=== PATIENT | female | born 2000 | race Caucasian/White ===

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

== ENCOUNTER 2019-04-22 17:00 | Emergency (ER) | payer BC ==
[2019-04-22] MEDS ORDERED: TORAdol 30 mg Injection IM ONE (17:51)
[2019-04-22] MEDS ORDERED: Norflex 60 MG/2 ML IM ONE (17:51)
[2019-04-22] MEDS ORDERED: Norflex 60 MG/2 ML ONE (17:56)
[2019-04-22] MEDS ORDERED: TORAdol 30 mg Injection ONE (17:56)
--- NOTE | 2019-04-22 18:07 | ERPHSYRPT ---
- History of Present Illness Time Seen by Provider: 04/22/19 17:40 Source: patient Exam Limitations: no limitations Patient Subjective Stated Complaint: patient stating she has had pain in her coccyx area for one year. states was vomiting and felt something in her tailbone pop at that time. has seen her family doctor but isn't sure what's causing it. had a ct scan in february and it shows possible kidney stone on the right. patient denies any urinary difficulty at this time. Triage Nursing Assessment: to room per w/c from [facility] office. patient very tearful and very guarded when transferring from w/c to the bed. skin w/d, color normal. tender in coccyx area. denies any urinary difficulty. states she had obtained urine specimen at [facility] just prior to coming to er. urine is clear, yellow. Physician History: Pt has been c/o low back pain for about one year, she states, she was vomiting once and "pop'-ed her coccyx about one year ago. She has been taking Flexeril recently and it has not been able to control her pain, she denies recent injury , no abdominal pain, vomiting, fever, chills, chest pain, other complaints, except nausea from the pain. She was seen at the [facility] today and sent here for further evaluation. Timing/Duration: other (over one year) Method of Injury: other ("popped") Quality: sharp Back Pain Location: coccyx Back Pain Radiation: buttocks, upper legs Severity of Pain-Max: severe Severity of Pain-Current: severe Modifying Factors: Improves With: nothing Associated Symptoms: nausea Previous symptoms: same symptoms as today Allergies/Adverse Reactions: hydromorphone HCl [From Dilaudid] Allergy (Severe, Verified 04/22/19 17:14) Hives Severe itching with hives penicillin G Allergy (Mild, Verified 04/22/19 17:14) Swelling diphenhydramine HCl [From Benadryl] Adverse Reaction (Mild, Verified 04/22/19 17 :14) "crazy behavior" pertussis vaccine,adsorbed [Pertussis Vaccine,Adsorbed] Adverse Reaction ( Verified 04/22/19 17:14) Swelling Home Medications: Levothyroxine Sodium 25 Mcg [Synthroid 25 Mcg] 75 mcg PO DAILY 05/05/14 [ History] Hx Tetanus, Diphtheria Vaccination/Date Given: Yes Hx Influenza Vaccination/Date Given: No Hx Pneumococcal Vaccination/Date Given: No - Review of Systems Constitutional: No Symptoms Ears, Nose, & Throat: No Symptoms Respiratory: No Symptoms Cardiac: No Symptoms Abdominal/Gastrointestinal: Nausea Genitourinary Symptoms: No Symptoms Musculoskeletal: Back Pain Skin: No Symptoms Neurological: No Symptoms Psychological: Anxiety, No Suicidal Ideations All Other Systems: Reviewed and Negative - Past Medical History Pertinent Past Medical History: Yes Neurological History: Epilepsy ENT History: No Pertinent History Cardiac History: Other Respiratory History: No Pertinent History Endocrine Medical History: Hypothyroidism Musculoskeletal History: No Pertinent History GI Medical History: Irritable Bowel History: No Pertinent History Psycho-Social History: Anxiety, Depression Female Reproductive Disorders: Menstrual Problems Other Medical History: dairy sensitivty. autism - Past Surgical History Past Surgical History: Yes Neuro Surgical History: No Pertinent History Cardiac: No Pertinent History Respiratory: No Pertinent History Gastrointestinal: No Pertinent History Genitourinary: No Pertinent History Musculoskeletal: No Pertinent History Female Surgical History: No Pertinent History Other Surgical History: egd, colonoscopy - Social History Smoking Status: Never smoker Exposure to second hand smoke: No Drug Use: none Patient Lives Alone: No - Female History Hx Last Menstrual Period: two weeks ago Hx Now: No - Nursing Vital Signs Nursing Vital Signs: Initial Vital Signs Temperature 99.5 F 04/22/19 17:04 Pulse Rate 86 04/22/19 17:04 Respiratory Rate 16 04/22/19 17:04 Blood Pressure 125/92 04/22/19 17:04 O2 Sat by Pulse Oximetry 97 04/22/19 17:04 Pain Scale Pain Intensity [Sacrum] 9 Pain Intensity 4 - Physical Exam General Appearance: no apparent distress Ears, Nose, Throat Exam: normal ENT inspection Neck Exam: normal inspection, non-tender, supple Respiratory Exam: normal breath sounds, lungs clear, airway intact, No chest tenderness Cardiovascular Exam: regular rate/rhythm, normal heart sounds, normal peripheral pulses, capillary refill <2 sec, No murmur Gastrointestinal Exam: soft, normal bowel sounds, No tenderness, No distention, No mass, No guarding, No ecchymosis, No pulsatile mass, No rebound, No organomegaly Back Exam: normal inspection, other (diffuse, bilateral sacroiliac tenderness), No CVA tenderness, No vertebral tenderness, No rash Extremity Exam: normal inspection, No calf tenderness, No alphonse's sign, No pedal edema Peripheral Pulses: dorsalis-pedis (R): 3+, dorsalis-pedis (L): 3+ Neurologic Exam: alert, oriented x 3, cooperative, normal mood/affect, other ( normal, equal lower extremity reflexes, straight leg raising normal both sides.) , No motor weakness Skin Exam: normal color, warm, dry, No rash, No petechiae, No cyanosis, No diaphoresis Lymphatic Exam: No adenopathy SpO2 Interpretation: normal SpO2: 97 O2 Delivery: Room Air - Course Nursing assessment & vital signs reviewed: Yes - Radiology Exams L-Spine X-ray Interpretation: Interpreted by me, Negative Other X-ray Interpretation: Interpreted by me, Negative (sacrococcyx) Ordered Tests: Active Orders 24 hr Category Date Time Status LUMBAR LIMITED (2 OR 3 VIEWS) Stat Exams 04/22/19 18:43 Taken SACRUM AND COCCYX Stat Exams 04/22/19 18:44 Taken CULTURE,URINE Stat Lab 04/22/19 18:12 Received HCG,QUALITATIVE URINE Stat Lab 04/22/19 18:12 Completed UA W/RFX UR CULTURE Stat Lab 04/22/19 18:12 Completed Urine Triage Profile Stat Lab 04/22/19 18:12 Completed Medication Summary Discontinued Medications Generic Name Dose Route Start Last Admin Trade Name Annabel PRN Reason Stop Dose Admin Fentanyl Citrate 50 mcg 04/22/19 19:05 04/22/19 19:25 Sublimaze 100 Mcg/2 Ml IM 04/22/19 19:06 50 mcg STAT ONE Administration Fentanyl Citrate Confirm 04/22/19 19:18 Sublimaze 100 Mcg/2 Ml Administered 04/22/19 19:19 Dose 100 mcg .ROUTE .STK-MED ONE Ketorolac Tromethamine 30 mg 04/22/19 17:51 04/22/19 17:58 Toradol 30 Mg Injection IM 04/22/19 17:52 30 mg STAT ONE Administration Ketorolac Tromethamine Confirm 04/22/19 17:56 Toradol 30 Mg Injection Administered 04/22/19 17:57 Dose 30 mg .ROUTE .STK-MED ONE Ondansetron HCl 4 mg 04/22/19 19:05 08/20/19 19:26 Zofran Odt 4 Mg PO 04/22/19 19:06 4 mg STAT ONE Administration Ondansetron HCl Confirm 04/22/19 19:18 Zofran Odt 4 Mg Administered 04/22/19 19:19 Dose 4 mg .ROUTE .STK-MED ONE Orphenadrine Citrate 60 mg 04/22/19 17:51 04/22/19 17:58 Norflex 60 Mg/2 Ml IM 04/22/19 17:52 60 mg STAT ONE Administration Orphenadrine Citrate Confirm 04/22/19 17:56 Norflex 60 Mg/2 Ml Administered 04/22/19 17:57 Dose 60 mg .ROUTE .STK-MED ONE Lab/Rad Data: Laboratory Results 04/22/19 04/22/19 04/22/19 Range/Units 18:12 18:12 18:12 Urine Color YELLOW (YELLOW) Urine Appearance CLEAR (CLEAR) Urine pH 5.0 (5-6) Ur Specific [place] 1.012 (1.005-1.025) Urine Protein NEGATIVE (Negative) Urine Ketones NEGATIVE (NEGATIVE) Urine Blood SMALL (0-5) Mateo/ul Urine Nitrite NEGATIVE (NEGATIVE) Urine Bilirubin NEGATIVE (NEGATIVE) Urine Urobilinogen NEGATIVE (0-1) mg/dL Ur Leukocyte Esterase SMALL (NEGATIVE) Urine WBC (Auto) 3-5 (0-5) /HPF Urine RBC (Auto) 3-5 (0-2) /HPF U Epithel Cells (Auto) RARE (FEW) /HPF Urine Bacteria (Auto) NONE (NEGATIVE) /HPF Urine Mucus (Auto) SLIGHT (NEGATIVE) /HPF Urine Culture Reflexed YES (NO) Urine Glucose NEGATIVE (NEGATIVE) mg/dL Urine HCG, Qual NEGATIVE (Negative) Urine Opiates Level NEGATIVE (NEGATIVE) Ur Methadone NEGATIVE (NEGATIVE) Urine Barbiturates NEGATIVE (NEGATIVE) Ur Phencyclidine (PCP) NEGATIVE (NEGATIVE) Urine Amphetamine NEGATIVE (NEGATIVE) U Benzodiazepine Level NEGATIVE (NEGATIVE) Urine Cocaine NEGATIVE (NEGATIVE) Urine Marijuana (THC) NEGATIVE (NEGATIVE) - Progress Progress: improved Progress Note: 04/22/19 19:42 Pt states, slightly improved after Toradol, and Fentanyl IM, abdomen is soft, nontender, no flank tenderness, reviewed her X rays, and labs, discussed with her and her mother, suggested to rest x 2-3 days alternate ice and hot on the painful spots, and follow up with her physician in 2-3 days. Counseled pt/family regarding: lab results, diagnosis, need for follow-up, rad results - Departure Departure Disposition: Home Clinical Impression: Back pain Qualifiers: Back pain location: low back pain Chronicity: chronic Back pain laterality: unspecified Sciatica presence: without sciatica Qualified Code(s): M54.5 - Low back pain; G89.29 - Other chronic pain Condition: Stable Critical Care Time: No Referrals: JAMEE CONNER MD [Primary Care Provider] - Instructions: Low Back Pain (DC) Additional Instructions: Rest x 2-3 days, alternate ice and warm, follow up with her physician in 2-3 days, return if severe pain, sudden leg weakness, numbness, or loss of bladder, bowel control! Prescriptions: Diclofenac Sodium 50 mg [Voltaren 50 mg] 50 mg PO TID #30 tablet.ec
[2019-04-22 18:14] LABS: Appearance CLEAR (CLEAR); Bilirubin NEGATIVE (NEGATIVE); Blood SMALL Ery/ul (0-5); Epithelial Cells RARE /HPF (FEW); Glucose NEGATIVE (NEGATIVE); Ketones NEGATIVE (NEGATIVE); Leukocyte Esterase SMALL (NEGATIVE); Mucus SLIGHT /HPF (NEGATIVE); Nitrite NEGATIVE (NEGATIVE); Protein,Urine Dip NEGATIVE (Negative); Specific Gravity 1.012 (1.005-1.025); Urobilinogen NEGATIVE mg/dL (0-1)
[2019-04-22 18:27] LABS: Amphetamine,Urine NEGATIVE (NEGATIVE); Barbiturate,Urine NEGATIVE (NEGATIVE); Benzodiazepine,Urine NEGATIVE (NEGATIVE); Cocaine,Urine NEGATIVE (NEGATIVE); Methadone,Urine NEGATIVE (NEGATIVE); Opiate,Urine NEGATIVE (NEGATIVE); PCP,Urine NEGATIVE (NEGATIVE); THC,Urine NEGATIVE (NEGATIVE)
[2019-04-22] MEDS ORDERED: ZOFRAN ODT 4 MG PO ONE (19:05)
[2019-04-22] MEDS ORDERED: SUBLIMAZE 100 MCG/2 ML IM ONE (19:05)
[2019-04-22] MEDS ORDERED: ZOFRAN ODT 4 MG ONE (19:18)
[2019-04-22] MEDS ORDERED: SUBLIMAZE 100 MCG/2 ML ONE (19:18)
[2019-04-22 20:01] VITALS: BP 125/88; PULSE 85; O2SAT 98
--- NOTE | 2019-04-23 08:36 | XRAY ---
Indication: Low back pain. Comparison: None 3 views of the sacrum/coccyx demonstrates lower lumbar degenerative changes reported separately. No other bony, articular, or soft tissue abnormalities.
--- NOTE | 2019-04-23 08:36 | XRAY ---
Indication: Low back pain. Comparison: None 3 views of the lumbar spine demonstrates 5 lumbar vertebral segments in normal alignment with vertebral body heights/disc spaces maintained and mild bilateral L5-S1 degenerative facet hypertrophy. No other bony, articular, or soft tissue abnormalities.
== END 2019-04-22 19:59 | disposition home or self-care (01) ==
LOC: ED 17:00
DX: M54.5 Low back pain (principal); G89.29 Other chronic pain
CPT/HCPCS: 72100; 72220; 80307; 81001; 84703; 87086; 96372; 99284; J1885; J2360; J3010; Q0162

== ENCOUNTER 2019-04-28 07:21 | Emergency (ER) | payer BC | END 2019-04-28 09:52 | disposition home or self-care (01) | LOC: ED 07:21 ==

== ENCOUNTER 2019-05-01 16:09 | Observation (INO) | payer BC ==
[2019-05-01] MEDS ORDERED: Zofran 4 MG/2 ML VIAL IV PRN (16:33)
[2019-05-01] MEDS ORDERED: MORPHINE SULFATE 10 MG/ML IV PRN (16:33)
[2019-05-01] MEDS ORDERED: Sodium Chloride 0.9% 1000 ML 1,000 ML IV STA (16:33)
[2019-05-01] MEDS: Lactated Ringers 1,000 ML IV SCH (17:03)
[2019-05-01] MEDS ORDERED: MEDICATION INTERVENTION MC SCH (17:30)
[2019-05-01] MEDS ORDERED: solu-MEDROL 40 MG IV ONE (17:36)
[2019-05-01] MEDS ORDERED: Pepcid 20 MG VIAL IV PRN (19:55)
[2019-05-01] MEDS: TORAdol 30 mg Injection IV PRN (20:16)
[2019-05-02] MEDS ORDERED: solu-MEDROL 125 MG IV PRN
[2019-05-02] MEDS ORDERED: solu-MEDROL 125 MG ONE ×2 (01:09→06:59)
[2019-05-02] MEDS: TORAdol 30 mg Injection IV PRN ×3 (02:18→20:21)
[2019-05-02] MEDS: Lactated Ringers 1,000 ML IV SCH ×2 (02:24→16:11)
[2019-05-02 06:09] LABS: Amphetamine,Urine NEGATIVE (NEGATIVE); Barbiturate,Urine NEGATIVE (NEGATIVE); Benzodiazepine,Urine NEGATIVE (NEGATIVE); Cocaine,Urine NEGATIVE (NEGATIVE); Methadone,Urine NEGATIVE (NEGATIVE); Opiate,Urine POSITIVE (NEGATIVE); PCP,Urine NEGATIVE (NEGATIVE); THC,Urine NEGATIVE (NEGATIVE)
[2019-05-02] MEDS ORDERED: SUBLIMAZE 100 MCG/2 ML IV ONE (06:30)
[2019-05-02] MEDS ORDERED: solu-MEDROL 125 MG IV ONE (06:58)
[2019-05-02] MEDS ORDERED: Ativan 2 MG/1 ML VIAL IV ONE (08:34)
--- NOTE | 2019-05-02 08:40 | PCM.HP.ADD ---
Addendum to History & Physical - History & Physical Addendum Addendum to History & Physical: This certifies that the History & Physical in the electronic chart reflects the current health status of the patient. If there are changes in the H&P these changes/exceptions are listed as follows.
--- NOTE | 2019-05-02 08:46 | PCM.NOTE ---
Date and Time: 05/02/19839 Subjective Assessment: Pt was admitted from office yesterday with intractable back pain, N/V/ dehydration. She was given IV fluids overnight. Continues to have 10/10 pain; currently pain is mid and paraspinal from mid thoracic area to lower back. No pain radiating down the legs currently. Her CT abd/pelvis was neg for renal stone. She was given morphine initially, but had itching. Pt also allergic to benadryl. She was given IV solumedrol. Then was given IV toradol, nurse thought with some relief, pt says without relief but said it caused itching ( toradol didn't) so she may be confused on which med did that. 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 - Review of Systems Constitutional: No Fever Respiratory: No Cough Objective Exam General Appearance: moderate distress, alert Neurologic Exam: oriented x 3, cooperative Skin Exam: normal color, warm, dry, No rash Respiratory Exam: normal breath sounds, lungs clear, No crackles/rales, No rhonchi, No wheezing Cardiovascular Exam: regular rate/rhythm, normal heart sounds, No murmur Gastrointestinal/Abdomen Exam: soft, normal bowel sounds, No tenderness, No distention, No mass, No guarding, No rebound Extremity Exam: normal inspection, No pedal edema, No swelling OBJECTIVE DATA Vital Signs: Vital Signs - 24 hr Temp Pulse Resp BP Pulse Ox 05/02/19 08:00 98.8 F 75 20 114/74 97 05/02/19 04:00 97.8 F 59 L 18 122/79 97 05/01/19 23:44 97.7 F 58 L 19 114/68 96 05/01/19 20:00 98.0 F 59 L 19 113/66 97 05/01/19 16:32 98.4 F 81 16 138/90 98 05/01/19 16:14 98.4 F 81 16 131/90 98 Pain Assessment - Last Documented Pain Intensity 10 Pain Scale Used 0-10 Pain Scale Intake and Output: Intake & Output 04/29/19 04/30/19 05/01/19 05/02/19 11:59 11:59 11:59 11:59 Intake Total 1884 Output Total 400 Balance 1484 Weight 61.5 kg Lab Results: Lab Results-Last 24 Hours 05/01/19 05/02/19 Range/Units Unknown 05:15 Serum , Qual NEGATIVE (Negative) Urine Opiates Level POSITIVE (NEGATIVE) Ur Methadone NEGATIVE (NEGATIVE) Urine Barbiturates NEGATIVE (NEGATIVE) Ur Phencyclidine (PCP) NEGATIVE (NEGATIVE) Urine Amphetamine NEGATIVE (NEGATIVE) U Benzodiazepine Level NEGATIVE (NEGATIVE) Urine Cocaine NEGATIVE (NEGATIVE) Urine Marijuana (THC) NEGATIVE (NEGATIVE) Radiology Exams: Radiology Procedures Category Date Time Status ABDOMEN AND PELVIS W/0 CONTRAS [CT] Stat Exams 05/01/19 16:35 Taken MRI L-SPINE WITHOUT CONTRAST [MRI] Routine Exams 05/02/19 16:35 Ordered Assessment/Plan (1) Intractable back pain Current Visit: No Status: Acute Assessment & Plan: Unsure the etiology. Not renal stone. UA was ordered in office, but she didn't have any urine until she got here and UA was not ordered inpatient - so will order it now. MRI spine is pending - will keep her NPO (on IV fluids) until after that. Ativan IV to help her lie still on MRI table. If unable, will do CT. After results are in, can decide if pt needs neurosurgery, neurology, etc. There is positive opiates on her UDS but she had already received IV morphine when the sample was obtained. Code(s): M54.9 - DORSALGIA, UNSPECIFIED (2) Dehydration Current Visit: No Status: Resolved Code(s): E86.0 - DEHYDRATION (3) Asperger syndrome Current Visit: Yes Status: Acute Assessment & Plan: per chart Code(s): F84.5 - ASPERGER'S SYNDROME (4) Depressive disorder Current Visit: No Status: Chronic Assessment & Plan: per chart; I see she has hx of suicidal ideation. Currently pt is in so much pain we have not discussed depression. Code(s): F32.9 - MAJOR DEPRESSIVE DISORDER, SINGLE EPISODE, UNSPECIFIED
--- NOTE | 2019-05-02 08:46 | XRAY ---
Indication: Intractable back pain. Multiple contiguous axial images obtained through the abdomen and pelvis without contrast as ordered. Comparison: October 14, 2015. Lung bases again demonstrates right lower lobe calcified granuloma. No infiltrate or effusion. Heart is not enlarged. Noncontrasted stomach and bowel loops appear nonobstructed. Normal appendix. No free fluid/air. New tampon in situ. Stable tiny hepatic/splenic calcified granulomas. Remaining liver, gallbladder, pancreas, spleen, adrenal glands, kidneys, ureters, bladder, uterus, and aorta appear unremarkable for noncontrast exam. Osseous structures intact. Impression: Again evidence for old granulomatous disease. Remaining CT abdomen/pelvis without contrast exam is negative. CT DI 13.00
[2019-05-02] MEDS ORDERED: SYNTHROID 25 MCG PO SCH (10:00)
--- NOTE | 2019-05-02 10:24 | XRAY ---
Indication: Chronic low back pain radiating both legs, left greater than right. No known injury. Sagittal and axial MRI lumbar spine performed without contrast using T1 and T2 weighted sequences. Comparison: None Lumbar radiograph dated April 22, 2019 documents 5 lumbar segments. Sagittal MRI images demonstrates normal lumbar alignment. Discs are normal in MRI signal and morphology. No acute fracture, subluxation, or abnormal bone marrow signal. Conus medullaris terminates at the inferior L1 level. Sagittal images through the T12-L3 levels are unremarkable. Axial images at the L3-L4-L5 levels are negative for disc herniation, spinal canal, or foraminal stenosis. Facets are symmetric with minimal L4-L5 degenerative facet arthropathy. At the L5-S1 level, there is tiny central annular tear without disc herniation or canal stenosis. Foramina bilaterally patent. Mild bilateral degenerative facet arthropathy. Impression: Tiny L5-S1 annular tear and L4-S1 degenerative facet arthropathy. Remaining MRI lumbar spine is negative.
[2019-05-02] MEDS: SYNTHROID 75 MCG PO SCH (10:26)
[2019-05-02] MEDS: Cyclobenzaprine 10 MG PO SCH ×3 (12:19→22:52)
[2019-05-02] MEDS ORDERED: [UNRECOGNIZED DRUG - OTHER] PO SCH (17:00)
[2019-05-02 23:16] LABS: Appearance SLIGHTLY CLOUDY (CLEAR); Bilirubin NEGATIVE (NEGATIVE); Blood NEGATIVE Ery/ul (0-5); Epithelial Cells RARE /HPF (FEW); Glucose NEGATIVE (NEGATIVE); Ketones MODERATE (NEGATIVE); Leukocyte Esterase NEGATIVE (NEGATIVE); Mucus SLIGHT /HPF (NEGATIVE); Nitrite NEGATIVE (NEGATIVE); Protein,Urine Dip NEGATIVE (Negative); Specific Gravity 1.032 (1.005-1.025); Urobilinogen 2 mg/dL (0-1); WBC 0-2 /HPF (0-5)
[2019-05-03] MEDS: Lactated Ringers 1,000 ML IV SCH ×2 (02:06→12:07)
[2019-05-03] MEDS: TORAdol 30 mg Injection IV PRN ×2 (05:29→11:33)
[2019-05-03] MEDS ORDERED: TYLENOL 325 MG PO PRN (10:10)
[2019-05-03] MEDS ORDERED: Cyclobenzaprine 10 MG PO PRN (10:10)
[2019-05-03] MEDS: SYNTHROID 75 MCG PO SCH (11:22)
[2019-05-03 11:38] LABS: BASOPHIL % 0.1 % (0.0-0.4); Basophil (Absolute #) 0.01 (0-0.4); Eosinophil % 0.8 % (0.00-5.0); Eosinophil (Absolute #) 0.08 (0-0.5); Granulocyte Absolute (ANC) 4.66 (1.4-6.9); Granulocytes % 46.1 % (36.0-66.0); Hematocrit 37.8 % (35-47); Hemoglobin 12.5 gm/dl (12.0-16.0); Lymphocyte (Absolute #) 4.33 (1.0-4.6); Lymphocytes % 42.8 % (24.0-44.0); Mean Cell Volume 93.1 fl (78-100); Mean Corpuscular Hgb Concent. 33.1 g/dl (32-36); Mean Platelet Volume 9.3 fl (6-9.5); Monocyte (Absolute #) 1.03 (0.0-1.3); Monocytes % 10.2 % (0.0-12.0); Platelet Count 236 K/mm3 (150-450); Red Blood Count 4.06 M/mm3 (4.1-5.4); Red Cell Distribution Width 12.1 % (11.5-14.0); White Blood Count 10.1 K/mm3 (4.0-10.5)
[2019-05-03 11:55] LABS: Mean Corpuscular Hemoglobin 30.7 pg (26-32)
--- NOTE | 2019-05-03 11:56 | PCM.NOTE ---
Date and Time: 05/03/19 1151 Subjective Assessment: Patient reports continued back pain. PT notes she is able to stand and neg straight leg raises bilat. Patient had lumbar MRI yesterday. She states pain is all the way up and down her back and started one year ago she heard a pop. She reports worse x 1-[address] Barr is now her pcp. She was not seeing a doctor before this as she states she didn't like her previous pcp. She denies any falls. She reports that she is safe at home. 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 She declines any further medication to help manage her pain. Discussed scheduled tylenol, NSAID, even cymbalta but states she wants to try with PT. PT has recommended outpatient therapy. She denies being sexually active or any vaginal discharge. - Review of Systems Constitutional: No Fever Eyes: No Symptoms Ears, Nose, & Throat: No Symptoms Respiratory: No Symptoms Cardiac: No Symptoms Abdominal/Gastrointestinal: No Symptoms Genitourinary Symptoms: No Symptoms Musculoskeletal: Back Pain Objective Exam General Appearance: no apparent distress, alert, other (lying in bed on right side with ice over lower back/upper buttocks) Skin Exam: normal color, warm, dry, No rash Respiratory Exam: normal breath sounds, lungs clear, No crackles/rales, No rhonchi, No wheezing Cardiovascular Exam: regular rate/rhythm, normal heart sounds, No murmur, No friction rub, No gallop Gastrointestinal/Abdomen Exam: soft, normal bowel sounds, No tenderness, No distention, No mass Extremity Exam: normal inspection, other (no c/c/e) Back Exam: other (mild tenderness over SI joints bilat, no point paraspinal muscle tenderness) OBJECTIVE DATA Vital Signs: Vital Signs - 24 hr Temp Pulse Resp BP Pulse Ox 05/03/19 07:15 98.3 F 59 L 18 122/77 99 05/03/19 04:00 98.0 F 54 L 16 112/70 98 05/03/19 00:00 98.1 F 51 L 18 101/60 99 05/02/19 20:00 98.0 F 54 L 16 112/72 94 L 05/02/19 16:00 98.1 F 44 L 18 105/66 96 05/02/19 11:59 98.3 F 50 L 18 110/66 99 Pain Assessment - Last Documented Pain Intensity 9 Pain Scale Used 0-10 Pain Scale Intake and Output: Intake & Output 05/01/19 05/02/19 05/03/19 05/04/19 06:59 06:59 06:59 06:59 Intake Total 1884 980 120 Output Total 400 1110 600 Balance 1484 -130 -480 Weight 61.5 kg Lab Results: Lab Results-Last 24 Hours 05/02/19 Range/Units 23:11 Urine Color YELLOW (YELLOW) Urine Appearance SLIGHTLY CLOUDY (CLEAR) Urine pH 6.0 (5-6) Ur Specific [place] 1.032 (1.005-1.025) Urine Protein NEGATIVE (Negative) Urine Ketones MODERATE (NEGATIVE) Urine Blood NEGATIVE (0-5) Mateo/ul Urine Nitrite NEGATIVE (NEGATIVE) Urine Bilirubin NEGATIVE (NEGATIVE) Urine Urobilinogen 2 (0-1) mg/dL Ur Leukocyte Esterase NEGATIVE (NEGATIVE) Urine WBC (Auto) 0-2 (0-5) /HPF Urine RBC (Auto) NONE (0-2) /HPF U Epithel Cells (Auto) RARE (FEW) /HPF Urine Bacteria (Auto) NONE (NEGATIVE) /HPF Urine Mucus (Auto) SLIGHT (NEGATIVE) /HPF Urine Culture Reflexed NO (NO) Urine Glucose NEGATIVE (NEGATIVE) mg/dL Radiology Exams: Radiology Procedures Category Date Time Status ABDOMEN AND PELVIS W/0 CONTRAS [CT] Stat Exams 05/01/19 16:35 Completed MRI L-SPINE WITHOUT CONTRAST [MRI] Routine Exams 05/02/19 16:35 Completed Multi-Disciplinary Progress Notes: Multi-Disciplinary Progress Notes 05/02/19 16:41 Physical Therapy Note by Qamar Brown PT attempted eval 2x this afternoon. Pt was very drowsy and unable to communicate effectively. Pt was unable to stay alert enough to answer questions for eval or educate on low back pain. Initialized on 05/02/19 16:41 - END OF NOTE Assessment/Plan (1) Chronic back pain Current Visit: Yes Status: Acute Qualifiers: Back pain location: low back pain Back pain laterality: bilateral Assessment & Plan: Continue cyclobenzaprine but change to prn. Offered NSAID, tylenol, and cymbalta but patient declines. She states she doesn't like to put chemicals in her body. Will recheck CBC, BMP, ESR and if these look good, may consider discharge today to follow with PT as outpatient and PCP, Dr. Barr. Discussed outpatient pain management might be an option for possible injections. May also be an element of inflammation of SI joint also which is hard to treat but could be injected with steroid by pain management. Code(s): M54.9 - DORSALGIA, UNSPECIFIED; G89.29 - OTHER CHRONIC PAIN (2) Autism spectrum disorder Current Visit: No Status: Chronic Code(s): F84.0 - AUTISTIC DISORDER
[2019-05-03 11:58] LABS: ANION GAP 7.9 MEQ/L (5-15); BLOOD UREA NITROGEN 24 mg/dL (7-17); CHLORIDE 107 mmol/L (98-107); Carbon Dioxide 27 mmol/L (22-30); Creatinine 1 0.61 mg/dL (0.52-1.04); Glucose 76 mg/dL (74-106); Potassium 3.8 mmol/L (3.5-5.1); SODIUM 138 mmol/L (137-145)
[2019-05-03 12:08] LABS: Calcium 8.6 mg/dL (8.4-10.2)
--- NOTE | 2019-05-03 15:41 | PCM.DCORD ---
- Discharge Discharge Date: 05/03/19 Disposition: Home, Self-Care Condition: Fair Prescriptions: New Cyclobenzaprine HCl 10 mg [Cyclobenzaprine 10 MG] 10 mg PO TID PRN PRN #20 tablet PRN Reason: Muscle Spasms Acetaminophen 325 mg [Tylenol 325 mg] 650 mg PO Q4H PRN PRN tablet PRN Reason: Pain Continue Levothyroxine Sodium 25 Mcg [Synthroid 25 Mcg] 75 mcg PO DAILY Non-Formulary Drug [Non-Formulary Item] 1 tab PO 1700 Outpatient Orders: Physical Therapy Eval & Treat Location: PHYSICAL THERAPY Follow up with: HALLIE KIDD [Primary Care Provider] - 1 Week
[2019-05-03 16:26] VITALS: BP 116/66; PULSE 68; O2SAT 98
--- NOTE | 2019-05-06 15:07 | DS ---
DISCHARGE DIAGNOSES: 1) CHRONIC BACK PAIN. 2) AUTISM SPECTRUM DISORDER. DISCHARGE PHYSICAL EXAMINATION: VITALS: Temperature current 98.3F, temperature max 98.3F, heart rate 59, respiratory rate 18, blood pressure 122/77, weight 61.5 kg. Oxygen saturation 99% on room air. GENERAL: The patient was lying in bed in no acute distress. She was alert and talkative. She was lying on her right side with a bag of ice over her lower back/upper buttock. SKIN: Warm, dry and intact. CVS: Her heart had a regular rate and rhythm. No murmurs, gallops or rubs. CHEST: Clear to auscultation bilaterally. No crackles or wheezes are appreciated. ABDOMEN: Soft, nontender, nondistended with normal bowel sounds. EXTREMITIES: No clubbing, cyanosis or edema. She had some tenderness over her sacroiliac joints bilaterally. No point tenderness over paraspinal muscles appreciated. HOSPITAL COURSE: 1) CHRONIC BACK PAIN: The patient had reported to me that she had pain that would go all the way up and down her back. It started one year ago after she heard a pop and had been worse for the past one to two months. She is now seeing Dr. Barr as a primary care provider and had a lumbar MRI that did not show any disc herniation. Please see the radiologist report for the full dictation. She was seen by PT and I reviewed their report. They felt like she should do outpatient PT. I talked with the patient about medication management and she did not want to have scheduled Tylenol, NSAID or try Cymbalta as she wanted to see PT and so we decided to discharge her to home to follow with outpatient physical therapy. Her discharge orders included Flexeril which she had been given here in the hospital but changed to as needed and then she can take Tylenol 650 mg every four hours as needed for pain. I also discussed with her the possibility of going to Pain Management for possible injections. If her sacroiliac joint is found to be the problems she may benefit from injection in this. 2) AUTISM SPECTRUM DISORDER: This was stable during her hospitalization. I saw her on the day of discharge. Please see the discharge order for discharge medications. She is discharged to home in stable condition to follow up with Dr. Barr as an outpatient as well as PT.
== END 2019-05-03 17:15 | disposition home or self-care (01) ==
LOC: MED SURG 16:09
PROVIDERS: ADMIT Family Medicine; ATTEND Family Medicine
DX: M54.9 Dorsalgia, unspecified (principal); G89.29 Other chronic pain; R11.2 Nausea with vomiting, unspecified; E86.0 Dehydration; F84.0 Autistic disorder; F32.9 Major depressive disorder, single episode, unspecified
CPT/HCPCS: 36415; 72148; 74176; 80048; 80053; 80307; 81001; 81025; 83970; 85025; 85652; 97110; 97161; G0378; J1885; J2060; J2270; J2920; J2930; J3010; A9270-GY

== ENCOUNTER 2019-06-05 21:05 | Emergency (ER) | payer BC ==
[2019-06-05 21:35] VITALS: O2SAT 100
--- NOTE | 2019-06-05 21:42 | ERPHSYRPT ---
- History of Present Illness Time Seen by Provider: 06/05/19 21:41 Source: patient Exam Limitations: no limitations Patient Subjective Stated Complaint: Pt states she passed out at home once today but has history of passing out. Also has pain all over. States the pain has been off and on for a 1 year but constant for the past month. Saw pain management once for consultation for injection in spine. Has done PT a couple of times. Triage Nursing Assessment: Pt wheeled to room 2. Alert & oriented. Changed into gown and transferred into bed per self. Respirations easy and non-labored. Skin pink warm and dry. 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 pt denies head injury. pt denies cp, soa, abd pain. she denies n/v/d. Witnessed: unwitnessed Prior Episodes: single episode today Timing/Duration: improved Precipitating Factors: unknown Loss of Consciousness: no loss of consciousness Charcter of event(s): almost passed out Allergies/Adverse Reactions: hydromorphone HCl [From Dilaudid] Allergy (Severe, Verified 04/22/19 17:14) Hives Severe itching with hives penicillin G Allergy (Mild, Verified 04/22/19 17:14) Swelling diphenhydramine HCl [From Benadryl] Adverse Reaction (Mild, Verified 04/22/19 17 :14) "crazy behavior" pertussis vaccine,adsorbed [Pertussis Vaccine,Adsorbed] Adverse Reaction ( Verified 04/22/19 17:14) Swelling Home Medications: Non-Formulary Drug [Non-Formulary Item] 1 tab PO 1700 05/01/19 [History] Baclofen 10 mg [Lioresal 10 mg] 10 mg PO TID 06/05/19 [History] Hydroxyzine HCl 25 mg [Atarax 25 mg] 25 mg PO TID 06/05/19 [History] Levothyroxine Sodium 75 Mcg [Synthroid 75 Mcg] 75 mcg PO DAILY 06/05/19 [ History] Hx Tetanus, Diphtheria Vaccination/Date Given: Yes (unsure of date, few yrs ago) Hx Influenza Vaccination/Date Given: No Hx Pneumococcal Vaccination/Date Given: No - Past Medical History Pertinent Past Medical History: Yes Neurological History: Epilepsy, Seizures ENT History: No Pertinent History Cardiac History: Other Respiratory History: Bronchitis, Pneumonia Endocrine Medical History: Hypothyroidism Musculoskeletal History: Other GI Medical History: Irritable Bowel History: No Pertinent History Psycho-Social History: Anxiety, Depression Female Reproductive Disorders: Endometriosis, Menstrual Problems Other Medical History: HX OF "SLIGHT" HEART MURMUR - NOT SEEN BY FINISHING [employer]. lactose intolerant - Past Surgical History Past Surgical History: Yes Neuro Surgical History: No Pertinent History Cardiac: No Pertinent History Respiratory: No Pertinent History Gastrointestinal: No Pertinent History Genitourinary: No Pertinent History Musculoskeletal: No Pertinent History Female Surgical History: No Pertinent History Other Surgical History: egd, colonoscopy. wisdom teeth - Social History Smoking Status: Never smoker Exposure to second hand smoke: No Drug Use: none Patient Lives Alone: No - Female History Hx Last Menstrual Period: last week Hx Now: No - Review of Systems Constitutional: No Symptoms Eyes: No Symptoms Ears, Nose, & Throat: No Symptoms Respiratory: No Symptoms Cardiac: No Symptoms Abdominal/Gastrointestinal: No Symptoms Genitourinary Symptoms: No Symptoms Musculoskeletal: No Symptoms Skin: No Symptoms Neurological: Dizziness Psychological: No Symptoms Endocrine: No Symptoms Hematologic/Lymphatic: No Symptoms Immunological/Allergic: No Symptoms All Other Systems: Reviewed and Negative Physical Exam - Nursing Vital Signs Nursing Vital Signs: Initial Vital Signs Temperature 99.1 F 06/05/19 21:23 Pulse Rate 94 H 06/05/19 21:23 Respiratory Rate 20 06/05/19 21:23 Blood Pressure 131/107 06/05/19 21:23 O2 Sat by Pulse Oximetry 100 06/05/19 21:23 Pain Scale Pain Intensity 9 - Da Coma Scale Best Eye Response ([place]): (4) open spontaneously Best Verbal Response ([place]): (5) oriented Best Motor Response (Da): (6) obeys commands [place] Total: 15 - Physical Exam General Appearance: no apparent distress, alert, anxiety Eye Exam: bilateral eye: normal inspection, PERRL, EOMI Ears, Nose, Throat Exam: normal ENT inspection, TMs normal, moist mucous membranes Neck Exam: normal inspection, non-tender, supple, full range of motion Respiratory: normal breath sounds, lungs clear, airway intact, No chest tenderness, No respiratory distress Cardiovascular: regular rate/rhythm, normal heart sounds, normal peripheral pulses Gastrointestinal: soft, normal bowel sounds, No tenderness Pelvic Exam: not done Rectal Exam: not done Back Exam: normal inspection, normal range of motion, No CVA tenderness, No vertebral tenderness Extremity Exam: normal inspection, normal range of motion, pelvis stable Mental Status: alert, oriented x 3, cooperative, 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 Exam: normal hearing, normal speech, PERRL, tongue midline Motor/Sensory: no motor deficit, no sensory deficit Skin Exam: normal color, warm, dry SpO2 Interpretation: normal SpO2: 100 O2 Delivery: Room Air - Course Nursing assessment & vital signs reviewed: Yes EKG Interpreted by Me: RATE (84), Sinus Rhythm, NORMAL AXIS, NORMAL INTERVALS, NORMAL QRS, Other (only new finding compared to ekg dated 09/05/18 is right ventricular hypertrophy) Ordered Tests: Active Orders 24 hr Category Date Time Status Clean Catch Urine Specimen STAT Care 06/05/19 22:23 Active EKG-ER Only STAT Care 06/05/19 22:23 Active IV Insertion STAT Care 06/05/19 22:23 Active CBC W DIFF Stat Lab 06/05/19 22:45 Completed CMP Stat Lab 06/05/19 22:45 Completed CULTURE,URINE Stat Lab 06/05/19 23:00 Received UA W/RFX UR CULTURE Stat Lab 06/05/19 23:00 Completed Urine Triage Profile Stat Lab 06/05/19 23:00 Completed Medication Summary Discontinued Medications Generic Name Dose Route Start Last Admin Trade Name Freq PRN Reason Stop Dose Admin Sodium Chloride 1,000 mls @ 999 mls/hr 06/05/19 22:23 06/05/19 23:01 Sodium Chloride 0.9% 1000 Ml IV 06/05/19 23:23 999 mls/hr .Q1H1M STA Administration Sodium Chloride Confirm 06/05/19 23:01 Sodium Chloride 0.9% 1000 Ml Administered 06/05/19 23:02 Dose 1,000 mls @ ud .ROUTE .STK-MED ONE Ceftriaxone Sodium/Dextrose 1 g in 50 mls @ 100 mls/hr 06/05/19 23:31 23:47 Rocephin 1 Gm-D5w 50 Ml Bag IV 06/06/19 00:00 100 ml/hr STAT STA 100 mls/hr Administration Ceftriaxone Sodium/Dextrose Confirm 06/05/19 23:46 Rocephin 1 Gm-D5w 50 Ml Bag Administered 06/05/19 23:47 Dose 1 g in 50 mls @ ud IV .STK-MED ONE Lab/Rad Data: Laboratory Result Diagrams 06/05/19 22:45 06/05/19 22:45 Laboratory Results 06/05/19 06/05/19 06/05/19 Range/Units 23:00 23:00 22:45 WBC (4.0-10.5) K/mm3 RBC (4.1-5.4) M/mm3 Hgb (12.0-16.0) gm/dl Hct (35-47) % MCV (78-100) fl MCH (26-32) pg MCHC (32-36) g/dl RDW (11.5-14.0) % Plt Count (150-450) K/mm3 MPV (6-9.5) fl Gran % (36.0-66.0) % Eos # (Auto) (0-0.5) Absolute Lymphs (auto) (1.0-4.6) Absolute Monos (auto) (0.0-1.3) Lymphocytes % (24.0-44.0) % Monocytes % (0.0-12.0) % Eosinophils % (0.00-5.0) % Basophils % (0.0-0.4) % Absolute Granulocytes (1.4-6.9) Basophils # (0-0.4) Sodium 142 (137-145) mmol/L Potassium 4.6 (3.5-5.1) mmol/L Chloride 105 (98-107) mmol/L Carbon Dioxide 26 (22-30) mmol/L Anion Gap 15.4 H (5-15) MEQ/L BUN 8 (7-17) mg/dL Creatinine 0.66 (0.52-1.04) mg/dL Estimated GFR > 60.0 ML/MIN Glucose 86 (74-106) mg/dL Calcium 10.3 H (8.4-10.2) mg/dL Total Bilirubin 0.60 (0.2-1.3) mg/dL AST 20 (14-36) U/L ALT 16 (0-35) U/L Alkaline Phosphatase 81 (38-126) U/L Serum Total Protein 7.6 (6.3-8.2) g/dL Albumin 4.5 (3.5-5.0) g/dL Urine Color YELLOW (YELLOW) Urine Appearance CLOUDY (CLEAR) Urine pH 5.0 (5-6) Ur Specific [place] 1.019 (1.005-1.025) Urine Protein NEGATIVE (Negative) Urine Ketones NEGATIVE (NEGATIVE) Urine Blood SMALL (0-5) Mateo/ul Urine Nitrite NEGATIVE (NEGATIVE) Urine Bilirubin NEGATIVE (NEGATIVE) Urine Urobilinogen NEGATIVE (0-1) mg/dL Ur Leukocyte Esterase LARGE (NEGATIVE) Urine WBC (Auto) 11-15 (0-5) /HPF Urine RBC (Auto) 6-10 (0-2) /HPF U Epithel Cells (Auto) MODERATE (FEW) /HPF Urine Bacteria (Auto) MODERATE (NEGATIVE) /HPF Urine Mucus (Auto) MANY (NEGATIVE) /HPF Urine Culture Reflexed YES (NO) Urine Glucose NEGATIVE (NEGATIVE) mg/dL Urine Opiates Level NEGATIVE (NEGATIVE) Ur Methadone NEGATIVE (NEGATIVE) Urine Barbiturates NEGATIVE (NEGATIVE) Ur Phencyclidine (PCP) NEGATIVE (NEGATIVE) Urine Amphetamine NEGATIVE (NEGATIVE) U Benzodiazepine Level NEGATIVE (NEGATIVE) Urine Cocaine NEGATIVE (NEGATIVE) Urine Marijuana (THC) NEGATIVE (NEGATIVE) 06/05/19 Range/Units 22:45 WBC 9.7 (4.0-10.5) K/mm3 RBC 4.89 (4.1-5.4) M/mm3 Hgb 15.2 (12.0-16.0) gm/dl Hct 44.5 (35-47) % MCV 91.0 (78-100) fl MCH 31.1 (26-32) pg MCHC 34.2 (32-36) g/dl RDW 12.6 (11.5-14.0) % Plt Count 281 (150-450) K/mm3 MPV 9.3 (6-9.5) fl Gran % 69.7 H (36.0-66.0) % Eos # (Auto) 0.08 (0-0.5) Absolute Lymphs (auto) 2.13 (1.0-4.6) Absolute Monos (auto) 0.73 (0.0-1.3) Lymphocytes % 21.9 L (24.0-44.0) % Monocytes % 7.5 (0.0-12.0) % Eosinophils % 0.8 (0.00-5.0) % Basophils % 0.1 (0.0-0.4) % Absolute Granulocytes 6.76 (1.4-6.9) Basophils # 0.01 (0-0.4) Sodium (137-145) mmol/L Potassium (3.5-5.1) mmol/L Chloride (98-107) mmol/L Carbon Dioxide (22-30) mmol/L Anion Gap (5-15) MEQ/L BUN (7-17) mg/dL Creatinine (0.52-1.04) mg/dL Estimated GFR ML/MIN Glucose (74-106) mg/dL Calcium (8.4-10.2) mg/dL Total Bilirubin (0.2-1.3) mg/dL AST (14-36) U/L ALT (0-35) U/L Alkaline Phosphatase (38-126) U/L Serum Total Protein (6.3-8.2) g/dL Albumin (3.5-5.0) g/dL Urine Color (YELLOW) Urine Appearance (CLEAR) Urine pH (5-6) Ur Specific [place] (1.005-1.025) Urine Protein (Negative) Urine Ketones (NEGATIVE) Urine Blood (0-5) Mateo/ul Urine Nitrite (NEGATIVE) Urine Bilirubin (NEGATIVE) Urine Urobilinogen (0-1) mg/dL Ur Leukocyte Esterase (NEGATIVE) Urine WBC (Auto) (0-5) /HPF Urine RBC (Auto) (0-2) /HPF U Epithel Cells (Auto) (FEW) /HPF Urine Bacteria (Auto) (NEGATIVE) /HPF Urine Mucus (Auto) (NEGATIVE) /HPF Urine Culture Reflexed (NO) Urine Glucose (NEGATIVE) mg/dL Urine Opiates Level (NEGATIVE) Ur Methadone (NEGATIVE) Urine Barbiturates (NEGATIVE) Ur Phencyclidine (PCP) (NEGATIVE) Urine Amphetamine (NEGATIVE) U Benzodiazepine Level (NEGATIVE) Urine Cocaine (NEGATIVE) Urine Marijuana (THC) (NEGATIVE) - Progress Progress: improved, re-examined Counseled pt/family regarding: lab results, diagnosis, need for follow-up - Departure Departure Disposition: Home Clinical Impression: UTI (urinary tract infection), Dizziness Condition: Stable Critical Care Time: No Referrals: HALLIE KIDD [Primary Care Provider] - Additional Instructions: drink plenty of fluids. follow up with primary doctor for further management Prescriptions: Smz/Tmp Ds Tablet [Bactrim Ds Tablet] 1 udtab PO BID #14 tablet
[2019-06-05] MEDS ORDERED: Sodium Chloride 0.9% 1000 ML 1,000 ML IV STA (22:23)
[2019-06-05 22:51] LABS: Absolute Neutrophil Ct (ANC) 6.76 (1.4-6.9); BASOPHIL % 0.1 % (0.0-0.4); Basophil (Absolute #) 0.01 (0-0.4); Eosinophil % 0.8 % (0.00-5.0); Eosinophil (Absolute #) 0.08 (0-0.5); Hematocrit 44.5 % (35-47); Hemoglobin 15.2 gm/dl (12.0-16.0); Lymphocyte (Absolute #) 2.13 (1.0-4.6); Lymphocytes % 21.9 % (24.0-44.0); Mean Corpuscular Hemoglobin 31.1 pg (26-32); Mean Corpuscular Hgb Concent. 34.2 g/dl (32-36); Mean Platelet Volume 9.3 fl (6-9.5); Monocyte (Absolute #) 0.73 (0.0-1.3); Monocytes % 7.5 % (0.0-12.0); Neutrophil % 69.7 % (36.0-66.0); Platelet Count 281 K/mm3 (150-450); Red Blood Count 4.89 M/mm3 (4.1-5.4); Red Cell Distribution Width 12.6 % (11.5-14.0); White Blood Count 9.7 K/mm3 (4.0-10.5)
[2019-06-05] MEDS ORDERED: Sodium Chloride 0.9% 1000 ML 1,000 ML ONE (23:01)
[2019-06-05 23:03] LABS: ALBUMIN 4.5 g/dL (3.5-5.0); ALKALINE PHOSPHATASE 81 U/L (38-126); ANION GAP 15.4 MEQ/L (5-15); BLOOD UREA NITROGEN 8 mg/dL (7-17); CHLORIDE 105 mmol/L (98-107); Calcium 10.3 mg/dL (8.4-10.2); Carbon Dioxide 26 mmol/L (22-30); Creatinine 1 0.66 mg/dL (0.52-1.04); Glucose 86 mg/dL (74-106); Potassium 4.6 mmol/L (3.5-5.1); SGOT/AST 20 U/L (14-36); SGPT/ALT 16 U/L (0-35); SODIUM 142 mmol/L (137-145); Total Protein 7.6 g/dL (6.3-8.2)
[2019-06-05 23:20] LABS: Appearance CLOUDY (CLEAR); Bacteria MODERATE /HPF (NEGATIVE); Bilirubin NEGATIVE (NEGATIVE); Blood SMALL Ery/ul (0-5); Epithelial Cells MODERATE /HPF (FEW); Glucose NEGATIVE (NEGATIVE); Ketones NEGATIVE (NEGATIVE); Leukocyte Esterase LARGE (NEGATIVE); Mucus MANY /HPF (NEGATIVE); Nitrite NEGATIVE (NEGATIVE); Protein,Urine Dip NEGATIVE (Negative); Specific Gravity 1.019 (1.005-1.025); Urobilinogen NEGATIVE mg/dL (0-1)
[2019-06-05 23:30] LABS: Amphetamine,Urine NEGATIVE (NEGATIVE); Barbiturate,Urine NEGATIVE (NEGATIVE); Benzodiazepine,Urine NEGATIVE (NEGATIVE); Cocaine,Urine NEGATIVE (NEGATIVE); Methadone,Urine NEGATIVE (NEGATIVE); Opiate,Urine NEGATIVE (NEGATIVE); PCP,Urine NEGATIVE (NEGATIVE); THC,Urine NEGATIVE (NEGATIVE)
[2019-06-05] MEDS ORDERED: ROCEPHIN 1 Gm-D5w 50 ml Bag** 1 G/50 ML IVPB IV STA (23:31)
[2019-06-05] MEDS ORDERED: ROCEPHIN 1 Gm-D5w 50 ml Bag** 1 G/50 ML IVPB IV ONE (23:46)
[2019-06-06 00:17] VITALS: BP 126/80; PULSE 69
== END 2019-06-06 00:24 | disposition home or self-care (01) ==
LOC: ED 21:05
DX: N39.0 Urinary tract infection, site not specified (principal); R42 Dizziness and giddiness
CPT/HCPCS: 36000; 36415; 80053; 80307; 81001; 85025; 87086; 93005; 96360; 96365; 99284; J0696

== ENCOUNTER 2019-06-06 13:13 | Emergency (ER) | payer BC ==
--- NOTE | 2019-06-06 15:27 | ERPHSYRPT ---
<HINDSHENRI SaldivarVentura - Last Filed: 06/06/19 19:15> - History of Present Illness Time Seen by Provider: 06/06/19 15:26 Historian: patient Patient Subjective Stated Complaint: CHEST PAIN STARTED TODAY AT LUNCH TIME. ALSO HAVING SOME SHORTNESS OF BREATH. Triage Nursing Assessment: TO ROOM PER W/C. SKIN W/D, COLOR NORMAL, RESP EASY. PATIENT HAVING TREMORS OF EXTREMITIES, HYPERVENTILATING. HOLDING CHEST. IS KEEPING EYES CLOSED. Allergies/Adverse Reactions: hydromorphone HCl [From Dilaudid] Allergy (Severe, Verified 04/22/19 17:14) Hives Severe itching with hives penicillin G Allergy (Mild, Verified 04/22/19 17:14) Swelling diphenhydramine HCl [From Benadryl] Adverse Reaction (Mild, Verified 04/22/19 17 :14) "crazy behavior" pertussis vaccine,adsorbed [Pertussis Vaccine,Adsorbed] Adverse Reaction ( Verified 04/22/19 17:14) Swelling Home Medications: Non-Formulary Drug [Non-Formulary Item] 1 tab PO 1700 05/01/19 [History] Baclofen 10 mg [Lioresal 10 mg] 10 mg PO TID 06/05/19 [History] Hydroxyzine HCl 25 mg [Atarax 25 mg] 25 mg PO TID 06/05/19 [History] Levothyroxine Sodium 75 Mcg [Synthroid 75 Mcg] 75 mcg PO DAILY 06/05/19 [ History] Hx Tetanus, Diphtheria Vaccination/Date Given: Yes (unsure of date, few yrs ago) Hx Influenza Vaccination/Date Given: No Hx Pneumococcal Vaccination/Date Given: No - Past Medical History Pertinent Past Medical History: Yes Neurological History: Epilepsy, Seizures ENT History: No Pertinent History Cardiac History: Other Respiratory History: Bronchitis, Pneumonia Endocrine Medical History: Hypothyroidism Musculoskeletal History: Other GI Medical History: Irritable Bowel History: No Pertinent History Psycho-Social History: Anxiety, Depression Female Reproductive Disorders: Endometriosis, Menstrual Problems Other Medical History: HX OF "SLIGHT" HEART MURMUR - 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 lactose intolerant - Past Surgical History Past Surgical History: Yes Neuro Surgical History: No Pertinent History Cardiac: No Pertinent History Respiratory: No Pertinent History Gastrointestinal: No Pertinent History Genitourinary: No Pertinent History Musculoskeletal: No Pertinent History Female Surgical History: No Pertinent History Other Surgical History: egd, colonoscopy. wisdom teeth - Social History Smoking Status: Never smoker Exposure to second hand smoke: No Drug Use: none Patient Lives Alone: No - Female History Hx Last Menstrual Period: TWO DAYS AGO Hx Now: No - Nursing Vital Signs Nursing Vital Signs: Initial Vital Signs Temperature 98.3 F 06/06/19 13:13 Pulse Rate 107 H 06/06/19 13:13 Respiratory Rate 24 06/06/19 13:13 Blood Pressure 130/71 06/06/19 13:13 O2 Sat by Pulse Oximetry 100 06/06/19 13:13 Pain Scale Pain Intensity 8 - Physical Exam SpO2: 98 Ordered Tests: Active Orders 24 hr Category Date Time Status CHEST 1 VIEW (PORTABLE) Stat Exams 06/06/19 15:36 Taken CBC W DIFF Stat Lab 06/06/19 15:00 Completed CK-Creatinine Phosphokinase Stat Lab 06/06/19 15:00 Completed CMP Stat Lab 06/06/19 15:00 Completed CULTURE,URINE Stat Lab 06/06/19 15:00 Received D-DIMER QUANTITATION Stat Lab 06/06/19 15:00 Completed LIPASE Stat Lab 06/06/19 15:00 Completed MAGNESIUM Stat Lab 06/06/19 15:00 Completed NT PRO BNP Stat Lab 06/06/19 15:00 Completed UA W/RFX UR CULTURE Stat Lab 06/06/19 15:00 Completed Medication Summary Generic Name Dose Route Start Last Admin Trade Name Freq PRN Reason Stop Dose Admin Trimethoprim/Sulfamethoxazole 1 tab 06/06/19 19:40 Bactrim Ds Tablet PO 06/06/19 19:41 STAT STA Discontinued Medications Generic Name Dose Route Start Last Admin Trade Name Freq PRN Reason Stop Dose Admin Sodium Chloride 1,000 mls @ 999 mls/hr 06/06/19 15:34 06/06/19 16:39 Sodium Chloride 0.9% 1000 Ml IV 06/06/19 16:34 Infused .Q1H1M STA Infusion Sodium Chloride Confirm 06/06/19 15:42 Sodium Chloride 0.9% 1000 Ml Administered 06/06/19 15:43 Dose 1,000 mls @ ud .ROUTE .STK-MED ONE Lab/Rad Data: Laboratory Result Diagrams 06/06/19 15:00 06/06/19 15:00 Laboratory Results 06/06/19 06/06/19 06/06/19 Range/Units 15:00 15:00 15:00 WBC (4.0-10.5) K/mm3 RBC (4.1-5.4) M/mm3 Hgb (12.0-16.0) gm/dl Hct (35-47) % MCV (78-100) fl MCH (26-32) pg MCHC (32-36) g/dl RDW (11.5-14.0) % Plt Count (150-450) K/mm3 MPV (6-9.5) fl Gran % (36.0-66.0) % Eos # (Auto) (0-0.5) Absolute Lymphs (auto) (1.0-4.6) Absolute Monos (auto) (0.0-1.3) Lymphocytes % (24.0-44.0) % Monocytes % (0.0-12.0) % Eosinophils % (0.00-5.0) % Basophils % (0.0-0.4) % Absolute Granulocytes (1.4-6.9) Basophils # (0-0.4) D-Dimer < 215 L (215-500) ng/mL Sodium 143 (137-145) mmol/L Potassium 3.6 D (3.5-5.1) mmol/L Chloride 109 H (98-107) mmol/L Carbon Dioxide 19 L (22-30) mmol/L Anion Gap 18.4 H (5-15) MEQ/L BUN 5 L (7-17) mg/dL Creatinine 0.54 (0.52-1.04) mg/dL Estimated GFR > 60.0 ML/MIN Glucose 116 H (74-106) mg/dL Calcium 9.9 (8.4-10.2) mg/dL Magnesium 1.8 (1.6-2.3) mg/dL Total Bilirubin 0.60 (0.2-1.3) mg/dL AST 26 (14-36) U/L ALT 18 (0-35) U/L Alkaline Phosphatase 62 (38-126) U/L Creatine Kinase 36 (30-135) U/L NT-Pro-B Natriuret Pep 68.2 (0-450) pg/mL Serum Total Protein 7.4 (6.3-8.2) g/dL Albumin 4.3 (3.5-5.0) g/dL Lipase 67 (23-300) U/L Urine Color YELLOW (YELLOW) Urine Appearance CLOUDY (CLEAR) Urine pH 5.0 (5-6) Ur Specific [place] 1.012 (1.005-1.025) Urine Protein NEGATIVE (Negative) Urine Ketones NEGATIVE (NEGATIVE) Urine Blood SMALL (0-5) Mateo/ul Urine Nitrite NEGATIVE (NEGATIVE) Urine Bilirubin NEGATIVE (NEGATIVE) Urine Urobilinogen NEGATIVE (0-1) mg/dL Ur Leukocyte Esterase LARGE (NEGATIVE) Urine WBC (Auto) 6-10 (0-5) /HPF Urine RBC (Auto) 6-10 (0-2) /HPF U Epithel Cells (Auto) RARE (FEW) /HPF Urine Bacteria (Auto) PACKED (NEGATIVE) /HPF Urine Mucus (Auto) SLIGHT (NEGATIVE) /HPF Urine Yeast (Budding) Occasional (NEGATIVE) /HPF Urine Culture Reflexed YES (NO) Urine Glucose NEGATIVE (NEGATIVE) mg/dL 06/06/19 Range/Units 15:00 WBC 10.5 (4.0-10.5) K/mm3 RBC 4.44 (4.1-5.4) M/mm3 Hgb 13.9 (12.0-16.0) gm/dl Hct 40.6 (35-47) % MCV 91.4 (78-100) fl MCH 31.3 (26-32) pg MCHC 34.2 (32-36) g/dl RDW 12.7 (11.5-14.0) % Plt Count 290 (150-450) K/mm3 MPV 10.2 H (6-9.5) fl Gran % 58.1 (36.0-66.0) % Eos # (Auto) 0.09 (0-0.5) Absolute Lymphs (auto) 3.58 (1.0-4.6) Absolute Monos (auto) 0.71 (0.0-1.3) Lymphocytes % 34.0 (24.0-44.0) % Monocytes % 6.7 (0.0-12.0) % Eosinophils % 0.9 (0.00-5.0) % Basophils % 0.3 (0.0-0.4) % Absolute Granulocytes 6.11 (1.4-6.9) Basophils # 0.03 (0-0.4) D-Dimer (215-500) ng/mL Sodium (137-145) mmol/L Potassium (3.5-5.1) mmol/L Chloride (98-107) mmol/L Carbon Dioxide (22-30) mmol/L Anion Gap (5-15) MEQ/L BUN (7-17) mg/dL Creatinine (0.52-1.04) mg/dL Estimated GFR ML/MIN Glucose (74-106) mg/dL Calcium (8.4-10.2) mg/dL Magnesium (1.6-2.3) mg/dL Total Bilirubin (0.2-1.3) mg/dL AST (14-36) U/L ALT (0-35) U/L Alkaline Phosphatase (38-126) U/L Creatine Kinase (30-135) U/L NT-Pro-B Natriuret Pep (0-450) pg/mL Serum Total Protein (6.3-8.2) g/dL Albumin (3.5-5.0) g/dL Lipase (23-300) U/L Urine Color (YELLOW) Urine Appearance (CLEAR) Urine pH (5-6) Ur Specific [place] (1.005-1.025) Urine Protein (Negative) Urine Ketones (NEGATIVE) Urine Blood (0-5) Mateo/ul Urine Nitrite (NEGATIVE) Urine Bilirubin (NEGATIVE) Urine Urobilinogen (0-1) mg/dL Ur Leukocyte Esterase (NEGATIVE) Urine WBC (Auto) (0-5) /HPF Urine RBC (Auto) (0-2) /HPF U Epithel Cells (Auto) (FEW) /HPF Urine Bacteria (Auto) (NEGATIVE) /HPF Urine Mucus (Auto) (NEGATIVE) /HPF Urine Yeast (Budding) (NEGATIVE) /HPF Urine Culture Reflexed (NO) Urine Glucose (NEGATIVE) mg/dL - Departure Clinical Impression: Neurocardiogenic pre-syncope UTI (urinary tract infection) Qualifiers: Urinary tract infection type: site unspecified Hematuria presence: without hematuria Qualified Code(s): N39.0 - Urinary tract infection, site not specified Condition: Stable Referrals: HALLIE KIDD [Primary Care Provider] - Instructions: Urinary Tract Infection, Adult (DC), Syncope (Fainting) (DC) Additional Instructions: Continue on antibiotic which was prescribed yesterday in the emergency room. You can started that dose tomorrow morning as we have already given you 1 dose in the emergency room tonight. Try to drink lots of fluid. Follow-up with your primary care physician on Sunday. Discharge/Care Plan ARTURO PRECIADO was seen on 06/06/19 in the Emergency Room. The patient was counseled regarding Diagnosis,Lab results, Imaging studies, need for follow up and when to return to the Emergency Room. Prescriptions given: Discharge Note I have spoken with the patient and/or caregivers. I have explained the patient' s condition, diagnosis and treatment plan based on the information available to me at this time. I have answered the patient's and/or caregiver's questions and addressed any concerns. The patient and/or caregivers have as good understanding of the patient's diagnosis, condition and treatment plan as can be expected at this point. The vital signs have been stable. The patient's condition is stable and appropriate for discharge from the emergency department. The patient will pursue further outpatient evaluation with the primary care physician or other designated or consulting physician as outlined in the discharge instructions. The patient and/or caregivers are agreeable to this plan of care and follow-up instructions have been explained in detail. The patient and/or caregivers have received these instruction. The patient/and or caregivers are aware that any significant change in condition or worsening of symptoms should prompt an immediate return to this or the closest emergency department or call 911. ARTURO PRECIADO was seen on 06/06/19 n the Emergency Room. At that time you were treated for an emergent condition, during your visit Laboratory, Radiology and/or other procedures may have been ordered. It is very important that you follow-up with your Primary Care Physician HALLIE KIDD within the next 24-48 hours to review your Emergency Room visit and the final results of testing that was ordered. Some test results such as Urine Cultures, Blood Cultures, and other cultures if ordered will not be finalized for 24-48 hours. If you do not have a Primary Care Provider please call the medical records department at [phone] to obtain a copy of your results or you may sign into our patient portal to obtain these results by visiting us @ [email or web address] and completing the following steps: 1. Click on the Patient Portal link 2. Click the Patient Self Enrollment Link to complete the enrollment form and entering your 3. Once the enrollment form is completed you will receive an email with a temporary ID and password at the email address you provided. 4. Next choose a user name and password. Your user name must be at least 4 characters long and your password must be at least 4 characters long. 5. Choose a security question from the list and provide your answer to the question. If you already have signed into the Health Portal you may access your Health Care Information 26/03 by the following steps: 1. Login to our website @ [email or web address] 2. Enter your original user name and password. FAQS The [facility] Health Portal is an online tool that contains your Lab Results, Radiology Reports, Visit History, Discharge Instructions and Health Summary Lab and Radiology Results will not be available for 72 hours on the portal. The Portal is a secure site, passwords are encryted and URLs are re-written so they cannot be copied and pasted. You and authorized family members are the only ones who can access your Portal. Also there is a timeout feature that protects your information if you leave the Portal page open. If you have technical difficulty please use the Contact Us link on the page this will allow you to submit any questions you have regarding the Portal or you may contact the Medical Record Department at [phone] ext [phone]. <VAL PATIÑO - Last Filed: 06/06/19 19:46> - History of Present Illness Physician History: 18-year-old female came to the emergency room with epigastric pain, chest pain, which was radiating to the left arm. Patient was seen in emergency room yesterday and was started on Bactrim after diagnosed with urinary tract infection. Patient did not do any antibiotic, but went to see her primary care physician in the morning and afterwards when she went for lunch, she immediately had left-sided chest pain with numbness on the left arm as well as she almost felt. that She is going to pass out. She is complaining of weakness , but denies any fever, chills, nausea or vomiting. Timing/Duration: today Activities at Onset: none Associated Symptoms: shortness of breath, weakness, syncope, dizziness, No nausea, No vomiting, No palpitations, No heartburn, No chills, No fever Prior Chest Pain/Cardiac Workup: no prior chest pain Aspirin Treatment Today: no aspirin today - Review of Systems Constitutional: Weakness, No Fever, No Chills Eyes: No Symptoms Ears, Nose, & Throat: No Symptoms Respiratory: No Cough, No Dyspnea Cardiac: Chest Pain, No Edema, No Syncope Abdominal/Gastrointestinal: No Abdominal Pain, No Nausea, No Vomiting, No Diarrhea Genitourinary Symptoms: No Dysuria Musculoskeletal: No Back Pain, No Neck Pain Skin: No Rash Neurological: Dizziness, No Focal Weakness, No Sensory Changes Psychological: No Symptoms Endocrine: No Symptoms All Other Systems: Reviewed and Negative - Physical Exam General Appearance: no apparent distress, alert Eye Exam: PERRL/EOMI, eyes nml inspection Ears, Nose, Throat Exam: normal ENT inspection, moist mucous membranes Neck Exam: normal inspection, non-tender, supple, full range of motion Respiratory Exam: normal breath sounds, lungs clear, No respiratory distress Cardiovascular Exam: regular rate/rhythm, normal heart sounds Gastrointestinal/Abdomen Exam: soft, No tenderness, No mass Back Exam: normal inspection, No CVA tenderness, No vertebral tenderness Extremity Exam: normal inspection, normal range of motion Neurologic Exam: alert, oriented x 3, cooperative, normal mood/affect, sensation nml, No motor deficits Skin Exam: normal color, warm, dry - Course Nursing assessment & vital signs reviewed: Yes - Progress Progress: improved Air Movement: good Counseled pt/family regarding: lab results, diagnosis, need for follow-up - Departure Departure Disposition: Home Critical Care Time: No
[2019-06-06] MEDS ORDERED: Sodium Chloride 0.9% 1000 ML 1,000 ML IV STA (15:34)
[2019-06-06] MEDS ORDERED: Sodium Chloride 0.9% 1000 ML 1,000 ML ONE (15:42)
[2019-06-06 15:59] LABS: Appearance CLOUDY (CLEAR); Bacteria PACKED /HPF (NEGATIVE); Bilirubin NEGATIVE (NEGATIVE); Blood SMALL Ery/ul (0-5); Epithelial Cells RARE /HPF (FEW); Glucose NEGATIVE (NEGATIVE); Ketones NEGATIVE (NEGATIVE); Leukocyte Esterase LARGE (NEGATIVE); Mucus SLIGHT /HPF (NEGATIVE); Nitrite NEGATIVE (NEGATIVE); Protein,Urine Dip NEGATIVE (Negative); Specific Gravity 1.012 (1.005-1.025); Urobilinogen NEGATIVE mg/dL (0-1)
[2019-06-06 16:00] LABS: Absolute Neutrophil Ct (ANC) 6.11 (1.4-6.9); BASOPHIL % 0.3 % (0.0-0.4); Basophil (Absolute #) 0.03 (0-0.4); Eosinophil % 0.9 % (0.00-5.0); Eosinophil (Absolute #) 0.09 (0-0.5); Hematocrit 40.6 % (35-47); Hemoglobin 13.9 gm/dl (12.0-16.0); Lymphocyte (Absolute #) 3.58 (1.0-4.6); Mean Cell Volume 91.4 fl (78-100); Mean Corpuscular Hemoglobin 31.3 pg (26-32); Mean Corpuscular Hgb Concent. 34.2 g/dl (32-36); Mean Platelet Volume 10.2 fl (6-9.5); Monocyte (Absolute #) 0.71 (0.0-1.3); Monocytes % 6.7 % (0.0-12.0); Neutrophil % 58.1 % (36.0-66.0); Platelet Count 290 K/mm3 (150-450); Red Blood Count 4.44 M/mm3 (4.1-5.4); Red Cell Distribution Width 12.7 % (11.5-14.0); White Blood Count 10.5 K/mm3 (4.0-10.5)
[2019-06-06 16:01] LABS: ALBUMIN 4.3 g/dL (3.5-5.0); ALKALINE PHOSPHATASE 62 U/L (38-126); ANION GAP 18.4 MEQ/L (5-15); BLOOD UREA NITROGEN 5 mg/dL (7-17); Budding Yeast Occasional /HPF (NEGATIVE); CHLORIDE 109 mmol/L (98-107); CK-Creatinine Phosphokinase 36 U/L (30-135); Calcium 9.9 mg/dL (8.4-10.2); Carbon Dioxide 19 mmol/L (22-30); Creatinine 1 0.54 mg/dL (0.52-1.04); Glucose 116 mg/dL (74-106); LIPASE 67 U/L (23-300); MAGNESIUM 1.8 mg/dL (1.6-2.3); NT PRO BNP 68.2 pg/mL (0-450); Potassium 3.6 mmol/L (3.5-5.1); SGOT/AST 26 U/L (14-36); SGPT/ALT 18 U/L (0-35); SODIUM 143 mmol/L (137-145); Total Protein 7.4 g/dL (6.3-8.2)
[2019-06-06] MEDS ORDERED: BACTRIM DS TABLET PO STA (19:40)
[2019-06-06] MEDS ORDERED: BACTRIM DS TABLET PO ONE (19:47)
[2019-06-06 20:18] VITALS: BP 126/100; PULSE 72
--- NOTE | 2019-06-06 22:40 | XRAY ---
Indication: Dizziness, left arm numbness, and chest pain. Syncopal episode. Comparison: April 03, 2018. Portable chest again demonstrates normal heart, lungs, and bony thorax.
[2019-06-07 19:26] VITALS: O2SAT 98
== END 2019-06-06 20:20 | disposition home or self-care (01) ==
LOC: ED 13:13
DX: N39.0 Urinary tract infection, site not specified (principal); R55 Syncope and collapse; R07.9 Chest pain, unspecified; R06.02 Shortness of breath; Z79.899 Other long term (current) drug therapy; E03.9 Hypothyroidism, unspecified
CPT/HCPCS: 36000; 36415; 71045; 80053; 81001; 82550; 83690; 83735; 83880; 85025; 85379; 87086; 96360; 99284; A9270-GY

== ENCOUNTER 2019-06-18 12:44 | Day surgery (SDC) | payer BC ==
[2012-08-07 13:51] VITALS: BP 109/56
[2019-06-18] MEDS ORDERED: Depo-Medrol 40 MG/ML IM ONE (12:45)
[2019-06-18] MEDS ORDERED: Sodium Chloride 0.9(Preservative Free) 10 ML IJ ONE (12:45)
[2019-06-18] MEDS ORDERED: Ketamine HCl 50 MG/ML ONE (14:57)
[2019-06-18] MEDS ORDERED: DIPRIVAN 200 MG/20 ML IV ONE (15:07)
[2019-06-18] MEDS ORDERED: Lactated Ringers 1,000 ML IV ONE (15:27)
--- NOTE | 2019-06-18 16:41 | XRAY ---
Indication: Left L4-S1 KHAI. Intraoperative fluoroscopy was provided for 30 seconds. 4 digital spot images submitted for interpretation demonstrates posterior needle tips projecting over the expected course of the left L4 and L5 nerve roots. Small amount of contrast injected for needle tip placement. Correlate with intraoperative findings/report.
--- NOTE | 2019-06-18 16:54 | XRAY ---
30 seconds fluoroscopy time in surgery for left L4-S1 KHAI.
== END 2019-06-18 15:55 | disposition home or self-care (01) ==
LOC: SDC-PAIN 12:44
PROVIDERS: ATTEND Psychiatry & Neurology Pain Medicine
DX: M54.16 Radiculopathy, lumbar region (principal); E03.9 Hypothyroidism, unspecified; F41.8 Other specified anxiety disorders; R56.9 Unspecified convulsions; Z79.899 Other long term (current) drug therapy
CPT/HCPCS: 64483; 64484; 72100; 77003; 84703; J1030; J2704; Q9966

== ENCOUNTER 2019-08-18 19:12 | Emergency (ER) | payer BC ==
--- NOTE | 2019-08-18 19:36 | ERPHSYRPT ---
- History of Present Illness Time Seen by Provider: 08/18/19 19:35 Source: patient Exam Limitations: no limitations Patient Subjective Stated Complaint: pt c/o headache x1 week and has had 2-3 nosebleeds this week as well. Triage Nursing Assessment: pt c/o headache to entire head, states, "its a pressure kind of pain". Pt states, "I've had this headache x1 week, I've taken Tylenol off and on but no relief". Pt states, "I've had 2-3 nosebleeds this week as well, having one right before arrival to ER". Physician History: 18 y/o white female presents with 1 week of constant headache. no injury. pt additionally, has had intermittent left nostril nosebleeds since age 13y/o. one episode today. no nasal trauma. no bleeding disorder. Timing/Duration: week(s) (1) Quality: aching, throbbing Head Pain Location: global Severity of Pain-Max: mild Severity of Pain-Current: mild Recent Head Trauma: no recent headache/trauma Previous symptoms: same symptoms as today Allergies/Adverse Reactions: hydromorphone HCl [From Dilaudid] Allergy (Severe, Verified 04/22/19 17:14) Hives Severe itching with hives penicillin G Allergy (Mild, Verified 04/22/19 17:14) Swelling diphenhydramine HCl [From Benadryl] Adverse Reaction (Mild, Verified 04/22/19 17 :14) "crazy behavior" pertussis vaccine,adsorbed [Pertussis Vaccine,Adsorbed] Adverse Reaction ( Verified 04/22/19 17:14) Swelling Home Medications: Non-Formulary Drug [Non-Formulary Item] 1 tab PO 1700 05/01/19 [History] Hydroxyzine HCl 25 mg [Atarax 25 mg] 25 mg PO QID 06/05/19 [History] Levothyroxine Sodium 75 Mcg [Synthroid 75 Mcg] 75 mcg PO DAILY 06/05/19 [ History] Hx Tetanus, Diphtheria Vaccination/Date Given: Yes Hx Influenza Vaccination/Date Given: No Hx Pneumococcal Vaccination/Date Given: No Immunizations Up to Date: Yes - Review of Systems Constitutional: No Symptoms Eyes: No Symptoms Ears, Nose, & Throat: Epistaxis Respiratory: No Symptoms Cardiac: No Symptoms Abdominal/Gastrointestinal: No Symptoms Genitourinary Symptoms: No Symptoms Musculoskeletal: No Symptoms Skin: No Symptoms Neurological: No Symptoms, Headache Psychological: No Symptoms Endocrine: No Symptoms Hematologic/Lymphatic: No Symptoms Immunological/Allergic: No Symptoms All Other Systems: Reviewed and Negative - Past Medical History Pertinent Past Medical History: Yes Neurological History: Epilepsy, Seizures ENT History: No Pertinent History Cardiac History: Other Respiratory History: Bronchitis, Pneumonia Endocrine Medical History: Hypothyroidism Musculoskeletal History: Other GI Medical History: No Pertinent History, Irritable Bowel History: No Pertinent History Psycho-Social History: Anxiety, Depression Female Reproductive Disorders: Endometriosis, Menstrual Problems Other Medical History: HX OF "SLIGHT" HEART MURMUR - 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 lactose intolerant. headaches - Past Surgical History Past Surgical History: Yes Neuro Surgical History: No Pertinent History Cardiac: No Pertinent History Respiratory: No Pertinent History Gastrointestinal: No Pertinent History Genitourinary: No Pertinent History Musculoskeletal: No Pertinent History Female Surgical History: No Pertinent History Other Surgical History: egd, colonoscopy. wisdom teeth. endoscopy - Social History Smoking Status: Never smoker Exposure to second hand smoke: Yes Drug Use: none Patient Lives Alone: No - Female History Hx Last Menstrual Period: 2 weeks ago Hx Now: No - Nursing Vital Signs Nursing Vital Signs: Initial Vital Signs Temperature 98.2 F 08/18/19 19:20 Pulse Rate 92 H 08/18/19 19:20 Respiratory Rate 16 08/18/19 19:20 Blood Pressure 133/95 08/18/19 19:20 O2 Sat by Pulse Oximetry 97 08/18/19 19:20 Pain Scale Pain Intensity 8 - Physical Exam General Appearance: no apparent distress, alert, anxiety Eye Exam: PERRL/EOMI, eyes nml inspection Ears, Nose, Throat Exam: normal ENT inspection, moist mucous membranes, other ( no active bleeding) Neck Exam: normal inspection, non-tender, supple, full range of motion Respiratory Exam: normal breath sounds, lungs clear, respiratory distress, No chest tenderness Cardiovascular Exam: regular rate/rhythm, normal heart sounds, normal peripheral pulses Gastrointestinal/Abdominal Exam: No tenderness Back Exam: normal inspection, normal range of motion, No CVA tenderness, No vertebral tenderness Extremity Exam: normal inspection, normal range of motion, pelvis stable Mental Status Exam: alert, oriented x 3, 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 Exam: normal hearing, normal speech, PERRL Coordination/Gait Exam: normal finger to nose, normal gait, normal cerebellar function Motor/Sensory Exam: no motor deficit, no sensory deficit, no pronator drift Skin Exam: normal color, warm, dry Lymphatic Exam: No adenopathy SpO2 Interpretation: normal SpO2: 97 O2 Delivery: Room Air - Course Nursing assessment & vital signs reviewed: Yes Ordered Tests: Active Orders 24 hr Category Date Time Status HEAD WITHOUT CONTRAST [CT] Stat Exams 08/18/19 20:17 Taken - Progress Progress: improved, re-examined Air Movement: good Progress Note: 08/18/19 21:25 ct head-no acute process Blood Culture(s) Obtained: No Antibiotics given: No Counseled pt/family regarding: diagnosis, need for follow-up, rad results - Departure Departure Disposition: Home Clinical Impression: Migraine Condition: Stable Critical Care Time: No Referrals: HALLIE KIDD [Primary Care Provider] - Additional Instructions: follow up with your primary doctor, a neurologist and ENT specialist for further management
[2019-08-18] MEDS ORDERED: NORCO 5/325 MG PO ONE (21:27)
[2019-08-18 21:33] VITALS: BP 120/65; PULSE 77; O2SAT 98
[2019-08-18] MEDS ORDERED: NORCO 5/325 MG ONE (21:35)
--- NOTE | 2019-08-19 08:47 | XRAY ---
Indication: Headache and nosebleed. Multiple contiguous axial images obtained through the head without contrast. Comparison: November 17, 2014. Again normal appearing brain parenchyma, ventricles, and bony calvarium. Visualized paranasal sinuses and mastoid air cells are clear. Impression: Normal CT head without contrast exam. Comment: Preliminary interpretation was made by [facility]. No discrepancy. CTDI 56.74
== END 2019-08-18 21:40 | disposition home or self-care (01) ==
LOC: ED 19:12
DX: G43.909 Migraine, unspecified, not intractable, without status migrainosus (principal); Z79.899 Other long term (current) drug therapy; E03.9 Hypothyroidism, unspecified; G40.909 Epilepsy, unspecified, not intractable, without status epilepticus
CPT/HCPCS: 70450; 99283; A9270-GY

== ENCOUNTER 2020-02-09 17:20 | Emergency (ER) | payer BC, OTHER ==
[2020-02-09 18:28] LABS: Absolute Neutrophil Ct (ANC) 6.28 (1.4-6.9); BASOPHIL % 0.2 % (0.0-0.4); Basophil (Absolute #) 0.02 (0-0.4); Eosinophil % 0.9 % (0.00-5.0); Hematocrit 40.1 % (35-47); Hemoglobin 13.8 gm/dl (12.0-16.0); Lymphocyte (Absolute #) 3.27 (1.0-4.6); Mean Cell Volume 84.6 fl (78-100); Mean Corpuscular Hemoglobin 29.1 pg (26-32); Mean Corpuscular Hgb Concent. 34.4 g/dl (32-36); Monocyte (Absolute #) 0.89 (0.0-1.3); Monocytes % 8.4 % (0.0-12.0); Neutrophil % 59.5 % (36.0-66.0); Platelet Count 381 K/mm3 (150-450); Red Blood Count 4.74 M/mm3 (4.1-5.4); Red Cell Distribution Width 13.7 % (11.5-14.0); White Blood Count 10.6 K/mm3 (4.0-10.5)
[2020-02-09 18:31] LABS: ALBUMIN 4.3 g/dL (3.5-5.0); ALKALINE PHOSPHATASE 86 U/L (38-126); ANION GAP 16.7 MEQ/L (5-15); BLOOD UREA NITROGEN 6 mg/dL (7-17); CHLORIDE 105 mmol/L (98-107); Calcium 9.8 mg/dL (8.4-10.2); Carbon Dioxide 20 mmol/L (22-30); Creatinine 1 0.69 mg/dL (0.52-1.04); Glucose 79 mg/dL (74-106); Potassium 3.3 mmol/L (3.5-5.1); SGOT/AST 24 U/L (14-36); SGPT/ALT 23 U/L (0-35); SODIUM 139 mmol/L (137-145); Total Protein 7.6 g/dL (6.3-8.2)
[2020-02-09 18:47] VITALS: O2SAT 99
--- NOTE | 2020-02-09 18:54 | ERPHSYRPT ---
- History of Present Illness Source: patient Exam Limitations: other (Poor historian) Patient Subjective Stated Complaint: Pt states that she has been around covid + patients and was tested today [facility] due to symptoms for 2 weeks of fever, cough diarrhea SOB and chest pain Triage Nursing Assessment: pt is aox3, pupils perrl, afebrile, resps easy non labored, pt lung sounds are clear throughout all osborn, no cough noted upon exam, pt appears in no distress, pt radial pulses strong and equal, cap refill < 3 seconds, pt cheeks are flushed, skin warm dry. Physician History: 19 yo wf w dyspnea x6hr/cough/fever/N/V/D/chest pain/abdominal pain. Pt is hyperventilating at time of exam. Timing/Duration: today Activities at Onset: rest Severity of Dyspnea-Max: mild Severity of Dyspnea-Current: mild Possible Cause: no prior episodes Modifying Factors: Improves With: exertion Associated Symptoms: anxiety, fever, weakness, lightheadedness, muscle spasms hands, tingling hands, No edema, No loss of appetite, No lightheadedness, No wheezing, No ankle swelling, No chills, No hemoptysis, No calf pain, No dizziness, No heaviness Allergies/Adverse Reactions: hydromorphone HCl [From Dilaudid] Allergy (Severe, Verified 04/22/19 17:14) Hives Severe itching with hives penicillin G Allergy (Mild, Verified 04/22/19 17:14) Swelling diphenhydramine HCl [From Benadryl] Adverse Reaction (Mild, Verified 04/22/19 17 :14) "crazy behavior" pertussis vaccine,adsorbed [Pertussis Vaccine,Adsorbed] Adverse Reaction ( Verified 04/22/19 17:14) Swelling Home Medications: Non-Formulary Drug [Non-Formulary Item] 1 tab PO 1700 05/01/19 [History] Hydroxyzine HCl 25 mg [Atarax 25 mg] 25 mg PO QID 06/05/19 [History] Levothyroxine Sodium 75 Mcg [Synthroid 75 Mcg] 75 mcg PO DAILY 06/05/19 [ History] Bupropion HCl [Bupropion Xl] 150 mg PO DAILY 02/09/20 [History] Hx Tetanus, Diphtheria Vaccination/Date Given: Yes Hx Influenza Vaccination/Date Given: No Hx Pneumococcal Vaccination/Date Given: No Travel Risk - International Travel Have you traveled outside of the country in past 3 weeks: No - Coronavirus Screening Are you exhibiting any of the following symptoms?: No Close contact with a COVID-19 positive Pt in past 14-21 Days: No - Review of Systems Constitutional: Fever, Chills, Fatigue, Lethargy, Malaise Eyes: No Symptoms Ears, Nose, & Throat: No Symptoms Respiratory: Cough, Dyspnea, Dyspnea on Exertion (HARO) Cardiac: Chest Pain Abdominal/Gastrointestinal: Abdominal Pain, Nausea, Vomiting, Diarrhea Genitourinary Symptoms: No Symptoms Musculoskeletal: No Symptoms Skin: No Symptoms Neurological: No Symptoms Psychological: No Symptoms Endocrine: No Symptoms Hematologic/Lymphatic: No Symptoms Immunological/Allergic: No Symptoms - Past Medical History Pertinent Past Medical History: Yes Neurological History: Epilepsy, Seizures ENT History: No Pertinent History Cardiac History: Other Respiratory History: Bronchitis, Pneumonia Endocrine Medical History: Hypothyroidism Musculoskeletal History: Other GI Medical History: No Pertinent History, Irritable Bowel History: No Pertinent History Psycho-Social History: Anxiety, Depression Female Reproductive Disorders: Endometriosis, Menstrual Problems Other Medical History: HX OF "SLIGHT" HEART MURMUR - NOT SEEN BY [facility]. lactose intolerant. headaches - Past Surgical History Past Surgical History: Yes Neuro Surgical History: No Pertinent History Cardiac: No Pertinent History Respiratory: No Pertinent History Gastrointestinal: No Pertinent History Genitourinary: No Pertinent History Musculoskeletal: No Pertinent History Female Surgical History: No Pertinent History Other Surgical History: egd, colonoscopy. wisdom teeth. endoscopy - Social History Smoking Status: Never smoker Exposure to second hand smoke: Yes Drug Use: none Patient Lives Alone: No - Female History Hx Now: No - Nursing Vital Signs Nursing Vital Signs: Initial Vital Signs Temperature 99.8 F 02/09/20 17:30 Pulse Rate 110 H 02/09/20 17:30 Respiratory Rate 20 02/09/20 17:30 Blood Pressure 132/93 02/09/20 17:30 O2 Sat by Pulse Oximetry 98 02/09/20 17:30 Pain Scale Pain Intensity 8 - Physical Exam General Appearance: no apparent distress, anxiety Eye Exam: PERRL/EOMI, eyes nml inspection Ears, Nose, Throat Exam: hearing grossly normal, normal ENT inspection, normal pharynx Neck Exam: normal inspection, non-tender, full range of motion, No Brudzinski, No Kernig's Respiratory Exam: normal breath sounds, lungs clear, airway intact, No respiratory distress Cardiovascular/Chest Exam: normal heart sounds, regular rate/rhythm, No murmur Abdominal/Gastrointestinal Exam: soft, normal bowel sounds, tenderness (Mild diffuse) Rectal Exam: deferred Extremity Exam: non-tender, normal range of motion, normal inspection Peripheral Pulses Exam: carotid (R): 2+, carotid (L): 2+ Neurologic Exam: alert, oriented x 3, cooperative, 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 nml as tested Skin Exam: normal color, warm, dry Lymphatic Exam: No adenopathy SpO2 Interpretation: normal SpO2: 99 O2 Delivery: Room Air - Course EKG Interpreted by Me: RATE (Sinus tach/RBBB/Prolonged QTc) - Radiology Exams Chest X-ray Interpretation: Interpreted by me (NAD) Ordered Tests: Active Orders 24 hr Category Date Time Status EKG-ER Only STAT Care 02/09/20 18:19 Active CHEST 1 VIEW (PORTABLE) Stat Exams 02/09/20 18:40 Taken CBC W DIFF Stat Lab 02/09/20 18:19 Completed CMP Stat Lab 02/09/20 17:35 Completed CULTURE,URINE Stat Lab 02/09/20 18:45 Received TROPONIN Q3H Lab 02/09/20 17:35 Completed TROPONIN Q3H Lab 02/09/20 21:30 Ordered TROPONIN Q3H Lab 02/10/20 00:30 Ordered TROPONIN Q3H Lab 02/10/20 03:30 Ordered TROPONIN Q3H Lab 02/10/20 06:30 Ordered UA W/RFX UR CULTURE Stat Lab 02/09/20 18:45 Completed Urine Triage Profile Stat Lab 02/09/20 18:45 Received Lab/Rad Data: Laboratory Result Diagrams 02/09/20 18:19 02/09/20 17:35 Laboratory Results 02/09/20 02/09/20 02/09/20 Range/Units 18:45 18:19 17:35 WBC 10.6 H (4.0-10.5) K/mm3 RBC 4.74 (4.1-5.4) M/mm3 Hgb 13.8 (12.0-16.0) gm/dl Hct 40.1 (35-47) % MCV 84.6 (78-100) fl MCH 29.1 (26-32) pg MCHC 34.4 (32-36) g/dl RDW 13.7 (11.5-14.0) % Plt Count 381 (150-450) K/mm3 MPV 9.0 (7.5-11.0) fl Gran % 59.5 (36.0-66.0) % Eos # (Auto) 0.10 (0-0.5) Absolute Lymphs (auto) 3.27 (1.0-4.6) Absolute Monos (auto) 0.89 (0.0-1.3) Lymphocytes % 31.0 (24.0-44.0) % Monocytes % 8.4 (0.0-12.0) % Eosinophils % 0.9 (0.00-5.0) % Basophils % 0.2 (0.0-0.4) % Absolute Granulocytes 6.28 (1.4-6.9) Basophils # 0.02 (0-0.4) Sodium (137-145) mmol/L Potassium (3.5-5.1) mmol/L Chloride (98-107) mmol/L Carbon Dioxide (22-30) mmol/L Anion Gap (5-15) MEQ/L BUN (7-17) mg/dL Creatinine (0.52-1.04) mg/dL Estimated GFR ML/MIN Glucose (74-106) mg/dL Calcium (8.4-10.2) mg/dL Total Bilirubin (0.2-1.3) mg/dL AST (14-36) U/L ALT (0-35) U/L Alkaline Phosphatase (38-126) U/L Troponin I < 0.012 (0.000-0.034) ng/mL Serum Total Protein (6.3-8.2) g/dL Albumin (3.5-5.0) g/dL Urine Color BASIL (YELLOW) Urine Appearance SLIGHTLY CLOUDY (CLEAR) Urine pH 6.0 (5-6) Ur Specific [place] 1.029 (1.005-1.025) Urine Protein 30 (Negative) Urine Ketones SMALL (NEGATIVE) Urine Blood NEGATIVE (0-5) Mateo/ul Urine Nitrite NEGATIVE (NEGATIVE) Urine Bilirubin NEGATIVE (NEGATIVE) Urine Urobilinogen 2 (0-1) mg/dL Ur Leukocyte Esterase NEGATIVE (NEGATIVE) Urine WBC (Auto) 3-5 (0-5) /HPF Urine RBC (Auto) 0-2 (0-2) /HPF U Epithel Cells (Auto) NONE (FEW) /HPF Urine Bacteria (Auto) RARE (NEGATIVE) /HPF Urine Mucus (Auto) MANY (NEGATIVE) /HPF Urine Culture Reflexed ORDERED SEPARATELY (NO) Urine Glucose NEGATIVE (NEGATIVE) mg/dL 02/09/20 Range/Units 17:35 WBC (4.0-10.5) K/mm3 RBC (4.1-5.4) M/mm3 Hgb (12.0-16.0) gm/dl Hct (35-47) % MCV (78-100) fl MCH (26-32) pg MCHC (32-36) g/dl RDW (11.5-14.0) % Plt Count (150-450) K/mm3 MPV (7.5-11.0) fl Gran % (36.0-66.0) % Eos # (Auto) (0-0.5) Absolute Lymphs (auto) (1.0-4.6) Absolute Monos (auto) (0.0-1.3) Lymphocytes % (24.0-44.0) % Monocytes % (0.0-12.0) % Eosinophils % (0.00-5.0) % Basophils % (0.0-0.4) % Absolute Granulocytes (1.4-6.9) Basophils # (0-0.4) Sodium 139 (137-145) mmol/L Potassium 3.3 L (3.5-5.1) mmol/L Chloride 105 (98-107) mmol/L Carbon Dioxide 20 L (22-30) mmol/L Anion Gap 16.7 H (5-15) MEQ/L BUN 6 L (7-17) mg/dL Creatinine 0.69 (0.52-1.04) mg/dL Estimated GFR > 60.0 ML/MIN Glucose 79 (74-106) mg/dL Calcium 9.8 (8.4-10.2) mg/dL Total Bilirubin 0.60 (0.2-1.3) mg/dL AST 24 (14-36) U/L ALT 23 (0-35) U/L Alkaline Phosphatase 86 (38-126) U/L Troponin I (0.000-0.034) ng/mL Serum Total Protein 7.6 (6.3-8.2) g/dL Albumin 4.3 (3.5-5.0) g/dL Urine Color (YELLOW) Urine Appearance (CLEAR) Urine pH (5-6) Ur Specific [place] (1.005-1.025) Urine Protein (Negative) Urine Ketones (NEGATIVE) Urine Blood (0-5) Mateo/ul Urine Nitrite (NEGATIVE) Urine Bilirubin (NEGATIVE) Urine Urobilinogen (0-1) mg/dL Ur Leukocyte Esterase (NEGATIVE) Urine WBC (Auto) (0-5) /HPF Urine RBC (Auto) (0-2) /HPF U Epithel Cells (Auto) (FEW) /HPF Urine Bacteria (Auto) (NEGATIVE) /HPF Urine Mucus (Auto) (NEGATIVE) /HPF Urine Culture Reflexed (NO) Urine Glucose (NEGATIVE) mg/dL - Progress Progress: unchanged Progress Note: 02/09/20 19:10 Pt wo evidence of [place]/pneumonia. Most likely anxiety. Counseled pt/family regarding: lab results, diagnosis, need for follow-up, rad results - Departure Departure Disposition: Home Clinical Impression: Dyspnea Condition: Stable Critical Care Time: No Referrals: HALLIE KIDD [Primary Care Provider] - Instructions: Shortness of Breath (Dyspnea) (DC) Additional Instructions: Follow up with your family MD in 1-2 days. Return to the ER for increasing shortness of breath/worsening cough/temperature greater than 100.5
[2020-02-09 18:56] LABS: Appearance SLIGHTLY CLOUDY (CLEAR); Bacteria RARE /HPF (NEGATIVE); Bilirubin NEGATIVE (NEGATIVE); Blood NEGATIVE Ery/ul (0-5); Glucose NEGATIVE (NEGATIVE); Ketones SMALL (NEGATIVE); Leukocyte Esterase NEGATIVE (NEGATIVE); Mucus MANY /HPF (NEGATIVE); Nitrite NEGATIVE (NEGATIVE); Protein,Urine Dip 30 (Negative); RBC 0-2 /HPF (0-2); Specific Gravity 1.029 (1.005-1.025); Urobilinogen 2 mg/dL (0-1)
[2020-02-09 19:10] LABS: Amphetamine,Urine NEGATIVE (NEGATIVE); Barbiturate,Urine NEGATIVE (NEGATIVE); Benzodiazepine,Urine NEGATIVE (NEGATIVE); Cocaine,Urine NEGATIVE (NEGATIVE); Methadone,Urine NEGATIVE (NEGATIVE); Opiate,Urine NEGATIVE (NEGATIVE); PCP,Urine NEGATIVE (NEGATIVE); THC,Urine POSITIVE (NEGATIVE)
[2020-02-09 19:29] VITALS: BP 126/77; PULSE 84
--- NOTE | 2020-02-10 08:36 | XRAY ---
Indication: Chest pain and short of breath. Suspect Covid 19. Comparison: June 06, 2019. Portable chest again demonstrates normal heart, lungs, and bony thorax with incidental medial right base calcified granuloma.
== END 2020-02-09 19:31 | disposition home or self-care (01) ==
LOC: ED 17:20
DX: R50.9 Fever, unspecified (principal); R05 Cough; R19.7 Diarrhea, unspecified; R06.02 Shortness of breath; R07.9 Chest pain, unspecified; Z79.899 Other long term (current) drug therapy
CPT/HCPCS: 36000; 36415; 71045; 80053; 80307; 81001; 84484; 85025; 87086; 93005; 99284

== ENCOUNTER 2020-12-24 07:45 | Emergency (ER) | payer OTHER ==
[2020-12-24] MEDS ORDERED: Zofran 4 MG/2 ML VIAL IV ONE (08:12)
[2020-12-24] MEDS ORDERED: Sodium Chloride 0.9% 1000 ML 1,000 ML IV STA ×3 (08:12→13:01)
[2020-12-24] MEDS ORDERED: MORPHINE SULFATE 4 MG INJ IV ONE (08:12)
[2020-12-24] MEDS ORDERED: TYLENOL 325 MG PO ONE (08:12)
[2020-12-24] MEDS ORDERED: Sodium Chloride 0.9% 1000 ML 1,000 ML ONE ×2 (08:12→09:02)
[2020-12-24] MEDS ORDERED: DUONEB 0.5-3 MG/3 ml Neb IH ONE ×3 (08:15→12:25)
[2020-12-24 08:23] LABS: Hematocrit 38.5 % (35-47); Hemoglobin 12.9 gm/dl (12.0-16.0); Mean Cell Volume 82.8 fl (78-100); Mean Corpuscular Hemoglobin 27.7 pg (26-32); Mean Corpuscular Hgb Concent. 33.5 g/dl (32-36); Platelet Count 487 K/mm3 (150-450); Red Blood Count 4.65 M/mm3 (4.1-5.4); Red Cell Distribution Width 14.7 % (11.5-14.0); White Blood Count 24.1 K/mm3 (4.0-10.5)
[2020-12-24] MEDS ORDERED: MORPHINE SULFATE 4 MG INJ ONE (08:24)
[2020-12-24] MEDS ORDERED: Zofran 4 MG/2 ML VIAL ONE (08:24)
[2020-12-24] MEDS ORDERED: TYLENOL 325 MG ONE (08:25)
[2020-12-24 08:34] LABS: ALBUMIN 4.4 g/dL (3.5-5.0); ALKALINE PHOSPHATASE 134 U/L (38-126); AMYLASE 46 U/L (30-110); ANION GAP 20.2 MEQ/L (5-15); BLOOD UREA NITROGEN 9 mg/dL (7-17); CHLORIDE 98 mmol/L (98-107); Calcium 9.7 mg/dL (8.4-10.2); Carbon Dioxide 23 mmol/L (22-30); EST GLOMERULAR FILTRATION RATE > 60.0 ML/MIN; Glucose 119 mg/dL (74-106); LIPASE 57 U/L (23-300); SGOT/AST 30 U/L (14-36); SGPT/ALT 14 U/L (0-35); SODIUM 139 mmol/L (137-145); Total Protein 8.5 g/dL (6.3-8.2)
[2020-12-24] MEDS ORDERED: LEVOFLOXACIN 750MG/150ML D5W 750 MG/150 ML BAG IV STA (08:41)
[2020-12-24] MEDS ORDERED: FLAGYL 500 MG IVPB 500 MG/100 ML BAG IV STA (08:41)
[2020-12-24 08:43] LABS: BAND 17 % (0.0-2.0); Lymphocytes 2 % (24-44); Monocyte 1 % (0.0-12.0); Neutrophils 80 % (36.0-66.0); Total Cells Counted 100
[2020-12-24 08:44] LABS: Absolute Neutrophil Ct (ANC) 23.33 (1.4-6.9); Platelet Estimate INCREASED (NORMAL)
[2020-12-24] MEDS ORDERED: Azactam 1 GM/100 ML D5W 1 GM/100 ML IVPB IV SCH (08:45)
[2020-12-24] MEDS ORDERED: HYDROCODONE-ACETAMIN 2.5-108/5 ML SOLUTION PO STA (08:54)
--- NOTE | 2020-12-24 09:00 | XRAY ---
Indication: Cough. Suspect Covid 19. Comparison: November 03, 2020 Portable chest demonstrates new diffuse bilateral hazy groundglass airspace disease without consolidation/large effusion. Again incidental right base calcified granuloma. Remaining heart and bony thorax normal.
[2020-12-24] MEDS ORDERED: HYDROCODONE-ACETAMIN 2.5-108/5 ML SOLUTION ONE (09:02)
[2020-12-24] MEDS ORDERED: FLAGYL 500 MG IVPB 500 MG/100 ML BAG IV ONE (09:02)
[2020-12-24] MEDS ORDERED: LEVOFLOXACIN 750MG/150ML D5W 750 MG/150 ML BAG IV ONE (09:02)
[2020-12-24 09:11] LABS: Appearance CLOUDY (CLEAR); Bacteria MODERATE /HPF (NEGATIVE); Bilirubin SMALL (NEGATIVE); Blood NEGATIVE Ery/ul (0-5); Epithelial Cells RARE /HPF (FEW); Glucose 50 mg/dL (NEGATIVE); Ketones MODERATE (NEGATIVE); Leukocyte Esterase NEGATIVE (NEGATIVE); Mucus MODERATE /HPF (NEGATIVE); Nitrite NEGATIVE (NEGATIVE); Protein,Urine Dip >=500 (Negative); Specific Gravity 1.035 (1.005-1.025); Urobilinogen NEGATIVE mg/dL (0-1)
[2020-12-24 09:13] LABS: A-aADO2 94; ABG POTASSIUM 2.7 (3.5-5.1); ARTERIAL BLD GAS O2 SATURATION 95.9 % (95-100); ARTERIAL BLOOD GAS BASE EXCESS -0.8 (-2.0-2.0); ARTERIAL BLOOD GAS PCO2 29 mmHg (35-45); ARTERIAL BLOOD GAS PO2 69 mmHg (75-100); ARTERIAL BLOOD GAS pH 7.48 (7.35-7.45); CARBOXYHEMOGLOBIN 1.5 % THgb (0.0-6.9); HCO3- 21.6 (22-28); HGB O2 SAT 93.4 g/dF (94-100)
[2020-12-24 09:14] LABS: ABG SITE LEFT RADIAL; ALLEN TEST OK? yes
[2020-12-24 09:20] LABS: ARTERIAL BLOOD GAS FIO2 40 %
[2020-12-24] MEDS ORDERED: VENTOLIN COMMON CANISTER IH PRN (09:24)
[2020-12-24] MEDS ORDERED: AZACTAM IV ONE (09:30)
[2020-12-24] MEDS ORDERED: D5W MINI IV ONE (09:30)
--- NOTE | 2020-12-24 09:45 | ERPHSYRPT ---
- History of Present Illness Time Seen by Provider: 12/24/20 08:04 Source: patient Exam Limitations: no limitations Patient Subjective Stated Complaint: pt here for v/v/d/ for one week now, headache for a week now Triage Nursing Assessment: pt alert but anxious, resp labored at rest. o2 applied for low o2 sat, skin w/d/p. has dry cough Physician History: 20 years old female with a history of hypothyroidism presented in the ER with chief complaint of cough with shortness of breath and gastroenteritis symptoms for 1 week with progressive worsening. Patient report initially started as a nausea vomiting and diarrhea with generalized abdominal pain and later on started to have shortness of breath the next couple of days. She is having cough productive of clear to yellow sputum mild in amount since with increasing shortness of breath initially with activity and now even resting. It hurts to take a deep breath and her chest is sore all over because of worsening cough. Patient also report experiencing fever with a T-max of 103 2 days ago and currently broke. Reports having multiple episodes of nonprojectile, nonbilious vomiting with no hematemesis and also multiple episodes of loose watery stool with no hematochezia. Abdominal pain is generalized without any significant aggravating or relieving factors. Denies any sick contact. Is feeling weak fatigued and tired with no energy. Patient is tachypneic and tachycardic on presentation with oxygen saturation dropping to 84% on room air. She is placed on 2 L and currently 91%. Timing/Duration: week(s) (1), gradual onset, worse Activities at Onset: rest Severity of Dyspnea-Max: moderate Severity of Dyspnea-Current: moderate Possible Cause: no prior episodes Modifying Factors: Worsens With: activity, coughing, deep breath, exertion Associated Symptoms: constant, cough, chest pain/discomfort, fever, loss of appetite, lightheadedness, wheezing, weakness, chills, lightheadedness, painful breathing, productive cough, sweating Allergies/Adverse Reactions: hydromorphone HCl [From Dilaudid] Allergy (Severe, Verified 04/22/19 17:14) Hives Severe itching with hives penicillin G Allergy (Mild, Verified 04/22/19 17:14) Swelling diphenhydramine HCl [From Benadryl] Adverse Reaction (Mild, Verified 04/22/19 17:14) "crazy behavior" pertussis vaccine,adsorbed [Pertussis Vaccine,Adsorbed] Adverse Reaction (Verified 04/22/19 17:14) Swelling Home Medications: Non-Formulary Drug [Non-Formulary Item] 1 tab PO 1700 05/01/19 [History] Hydroxyzine HCl 25 mg [Atarax 25 mg] 25 mg PO QID 06/05/19 [History] Levothyroxine Sodium 75 Mcg [Synthroid 75 Mcg] 75 mcg PO DAILY 06/05/19 [History] buPROPion HCL [Bupropion Xl] 150 mg PO DAILY 02/09/20 [History] Atorvastatin Calcium 1 ea DAILY 12/24/20 [History] Ergocalciferol (Vitamin D2) [Vitamin D2] 1 ea DAILY 12/24/20 [History] Levothyroxine Sodium [Euthyrox] 100 mcg DAILY 12/24/20 [History] desogestreL-ethinyl estradioL [Enskyce 28 Tablet] 1 each PO DAILY 12/24/20 [History] Hx Tetanus, Diphtheria Vaccination/Date Given: Yes Hx Influenza Vaccination/Date Given: No Hx Pneumococcal Vaccination/Date Given: No Immunizations Up to Date: Yes Travel Risk - International Travel Have you traveled outside of the country in past 3 weeks: No - Coronavirus Screening Are you exhibiting any of the following symptoms?: Yes Symptoms: Cough: New Onset, Shortness of Breath, Vomiting/Diarrhea, Headaches/Body Aches/Fatigue Close contact with a COVID-19 positive Pt in past 14-21 Days: No - Vaccine Status Have you recieved a Covid-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: No - Review of Systems Constitutional: Fever, Chills, Fatigue, Night Sweats, Weakness Eyes: No Symptoms Ears, Nose, & Throat: Throat Pain Respiratory: Cough, Dyspnea, Dyspnea on Exertion (HARO), Wheezing Cardiac: Chest Pain, Palpitations Abdominal/Gastrointestinal: Abdominal Pain, Nausea, Vomiting, Diarrhea Genitourinary Symptoms: No Symptoms Musculoskeletal: Myalgias Neurological: Headache Psychological: No Symptoms Endocrine: No Symptoms Hematologic/Lymphatic: No Symptoms Immunological/Allergic: No Symptoms - Past Medical History Pertinent Past Medical History: Yes Neurological History: Epilepsy, Seizures ENT History: No Pertinent History Cardiac History: Other Respiratory History: Bronchitis, Pneumonia Endocrine Medical History: Hypothyroidism Musculoskeletal History: Other GI Medical History: No Pertinent History, Irritable Bowel History: No Pertinent History Psycho-Social History: Anxiety, Depression Female Reproductive Disorders: Endometriosis, Menstrual Problems Other Medical History: HX OF "SLIGHT" HEART MURMUR - NOT SEEN BY [employer]. lactose intolerant. headaches - Past Surgical History Past Surgical History: Yes Neuro Surgical History: No Pertinent History Cardiac: No Pertinent History Respiratory: No Pertinent History Gastrointestinal: No Pertinent History Genitourinary: No Pertinent History Musculoskeletal: No Pertinent History Female Surgical History: No Pertinent History Other Surgical History: egd, colonoscopy. wisdom teeth. endoscopy - Social History Smoking Status: Never smoker Exposure to second hand smoke: Yes Drug Use: none Patient Lives Alone: Yes - Female History Hx Last Menstrual Period: november Hx Now: (unkn) - Nursing Vital Signs Nursing Vital Signs: Initial Vital Signs Temperature 99.5 F 12/24/20 07:52 Pulse Rate 156 H 12/24/20 07:52 Respiratory Rate 24 12/24/20 07:52 Blood Pressure 133/94 12/24/20 07:52 O2 Sat by Pulse Oximetry 84 L 12/24/20 07:52 Pain Scale Pain Intensity 3 - Physical Exam General Appearance: moderate distress, alert Eye Exam: PERRL/EOMI, eyes nml inspection Ears, Nose, Throat Exam: hearing grossly normal, pharyngeal erythema Neck Exam: normal inspection, non-tender, supple, full range of motion Respiratory Exam: respiratory distress, diminished breath sounds, crackles/rales, rhonchi, wheezing Cardiovascular/Chest Exam: normal heart sounds, tachycardia Abdominal/Gastrointestinal Exam: soft, tenderness (Generalized), No normal bowel sounds (Creased), No guarding, No rebound Extremity Exam: non-tender, normal range of motion, normal inspection, normal capillary refill Neurologic Exam: alert, oriented x 3, cooperative, sole cementer II-XII nml as tested Skin Exam: normal color SpO2 Interpretation: hypoxic, O2 applied SpO2: 94 O2 Delivery: Nasal Cannula - Course EKG Interpreted by Me: RATE ([id number]), Sinus Tach, Right Tyler Deviation, NORMAL INTE RVALS, Non-specific ST Changes Ordered Tests: Active Orders 24 hr Category Date Time Status EKG-ER Only STAT Care 12/24/20 08:12 Active IV Insertion STAT Care 12/24/20 08:12 Active NPO (ED) STAT Care 12/24/20 08:12 Active ABDOMEN AND PELVIS W CONTRAST [CT] Stat Exams 12/24/20 08:13 Completed CHEST 1 VIEW (PORTABLE) Stat Exams 12/24/20 08:13 Completed CHEST WITH CONTRAST [CT] Stat Exams 12/24/20 08:44 Completed ABG [ARTERIAL BLOOD GASES] Stat Lab 12/24/20 08:15 Completed AMYLASE Stat Lab 12/24/20 08:21 Completed ARTERIAL BLOOD GASES Routine Lab 12/24/20 11:49 Completed BLOOD CULTURE Stat Lab 12/24/20 08:35 Received BNP [NT PRO BNP] Stat Lab 12/24/20 11:04 Completed CBC W DIFF Stat Lab 12/24/20 08:21 Completed CMP Stat Lab 12/24/20 08:21 Completed CULTURE,URINE Stat Lab 12/24/20 08:21 Received HCG QUALITATIVE,SERUM Stat Lab 12/24/20 08:21 Completed LIPASE Stat Lab 12/24/20 08:21 Completed Lactic Acid Stat Lab 12/24/20 08:12 Completed Manual Differential NC Stat Lab 12/24/20 08:21 Completed TROPONIN Q3H Lab 12/24/20 09:30 Completed TROPONIN Q3H Lab 12/24/20 13:15 Ordered TROPONIN Q3H Lab 12/24/20 16:15 Ordered TROPONIN Q3H Lab 12/24/20 19:15 Ordered TROPONIN Q3H Lab 12/24/20 22:15 Ordered UA W/RFX UR CULTURE Stat Lab 12/24/20 08:21 Completed BiPap/CPAP STAT RT 12/24/20 11:04 Active Oxygen High Flow per RT 30% RT 12/24/20 12:26 Active Respiratory Therapy Assessment DAILY RT 12/24/20 09:26 Active Transfer Order Routine Transfer 12/24/20 Ordered Medication Summary Generic Name Dose Route Start Last Admin Trade Name Freq PRN Reason Stop Dose Admin Albuterol Sulfate 4 puff 12/24/20 09:24 12/24/20 09:00 Ventolin Common Canister IH 01/23/21 09:23 4 puff Q4H PRN PRN Administration SHORTNESS OF BREATH/WHEEZING Enoxaparin Sodium 86 mg 12/24/20 11:00 12/24/20 11:44 Enoxaparin Sodium SQ 01/23/21 10:59 86 mg Q12H JOMAR Administration Potassium Chloride 20 meq in 100 mls @ 50 mls/hr 12/24/20 09:30 12/24/20 10:48 Potassium Chloride 20 Meq In Water 100ml IV 12/24/20 13:29 50 mls/hr Q2H JOMAR Administration Discontinued Medications Generic Name Dose Route Start Last Admin Trade Name Annabel PRN Reason Stop Dose Admin Acetaminophen 650 mg 12/24/20 08:12 12/24/20 08:27 Tylenol 325 Mg PO 12/24/20 08:13 650 mg STAT ONE Administration Acetaminophen Confirm 12/24/20 08:25 Tylenol 325 Mg Administered 12/24/20 08:26 Dose 650 mg .ROUTE .STK-MED ONE Hydrocodone Bitart/Acetaminophen 10 ml 12/24/20 08:54 12/24/20 09:08 Hydrocodone-Acetamin 2.5-108/5 Ml Solution PO 12/24/20 08:55 10 ml STAT STA Administration Hydrocodone Bitart/Acetaminophen Confirm 12/24/20 09:02 Hydrocodone-Acetamin 2.5-108/5 Ml Solution Administered 12/24/20 09:03 Dose 10 ml .ROUTE .STK-MED ONE Albuterol/Ipratropium 3 ml 12/24/20 08:15 12/24/20 09:46 Duoneb 0.5-3 Mg/3 Ml Neb IH 12/24/20 08:16 Not Given STAT ONE Albuterol/Ipratropium Confirm 12/24/20 12:00 Duoneb 0.5-3 Mg/3 Ml Neb Administered 12/24/20 12:01 Dose 3 ml IH .STK-MED ONE Albuterol/Ipratropium 3 ml 12/24/20 12:25 12/24/20 12:05 Duoneb 0.5-3 Mg/3 Ml Neb IH 12/24/20 12:26 3 ml STAT ONE Administration Dexamethasone Sodium Phosphate Confirm 12/24/20 10:18 Decadron 10mg Inj. Administered 12/24/20 10:19 Dose 10 mg .ROUTE .STK-MED ONE Dexamethasone Sodium Phosphate 10 mg 12/24/20 11:32 12/24/20 11:33 Decadron 10mg Inj. IV 12/24/20 11:33 10 mg STAT ONE Administration Famotidine Confirm 12/24/20 10:06 Pepcid 20 Mg Vial Administered 12/24/20 10:07 Dose 20 mg IV .STK-MED ONE Famotidine 20 mg 12/24/20 10:07 12/24/20 10:08 Pepcid 20 Mg Vial IV 12/24/20 10:08 20 mg STAT ONE Administration Sodium Chloride Confirm 12/24/20 08:12 Sodium Chloride 0.9% 1000 Ml Administered 12/24/20 08:13 Dose 1,000 mls @ ud .ROUTE .STK-MED ONE Sodium Chloride 1,000 mls @ 999 mls/hr 12/24/20 08:12 12/24/20 08:27 Sodium Chloride 0.9% 1000 Ml IV 12/24/20 09:12 999 mls/hr .Q1H1M STA Administration Levofloxacin/Dextrose 750 mg in 150 mls @ 100 mls/hr 12/24/20 08:41 12/24/20 09:07 Levofloxacin 750mg/150ml D5w IV 12/24/20 10:10 100 ml/hr STAT STA 100 mls/hr Administration Metronidazole 500 mg in 100 mls @ 200 mls/hr 12/24/20 08:41 12/24/20 09:06 Flagyl 500 Mg Ivpb IV 12/24/20 09:10 200 ml/hr STAT STA 200 mls/hr Administration Sodium Chloride 1,000 mls @ 999 mls/hr 12/24/20 08:55 12/24/20 09:27 Sodium Chloride 0.9% 1000 Ml IV 12/24/20 09:55 999 mls/hr .Q1H1M STA Administration Aztreonam 2 gm/ Dextrose 100 mls @ 200 mls/hr 12/24/20 09:30 12/24/20 09:26 IV 12/24/20 09:59 200 mls/hr STAT ONE Administration Sodium Chloride Confirm 12/24/20 09:02 Sodium Chloride 0.9% 1000 Ml Administered 12/24/20 09:03 Dose 1,000 mls @ ud .ROUTE .STK-MED ONE Metronidazole Confirm 12/24/20 09:02 Flagyl 500 Mg Ivpb Administered 12/24/20 09:03 Dose 500 mg in 100 mls @ ud IV .STK-MED ONE Levofloxacin/Dextrose Confirm 12/24/20 09:02 Levofloxacin 750mg/150ml D5w Administered 12/24/20 09:03 Dose 750 mg in 150 mls @ ud IV .STK-MED ONE Lorazepam Confirm 12/24/20 10:06 Ativan 1 Mg Administered 12/24/20 10:07 Dose 1 mg .ROUTE .STK-MED ONE Lorazepam 1 mg 12/24/20 10:07 12/24/20 10:08 Ativan 1 Mg PO 12/24/20 10:08 1 mg STAT ONE Administration Morphine Sulfate 4 mg 12/24/20 08:12 12/24/20 08:27 Morphine Sulfate 4 Mg Inj IV 12/24/20 08:13 4 mg STAT ONE Administration Morphine Sulfate Confirm 12/24/20 08:24 Morphine Sulfate 4 Mg Inj Administered 12/24/20 08:25 Dose 4 mg .ROUTE .STK-MED ONE Ondansetron HCl 4 mg 12/24/20 08:12 12/24/20 08:27 Zofran 4 Mg/2 Ml Vial IV 12/24/20 08:13 4 mg STAT ONE Administration Ondansetron HCl Confirm 12/24/20 08:24 Zofran 4 Mg/2 Ml Vial Administered 12/24/20 08:25 Dose 4 mg .ROUTE .STK-MED ONE Lab/Rad Data: Laboratory Result Diagrams 12/24/20 08:21 12/24/20 08:21 Laboratory Results 12/24/20 12/24/20 12/24/20 Range/Units 11:49 11:04 10:48 WBC (4.0-10.5) K/mm3 RBC (4.1-5.4) M/mm3 Hgb (12.0-16.0) gm/dl Hct (35-47) % MCV (78-100) fl MCH (26-32) pg MCHC (32-36) g/dl RDW (11.5-14.0) % Plt Count (150-450) K/mm3 MPV (7.5-11.0) fl Absolute Granulocytes (1.4-6.9) Segmented Neutrophils (36.0-66.0) % Band Neutrophils (0.0-2.0) % Lymphocytes (Manual) (24-44) % Monocytes (Manual) (0.0-12.0) % Platelet Estimate (NORMAL) RBC Morphology Puncture Site RIGHT RADIAL pCO2 25 L (35-45) mmHg pO2 370 H* (75-100) mmHg Base Excess 0.3 (-2.0-2.0) O2 Saturation 98.3 (94-100) g/dF ABG pH 7.54 H (7.35-7.45) ABG HCO3 21.4 L (22-28) ABG O2 Sat (Measured) 99.9 (95-100) % Jose E Test YES A-a Gradient 312 a/A Ratio 0.54 Hemoglobin 11.1 Carboxyhemoglobin 0.8 (0.0-6.9) % THgb Methemoglobin 0.9 L (1.4-1.5) % Potassium 2.8 L* (3.5-5.1) Temperature 37.0 C POC O2 Flow Rate 100 % Inspiratory BiPAP 14 Expiratory BiPAP 6 Sodium (137-145) mmol/L Chloride (98-107) mmol/L Carbon Dioxide (22-30) mmol/L Anion Gap (5-15) MEQ/L BUN (7-17) mg/dL Creatinine (0.52-1.04) mg/dL Estimated GFR ML/MIN Glucose (74-106) mg/dL Lactic Acid (0.4-2.0) Calcium (8.4-10.2) mg/dL Total Bilirubin (0.2-1.3) mg/dL AST (14-36) U/L ALT (0-35) U/L Alkaline Phosphatase (38-126) U/L Troponin I (0.000-0.034) ng/mL NT-Pro-B Natriuret Pep 94.5 (0-450) pg/mL Serum Total Protein (6.3-8.2) g/dL Albumin (3.5-5.0) g/dL Amylase (30-110) U/L Lipase (23-300) U/L Serum , Qual (Negative) Urine Color (YELLOW) Urine Appearance (CLEAR) Urine pH (5-6) Ur Specific [place] (1.005-1.025) Urine Protein (Negative) Urine Ketones (NEGATIVE) Urine Blood (0-5) Mateo/ul Urine Nitrite (NEGATIVE) Urine Bilirubin (NEGATIVE) Urine Urobilinogen (0-1) mg/dL Ur Leukocyte Esterase (NEGATIVE) Urine WBC (Auto) (0-5) /HPF Urine RBC (Auto) (0-2) /HPF U Hyaline Cast (Auto) (0-2) /LPF U Epithel Cells (Auto) (FEW) /HPF Urine Bacteria (Auto) (NEGATIVE) /HPF Granular Casts (Auto) (NEGATIVE) /LPF Urine Mucus (Auto) (NEGATIVE) /HPF Urine Culture Reflexed (NO) Urine Glucose (NEGATIVE) mg/dL Influenza Type A Ag NEGATIVE (NEGATIVE) Influenza Type B Ag NEGATIVE (NEGATIVE) RSV (PCR) NEGATIVE (Negative) SARS-CoV-2 (PCR) NEGATIVE (NEGATIVE) 12/24/20 12/24/20 12/24/20 Range/Units 09:30 08:21 08:21 WBC (4.0-10.5) K/mm3 RBC (4.1-5.4) M/mm3 Hgb (12.0-16.0) gm/dl Hct (35-47) % MCV (78-100) fl MCH (26-32) pg MCHC (32-36) g/dl RDW (11.5-14.0) % Plt Count (150-450) K/mm3 MPV (7.5-11.0) fl Absolute Granulocytes (1.4-6.9) Segmented Neutrophils (36.0-66.0) % Band Neutrophils (0.0-2.0) % Lymphocytes (Manual) (24-44) % Monocytes (Manual) (0.0-12.0) % Platelet Estimate (NORMAL) RBC Morphology Puncture Site pCO2 (35-45) mmHg pO2 (75-100) mmHg Base Excess (-2.0-2.0) O2 Saturation (94-100) g/dF ABG pH (7.35-7.45) ABG HCO3 (22-28) ABG O2 Sat (Measured) (95-100) % Jose E Test A-a Gradient a/A Ratio Hemoglobin Carboxyhemoglobin (0.0-6.9) % THgb Methemoglobin (1.4-1.5) % Potassium 3.0 L* (3.5-5.1) Temperature C POC O2 Flow Rate % Inspiratory BiPAP Expiratory BiPAP Sodium 139 (137-145) mmol/L Chloride 98 (98-107) mmol/L Carbon Dioxide 23 (22-30) mmol/L Anion Gap 20.2 H (5-15) MEQ/L BUN 9 (7-17) mg/dL Creatinine 0.80 (0.52-1.04) mg/dL Estimated GFR > 60.0 ML/MIN Glucose 119 H (74-106) mg/dL Lactic Acid (0.4-2.0) Calcium 9.7 (8.4-10.2) mg/dL Total Bilirubin 0.70 (0.2-1.3) mg/dL AST 30 (14-36) U/L ALT 14 (0-35) U/L Alkaline Phosphatase 134 H (38-126) U/L Troponin I < 0.012 (0.000-0.034) ng/mL NT-Pro-B Natriuret Pep (0-450) pg/mL Serum Total Protein 8.5 H (6.3-8.2) g/dL Albumin 4.4 (3.5-5.0) g/dL Amylase 46 (30-110) U/L Lipase 57 (23-300) U/L Serum , Qual NEGATIVE (Negative) Urine Color (YELLOW) Urine Appearance (CLEAR) Urine pH (5-6) Ur Specific [place] (1.005-1.025) Urine Protein (Negative) Urine Ketones (NEGATIVE) Urine Blood (0-5) Mateo/ul Urine Nitrite (NEGATIVE) Urine Bilirubin (NEGATIVE) Urine Urobilinogen (0-1) mg/dL Ur Leukocyte Esterase (NEGATIVE) Urine WBC (Auto) (0-5) /HPF Urine RBC (Auto) (0-2) /HPF U Hyaline Cast (Auto) (0-2) /LPF U Epithel Cells (Auto) (FEW) /HPF Urine Bacteria (Auto) (NEGATIVE) /HPF Granular Casts (Auto) (NEGATIVE) /LPF Urine Mucus (Auto) (NEGATIVE) /HPF Urine Culture Reflexed (NO) Urine Glucose (NEGATIVE) mg/dL Influenza Type A Ag (NEGATIVE) Influenza Type B Ag (NEGATIVE) RSV (PCR) (Negative) SARS-CoV-2 (PCR) (NEGATIVE) 12/24/20 12/24/20 12/24/20 Range/Units 08:21 08:21 08:15 WBC 24.1 H (4.0-10.5) K/mm3 RBC 4.65 (4.1-5.4) M/mm3 Hgb 12.9 (12.0-16.0) gm/dl Hct 38.5 (35-47) % MCV 82.8 (78-100) fl MCH 27.7 (26-32) pg MCHC 33.5 (32-36) g/dl RDW 14.7 H (11.5-14.0) % Plt Count 487 H (150-450) K/mm3 MPV 9.0 (7.5-11.0) fl Absolute Granulocytes 23.33 H (1.4-6.9) Segmented Neutrophils 80 H (36.0-66.0) % Band Neutrophils 17 H (0.0-2.0) % Lymphocytes (Manual) 2 L (24-44) % Monocytes (Manual) 1 (0.0-12.0) % Platelet Estimate INCREASED (NORMAL) RBC Morphology NORMAL Puncture Site LEFT RADIAL pCO2 29 L (35-45) mmHg pO2 69 L (75-100) mmHg Base Excess -0.8 (-2.0-2.0) O2 Saturation 93.4 L (94-100) g/dF ABG pH 7.48 H (7.35-7.45) ABG HCO3 21.6 L (22-28) ABG O2 Sat (Measured) 95.9 (95-100) % Jose E Test yes A-a Gradient 94 a/A Ratio 0.42 Hemoglobin 12.0 Carboxyhemoglobin 1.5 (0.0-6.9) % THgb Methemoglobin 1.0 L (1.4-1.5) % Potassium 2.7 L* (3.5-5.1) Temperature 37.0 C POC O2 Flow Rate 40 % Inspiratory BiPAP Expiratory BiPAP Sodium (137-145) mmol/L Chloride (98-107) mmol/L Carbon Dioxide (22-30) mmol/L Anion Gap (5-15) MEQ/L BUN (7-17) mg/dL Creatinine (0.52-1.04) mg/dL Estimated GFR ML/MIN Glucose (74-106) mg/dL Lactic Acid (0.4-2.0) Calcium (8.4-10.2) mg/dL Total Bilirubin (0.2-1.3) mg/dL AST (14-36) U/L ALT (0-35) U/L Alkaline Phosphatase (38-126) U/L Troponin I (0.000-0.034) ng/mL NT-Pro-B Natriuret Pep (0-450) pg/mL Serum Total Protein (6.3-8.2) g/dL Albumin (3.5-5.0) g/dL Amylase (30-110) U/L Lipase (23-300) U/L Serum , Qual (Negative) Urine Color BASIL (YELLOW) Urine Appearance CLOUDY (CLEAR) Urine pH 6.0 (5-6) Ur Specific [place] 1.035 (1.005-1.025) Urine Protein >=500 (Negative) Urine Ketones MODERATE (NEGATIVE) Urine Blood NEGATIVE (0-5) Mateo/ul Urine Nitrite NEGATIVE (NEGATIVE) Urine Bilirubin SMALL (NEGATIVE) Urine Urobilinogen NEGATIVE (0-1) mg/dL Ur Leukocyte Esterase NEGATIVE (NEGATIVE) Urine WBC (Auto) 16-25 (0-5) /HPF Urine RBC (Auto) 3-5 (0-2) /HPF U Hyaline Cast (Auto) 11-25 (0-2) /LPF U Epithel Cells (Auto) RARE (FEW) /HPF Urine Bacteria (Auto) MODERATE (NEGATIVE) /HPF Granular Casts (Auto) 10-25 (NEGATIVE) /LPF Urine Mucus (Auto) MODERATE (NEGATIVE) /HPF Urine Culture Reflexed YES (NO) Urine Glucose 50 (NEGATIVE) mg/dL Influenza Type A Ag (NEGATIVE) Influenza Type B Ag (NEGATIVE) RSV (PCR) (Negative) SARS-CoV-2 (PCR) (NEGATIVE) 12/24/20 Range/Units 08:12 WBC (4.0-10.5) K/mm3 RBC (4.1-5.4) M/mm3 Hgb (12.0-16.0) gm/dl Hct (35-47) % MCV (78-100) fl MCH (26-32) pg MCHC (32-36) g/dl RDW (11.5-14.0) % Plt Count (150-450) K/mm3 MPV (7.5-11.0) fl Absolute Granulocytes (1.4-6.9) Segmented Neutrophils (36.0-66.0) % Band Neutrophils (0.0-2.0) % Lymphocytes (Manual) (24-44) % Monocytes (Manual) (0.0-12.0) % Platelet Estimate (NORMAL) RBC Morphology Puncture Site pCO2 (35-45) mmHg pO2 (75-100) mmHg Base Excess (-2.0-2.0) O2 Saturation (94-100) g/dF ABG pH (7.35-7.45) ABG HCO3 (22-28) ABG O2 Sat (Measured) (95-100) % Jose E Test A-a Gradient a/A Ratio Hemoglobin Carboxyhemoglobin (0.0-6.9) % THgb Methemoglobin (1.4-1.5) % Potassium (3.5-5.1) Temperature C POC O2 Flow Rate % Inspiratory BiPAP Expiratory BiPAP Sodium (137-145) mmol/L Chloride (98-107) mmol/L Carbon Dioxide (22-30) mmol/L Anion Gap (5-15) MEQ/L BUN (7-17) mg/dL Creatinine (0.52-1.04) mg/dL Estimated GFR ML/MIN Glucose (74-106) mg/dL Lactic Acid 1.5 (0.4-2.0) Calcium (8.4-10.2) mg/dL Total Bilirubin (0.2-1.3) mg/dL AST (14-36) U/L ALT (0-35) U/L Alkaline Phosphatase (38-126) U/L Troponin I (0.000-0.034) ng/mL NT-Pro-B Natriuret Pep (0-450) pg/mL Serum Total Protein (6.3-8.2) g/dL Albumin (3.5-5.0) g/dL Amylase (30-110) U/L Lipase (23-300) U/L Serum , Qual (Negative) Urine Color (YELLOW) Urine Appearance (CLEAR) Urine pH (5-6) Ur Specific [place] (1.005-1.025) Urine Protein (Negative) Urine Ketones (NEGATIVE) Urine Blood (0-5) Mateo/ul Urine Nitrite (NEGATIVE) Urine Bilirubin (NEGATIVE) Urine Urobilinogen (0-1) mg/dL Ur Leukocyte Esterase (NEGATIVE) Urine WBC (Auto) (0-5) /HPF Urine RBC (Auto) (0-2) /HPF U Hyaline Cast (Auto) (0-2) /LPF U Epithel Cells (Auto) (FEW) /HPF Urine Bacteria (Auto) (NEGATIVE) /HPF Granular Casts (Auto) (NEGATIVE) /LPF Urine Mucus (Auto) (NEGATIVE) /HPF Urine Culture Reflexed (NO) Urine Glucose (NEGATIVE) mg/dL Influenza Type A Ag (NEGATIVE) Influenza Type B Ag (NEGATIVE) RSV (PCR) (Negative) SARS-CoV-2 (PCR) (NEGATIVE) - Progress Progress: improved, re-examined Air Movement: fair Progress Note: 12/24/20 09:55 20 years old is evaluated for flulike symptoms with respiratory failure and gastroenteritis. Patient was tachypneic and tachycardic on presentation with hypoxemia. Placed on oxygen. Given fluid boluses and her heart rate is improving and her cough/pain is better with symptomatic treatment. Work-up showed white count of 24 with chemistries showing hypokalemia with normal renal functions. Chest x-ray showed bilateral airspace disease. Patient is started on broad-spectrum antibiotics. Discussed with Dr. Lizama about patient presentation, work-up and current management, agreed with admission here at [facility]. Will obtain COVID-19 testing and if negative patient would be admitted to regular unit. 12/24/20 11:11 Oxygen saturation is dropping despite being on 6 L to 84%. She is placed on BiPAP and currently tolerating well with sats around 99% with improvement in work of breathing. CTA Chest noted bilateral nonoccluding pulmonary emboli in the peripheral parts of the lobe especially lower lobes. Started on Lovenox. Discussed with Dr. Lizama again about new CTA results and patient being on BiPAP and she is okay with keeping patient in here. She would consult Dr. Townsend. 12/24/20 11:14 12/24/20 12:54 patient's clinical picture seems consistent with COVID-19 related although patient has negative rapid test. This could be false negative. So infectious control wants patient to be in the Covid unit/isolation. I have discussed with Dr. Smith who is taking care of that unit patient, reviewed work-up and presentation and current management, recommended transfer to facility with higher level of services especially pulmonology. Discussed with Dr. Smith at [facility], reviewed work-up and current care, recommended giving additional liter of normal saline as patient is still tachycardic and it could be sepsis related itself. Patient is accepted for transfer. Blood Culture(s) Obtained: Yes Antibiotics given: Yes Discussed with Dr.: Marilyn, Other Will see patient in: ED Counseled pt/family regarding: lab results, diagnosis, rad results - Departure Departure Disposition: Transfer Clinical Impression: Gastroenteritis, Bilateral pulmonary embolism Respiratory failure Qualifiers: Chronicity: acute Respiratory failure complication: hypoxia Qualified Code(s): J96.01 - Acute respiratory failure with hypoxia Bilateral pneumonia Qualifiers: Pneumonia type: due to unspecified organism Lung location: lower lobe of lung Qualified Code(s): J18.9 - Pneumonia, unspecified organism Condition: Fair Critical Care Time: Yes Critical Care Time(excluding separately billable procedures): Critical 75-104 mins Referrals: HALLIE LEIGH [Primary Care Provider] -
[2020-12-24] MEDS ORDERED: POTASSIUM CHLORIDE 20 mEq IN WATER 100ML 200 ML IV ONE (09:47)
[2020-12-24] MEDS ORDERED: Pepcid 20 MG VIAL IV ONE ×2 (10:06→10:07)
[2020-12-24] MEDS ORDERED: Ativan 1 MG ONE (10:06)
[2020-12-24] MEDS ORDERED: Ativan 1 MG PO ONE (10:07)
[2020-12-24] MEDS ORDERED: DECADRON 10MG INJ. ONE (10:18)
--- NOTE | 2020-12-24 10:28 | XRAY ---
Indication: Cough, nausea, and vomiting. Suspect Covid 19. Multiple contiguous axial images obtained through the abdomen and pelvis using 90 cc Isovue 370 contrast. Comparison: May 01, 2019. CT chest reported separately. Entire study is markedly degraded by respiration artifact. Noncontrasted stomach and bowel loops appear grossly nonobstructed. No obvious large free fluid/air. Remaining liver, gallbladder, pancreas, spleen, adrenal glands, kidneys, ureters, bladder, uterus, and aorta appear grossly unremarkable. Osseous structures grossly intact. Impression: Markedly limited exam due to diffuse respiration artifact. No obvious new or acute intra-abdominal/pelvic abnormalities on this contrasted exam.
--- NOTE | 2020-12-24 10:31 | XRAY ---
Indication: Cough, nausea, and vomiting. Suspect Covid 19. Multiple contiguous axial images obtained through the chest using 90 cc Isovue 370 contrast and PE protocol. Comparison: None There is adequate opacification of the pulmonary arteries. However significant respiration artifact limits evaluation for pulmonary embolus. Suspect nonoccluding pulmonary emboli in the right middle and both lower lobes. Heart is not enlarged. Aorta is normal in course and caliber. Small subcarinal calcified nodes. No pathologic mediastinal/hilar lymphadenopathy. Lungs demonstrate diffuse bilateral patchy groundglass airspace disease without consolidation/effusion. Small medial right lower lobe calcified granuloma. Bony thorax intact. CT abdomen/pelvis reported separately. Impression: 1. Pulmonary embolus evaluation markedly limited due to respiration artifact. Suspect nonoccluding pulmonary emboli in the right middle and both lower lobes. 2. Diffuse bilateral groundglass airspace disease. Imaging features can be seen with Covid 19 pneumonia, though are nonspecific and can occur with a variety of infectious and noninfectious processes. 3. Incidental old granulomatous disease.
[2020-12-24] MEDS: POTASSIUM CHLORIDE 20 mEq IN WATER 100ML 20 MEQ/100 ML BAG IV SCH ×2 (10:48→13:59)
[2020-12-24] MEDS ORDERED: ENOXAPARIN SODIUM SQ SCH (11:00)
[2020-12-24] MEDS ORDERED: DECADRON 10MG INJ. IV ONE (11:32)
[2020-12-24 11:51] LABS: INFLUENZA A NEGATIVE (NEGATIVE); INFLUENZA B NEGATIVE (NEGATIVE); RESPIRATORY SYNCTIAL VIRUS NEGATIVE (Negative)
[2020-12-24 12:00] LABS: A-aADO2 312; ABG HEMOGLOBIN 11.1; ARTERIAL BLD GAS O2 SATURATION 99.9 % (95-100); ARTERIAL BLOOD GAS BASE EXCESS 0.3 (-2.0-2.0); ARTERIAL BLOOD GAS FIO2 100 %; ARTERIAL BLOOD GAS PCO2 25 mmHg (35-45); ARTERIAL BLOOD GAS PO2 370 mmHg (75-100); ARTERIAL BLOOD GAS pH 7.54 (7.35-7.45); CARBOXYHEMOGLOBIN 0.8 % THgb (0.0-6.9); HCO3- 21.4 (22-28); HGB O2 SAT 98.3 g/dF (94-100); Methhemoglobin 0.9 % (1.4-1.5)
[2020-12-24 12:01] LABS: ABG POTASSIUM 2.8 (3.5-5.1)
[2020-12-24 12:02] LABS: ABG SITE RIGHT RADIAL; ALLEN TEST OK? YES
[2020-12-24 14:02] VITALS: BP 111/74; PULSE 133; O2SAT 90
== END 2020-12-24 14:02 | disposition short-term general hospital (02) ==
LOC: ED 07:45
DX: K52.9 Noninfective gastroenteritis and colitis, unspecified (principal); I26.99 Other pulmonary embolism without acute cor pulmonale; J96.01 Acute respiratory failure with hypoxia; J18.9 Pneumonia, unspecified organism
CPT/HCPCS: 0241U; 36000; 36415; 36600; 71045; 71260; 74177; 80053; 81001; 81025; 82150; 82375; 82803; 83605; 83690; 83880; 84484; 85025; 87040; 87086; 93005; 94002; 94640; 96360; 96361; 96365; 96367; 96368; 96372; 96374; 96375; 99285; 99291; 99292; J1100; J1650; J1956; J2270; J2405; J3480; A9270-GY

== ENCOUNTER 2021-01-05 08:44 | Emergency (ER) | payer OTHER ==
--- NOTE | 2021-01-05 08:56 | ERPHSYRPT ---
- History of Present Illness Time Seen by Provider: 01/05/21 09:00 Source: patient Exam Limitations: no limitations Physician History: Patient is a 20-year-old female presents to our emergency department with complaints of shortness of breath. Per patient she has a history of vaping related lung injury. Patient was recently extubated. Patient here today complaining of shortness of breath dry cough. No chest pain. No nausea vomiting or diaphoresis. Symptoms are mild to moderate in intensity. No specific worsening improving factors. Patient voices no other complaints or concerns at this time. Timing/Duration: today Severity of Dyspnea-Max: moderate Severity of Dyspnea-Current: mild Possible Cause: unknown cause (Vape related lung injury) Modifying Factors: Improves With: activity Associated Symptoms: No fever, No ankle swelling, No lightheadedness Allergies/Adverse Reactions: hydromorphone HCl [From Dilaudid] Allergy (Severe, Verified 01/05/21 08:45) Hives Severe itching with hives penicillin G Allergy (Mild, Verified 01/05/21 08:45) Swelling diphenhydramine HCl [From Benadryl] Adverse Reaction (Mild, Verified 01/05/21 08:45) "crazy behavior" pertussis vaccine,adsorbed [Pertussis Vaccine,Adsorbed] Adverse Reaction (Verified 01/05/21 08:45) Swelling Home Medications: Non-Formulary Drug [Non-Formulary Item] 1 tab PO 1700 05/01/19 [History] Hydroxyzine HCl 25 mg [Atarax 25 mg] 25 mg PO QID 06/05/19 [History] Levothyroxine Sodium 75 Mcg [Synthroid 75 Mcg] 75 mcg PO DAILY 06/05/19 [History] buPROPion HCL [Bupropion Xl] 150 mg PO DAILY 02/09/20 [History] Atorvastatin Calcium 1 ea DAILY 12/24/20 [History] Ergocalciferol (Vitamin D2) [Vitamin D2] 1 ea DAILY 12/24/20 [History] Levothyroxine Sodium [Euthyrox] 100 mcg DAILY 12/24/20 [History] desogestreL-ethinyl estradioL [Enskyce 28 Tablet] 1 each PO DAILY 12/24/20 [Hi story] Doxycycline Hyclate 100 mg [Vibramycin 100 MG] 1 ea DAILY 01/05/21 [History] Famotidine 1 ea DAILY 01/05/21 [History] Prednisone 10 mg [Deltasone 10 mg] 1 ea DAILY 01/05/21 [History] Hx Tetanus, Diphtheria Vaccination/Date Given: Yes Hx Influenza Vaccination/Date Given: No Hx Pneumococcal Vaccination/Date Given: No Travel Risk - Vaccine Status Have you recieved a Covid-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: No - Review of Systems Constitutional: No Symptoms, No Fever, No Chills Eyes: No Symptoms Ears, Nose, & Throat: No Symptoms Respiratory: No Symptoms, No Cough, No Dyspnea Cardiac: No Symptoms, No Chest Pain, No Edema, No Syncope Abdominal/Gastrointestinal: No Symptoms, No Abdominal Pain, No Nausea, No Vomiting, No Diarrhea Genitourinary Symptoms: No Symptoms, No Dysuria Musculoskeletal: No Symptoms, No Back Pain, No Neck Pain Skin: No Symptoms, No Rash Neurological: No Symptoms, No Dizziness, No Focal Weakness, No Sensory Changes Psychological: No Symptoms Endocrine: No Symptoms Hematologic/Lymphatic: No Symptoms Immunological/Allergic: No Symptoms All Other Systems: Reviewed and Negative - Past Medical History Pertinent Past Medical History: Yes Neurological History: Epilepsy, Seizures ENT History: No Pertinent History Cardiac History: Other Respiratory History: Bronchitis, Pneumonia Endocrine Medical History: Hypothyroidism Musculoskeletal History: Other GI Medical History: No Pertinent History, Irritable Bowel History: No Pertinent History Psycho-Social History: Anxiety, Depression Female Reproductive Disorders: Endometriosis, Menstrual Problems Other Medical History: HX OF "SLIGHT" HEART MURMUR - 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 lactose intolerant. headaches - Past Surgical History Past Surgical History: Yes Neuro Surgical History: No Pertinent History Cardiac: No Pertinent History Respiratory: No Pertinent History Gastrointestinal: No Pertinent History Genitourinary: No Pertinent History Musculoskeletal: No Pertinent History Female Surgical History: No Pertinent History Other Surgical History: egd, colonoscopy. wisdom teeth. endoscopy - Social History Smoking Status: Never smoker Exposure to second hand smoke: Yes Drug Use: none Patient Lives Alone: Yes - Nursing Vital Signs Nursing Vital Signs: Initial Vital Signs Temperature 98.1 F 01/05/21 08:54 Pulse Rate 104 H 01/05/21 08:54 Respiratory Rate 36 H 01/05/21 08:54 Blood Pressure 139/94 01/05/21 08:54 O2 Sat by Pulse Oximetry 98 01/05/21 08:54 Pain Scale Pain Intensity 8 - Physical Exam General Appearance: mild distress Eye Exam: PERRL/EOMI, eyes nml inspection, scleral icterus Ears, Nose, Throat Exam: hearing grossly normal, normal ENT inspection, normal pharynx Neck Exam: normal inspection, non-tender, supple, full range of motion Respiratory Exam: normal breath sounds, respiratory distress, accessory muscle use, rhonchi, other (Coarse breath sounds bilaterally, diminished breath sounds dry cough), No stridor Cardiovascular/Chest Exam: normal heart sounds, regular rate/rhythm, No murmur Abdominal/Gastrointestinal Exam: soft, normal bowel sounds, No tenderness, No d istention Extremity Exam: non-tender, normal range of motion, normal inspection, normal capillary refill Neurologic Exam: alert, oriented x 3, cooperative Skin Exam: normal color, warm, dry Lymphatic Exam: adenopathy SpO2 Interpretation: normal SpO2: 98 O2 Delivery: Nasal Cannula - Course Nursing assessment & vital signs reviewed: Yes EKG Interpreted by Me: RATE ([id number]), Sinus Rhythm, NORMAL AXIS, NORMAL INTERVALS - Radiology Exams Chest X-ray Interpretation: Teleradiologist Report (Mild clearing of previous bilateral hazy groundglass opacities with mild residual. Remaining heart and bony thorax normal with incidental right base calcified granuloma.) Ordered Tests: Active Orders 24 hr Category Date Time Status Counter Former STAT Care 01/05/21 08:59 Active EKG-ER Only STAT Care 01/05/21 08:57 Active IV Insertion STAT Care 01/05/21 08:57 Active Pulse Oximetry (ED) STAT Care 01/05/21 08:57 Active CHEST 1 VIEW (PORTABLE) Stat Exams 01/05/21 09:24 Completed ABG [ARTERIAL BLOOD GASES] Stat Lab 01/05/21 09:20 Completed ACETAMINOPHEN Stat Lab 01/05/21 09:00 Completed CBC W DIFF Stat Lab 01/05/21 09:00 Completed CMP Stat Lab 01/05/21 09:00 Completed D-DIMER QUANTITATIVE Stat Lab 01/05/21 09:00 Completed ETHYL ALCOHOL Stat Lab 01/05/21 09:00 Completed MAGNESIUM Stat Lab 01/05/21 09:00 Completed Manual Differential NC Stat Lab 01/05/21 09:00 Completed SALICYLATE Stat Lab 01/05/21 09:00 Completed TROPONIN Q3H Lab 01/05/21 09:00 Completed TROPONIN Q3H Lab 01/05/21 12:00 Ordered TROPONIN Q3H Lab 01/05/21 15:00 Ordered TROPONIN Q3H Lab 01/05/21 18:00 Ordered TROPONIN Q3H Lab 01/05/21 21:00 Ordered UA W/RFX UR CULTURE Stat Lab 01/05/21 09:00 Received Urine Triage Profile Stat Lab 01/05/21 09:59 Ordered Medication Summary Discontinued Medications Generic Name Dose Route Start Last Admin Trade Name Annabel PRN Reason Stop Dose Admin Methylprednisolone Sodium Succinate 125 mg 01/05/21 09:26 01/05/21 09:35 Solu-Medrol 125 Mg IV 01/05/21 09:27 125 mg STAT ONE Administration Methylprednisolone Sodium Succinate Confirm 01/05/21 09:33 Solu-Medrol 125 Mg Administered 01/05/21 09:34 Dose 125 mg .ROUTE .STK-MED ONE Potassium Chloride 40 meq 01/05/21 10:16 01/05/21 10:22 Klor Con 10 Meq PO 01/05/21 10:17 40 meq STAT ONE Administration Potassium Chloride Confirm 01/05/21 10:21 Klor Con 10 Meq Administered 01/05/21 10:22 Dose 40 meq PO .STK-MED ONE Lab/Rad Data: Laboratory Result Diagrams 01/05/21 09:00 01/05/21 09:00 Laboratory Results 01/05/21 01/05/21 01/05/21 Range/Units 09:20 09:00 09:00 WBC (4.0-10.5) K/mm3 RBC (4.1-5.4) M/mm3 Hgb (12.0-16.0) gm/dl Hct (35-47) % MCV (78-100) fl MCH (26-32) pg MCHC (32-36) g/dl RDW (11.5-14.0) % Plt Count (150-450) K/mm3 MPV (7.5-11.0) fl Segmented Neutrophils (36.0-66.0) % Band Neutrophils (0.0-2.0) % Lymphocytes (Manual) (24-44) % Monocytes (Manual) (0.0-12.0) % Eosinophils (Manual) (0.00-3.0) % Toxic Granulation Platelet Estimate (NORMAL) RBC Morphology Anisocytosis D-Dimer (215-500) ng/mL Puncture Site RIGHT RADIAL pCO2 17 L* (35-45) mmHg pO2 75 (75-100) mmHg Base Excess 0.6 (-2.0-2.0) O2 Saturation 95.6 (94-100) g/dF ABG pH 7.65 H* (7.35-7.45) ABG HCO3 18.7 L (22-28) ABG O2 Sat (Measured) 98.1 (95-100) % Jose E Test YES A-a Gradient 103 a/A Ratio 0.42 Hemoglobin 13.8 Carboxyhemoglobin 1.3 (0.0-6.9) % THgb Methemoglobin 1.1 L (1.4-1.5) % Temperature 37.0 C POC O2 Flow Rate 28 % Sodium (137-145) mmol/L Potassium 3.3 L (3.5-5.1) mmol/L Chloride (98-107) mmol/L Carbon Dioxide (22-30) mmol/L Anion Gap (5-15) MEQ/L BUN (7-17) mg/dL Creatinine (0.52-1.04) mg/dL Estimated GFR ML/MIN Glucose (74-106) mg/dL Calcium (8.4-10.2) mg/dL Magnesium (1.6-2.3) mg/dL Total Bilirubin (0.2-1.3) mg/dL AST (14-36) U/L ALT (0-35) U/L Alkaline Phosphatase (38-126) U/L Troponin I < 0.012 (0.000-0.034) ng/mL Serum Total Protein (6.3-8.2) g/dL Albumin (3.5-5.0) g/dL Salicylates < 1.0 L (2-20) mg/dL Acetaminophen < 10 L (10-30) ug/ml Ethyl Alcohol < 10 (0-10) mg/dL 01/05/21 01/05/21 01/05/21 Range/Units 09:00 09:00 09:00 WBC 13.4 H (4.0-10.5) K/mm3 RBC 4.92 (4.1-5.4) M/mm3 Hgb 13.7 (12.0-16.0) gm/dl Hct 42.8 (35-47) % MCV 87.0 (78-100) fl MCH 27.8 (26-32) pg MCHC 32.0 (32-36) g/dl RDW 16.2 H (11.5-14.0) % Plt Count 546 H (150-450) K/mm3 MPV 9.6 (7.5-11.0) fl Segmented Neutrophils 59 (36.0-66.0) % Band Neutrophils 1 (0.0-2.0) % Lymphocytes (Manual) 31 (24-44) % Monocytes (Manual) 7 (0.0-12.0) % Eosinophils (Manual) 2 (0.00-3.0) % Toxic Granulation 2+ Platelet Estimate INCREASED (NORMAL) RBC Morphology ABNORMAL Anisocytosis 1+ D-Dimer 443 (215-500) ng/mL Puncture Site pCO2 (35-45) mmHg pO2 (75-100) mmHg Base Excess (-2.0-2.0) O2 Saturation (94-100) g/dF ABG pH (7.35-7.45) ABG HCO3 (22-28) ABG O2 Sat (Measured) (95-100) % Jose E Test A-a Gradient a/A Ratio Hemoglobin Carboxyhemoglobin (0.0-6.9) % THgb Methemoglobin (1.4-1.5) % Temperature C POC O2 Flow Rate % Sodium 140 (137-145) mmol/L Potassium 3.2 L (3.5-5.1) mmol/L Chloride 105 (98-107) mmol/L Carbon Dioxide 21 L (22-30) mmol/L Anion Gap 17.4 H (5-15) MEQ/L BUN 8 (7-17) mg/dL Creatinine 0.61 (0.52-1.04) mg/dL Estimated GFR > 60.0 ML/MIN Glucose 87 (74-106) mg/dL Calcium 10.3 H (8.4-10.2) mg/dL Magnesium 1.8 (1.6-2.3) mg/dL Total Bilirubin 1.00 (0.2-1.3) mg/dL AST 30 (14-36) U/L ALT 56 H (0-35) U/L Alkaline Phosphatase 105 (38-126) U/L Troponin I (0.000-0.034) ng/mL Serum Total Protein 7.4 (6.3-8.2) g/dL Albumin 4.5 (3.5-5.0) g/dL Salicylates (2-20) mg/dL Acetaminophen (10-30) ug/ml Ethyl Alcohol (0-10) mg/dL - Progress Progress: improved Air Movement: good Progress Note: 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 Case discussed with Dr. Garcia covering Dr. Gandara who also feels that transfer to [facility] would be appropriate. Plan of care discussed with patient. She agrees to transfer to [facility] for further evaluation and treatment. Patient reassessed. Tachypnea significantly improved. Patient resting comfortably after application of 2 L oxygen via nasal cannula. 01/05/21 11:03 Blood Culture(s) Obtained: No Antibiotics given: No Counseled pt/family regarding: lab results, diagnosis, rad results - Departure Departure Disposition: Transfer Clinical Impression: Lung granuloma, Leukocytosis, Hypokalemia, Thrombocytosis Condition: Stable Critical Care Time: No Referrals: HALLIE GANDARA [Primary Care Provider] -
[2021-01-05 09:13] LABS: Hematocrit 42.8 % (35-47); Hemoglobin 13.7 gm/dl (12.0-16.0); Mean Corpuscular Hemoglobin 27.8 pg (26-32); Mean Platelet Volume 9.6 fl (7.5-11.0); Platelet Count 546 K/mm3 (150-450); Red Blood Count 4.92 M/mm3 (4.1-5.4); Red Cell Distribution Width 16.2 % (11.5-14.0); White Blood Count 13.4 K/mm3 (4.0-10.5)
[2021-01-05 09:21] LABS: A-aADO2 103; ABG HEMOGLOBIN 13.8; ABG POTASSIUM 3.3 (3.5-5.1); ARTERIAL BLD GAS O2 SATURATION 98.1 % (95-100); ARTERIAL BLOOD GAS BASE EXCESS 0.6 (-2.0-2.0); ARTERIAL BLOOD GAS FIO2 28 %; ARTERIAL BLOOD GAS PO2 75 mmHg (75-100); CARBOXYHEMOGLOBIN 1.3 % THgb (0.0-6.9); HCO3- 18.7 (22-28); HGB O2 SAT 95.6 g/dF (94-100); Methhemoglobin 1.1 % (1.4-1.5)
[2021-01-05 09:22] LABS: ARTERIAL BLOOD GAS PCO2 17 mmHg (35-45); ARTERIAL BLOOD GAS pH 7.65 (7.35-7.45)
[2021-01-05 09:23] LABS: ABG SITE RIGHT RADIAL; ALLEN TEST OK? YES
[2021-01-05 09:23] LABS: ALBUMIN 4.5 g/dL (3.5-5.0); ALKALINE PHOSPHATASE 105 U/L (38-126); ANION GAP 17.4 MEQ/L (5-15); BLOOD UREA NITROGEN 8 mg/dL (7-17); CHLORIDE 105 mmol/L (98-107); Calcium 10.3 mg/dL (8.4-10.2); Carbon Dioxide 21 mmol/L (22-30); Creatinine 1 0.61 mg/dL (0.52-1.04); EST GLOMERULAR FILTRATION RATE > 60.0 ML/MIN; Glucose 87 mg/dL (74-106); MAGNESIUM 1.8 mg/dL (1.6-2.3); Potassium 3.2 mmol/L (3.5-5.1); SGOT/AST 30 U/L (14-36); SGPT/ALT 56 U/L (0-35); SODIUM 140 mmol/L (137-145); Total Protein 7.4 g/dL (6.3-8.2)
[2021-01-05] MEDS ORDERED: solu-MEDROL 125 MG IV ONE (09:26)
[2021-01-05] MEDS ORDERED: solu-MEDROL 125 MG ONE (09:33)
[2021-01-05 09:52] LABS: ACETAMINOPHEN < 10 ug/ml (10-30); ETHYL ALCOHOL < 10 mg/dL (0-10); SALICYLATE < 1.0 mg/dL (2-20)
--- NOTE | 2021-01-05 10:04 | XRAY ---
Indication: Chest pain and short of breath. Comparison: December 24, 2020. Portable chest demonstrates mild clearing of previous bilateral hazy groundglass opacities with mild residual. Remaining heart and bony thorax normal again with incidental right base calcified granuloma.
[2021-01-05] MEDS ORDERED: Klor Con 10 MEQ PO ONE ×2 (10:16→10:21)
[2021-01-05 10:45] LABS: ANISOCYTOSIS 1+; BAND 1 % (0.0-2.0); Eosinophil 2 % (0.00-3.0); Lymphocytes 31 % (24-44); Monocyte 7 % (0.0-12.0); Neutrophils 59 % (36.0-66.0); Platelet Estimate INCREASED (NORMAL); Total Cells Counted 100; Toxic Granulation 2+
[2021-01-05 12:03] VITALS: BP 139/93; PULSE 97; O2SAT 97
== END 2021-01-05 12:04 | disposition short-term general hospital (02) ==
LOC: ED 08:44
DX: J84.10 Pulmonary fibrosis, unspecified (principal); D72.829 Elevated white blood cell count, unspecified; E87.6 Hypokalemia; D47.3 Essential (hemorrhagic) thrombocythemia
CPT/HCPCS: 36000; 36415; 36600; 71045; 80053; 80307; 82375; 82803; 83735; 84484; 85025; 85379; 93005; 93041; 94760; 96374; 99285; G0480; J2930; A9270-GY

== ENCOUNTER 2021-01-17 22:51 | Emergency (ER) | payer OTHER ==
[2021-01-18] MEDS ORDERED: Klor Con 10 MEQ PO ONE ×2 (00:05→00:09)
--- NOTE | 2021-01-18 00:20 | ERPHSYRPT ---
- History of Present Illness Source: patient, family Exam Limitations: no limitations Patient Subjective Stated Complaint: Patient states " the police came to house and told patient that hospital was trying to reach her because of abnormal labs. Patient states she then came to hospital." Triage Nursing Assessment: Patient arrived to ED in W/C with 1 assist noted to room and 1 assist needed for transfer. Patient A/O times 4. Patient able to make needs and wants known. Lungs clear bilateral A/P throughout. Patient denies any chest pain. Patient denies any SOB. Physician History: 20 yo wf w K 2.5 per labs ordered by PCP today. Our laboratory called pt to come into the hospital. Pt denies CP/dyspnea/lethargy/fever. She was recently admitted and intubated due to Popcorn lung due to vaping. Timing/Duration: today Severity: mild Modifying Factors: Improves With: other Associated Symptoms: denies symptoms Allergies/Adverse Reactions: hydromorphone HCl [From Dilaudid] Allergy (Severe, Verified 01/17/21 22:58) Hives Severe itching with hives penicillin G Allergy (Mild, Verified 01/17/21 22:58) Swelling diphenhydramine HCl [From Benadryl] Adverse Reaction (Mild, Verified 01/17/21 22:58) "crazy behavior" pertussis vaccine,adsorbed [Pertussis Vaccine,Adsorbed] Adverse Reaction (Verified 01/17/21 22:58) Swelling Home Medications: Hydroxyzine HCl 25 mg [Atarax 25 mg] 25 mg PO QID 06/05/19 [History] buPROPion HCL [Bupropion Xl] 150 mg PO DAILY 02/09/20 [History] Atorvastatin Calcium 1 ea DAILY 12/24/20 [History] Ergocalciferol (Vitamin D2) [Vitamin D2] 1 ea DAILY 12/24/20 [History] Levothyroxine Sodium [Euthyrox] 100 mcg DAILY 12/24/20 [History] Famotidine 1 ea DAILY 01/05/21 [History] Hx Tetanus, Diphtheria Vaccination/Date Given: Yes Hx Influenza Vaccination/Date Given: No Hx Pneumococcal Vaccination/Date Given: No Immunizations Up to Date: Yes Travel Risk - International Travel Have you traveled outside of the country in past 3 weeks: No - Coronavirus Screening Are you exhibiting any of the following symptoms?: No Close contact with a COVID-19 positive Pt in past 14-21 Days: No - Vaccine Status Have you recieved a Covid-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: No - Review of Systems Constitutional: No Symptoms Eyes: No Symptoms Ears, Nose, & Throat: No Symptoms Respiratory: No Symptoms Cardiac: No Symptoms Abdominal/Gastrointestinal: No Symptoms Genitourinary Symptoms: No Symptoms Musculoskeletal: No Symptoms Skin: No Symptoms Neurological: No Symptoms Psychological: No Symptoms, Hallucinations Hematologic/Lymphatic: No Symptoms Immunological/Allergic: No Symptoms - Past Medical History Pertinent Past Medical History: Yes Neurological History: Epilepsy, Seizures ENT History: No Pertinent History Cardiac History: Other Respiratory History: Bronchitis, Pneumonia Endocrine Medical History: Hypothyroidism Musculoskeletal History: Other GI Medical History: No Pertinent History, Irritable Bowel History: No Pertinent History Psycho-Social History: Anxiety, Depression Female Reproductive Disorders: Endometriosis, Menstrual Problems Other Medical History: HX OF "SLIGHT" HEART MURMUR - NOT SEEN BY POISER. Lactose Intolerant. HX Headaches - Past Surgical History Past Surgical History: Yes Neuro Surgical History: No Pertinent History Cardiac: No Pertinent History Respiratory: No Pertinent History Gastrointestinal: No Pertinent History Genitourinary: No Pertinent History Musculoskeletal: No Pertinent History Female Surgical History: No Pertinent History Other Surgical History: EGD, Colonoscopy. HX Himrod Teeth Removed. Endoscopy - Social History Smoking Status: Never smoker Exposure to second hand smoke: No Drug Use: marijuana Patient Lives Alone: No Significant Family History: no pertinent family hx - Female History Hx Last Menstrual Period: 01/12/21 Hx Now: No - Nursing Vital Signs Nursing Vital Signs: Initial Vital Signs Temperature 98.7 F 01/17/21 23:04 Pulse Rate 105 H 01/17/21 23:04 Respiratory Rate 18 01/17/21 23:04 Blood Pressure 116/84 01/17/21 23:04 O2 Sat by Pulse Oximetry 96 01/17/21 23:04 Pain Scale Pain Intensity 0 - Physical Exam General Appearance: no apparent distress Eye Exam: PERRL/EOMI, eyes nml inspection Ears, Nose, Throat Exam: normal ENT inspection, TMs normal, pharynx normal, moist mucous membranes Neck Exam: normal inspection, non-tender, supple, full range of motion, No meningismus, No mass, No Brudzinski, No Kernig's Respiratory Exam: normal breath sounds, lungs clear, No respiratory distress, No airway intact Cardiovascular Exam: tachycardia (Mildly tachy) Gastrointestinal/Abdomen Exam: soft, normal bowel sounds, No tenderness Extremity Exam: normal inspection, normal range of motion Neurologic Exam: alert, oriented x 3, cooperative, senior partner II-XII nml as tested, normal mood/affect, sensation nml, No motor deficits, No sensory deficit Skin Exam: normal color, warm, No dry Lymphatic Exam: No adenopathy SpO2 Interpretation: normal SpO2: 96 O2 Delivery: Room Air - Course EKG Interpreted by Me: RATE (NSR/R92/RBBB/Normal QT-QTc/Inverted T waves V2-V3/) Ordered Tests: Active Orders 24 hr Category Date Time Status EKG-ER Only STAT Care 01/18/21 00:05 Completed Medication Summary Discontinued Medications Generic Name Dose Route Start Last Admin Trade Name Freq PRN Reason Stop Dose Admin Potassium Chloride 40 meq 01/18/21 00:05 01/18/21 00:10 Klor Con 10 Meq PO 01/18/21 00:06 40 meq STAT ONE Administration Potassium Chloride Confirm 01/18/21 00:09 Klor Con 10 Meq Administered 01/18/21 00:10 Dose 40 meq PO .STK-MED ONE - Progress Progress Note: 01/18/21 00:21 40meq po KCl Counseled pt/family regarding: lab results, need for follow-up - Departure Departure Disposition: Home Clinical Impression: Hypokalemia Condition: Stable Critical Care Time: No Referrals: HALLIE LEIGH [Primary Care Provider] - Instructions: Hypokalemia (DC) Additional Instructions: Potassium twice a day for 5 days Follow up with family MD in 1-2 days Return to ER as needed Prescriptions: Potassium Chloride 40 meq PO BID #10 tablet.er
[2021-01-18 00:39] VITALS: BP 118/81; PULSE 100
[2021-01-18 01:07] VITALS: O2SAT 96
== END 2021-01-18 00:40 | disposition home or self-care (01) ==
LOC: ED 22:51
DX: E87.6 Hypokalemia (principal); Z79.899 Other long term (current) drug therapy
CPT/HCPCS: 93005; 99283; A9270-GY

== ENCOUNTER 2021-04-06 15:23 | Day surgery (SDC) | payer OTHER ==
[2012-08-07 13:51] VITALS: BP 109/56
[2021-04-06] MEDS ORDERED: Depo-Medrol 40 MG/ML IM ONE (15:24)
[2021-04-06] MEDS ORDERED: BUPIVACAINE 0.5% VIAL IJ ONE (15:24)
[2021-04-06] MEDS ORDERED: Lactated Ringers 1,000 ML IV ONE (16:00)
[2021-04-06] MEDS ORDERED: VERSED 5 MG/5 ML ONE (16:33)
[2021-04-06] MEDS ORDERED: DIPRIVAN 200 MG/20 ML IV ONE (16:48)
[2021-04-06] MEDS ORDERED: SUBLIMAZE 100 MCG/2 ML ONE (16:51)
[2021-04-06] MEDS ORDERED: Zofran 4 MG/2 ML VIAL ONE (16:59)
[2021-04-06] MEDS ORDERED: TORAdol 30 mg Injection ONE (16:59)
--- NOTE | 2021-04-07 11:54 | XRAY ---
20 seconds fluoroscopy time in surgery for intra-articular injection of the right knee.
--- NOTE | 2021-04-10 00:56 | XRAY ---
Indication: Intra-articular right knee injection. Intraoperative fluoroscopy was provided for 20 seconds. 2 digital spot images submitted for interpretation demonstrate a needle tip projected over the right femur intercondylar notch. A small amount of contrast has been injected for needle tip placement. Correlate with intraoperative findings/report.
== END 2021-04-06 17:16 | disposition home or self-care (01) ==
LOC: SDC-PAIN 15:23
PROVIDERS: ATTEND Psychiatry & Neurology Pain Medicine
DX: M17.11 Unilateral primary osteoarthritis, right knee (principal); Z79.899 Other long term (current) drug therapy
CPT/HCPCS: 20610; 73560; 77002; 84703; J1030; J1885; J2250; J2405; J2704; J3010; Q9966

== ENCOUNTER 2021-04-13 13:54 | Day surgery (SDC) | payer OTHER ==
[2012-08-07 13:51] VITALS: BP 109/56
[2021-04-13] MEDS ORDERED: Depo-Medrol 40 MG/ML IM ONE (13:55)
[2021-04-13] MEDS ORDERED: LIDOCAINE HCL 2% 100 MG/5 ML IJ ONE (13:55)
[2021-04-13] MEDS ORDERED: Versed 2 MG/2 ML Injection ONE (14:43)
[2021-04-13] MEDS ORDERED: DIPRIVAN 200 MG/20 ML IV ONE (15:25)
--- NOTE | 2021-04-13 16:36 | XRAY ---
Indication: Bilateral L4-S1 MBB. Intraoperative fluoroscopy provided for 23 seconds. Single digital spot image submitted for interpretation demonstrates posterior needle tips projecting over the expected left and right L4-S1 nerve roots. Correlate with intraoperative findings/report.
[2021-04-13] MEDS ORDERED: Lactated Ringers 1,000 ML IV ONE (16:37)
--- NOTE | 2021-04-13 17:01 | XRAY ---
23 seconds fluoroscopy time in surgery for bilateral L4-S1 MBB.
== END 2021-04-13 15:57 | disposition home or self-care (01) ==
LOC: SDC-PAIN 13:54
PROVIDERS: ATTEND Psychiatry & Neurology Pain Medicine
DX: M47.816 Spondylosis without myelopathy or radiculopathy, lumbar region (principal); Z79.899 Other long term (current) drug therapy
CPT/HCPCS: 64493; 64494; 72020; 77002; 84703; J1030; J2250; J2704

== ENCOUNTER 2021-04-14 10:40 | Emergency (ER) | payer OTHER ==
--- NOTE | 2021-04-14 10:43 | ERPHSYRPT ---
- History of Present Illness Time Seen by Provider: 04/14/21 10:43 Source: patient, family Exam Limitations: no limitations Physician History: This is a 20-year-old white female who has chronic back problems and presents with an 8 out of 10 back pain that is causing her nausea. She was seen by her pain management doctor yesterday and given a spinal injection of steroids. She states that she is not on any narcotic pain medicine. She states that she has taken morphine in the past without any issues. Patient did not suffer any fall or acute trauma. Patient has not had any loss of bowel or bladder control. She does not have loss of sensation in her feet. Timing/Duration: today Method of Injury: other (No fall or trauma) Quality: aching Back Pain Location: lumbar spine, paraspinous muscles Severity of Pain-Max: moderate Severity of Pain-Current: moderate Modifying Factors: Improves With: movement Associated Symptoms: lower back pain, No urinary incontinence, No loss of bowel control, No numbness in legs/feet, No sensory/motor loss, No tingling in legs/fe et Allergies/Adverse Reactions: hydromorphone HCl [From Dilaudid] Allergy (Severe, Verified 04/14/21 11:09) Hives Severe itching with hives penicillin G Allergy (Mild, Verified 04/14/21 11:09) Swelling diphenhydramine HCl [From Benadryl] Adverse Reaction (Mild, Verified 04/14/21 11:09) "crazy behavior" pertussis vaccine,adsorbed [Pertussis Vaccine,Adsorbed] Adverse Reaction (Verified 04/14/21 11:09) Swelling Home Medications: Hydroxyzine HCl 25 mg [Atarax 25 mg] 25 mg PO QID 06/05/19 [History] buPROPion HCL [Bupropion Xl] 150 mg PO DAILY 02/09/20 [History] Atorvastatin Calcium 1 ea DAILY 12/24/20 [History] Ergocalciferol (Vitamin D2) [Vitamin D2] 1 ea DAILY 12/24/20 [History] Levothyroxine Sodium [Euthyrox] 100 mcg DAILY 12/24/20 [History] Famotidine 1 ea DAILY 01/05/21 [History] Hx Tetanus, Diphtheria Vaccination/Date Given: Yes Hx Influenza Vaccination/Date Given: No Hx Pneumococcal Vaccination/Date Given: No Travel Risk - International Travel Have you traveled outside of the country in past 3 weeks: No - Coronavirus Screening Are you exhibiting any of the following symptoms?: No Close contact with a COVID-19 positive Pt in past 14-21 Days: No - Vaccine Status Have you recieved a Covid-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: No - Review of Systems Constitutional: No Symptoms Eyes: No Symptoms Ears, Nose, & Throat: No Symptoms Respiratory: No Symptoms Cardiac: No Symptoms Abdominal/Gastrointestinal: No Symptoms Genitourinary Symptoms: No Symptoms Musculoskeletal: Back Pain Skin: No Symptoms Neurological: No Symptoms Psychological: No Symptoms Endocrine: No Symptoms Hematologic/Lymphatic: No Symptoms Immunological/Allergic: No Symptoms All Other Systems: Reviewed and Negative - Past Medical History Pertinent Past Medical History: Yes Neurological History: Epilepsy, Seizures ENT History: No Pertinent History Cardiac History: Other Respiratory History: Bronchitis, Pneumonia Endocrine Medical History: Hypothyroidism Musculoskeletal History: Other GI Medical History: No Pertinent History, Irritable Bowel History: No Pertinent History Psycho-Social History: Anxiety, Depression Female Reproductive Disorders: Endometriosis, Menstrual Problems Other Medical History: HX OF "SLIGHT" HEART MURMUR - 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 Lactose Intolerant. HX Headaches - Past Surgical History Past Surgical History: Yes Neuro Surgical History: No Pertinent History Cardiac: No Pertinent History Respiratory: No Pertinent History Gastrointestinal: No Pertinent History Genitourinary: No Pertinent History Musculoskeletal: No Pertinent History Female Surgical History: No Pertinent History Other Surgical History: EGD, Colonoscopy. HX [place] Teeth Removed. Endoscopy - Social History Smoking Status: Never smoker Exposure to second hand smoke: No Drug Use: marijuana Patient Lives Alone: No Significant Family History: no pertinent family hx - Nursing Vital Signs Nursing Vital Signs: Initial Vital Signs Temperature 97 F 04/14/21 10:47 Pulse Rate 90 04/14/21 10:47 Respiratory Rate 20 04/14/21 10:47 Blood Pressure 134/105 04/14/21 10:47 O2 Sat by Pulse Oximetry 98 04/14/21 10:47 Pain Scale Pain Intensity 9 - Physical Exam General Appearance: mild distress, alert, anxiety Eye Exam: PERRL/EOMI, eyes nml inspection Ears, Nose, Throat Exam: normal ENT inspection, moist mucous membranes Neck Exam: normal inspection, non-tender, supple, full range of motion Respiratory Exam: airway intact, No chest tenderness, No respiratory distress Gastrointestinal Exam: No tenderness Pelvic Exam: not done Rectal Exam: not done Back Exam: normal inspection, decreased range of motion, muscle spasm Extremity Exam: normal inspection, normal range of motion, pelvis stable Neurologic Exam: alert, oriented x 3, cooperative, 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, sensation nml, other (Patient walked in with a walking cane) Skin Exam: normal color, warm, dry Lymphatic Exam: No adenopathy SpO2 Interpretation: normal O2 Delivery: Room Air - Course Nursing assessment & vital signs reviewed: Yes - Progress Progress: improved, pain not gone completely Counseled pt/family regarding: diagnosis, need for follow-up - Departure Departure Disposition: Home Clinical Impression: Acute exacerbation of chronic low back pain Condition: Stable Critical Care Time: No Referrals: HALLIE LEIGH [Primary Care Provider] - Additional Instructions: Call your pain specialist today to make arrangements for follow-up and further management
[2021-04-14] MEDS ORDERED: MORPHINE SULFATE 10 MG/ML IM ONE (11:37)
[2021-04-14] MEDS ORDERED: Ativan 2 MG/1 ML VIAL IM ONE (11:38)
[2021-04-14] MEDS ORDERED: Ativan 2 MG/1 ML VIAL ONE (11:45)
[2021-04-14] MEDS ORDERED: MORPHINE SULFATE 10 MG/ML ONE (11:45)
[2021-04-14 12:16] VITALS: BP 138/84; PULSE 75; O2SAT 97
== END 2021-04-14 12:16 | disposition home or self-care (01) ==
LOC: ED 10:40
DX: Z79.899 Other long term (current) drug therapy (principal); G40.909 Epilepsy, unspecified, not intractable, without status epilepticus; E03.9 Hypothyroidism, unspecified; K58.9 Irritable bowel syndrome, unspecified; N80.9 Endometriosis, unspecified
CPT/HCPCS: 96372; 99283; U0003; J2060; J2270

== ENCOUNTER 2021-04-15 17:56 | Emergency (ER) | payer OTHER ==
--- NOTE | 2021-04-15 18:39 | ERPHSYRPT ---
- History of Present Illness Time Seen by Provider: 04/15/21 18:38 Source: patient, family Patient Subjective Stated Complaint: back pain Triage Nursing Assessment: pt to ED c/o back pain r/t procedure she had done on 04/13/21. reports being in ED yesterday for same pains and is not yet feeling better. rates 10/10 pain. to ED in WC and ambulates with cane. pts mother states the pt did not remember to ask for medication for home for pain when she was seen at pain management. Physician History: Patient is a 20-year-old female who presents with a complaint of back pain. She had a procedure on Sunday which involved some injections in the lower back area she did not ask her pain doctor for pain medicine she is now here claiming pain 10 of 10. I asked her why she had not asking for pain medicine she was not sure. I told her I was extremely uncomfortable giving her a prescription for the entire weekend that I would give her an injection at this point to try to get her some relief for tonight. Timing/Duration: day(s) (3) Quality: sharp, throbbing Back Pain Location: lumbar spine, coccyx Back Pain Radiation: buttocks Severity of Pain-Max: severe Severity of Pain-Current: severe Modifying Factors: Improves With: movement Associated Symptoms: denies symptoms Previous symptoms: same symptoms as today Allergies/Adverse Reactions: hydromorphone HCl [From Dilaudid] Allergy (Severe, Verified 04/15/21 18:32) Hives Severe itching with hives penicillin G Allergy (Mild, Verified 04/15/21 18:32) Swelling diphenhydramine HCl [From Benadryl] Adverse Reaction (Mild, Verified 04/15/21 18:32) "crazy behavior" pertussis vaccine,adsorbed [Pertussis Vaccine,Adsorbed] Adverse Reaction (Verified 04/15/21 18:32) Swelling Home Medications: Hydroxyzine HCl 25 mg [Atarax 25 mg] 25 mg PO QID 06/05/19 [History] buPROPion HCL [Bupropion Xl] 150 mg PO DAILY 02/09/20 [History] Atorvastatin Calcium 1 ea DAILY 12/24/20 [History] Ergocalciferol (Vitamin D2) [Vitamin D2] 1 ea DAILY 12/24/20 [History] Levothyroxine Sodium [Euthyrox] 100 mcg DAILY 12/24/20 [History] Famotidine 1 ea DAILY 01/05/21 [History] Hx Tetanus, Diphtheria Vaccination/Date Given: Yes Hx Influenza Vaccination/Date Given: No Hx Pneumococcal Vaccination/Date Given: No Immunizations Up to Date: No Travel Risk - International Travel Have you traveled outside of the country in past 3 weeks: No - Coronavirus Screening Are you exhibiting any of the following symptoms?: No Close contact with a COVID-19 positive Pt in past 14-21 Days: Yes - Vaccine Status Have you recieved a Covid-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: No Franchise 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: Moderna - Vaccination Dates Date of 2cond Vaccination (if applicable): 04/01/21 - Review of Systems Constitutional: No Fever, No Chills Eyes: No Symptoms Ears, Nose, & Throat: No Symptoms Respiratory: No Cough, No Dyspnea Cardiac: No Chest Pain, No Edema, No Syncope Abdominal/Gastrointestinal: No Abdominal Pain, No Nausea, No Vomiting, No Diarrhea Genitourinary Symptoms: No Dysuria Musculoskeletal: Back Pain, No Neck Pain Skin: No Rash Neurological: No Dizziness, No Focal Weakness, No Sensory Changes Psychological: No Symptoms Endocrine: No Symptoms All Other Systems: Reviewed and Negative - Past Medical History Pertinent Past Medical History: Yes Neurological History: Epilepsy, Seizures ENT History: No Pertinent History Cardiac History: Other Respiratory History: Bronchitis, Pneumonia Endocrine Medical History: Hypothyroidism Musculoskeletal History: Other GI Medical History: No Pertinent History, Irritable Bowel History: No Pertinent History Psycho-Social History: Anxiety, Depression Female Reproductive Disorders: Endometriosis, Menstrual Problems Other Medical History: HX OF "SLIGHT" HEART MURMUR - 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 Lactose Intolerant. HX Headaches - Past Surgical History Past Surgical History: Yes Neuro Surgical History: No Pertinent History Cardiac: No Pertinent History Respiratory: No Pertinent History Gastrointestinal: No Pertinent History Genitourinary: No Pertinent History Musculoskeletal: No Pertinent History Female Surgical History: No Pertinent History Other Surgical History: EGD, Colonoscopy. HX [place] Teeth Removed. Endoscopy - Social History Smoking Status: Never smoker Exposure to second hand smoke: No Drug Use: none Patient Lives Alone: No Significant Family History: no pertinent family hx - Female History Hx Now: No - Nursing Vital Signs Nursing Vital Signs: Initial Vital Signs Temperature 98.0 F 04/15/21 18:23 Pulse Rate 98 H 04/15/21 18:23 Respiratory Rate 20 04/15/21 18:23 Blood Pressure 136/92 04/15/21 18:23 O2 Sat by Pulse Oximetry 98 04/15/21 18:23 Pain Scale Pain Intensity 10 - Physical Exam General Appearance: moderate distress, alert Eye Exam: PERRL/EOMI, eyes nml inspection Neck Exam: normal inspection, non-tender, supple, full range of motion, No meningismus, No midline tenderness Respiratory Exam: normal breath sounds, lungs clear, No respiratory distress Cardiovascular Exam: regular rate/rhythm, normal heart sounds Gastrointestinal Exam: soft, No tenderness, No mass Back Exam: other (Tender in the lumbar area and sacral area. There are some obvious injection sites visualized) Extremity Exam: normal inspection, normal range of motion, No calf tenderness, No pedal edema Peripheral Pulses: carotid (R): 2+, carotid (L): 2+ Neurologic Exam: alert, oriented x 3, cooperative, stenocaptioner II-XII nml as tested, normal mood/affect, sensation nml, No nml station & gait (Ataxic gait), No motor deficits Skin Exam: normal color, warm, dry, No rash SpO2: 98 - Course Nursing assessment & vital signs reviewed: Yes - Progress Progress: unchanged - Departure Departure Disposition: Home Clinical Impression: Chronic low back pain Condition: Stable Critical Care Time: No Referrals: HALLIE LEIGH [Primary Care Provider] - Instructions: Low Back Pain (DC)
[2021-04-15] MEDS ORDERED: Norflex 60 MG/2 ML IM ONE (18:44)
[2021-04-15] MEDS ORDERED: SUBLIMAZE 100 MCG/2 ML IM ONE (18:44)
[2021-04-15] MEDS ORDERED: SUBLIMAZE 100 MCG/2 ML ONE (19:01)
[2021-04-15] MEDS ORDERED: Norflex 60 MG/2 ML ONE (19:01)
[2021-04-15 19:12] VITALS: BP 114/82; PULSE 75; O2SAT 96
== END 2021-04-15 19:53 | disposition home or self-care (01) ==
LOC: ED 17:56
DX: M54.5 Low back pain (principal); Z98.890 Other specified postprocedural states
CPT/HCPCS: 96372; 99283; J2360; J3010

== ENCOUNTER 2021-04-21 12:19 | Emergency (ER) | payer OTHER ==
--- NOTE | 2021-04-21 12:55 | ERPHSYRPT ---
- History of Present Illness Time Seen by Provider: 04/21/21 12:55 Historian: patient Exam Limitations: no limitations Patient Subjective Stated Complaint: Pt states "I have had abdominal pain for two weeks and I had bright red blood in my stool this morning." Triage Nursing Assessment: Pt presnted alert and oriented X 3, skin pwd Pt ambulates with a cane. Pt ambulates hunched over with a slow gait. pt able to speak in clear full sentences. Timing/Duration: today Activities at Onset: none Quality: cramping Abdominal Pain Onset Location: generalized abdomen Severity of Pain-Max: mild Severity of Pain-Current: none Modifying Factors: Improves With: nothing Associated Symptoms: denies symptoms Previous symptoms: no prior history Allergies/Adverse Reactions: hydromorphone HCl [From Dilaudid] Allergy (Severe, Verified 04/15/21 18:32) Hives Severe itching with hives penicillin G Allergy (Mild, Verified 04/15/21 18:32) Swelling diphenhydramine HCl [From Benadryl] Adverse Reaction (Mild, Verified 04/15/21 18:32) "crazy behavior" pertussis vaccine,adsorbed [Pertussis Vaccine,Adsorbed] Adverse Reaction (Verified 04/15/21 18:32) Swelling Home Medications: Hydroxyzine HCl 25 mg [Atarax 25 mg] 25 mg PO QID 06/05/19 [History] Atorvastatin Calcium 1 ea DAILY 12/24/20 [History] Ergocalciferol (Vitamin D2) [Vitamin D2] 1 ea DAILY 12/24/20 [History] Levothyroxine Sodium [Euthyrox] 100 mcg DAILY 12/24/20 [History] Norethindrone 0.35 mg PO DAILY 04/21/21 [History] lisinopriL [Lisinopril] 10 mg PO DAILY 04/21/21 [History] Hx Tetanus, Diphtheria Vaccination/Date Given: Yes Hx Influenza Vaccination/Date Given: No Hx Pneumococcal Vaccination/Date Given: No Immunizations Up to Date: Yes Travel Risk - International Travel Have you traveled outside of the country in past 3 weeks: No - Coronavirus Screening Are you exhibiting any of the following symptoms?: No Close contact with a COVID-19 positive Pt in past 14-21 Days: No - Vaccine Status Have you recieved a Covid-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: Yes 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: Moderna - Vaccination Dates Date of 2cond Vaccination (if applicable): 04/01/2021 - Review of Systems Constitutional: No Symptoms Eyes: No Symptoms Ears, Nose, & Throat: No Symptoms Respiratory: No Symptoms Cardiac: No Symptoms, Orthopnea Abdominal/Gastrointestinal: Melena (small) Genitourinary Symptoms: No Symptoms Musculoskeletal: No Symptoms Skin: No Symptoms Neurological: No Symptoms Psychological: No Symptoms Endocrine: No Symptoms Hematologic/Lymphatic: No Symptoms Immunological/Allergic: No Symptoms All Other Systems: Reviewed and Negative - Past Medical History Pertinent Past Medical History: Yes Neurological History: Epilepsy, Seizures ENT History: No Pertinent History Cardiac History: Other Respiratory History: Bronchitis, Pneumonia Endocrine Medical History: Hypothyroidism Musculoskeletal History: Other GI Medical History: No Pertinent History, Irritable Bowel History: No Pertinent History Psycho-Social History: Anxiety, Depression Female Reproductive Disorders: Endometriosis, Menstrual Problems Other Medical History: HX OF "SLIGHT" HEART MURMUR - 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 Lactose Intolerant. HX Headaches - Past Surgical History Past Surgical History: Yes Neuro Surgical History: No Pertinent History Cardiac: No Pertinent History Respiratory: No Pertinent History Gastrointestinal: No Pertinent History Genitourinary: No Pertinent History Musculoskeletal: No Pertinent History Female Surgical History: No Pertinent History Other Surgical History: EGD, Colonoscopy. HX [place] Teeth Removed. Endoscopy - Social History Smoking Status: Never smoker Exposure to second hand smoke: No Drug Use: marijuana Patient Lives Alone: No Significant Family History: no pertinent family hx - Female History Hx Last Menstrual Period: 04/21/2021 Hx Now: No - Nursing Vital Signs Nursing Vital Signs: Initial Vital Signs Temperature 99.1 F 04/21/21 12:35 Pulse Rate 104 H 04/21/21 12:35 Respiratory Rate 20 04/21/21 12:35 Blood Pressure 164/98 04/21/21 12:35 O2 Sat by Pulse Oximetry 97 04/21/21 12:35 Pain Scale Pain Intensity 8 - Physical Exam General Appearance: no apparent distress Eye Exam: PERRL/EOMI Ears, Nose, Throat Exam: normal ENT inspection Neck Exam: normal inspection Respiratory Exam: normal breath sounds Cardiovascular Exam: regular rate/rhythm Gastrointestinal/Abdomen Exam: soft, normal bowel sounds Pelvic Exam: not done, other (declined) Back Exam: normal inspection Extremity Exam: normal inspection Neurologic Exam: alert, oriented x 3, cooperative Skin Exam: normal color SpO2 Interpretation: normal SpO2: 97 O2 Delivery: Room Air - CT Exams Abdomen/Pelvis CT Interpretation: Discussed w/radiologist, Other (see) Ordered Tests: Medication Summary Discontinued Medications Generic Name Dose Route Start Last Admin Trade Name Annabel PRN Reason Stop Dose Admin Magnesium Hydroxide 30 ml 04/21/21 16:49 04/21/21 16:55 Milk Of Magnesia 30 Ml PO 04/21/21 16:50 30 ml STAT ONE Administration Magnesium Hydroxide Confirm 04/21/21 16:54 Milk Of Magnesia 30 Ml Administered 04/21/21 16:55 Dose 30 ml .ROUTE .[employer] ONE Lab/Rad Data: Laboratory Result Diagrams 04/21/21 13:26 04/21/21 13:26 Laboratory Results 04/21/21 04/21/21 04/21/21 Range/Units 13:26 13:26 13:12 WBC 16.2 H (4.0-10.5) K/mm3 RBC 5.40 (4.1-5.4) M/mm3 Hgb 14.9 (12.0-16.0) gm/dl Hct 45.6 (35-47) % MCV 84.4 (78-100) fl MCH 27.6 (26-32) pg MCHC 32.7 (32-36) g/dl RDW 13.9 (11.5-14.0) % Plt Count 329 (150-450) K/mm3 MPV 9.3 (7.5-11.0) fl Sodium 139 (137-145) mmol/L Potassium 3.7 (3.5-5.1) mmol/L Chloride 100 (98-107) mmol/L Carbon Dioxide 24 (22-30) mmol/L Anion Gap 19.0 H (5-15) MEQ/L BUN 11 (7-17) mg/dL Creatinine 0.75 (0.52-1.04) mg/dL Estimated GFR > 60.0 ML/MIN Glucose 86 (74-106) mg/dL Calcium 9.7 (8.4-10.2) mg/dL Total Bilirubin 1.00 (0.2-1.3) mg/dL AST 25 (14-36) U/L ALT 29 (0-35) U/L Alkaline Phosphatase 123 (38-126) U/L Serum Total Protein 7.8 (6.3-8.2) g/dL Albumin 4.8 (3.5-5.0) g/dL Beta HCG, Quant < 2.39 mIU/ml Urine Color YELLOW (YELLOW) Urine Appearance CLEAR (CLEAR) Urine pH 5.0 (5-6) Ur Specific [place] 1.017 (1.005-1.025) Urine Protein NEGATIVE (Negative) Urine Ketones NEGATIVE (NEGATIVE) Urine Blood NEGATIVE (0-5) Mateo/ul Urine Nitrite NEGATIVE (NEGATIVE) Urine Bilirubin NEGATIVE (NEGATIVE) Urine Urobilinogen NEGATIVE (0-1) mg/dL Ur Leukocyte Esterase NEGATIVE (NEGATIVE) Urine WBC (Auto) 0-2 (0-5) /HPF Urine RBC (Auto) 0-2 (0-2) /HPF U Hyaline Cast (Auto) 3-5 (0-2) /LPF U Epithel Cells (Auto) RARE (FEW) /HPF Urine Bacteria (Auto) NONE (NEGATIVE) /HPF Urine Mucus (Auto) SLIGHT (NEGATIVE) /HPF Urine Culture Reflexed NO (NO) Urine Glucose NEGATIVE (NEGATIVE) mg/dL - Progress Progress: unchanged Counseled pt/family regarding: lab results, diagnosis, need for follow-up, rad results - Departure Departure Disposition: Home Clinical Impression: Rectal bleeding, Insomnia Constipation Qualifiers: Constipation type: unspecified constipation type Qualified Code(s): K59.00 - Constipation, unspecified Condition: Stable Critical Care Time: No Referrals: HALLIE LEIGH [Primary Care Provider] - Instructions: Constipation, Adult (DC), Acute Abdomen (Belly Pain), Adult (DC), Bloody Stools, Adult (DC) Additional Instructions: You need to take laxatives like miralax daily to relieve the constipation. Important to see your PCP soon for a recheck. Stop the hydroxyzine until you see your PCP for a recheck. Prescriptions: Ciprofloxacin HCl [Cipro] 500 mg PO BID 7 Days #14 tablet Metronidazole 500 mg [Flagyl 500 MG] 500 mg PO BID #14 tablet Temazepam 15 mg [Restoril 15 MG] 15 mg PO HS PRN PRN 5 Days #5 PRN Reason: Insomnia
[2021-04-21 13:41] LABS: Hematocrit 45.6 % (35-47); Hemoglobin 14.9 gm/dl (12.0-16.0); Mean Cell Volume 84.4 fl (78-100); Mean Corpuscular Hemoglobin 27.6 pg (26-32); Mean Corpuscular Hgb Concent. 32.7 g/dl (32-36); Mean Platelet Volume 9.3 fl (7.5-11.0); Platelet Count 329 K/mm3 (150-450); Red Cell Distribution Width 13.9 % (11.5-14.0); White Blood Count 16.2 K/mm3 (4.0-10.5)
[2021-04-21 14:04] LABS: ALBUMIN 4.8 g/dL (3.5-5.0); ALKALINE PHOSPHATASE 123 U/L (38-126); BLOOD UREA NITROGEN 11 mg/dL (7-17); CHLORIDE 100 mmol/L (98-107); Calcium 9.7 mg/dL (8.4-10.2); Carbon Dioxide 24 mmol/L (22-30); Creatinine 1 0.75 mg/dL (0.52-1.04); EST GLOMERULAR FILTRATION RATE > 60.0 ML/MIN; Glucose 86 mg/dL (74-106); HCG, Quantitative (Inhouse) < 2.39 mIU/ml; Potassium 3.7 mmol/L (3.5-5.1); SGOT/AST 25 U/L (14-36); SGPT/ALT 29 U/L (0-35); SODIUM 139 mmol/L (137-145); Total Protein 7.8 g/dL (6.3-8.2)
[2021-04-21 14:04] LABS: Appearance CLEAR (CLEAR); Bilirubin NEGATIVE (NEGATIVE); Blood NEGATIVE Ery/ul (0-5); Epithelial Cells RARE /HPF (FEW); Glucose NEGATIVE (NEGATIVE); Ketones NEGATIVE (NEGATIVE); Leukocyte Esterase NEGATIVE (NEGATIVE); Mucus SLIGHT /HPF (NEGATIVE); Nitrite NEGATIVE (NEGATIVE); Protein,Urine Dip NEGATIVE (Negative); RBC 0-2 /HPF (0-2); Specific Gravity 1.017 (1.005-1.025); Urobilinogen NEGATIVE mg/dL (0-1); WBC 0-2 /HPF (0-5)
--- NOTE | 2021-04-21 15:10 | XRAY ---
Indication: Abdomen pain, nausea, vomiting, and bloating. Multiple contiguous axial images obtained through the abdomen and pelvis without contrast. Comparison: December 24, 2020. Lung bases are now clear with again incidental small right lower lobe calcified granuloma. Heart is not enlarged. Noncontrasted stomach and bowel loops are nonobstructed. Appendix not seen. There is now mild diffuse scattered colonic fecal debris throughout. New tampon in situ. No free fluid/air. Incidental tiny splenic calcified granulomas. Remaining liver, gallbladder, pancreas, spleen, adrenal glands, kidneys, ureters, bladder, uterus, and aorta are unremarkable for noncontrast exam. Osseous structures intact. Impression: 1. New diffuse fecal stasis throughout and tampon in situ. 2. Again incidental old granulomatous disease. 3. Remaining CT abdomen/pelvis without contrast exam is negative.
[2021-04-21] MEDS ORDERED: MILK OF MAGNESIA 30 ML PO ONE (16:49)
[2021-04-21] MEDS ORDERED: MILK OF MAGNESIA 30 ML ONE (16:54)
[2021-04-21 16:56] VITALS: BP 143/84; PULSE 88
[2021-04-27 16:35] VITALS: O2SAT 97
== END 2021-04-21 17:07 | disposition home or self-care (01) ==
LOC: ED 12:19
DX: K62.5 Hemorrhage of anus and rectum (principal); G47.00 Insomnia, unspecified; R10.9 Unspecified abdominal pain; K59.00 Constipation, unspecified; Z79.899 Other long term (current) drug therapy
CPT/HCPCS: 36415; 74176; 80053; 81001; 84702; 85027; 99284; A9270-GY

== ENCOUNTER 2021-05-30 16:31 | Emergency (ER) | payer OTHER ==
[2021-05-30] MEDS ORDERED: BABY ASPIRIN 81 MG CHEW PO ONE (16:54)
[2021-05-30] MEDS ORDERED: BABY ASPIRIN 81 MG CHEW ONE (17:02)
[2021-05-30] MEDS ORDERED: MORPHINE SULFATE 4 MG INJ IV ONE (17:05)
[2021-05-30] MEDS ORDERED: Ativan 2 MG/1 ML VIAL IV ONE (17:05)
[2021-05-30] MEDS ORDERED: Sodium Chloride 0.9% 1000 ML 1,000 ML IV STA (17:05)
[2021-05-30] MEDS ORDERED: Zofran 4 MG/2 ML VIAL IV ONE (17:05)
--- NOTE | 2021-05-30 17:10 | ERPHSYRPT ---
<MELINA BUSTOS - Last Filed: 05/30/21 19:05> - History of Present Illness Time Seen by Provider: 05/30/21 16:51 Historian: patient Exam Limitations: no limitations Patient Subjective Stated Complaint: Pt states "I am having chest pain. I feel like my heart is going to beat out of my chest and I feel like I am going to pass out." Triage Nursing Assessment: PT presented alert and oriented X 3, skin pwd Pt ambulates with a cane, able to speak in clear full sentences pt in no apparent respiratory distress. Pt moaning and grunting. Physician History: 20 years old female with multiple medical problems including hypertension, mitral valve prolapse, anxiety, PTSD, depression presented in the ER with 1 week history of off-and-on chest pain with shortness of breath with progressive worsening. Reports dull aching to sharp chest pain with radiation to left arm with palpitations and shortness of breath. Patient reports feeling tingling numbness in the hands and some dizziness along with shortness of breath as well. Denies any recent fever chills and have occasional cough. Denies any sick contact. Vaccinated against COVID-19. Timing/Duration: week(s) (1), intermittent, gradual onset, worse Activities at Onset: rest Quality: sharpness Location: substernal Chest Pain Radiation: arm Severity of Pain-Max: moderate Severity of Pain-Current: moderate Modifying Factors: Improves With: nothing Associated Symptoms: palpitations, shortness of breath, weakness, dizziness Prior Chest Pain/Cardiac Workup: no prior chest pain Nitro Today/Relief: no nitro taken today Aspirin Treatment Today: unknown Allergies/Adverse Reactions: hydromorphone HCl [From Dilaudid] Allergy (Severe, Verified 04/15/21 18:32) Hives Severe itching with hives penicillin G Allergy (Mild, Verified 04/15/21 18:32) Swelling diphenhydramine HCl [From Benadryl] Adverse Reaction (Mild, Verified 04/15/21 18:32) "crazy behavior" pertussis vaccine,adsorbed [Pertussis Vaccine,Adsorbed] Adverse Reaction (Verified 04/15/21 18:32) Swelling Home Medications: Hydroxyzine HCl 25 mg [Atarax 25 mg] 25 mg PO QID 06/05/19 [History] Atorvastatin Calcium 1 ea DAILY 12/24/20 [History] Ergocalciferol (Vitamin D2) [Vitamin D2] 1 ea DAILY 12/24/20 [History] Levothyroxine Sodium [Euthyrox] 100 mcg DAILY 12/24/20 [History] Norethindrone 0.35 mg PO DAILY 04/21/21 [History] lisinopriL [Lisinopril] 10 mg PO DAILY 04/21/21 [History] Duloxetine HCl 30 mg [Cymbalta 30 MG Capsule] 30 mg PO DAILY 05/30/21 [History] Hx Tetanus, Diphtheria Vaccination/Date Given: Yes Hx Influenza Vaccination/Date Given: No Hx Pneumococcal Vaccination/Date Given: No Immunizations Up to Date: Yes Travel Risk - International Travel Have you traveled outside of the country in past 3 weeks: No - Coronavirus Screening Are you exhibiting any of the following symptoms?: No Close contact with a COVID-19 positive Pt in past 14-21 Days: No - Vaccine Status Have you recieved a Covid-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: Yes 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[employer] - Vaccination Dates Date of 2cond Vaccination (if applicable): 04/01/2021 - Review of Systems Constitutional: Fatigue, Weakness Eyes: No Symptoms Ears, Nose, & Throat: No Symptoms Respiratory: Cough, Dyspnea Cardiac: Chest Pain, Palpitations Abdominal/Gastrointestinal: No Symptoms Genitourinary Symptoms: No Symptoms Musculoskeletal: Back Pain, Myalgias Skin: No Symptoms Neurological: Dizziness Psychological: Anxiety, Depression Endocrine: No Symptoms Hematologic/Lymphatic: No Symptoms Immunological/Allergic: No Symptoms - Past Medical History Pertinent Past Medical History: Yes Neurological History: Epilepsy, Seizures ENT History: No Pertinent History Cardiac History: Other Respiratory History: Bronchitis, Pneumonia Endocrine Medical History: Hypothyroidism Musculoskeletal History: Other GI Medical History: No Pertinent History, Irritable Bowel History: No Pertinent History Psycho-Social History: Anxiety, Depression Female Reproductive Disorders: Endometriosis, Menstrual Problems Other Medical History: HX OF "SLIGHT" HEART MURMUR - NOT SEEN BY STUDY DIRECTOR. Lactose Intolerant. HX Headaches - Past Surgical History Past Surgical History: Yes Neuro Surgical History: No Pertinent History Cardiac: No Pertinent History Respiratory: No Pertinent History Gastrointestinal: No Pertinent History Genitourinary: No Pertinent History Musculoskeletal: No Pertinent History Female Surgical History: No Pertinent History Other Surgical History: EGD, Colonoscopy. HX [place] Teeth Removed. Endoscopy - Social History Smoking Status: Never smoker Exposure to second hand smoke: No Drug Use: marijuana Patient Lives Alone: No Significant Family History: no pertinent family hx - Female History Hx Last Menstrual Period: 05/27/2021 Hx Now: (UNKN) - Physical Exam General Appearance: no apparent distress, alert, anxiety Eye Exam: PERRL/EOMI, eyes nml inspection Ears, Nose, Throat Exam: normal ENT inspection, TMs normal, pharynx normal Neck Exam: normal inspection, non-tender, supple, full range of motion Respiratory Exam: normal breath sounds, lungs clear Cardiovascular Exam: normal heart sounds, tachycardia Gastrointestinal/Abdomen Exam: soft, normal bowel sounds, No tenderness Back Exam: normal inspection Extremity Exam: normal inspection, normal range of motion Neurologic Exam: alert, oriented x 3, cooperative, No normal mood/affect (Anxious) Skin Exam: normal color SpO2 Interpretation: normal SpO2: 97 O2 Delivery: Room Air - Course EKG Interpreted by Me: RATE (118), Sinus Tach, Right [place] Deviation, NORMAL INTERVALS, Non-specific ST Changes - Departure Clinical Impression: Pneumonia Condition: Stable Referrals: HALLIE GRACE [Primary Care Provider] - Instructions: Pneumonia, Adult (DC) Additional Instructions: Discharge/Care Plan ARTURO PRECIADO was seen on 05/30/21 in the Emergency Room. The patient was counseled regarding Diagnosis,Lab results, Imaging studies, need for follow up and when to return to the Emergency Room. Prescriptions given: Discharge Note I have spoken with the patient and/or caregivers. I have explained the patient's condition, diagnosis and treatment plan based on the information available to me at this time. I have answered the patient's and/or caregiver's questions and addressed any concerns. The patient and/or caregivers have as good understanding of the patient's diagnosis, condition and treatment plan as can be expected at this point. The vital signs have been stable. The patient's condition is stable and appropriate for discharge from the emergency department. The patient will pursue further outpatient evaluation with the primary care physician or other designated or consulting physician as outlined in the discharge instructions. The patient and/or caregivers are agreeable to this plan of care and follow-up instructions have been explained in detail. The patient and/or caregivers have received these instruction. The patient/and or caregivers are aware that any significant change in condition or worsening of symptoms should prompt an immediate return to this or the closest emergency department or call 911. Prescriptions: Doxycycline Hyclate 100 mg [Vibramycin 100 MG] 100 mg PO BID 7 Days #14 tab <LEANDRO BLAKE - Last Filed: 05/30/21 19:22> - Nursing Vital Signs Nursing Vital Signs: Initial Vital Signs Temperature 98.3 F 05/30/21 16:32 Pulse Rate 118 H 05/30/21 16:32 Respiratory Rate 22 05/30/21 16:32 Blood Pressure 140/98 05/30/21 16:32 O2 Sat by Pulse Oximetry 97 05/30/21 16:32 Pain Scale Pain Intensity 0 - Radiology Exams Chest X-ray Interpretation: Interpreted by me (Subtle left lower lobe infiltrate. Otherwise negative chest x-ray.) Ordered Tests: Active Orders 24 hr Category Date Time Status Wire Bound Box Machine Helper STAT Care 05/30/21 16:53 Completed EKG-ER Only STAT Care 05/30/21 16:53 Completed IV Insertion STAT Care 05/30/21 16:53 Completed CHEST 1 VIEW (PORTABLE) Stat Exams 05/30/21 16:53 Taken CBC W DIFF Stat Lab 05/30/21 16:45 Completed CMP Stat Lab 05/30/21 16:45 Completed D-DIMER QUANTITATIVE Stat Lab 05/30/21 16:45 Completed TROPONIN Q3H Lab 05/30/21 16:45 Completed Medication Summary Discontinued Medications Generic Name Dose Route Start Last Admin Trade Name Freq PRN Reason Stop Dose Admin Aspirin 324 mg 05/30/21 16:54 05/30/21 17:05 Baby Aspirin 81 Mg Chew PO 05/30/21 16:55 324 mg STAT ONE Administration Aspirin Confirm 05/30/21 17:02 Baby Aspirin 81 Mg Chew Administered 05/30/21 17:03 Dose 324 mg .ROUTE .STK-MED ONE Doxycycline Hyclate 100 mg 05/30/21 19:12 05/30/21 19:16 Vibramycin 100 Mg PO 05/30/21 19:13 100 mg ONCE STA Administration Doxycycline Hyclate Confirm 05/30/21 19:15 Vibramycin 100 Mg Administered 05/30/21 19:16 Dose 100 mg .ROUTE .STK-MED ONE Sodium Chloride 1,000 mls @ 999 mls/hr 05/30/21 17:05 05/30/21 17:26 Sodium Chloride 0.9% 1000 Ml IV 05/30/21 18:05 999 mls/hr .Q1H1M STA Administration Sodium Chloride Confirm 05/30/21 17:23 Sodium Chloride 0.9% 1000 Ml Administered 05/30/21 17:24 Dose 1,000 mls @ ud .ROUTE .STK-MED ONE Lorazepam 1 mg 05/30/21 17:05 05/30/21 17:32 Ativan 2 Mg/1 Ml Vial IV 05/30/21 17:06 1 mg STAT ONE Administration Lorazepam Confirm 05/30/21 17:22 Ativan 2 Mg/1 Ml Vial Administered 05/30/21 17:23 Dose 2 mg .ROUTE .STK-MED ONE Morphine Sulfate 4 mg 05/30/21 17:05 05/30/21 17:33 Morphine Sulfate 4 Mg Inj IV 05/30/21 17:06 4 mg STAT ONE Administration Morphine Sulfate Confirm 05/30/21 17:23 Morphine Sulfate 4 Mg Inj Administered 05/30/21 17:24 Dose 4 mg .ROUTE .STK-MED ONE Ondansetron HCl 4 mg 05/30/21 17:05 05/30/21 17:30 Zofran 4 Mg/2 Ml Vial IV 05/30/21 17:06 4 mg STAT ONE Administration Ondansetron HCl Confirm 05/30/21 17:22 Zofran 4 Mg/2 Ml Vial Administered 05/30/21 17:23 Dose 4 mg .ROUTE .STK-MED ONE Lab/Rad Data: Laboratory Result Diagrams 05/30/21 16:45 05/30/21 16:45 Laboratory Results 05/30/21 05/30/21 05/30/21 Range/Units 16:45 16:45 16:45 WBC (4.0-10.5) K/mm3 RBC (4.1-5.4) M/mm3 Hgb (12.0-16.0) gm/dl Hct (35-47) % MCV (78-100) fl MCH (26-32) pg MCHC (32-36) g/dl RDW (11.5-14.0) % Plt Count (150-450) K/mm3 MPV (7.5-11.0) fl Gran % (36.0-66.0) % Eos # (Auto) (0-0.5) Absolute Lymphs (auto) (1.0-4.6) Absolute Monos (auto) (0.0-1.3) Lymphocytes % (24.0-44.0) % Monocytes % (0.0-12.0) % Eosinophils % (0.00-5.0) % Basophils % (0.0-0.4) % Absolute Granulocytes (1.4-6.9) Basophils # (0-0.4) D-Dimer < 215 L (215-500) ng/mL Sodium 141 (137-145) mmol/L Potassium 4.0 (3.5-5.1) mmol/L Chloride 103 (98-107) mmol/L Carbon Dioxide 24 (22-30) mmol/L Anion Gap 17.5 H (5-15) MEQ/L BUN 7 (7-17) mg/dL Creatinine 0.67 (0.52-1.04) mg/dL Estimated GFR > 60.0 ML/MIN Glucose 101 (74-106) mg/dL Calcium 9.7 (8.4-10.2) mg/dL Total Bilirubin 0.80 (0.2-1.3) mg/dL AST 25 (14-36) U/L ALT 28 (0-35) U/L Alkaline Phosphatase 105 (38-126) U/L Troponin I < 0.012 (0.000-0.034) ng/mL Serum Total Protein 7.0 (6.3-8.2) g/dL Albumin 4.4 (3.5-5.0) g/dL 05/30/21 Range/Units 16:45 WBC 8.3 (4.0-10.5) K/mm3 RBC 4.94 (4.1-5.4) M/mm3 Hgb 14.2 (12.0-16.0) gm/dl Hct 42.0 (35-47) % MCV 85.0 (78-100) fl MCH 28.7 (26-32) pg MCHC 33.8 (32-36) g/dl RDW 14.7 H (11.5-14.0) % Plt Count 356 (150-450) K/mm3 MPV 9.2 (7.5-11.0) fl Gran % 61.2 (36.0-66.0) % Eos # (Auto) 0.16 (0-0.5) Absolute Lymphs (auto) 2.48 (1.0-4.6) Absolute Monos (auto) 0.56 (0.0-1.3) Lymphocytes % 29.8 (24.0-44.0) % Monocytes % 6.7 (0.0-12.0) % Eosinophils % 1.9 (0.00-5.0) % Basophils % 0.4 (0.0-0.4) % Absolute Granulocytes 5.09 (1.4-6.9) Basophils # 0.03 (0-0.4) D-Dimer (215-500) ng/mL Sodium (137-145) mmol/L Potassium (3.5-5.1) mmol/L Chloride (98-107) mmol/L Carbon Dioxide (22-30) mmol/L Anion Gap (5-15) MEQ/L BUN (7-17) mg/dL Creatinine (0.52-1.04) mg/dL Estimated GFR ML/MIN Glucose (74-106) mg/dL Calcium (8.4-10.2) mg/dL Total Bilirubin (0.2-1.3) mg/dL AST (14-36) U/L ALT (0-35) U/L Alkaline Phosphatase (38-126) U/L Troponin I (0.000-0.034) ng/mL Serum Total Protein (6.3-8.2) g/dL Albumin (3.5-5.0) g/dL - Progress Progress: improved Air Movement: good Progress Note: Patient reassessed. She feels much better. Patient requesting discharge. Chest x-ray reveals a slight left lower lobe infiltrate. Patient received a dose of doxycycline in our ED. A prescription for the same was forwarded to patient's pharmacy. EKG performed upon arrival shows a sinus tachycardia. D- dimer negative. Initial troponin negative. Remaining labs essentially nonremarkable. 05/30/21 19:17 Of note patient was endorsed to Dr. Blake at approximately [address] Blake advised to follow-up on pending chest x-ray at the discharge patient. Patient states she quit smoking and also quit vaping. We will discharge patient home. Patient agrees to follow-up with primary care doctor within 48 hours for reevaluation. Portions of this note were created with voice recognition technology. There may be grammatical, spelling, punctuation or sound alike errors Blood Culture(s) Obtained: No Antibiotics given: Yes Counseled pt/family regarding: diagnosis, need for follow-up, rad results - Departure Departure Disposition: Home Critical Care Time: No
[2021-05-30] MEDS ORDERED: Zofran 4 MG/2 ML VIAL ONE (17:22)
[2021-05-30] MEDS ORDERED: Ativan 2 MG/1 ML VIAL ONE (17:22)
[2021-05-30] MEDS ORDERED: MORPHINE SULFATE 4 MG INJ ONE (17:23)
[2021-05-30] MEDS ORDERED: Sodium Chloride 0.9% 1000 ML 1,000 ML ONE (17:23)
[2021-05-30 17:26] LABS: Absolute Neutrophil Ct (ANC) 5.09 (1.4-6.9); BASOPHIL % 0.4 % (0.0-0.4); Basophil (Absolute #) 0.03 (0-0.4); Eosinophil % 1.9 % (0.00-5.0); Eosinophil (Absolute #) 0.16 (0-0.5); Hemoglobin 14.2 gm/dl (12.0-16.0); Lymphocyte (Absolute #) 2.48 (1.0-4.6); Lymphocytes % 29.8 % (24.0-44.0); Mean Corpuscular Hemoglobin 28.7 pg (26-32); Mean Corpuscular Hgb Concent. 33.8 g/dl (32-36); Mean Platelet Volume 9.2 fl (7.5-11.0); Monocyte (Absolute #) 0.56 (0.0-1.3); Monocytes % 6.7 % (0.0-12.0); Neutrophil % 61.2 % (36.0-66.0); Platelet Count 356 K/mm3 (150-450); Red Blood Count 4.94 M/mm3 (4.1-5.4); Red Cell Distribution Width 14.7 % (11.5-14.0); White Blood Count 8.3 K/mm3 (4.0-10.5)
[2021-05-30 18:06] LABS: ALBUMIN 4.4 g/dL (3.5-5.0); ALKALINE PHOSPHATASE 105 U/L (38-126); ANION GAP 17.5 MEQ/L (5-15); BLOOD UREA NITROGEN 7 mg/dL (7-17); CHLORIDE 103 mmol/L (98-107); Calcium 9.7 mg/dL (8.4-10.2); Carbon Dioxide 24 mmol/L (22-30); Creatinine 1 0.67 mg/dL (0.52-1.04); EST GLOMERULAR FILTRATION RATE > 60.0 ML/MIN; Glucose 101 mg/dL (74-106); SGOT/AST 25 U/L (14-36); SGPT/ALT 28 U/L (0-35); SODIUM 141 mmol/L (137-145)
[2021-05-30 19:11] VITALS: BP 125/90; PULSE 112; O2SAT 98
[2021-05-30] MEDS ORDERED: Vibramycin 100 MG PO STA (19:12)
[2021-05-30] MEDS ORDERED: Vibramycin 100 MG ONE (19:15)
--- NOTE | 2021-05-31 08:41 | XRAY ---
Indication: Chest pain and short of breath. Comparison: January 05, 2021. Portable chest demonstrates normal heart, lungs, and bony thorax.
== END 2021-05-30 19:18 | disposition home or self-care (01) ==
LOC: ED 16:31
DX: J18.9 Pneumonia, unspecified organism (principal); I10 Essential (primary) hypertension
CPT/HCPCS: 36000; 36415; 71045; 80053; 84484; 85025; 85379; 93005; 93041; 96360; 96374; 96375; 99285; J2060; J2270; J2405; A9270-GY

== ENCOUNTER 2021-06-01 19:02 | Emergency (ER) | payer OTHER ==
[2021-06-01] MEDS ORDERED: TORAdol 30 mg Injection IV ONE (19:40)
--- NOTE | 2021-06-01 19:46 | ERPHSYRPT ---
- History of Present Illness Historian: patient Exam Limitations: no limitations Patient Subjective Stated Complaint: CP, dizziness, lightheadedness Triage Nursing Assessment: pt to ED c/o CP, dizziness, lightheadedness chronically but has been worse for 1 week recently. in ED 2 days ago and saw PCP yesterday. appt scheduled with business analytics specialist for next month. rates 8/10 sharp CP with pressure that does not radiate out of chest. heart sounds clear. lungs clear and equal bialterally. Physician History: 20 yo wf w chest pain encompassing entire chest x 1 yr. Pain is sharp,8/10, and nothing makes better or worse. She has chronic nausea/vomiting and has been dyspnic wo diaphoresis. Pt has had multiple ER workups for chest pain and has a cardiology appointment in the near future. She states that Morphine makes the pain better. HTN/Hyperlipidemia/DM are denied. She smoked <1ppd until recently. Timing/Duration: other (1 yr) Activities at Onset: rest Quality: sharpness, stabbing Location: substernal Chest Pain Radiation: no radiation Severity of Pain-Max: severe Severity of Pain-Current: severe Modifying Factors: Improves With: other (Morphine) Associated Symptoms: nausea, vomiting, shortness of breath, No palpitations, No heartburn, No abdominal pain, No cough, No hurts to breathe, No diaphoresis, No chills, No fever, No fatigue, No weakness, No swelling/lump in chest, No syncope, No rash, No headache, No dizziness, No edema, No back pain Prior Chest Pain/Cardiac Workup: non-cardiac Nitro Today/Relief: no nitro taken today Aspirin Treatment Today: no aspirin today Allergies/Adverse Reactions: hydromorphone HCl [From Dilaudid] Allergy (Severe, Verified 06/01/21 19:13) Hives Severe itching with hives penicillin G Allergy (Mild, Verified 06/01/21 19:13) Swelling diphenhydramine HCl [From Benadryl] Adverse Reaction (Mild, Verified 06/01/21 19:13) "crazy behavior" pertussis vaccine,adsorbed [Pertussis Vaccine,Adsorbed] Adverse Reaction (Verified 06/01/21 19:13) Swelling Home Medications: Hydroxyzine HCl 25 mg [Atarax 25 mg] 25 mg PO QID 06/05/19 [History] Atorvastatin Calcium 1 ea DAILY 12/24/20 [History] Ergocalciferol (Vitamin D2) [Vitamin D2] 1 ea DAILY 12/24/20 [History] Levothyroxine Sodium [Euthyrox] 100 mcg DAILY 12/24/20 [History] Norethindrone 0.35 mg PO DAILY 04/21/21 [History] lisinopriL [Lisinopril] 10 mg PO DAILY 04/21/21 [History] Duloxetine HCl 30 mg [Cymbalta 30 MG Capsule] 30 mg PO DAILY 05/30/21 [History] Hx Tetanus, Diphtheria Vaccination/Date Given: Yes Hx Influenza Vaccination/Date Given: No Hx Pneumococcal Vaccination/Date Given: No Immunizations Up to Date: No Travel Risk - International Travel Have you traveled outside of the country in past 3 weeks: No - Coronavirus Screening Are you exhibiting any of the following symptoms?: No Close contact with a COVID-19 positive Pt in past 14-21 Days: No - Vaccine Status Have you recieved a Covid-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: 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[employer] - Vaccination Dates Date of 2cond Vaccination (if applicable): 04/01/2021 - Review of Systems Constitutional: No Symptoms Eyes: No Symptoms Ears, Nose, & Throat: No Symptoms Respiratory: No Symptoms, Dyspnea Cardiac: No Symptoms, Chest Pain Abdominal/Gastrointestinal: No Symptoms, Nausea, Vomiting Genitourinary Symptoms: No Symptoms Musculoskeletal: No Symptoms Skin: No Symptoms Neurological: No Symptoms Psychological: No Symptoms Endocrine: No Symptoms Hematologic/Lymphatic: No Symptoms Immunological/Allergic: No Symptoms - Past Medical History Pertinent Past Medical History: Yes Neurological History: Epilepsy, Seizures ENT History: No Pertinent History Cardiac History: Other Respiratory History: Bronchitis, Pneumonia Endocrine Medical History: Hypothyroidism Musculoskeletal History: Other GI Medical History: No Pertinent History, Irritable Bowel History: No Pertinent History Psycho-Social History: Anxiety, Depression Female Reproductive Disorders: Endometriosis, Menstrual Problems Other Medical History: HX OF "SLIGHT" HEART MURMUR - NOT SEEN BY BOBBIN HANDLER. Lactose Intolerant. HX Headaches - Past Surgical History Past Surgical History: Yes Neuro Surgical History: No Pertinent History Cardiac: No Pertinent History Respiratory: No Pertinent History Gastrointestinal: No Pertinent History Genitourinary: No Pertinent History Musculoskeletal: No Pertinent History Female Surgical History: No Pertinent History Other Surgical History: EGD, Colonoscopy. HX [place] Teeth Removed. Endoscopy - Social History Smoking Status: Never smoker Exposure to second hand smoke: No Drug Use: none Patient Lives Alone: No Significant Family History: no pertinent family hx - Female History Hx Last Menstrual Period: currently Hx Now: No - Nursing Vital Signs Nursing Vital Signs: Initial Vital Signs Pulse Rate 100 H 06/01/21 19:04 Respiratory Rate 18 06/01/21 19:04 O2 Sat by Pulse Oximetry 96 06/01/21 19:04 Pain Scale Pain Intensity 3 Tachy - Physical Exam General Appearance: no apparent distress, anxiety Eye Exam: PERRL/EOMI, eyes nml inspection Ears, Nose, Throat Exam: normal ENT inspection, TMs normal, pharynx normal, moist mucous membranes Neck Exam: normal inspection, non-tender, supple, full range of motion, No meningismus, No mass, No Brudzinski, No Kernig's, No carotid bruit Respiratory Exam: normal breath sounds, lungs clear, airway intact, No respiratory distress Cardiovascular Exam: regular rate/rhythm, normal heart sounds, normal peripheral pulses, No murmur Gastrointestinal/Abdomen Exam: soft, normal bowel sounds, No tenderness Back Exam: normal inspection, normal range of motion Extremity Exam: normal inspection, normal range of motion Neurologic Exam: alert, oriented x 3, cooperative, pricing strategist II-XII nml as tested, normal mood/affect, nml cerebellar function, nml station & gait, sensation nml, No motor deficits, No sensory deficit Skin Exam: normal color, warm, dry Lymphatic Exam: No adenopathy SpO2 Interpretation: normal SpO2: 96 O2 Delivery: Room Air - Course EKG Interpreted by Me: RATE (NSR/R70/Normal QT-QTc/No acute ST changes) - Radiology Exams Chest X-ray Interpretation: Interpreted by me (CXR NAD per ER read) Ordered Tests: Active Orders 24 hr Category Date Time Status EKG-ER Only STAT Care 06/01/21 19:39 Completed CHEST 1 VIEW (PORTABLE) Stat Exams 06/01/21 20:28 Taken CBC W DIFF Stat Lab 06/01/21 19:50 Completed CMP Stat Lab 06/01/21 19:50 Completed D-DIMER QUANTITATIVE Stat Lab 06/01/21 20:00 Completed TROPONIN Q3H Lab 06/01/21 19:50 Completed Medication Summary Discontinued Medications Generic Name Dose Route Start Last Admin Trade Name Annabel PRN Reason Stop Dose Admin Hydroxyzine HCl 50 mg 06/01/21 21:36 Vistaril 50 Mg/Ml IM 06/01/21 21:37 STAT ONE Hydroxyzine HCl 50 mg 06/01/21 21:38 06/01/21 21:44 Vistaril 50 Mg/Ml IM 06/01/21 21:39 50 mg STAT ONE Administration Hydroxyzine HCl Confirm 06/01/21 21:39 Vistaril 100mg/2ml Administered 06/01/21 21:40 Dose 100 mg IM .STK-MED ONE Hydroxyzine HCl Confirm 06/01/21 21:47 Vistaril 100mg/2ml Administered 06/01/21 21:48 Dose 100 mg IM .STK-MED ONE Ketorolac Tromethamine 30 mg 06/01/21 19:40 06/01/21 20:16 Toradol 30 Mg Injection IV 06/01/21 19:41 30 mg STAT ONE Administration Ketorolac Tromethamine Confirm 06/01/21 20:12 Toradol 30 Mg Injection Administered 06/01/21 20:13 Dose 30 mg .ROUTE .STK-MED ONE Lab/Rad Data: Laboratory Result Diagrams 06/01/21 19:50 06/01/21 19:50 Laboratory Results 06/01/21 06/01/21 06/01/21 Range/Units 20:00 19:50 19:50 WBC (4.0-10.5) K/mm3 RBC (4.1-5.4) M/mm3 Hgb (12.0-16.0) gm/dl Hct (35-47) % MCV (78-100) fl MCH (26-32) pg MCHC (32-36) g/dl RDW (11.5-14.0) % Plt Count (150-450) K/mm3 MPV (7.5-11.0) fl Gran % (36.0-66.0) % Eos # (Auto) (0-0.5) Absolute Lymphs (auto) (1.0-4.6) Absolute Monos (auto) (0.0-1.3) Lymphocytes % (24.0-44.0) % Monocytes % (0.0-12.0) % Eosinophils % (0.00-5.0) % Basophils % (0.0-0.4) % Absolute Granulocytes (1.4-6.9) Basophils # (0-0.4) D-Dimer < 215 L (215-500) ng/mL Sodium 143 (137-145) mmol/L Potassium 4.4 (3.5-5.1) mmol/L Chloride 111 H (98-107) mmol/L Carbon Dioxide 19 L (22-30) mmol/L Anion Gap 18.1 H (5-15) MEQ/L BUN 8 (7-17) mg/dL Creatinine 0.66 (0.52-1.04) mg/dL Estimated GFR > 60.0 ML/MIN Glucose 97 (74-106) mg/dL Calcium 9.8 (8.4-10.2) mg/dL Total Bilirubin 0.80 (0.2-1.3) mg/dL AST 29 (14-36) U/L ALT 28 (0-35) U/L Alkaline Phosphatase 115 (38-126) U/L Troponin I < 0.012 (0.000-0.034) ng/mL Serum Total Protein 7.6 (6.3-8.2) g/dL Albumin 4.7 (3.5-5.0) g/dL 06/01/21 Range/Units 19:50 WBC 10.6 H (4.0-10.5) K/mm3 RBC 5.03 (4.1-5.4) M/mm3 Hgb 14.2 (12.0-16.0) gm/dl Hct 42.6 (35-47) % MCV 84.7 (78-100) fl MCH 28.2 (26-32) pg MCHC 33.3 (32-36) g/dl RDW 14.9 H (11.5-14.0) % Plt Count 339 (150-450) K/mm3 MPV 9.5 (7.5-11.0) fl Gran % 66.8 H (36.0-66.0) % Eos # (Auto) 0.15 (0-0.5) Absolute Lymphs (auto) 2.70 (1.0-4.6) Absolute Monos (auto) 0.63 (0.0-1.3) Lymphocytes % 25.6 (24.0-44.0) % Monocytes % 6.0 (0.0-12.0) % Eosinophils % 1.4 (0.00-5.0) % Basophils % 0.2 (0.0-0.4) % Absolute Granulocytes 7.06 H (1.4-6.9) Basophils # 0.02 (0-0.4) D-Dimer (215-500) ng/mL Sodium (137-145) mmol/L Potassium (3.5-5.1) mmol/L Chloride (98-107) mmol/L Carbon Dioxide (22-30) mmol/L Anion Gap (5-15) MEQ/L BUN (7-17) mg/dL Creatinine (0.52-1.04) mg/dL Estimated GFR ML/MIN Glucose (74-106) mg/dL Calcium (8.4-10.2) mg/dL Total Bilirubin (0.2-1.3) mg/dL AST (14-36) U/L ALT (0-35) U/L Alkaline Phosphatase (38-126) U/L Troponin I (0.000-0.034) ng/mL Serum Total Protein (6.3-8.2) g/dL Albumin (3.5-5.0) g/dL - Progress Progress Note: 06/01/21 21:36 30mg IV Toradol. Pt states that Toradol does not help her and requests Morphine which helps her chest pain 50mg IM Vistaril Counseled pt/family regarding: lab results, diagnosis, need for follow-up, rad results - Departure Departure Disposition: Home Clinical Impression: Chest pain, Anxiety Condition: Stable Critical Care Time: No Referrals: HALLIE GRACE [Primary Care Provider] - Instructions: Anxiety, Adult (DC), Chest Pain (DC) Additional Instructions: Follow up with your family MD Return to ER for increasing pain or shortness of breath
[2021-06-01 19:59] LABS: Absolute Neutrophil Ct (ANC) 7.06 (1.4-6.9); BASOPHIL % 0.2 % (0.0-0.4); Basophil (Absolute #) 0.02 (0-0.4); Eosinophil % 1.4 % (0.00-5.0); Eosinophil (Absolute #) 0.15 (0-0.5); Hematocrit 42.6 % (35-47); Hemoglobin 14.2 gm/dl (12.0-16.0); Lymphocytes % 25.6 % (24.0-44.0); Mean Cell Volume 84.7 fl (78-100); Mean Corpuscular Hemoglobin 28.2 pg (26-32); Mean Corpuscular Hgb Concent. 33.3 g/dl (32-36); Mean Platelet Volume 9.5 fl (7.5-11.0); Monocyte (Absolute #) 0.63 (0.0-1.3); Neutrophil % 66.8 % (36.0-66.0); Platelet Count 339 K/mm3 (150-450); Red Blood Count 5.03 M/mm3 (4.1-5.4); Red Cell Distribution Width 14.9 % (11.5-14.0); White Blood Count 10.6 K/mm3 (4.0-10.5)
[2021-06-01 20:10] LABS: ALBUMIN 4.7 g/dL (3.5-5.0); ALKALINE PHOSPHATASE 115 U/L (38-126); ANION GAP 18.1 MEQ/L (5-15); BLOOD UREA NITROGEN 8 mg/dL (7-17); CHLORIDE 111 mmol/L (98-107); Calcium 9.8 mg/dL (8.4-10.2); Carbon Dioxide 19 mmol/L (22-30); Creatinine 1 0.66 mg/dL (0.52-1.04); EST GLOMERULAR FILTRATION RATE > 60.0 ML/MIN; Glucose 97 mg/dL (74-106); Potassium 4.4 mmol/L (3.5-5.1); SGOT/AST 29 U/L (14-36); SGPT/ALT 28 U/L (0-35); SODIUM 143 mmol/L (137-145); Total Protein 7.6 g/dL (6.3-8.2)
[2021-06-01] MEDS ORDERED: TORAdol 30 mg Injection ONE (20:12)
[2021-06-01] MEDS ORDERED: Vistaril 50 MG/ML IM ONE ×2 (21:36→21:38)
[2021-06-01] MEDS ORDERED: VISTARIL 100MG/2ML IM ONE ×2 (21:39→21:47)
[2021-06-01 22:22] VITALS: BP 128/73; PULSE 102
[2021-06-01 22:52] VITALS: O2SAT 96
--- NOTE | 2021-06-02 09:05 | XRAY ---
Indication: Chest pain. Comparison: May 30, 2021. Portable chest continues to demonstrate normal heart, lungs, and bony thorax with incidental medial right base calcified granuloma.
== END 2021-06-01 22:22 | disposition home or self-care (01) ==
LOC: ED 19:02
DX: R07.89 Other chest pain (principal); R42 Dizziness and giddiness; R11.2 Nausea with vomiting, unspecified; I10 Essential (primary) hypertension; E78.5 Hyperlipidemia, unspecified; E11.9 Type 2 diabetes mellitus without complications; Z79.899 Other long term (current) drug therapy; E03.9 Hypothyroidism, unspecified
CPT/HCPCS: 36415; 71045; 80053; 84484; 85025; 85379; 93005; 96372; 96374; 99284; J1885; J3410

== ENCOUNTER 2021-09-12 22:28 | Emergency (ER) | payer MEDICAID, OTHER ==
[2021-09-12 23:14] LABS: Appearance SLIGHTLY CLOUDY (CLEAR); Bacteria RARE /HPF (NEGATIVE); Bilirubin NEGATIVE (NEGATIVE); Blood NEGATIVE Ery/ul (0-5); Epithelial Cells RARE /HPF (FEW); Glucose NEGATIVE (NEGATIVE); Ketones TRACE (NEGATIVE); Leukocyte Esterase MODERATE (NEGATIVE); Mucus SLIGHT /HPF (NEGATIVE); Nitrite NEGATIVE (NEGATIVE); Protein,Urine Dip NEGATIVE (Negative); Specific Gravity 1.011 (1.005-1.025); Urobilinogen NEGATIVE mg/dL (0-1)
--- NOTE | 2021-09-12 23:45 | ERPHSYRPT ---
- History of Present Illness Time Seen by Provider: 09/12/21 22:50 Source: patient Exam Limitations: no limitations Patient Subjective Stated Complaint: pt states "I smoked pot 2 weeks ago and haven't felt good since." Triage Nursing Assessment: pt ambulated into the er with cane; pt is axo x4; c/o not felling well; pt states marijuana use 2 weeks prior; clear lung sounds in all lobes; clear heart tone; active bowel sounds in all quads; strong joel radial pulses; strong joel pedal pulses; pupils 3 mm and PERRL; hypertensive Physician History: Patient is a 20-year-old female presents to our ED with complaints of a cough. Patient states she feels unwell. Possible Covid exposure. No fever. Patient states she smoked some marijuana approximately 2 weeks ago and since then has not been feeling well. Patient symptoms have been ongoing for 2 weeks. She has not been in contact with her primary care physician. Patient denies pain. No chest pain or shortness of breath. No nausea vomiting or diaphoresis no abdominal pain. No diarrhea. No rash. Intermittent dry cough. Patient is not tachypneic or hypoxic. No shortness of breath. Symptoms are mild to moderate in intensity. No specific worsening improving factors. Patient voices no other complaints or concerns at this time. Timing/Duration: week(s) (2 weeks) Severity: moderate Modifying Factors: Improves With: nothing Associated Symptoms: denies symptoms Allergies/Adverse Reactions: hydromorphone HCl [From Dilaudid] Allergy (Severe, Verified 09/12/21 22:37) Hives Severe itching with hives penicillin G Allergy (Mild, Verified 09/12/21 22:37) Swelling diphenhydramine HCl [From Benadryl] Adverse Reaction (Mild, Verified 09/12/21 2 2:37) "crazy behavior" pertussis vaccine,adsorbed [Pertussis Vaccine,Adsorbed] Adverse Reaction (Verified 09/12/21 22:37) Swelling Home Medications: Hydroxyzine HCl 25 mg [Atarax 25 mg] 25 mg PO QID 06/05/19 [History] Atorvastatin Calcium 1 ea DAILY 12/24/20 [History] Ergocalciferol (Vitamin D2) [Vitamin D2] 1 ea DAILY 12/24/20 [History] Levothyroxine Sodium [Euthyrox] 100 mcg DAILY 12/24/20 [History] Norethindrone 0.35 mg PO DAILY 04/21/21 [History] lisinopriL [Lisinopril] 10 mg PO DAILY 04/21/21 [History] Duloxetine HCl 30 mg [Cymbalta 30 MG Capsule] 30 mg PO DAILY 05/30/21 [History] Hx Tetanus, Diphtheria Vaccination/Date Given: Yes Hx Influenza Vaccination/Date Given: No Hx Pneumococcal Vaccination/Date Given: No Travel Risk - International Travel Have you traveled outside of the country in past 3 weeks: No - Coronavirus Screening Are you exhibiting any of the following symptoms?: Yes Symptoms: Cough: New Onset, Shortness of Breath Close contact with a COVID-19 positive Pt in past 14-21 Days: No - Vaccine Status Have you recieved a Covid-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: Yes Commercial Credit Analyst: Moderna - Vaccination Dates Date of 2cond Vaccination (if applicable): 04/01/2021 - Review of Systems Constitutional: No Symptoms, No Fever, No Chills Eyes: No Symptoms Ears, Nose, & Throat: No Symptoms Respiratory: No Symptoms, No Cough, No Dyspnea Cardiac: No Symptoms, No Chest Pain, No Edema, No Syncope Abdominal/Gastrointestinal: No Symptoms, No Abdominal Pain, No Nausea, No Vomiting, No Diarrhea Genitourinary Symptoms: No Symptoms, No Dysuria Musculoskeletal: No Symptoms, No Back Pain, No Neck Pain Skin: No Symptoms, No Rash Neurological: No Symptoms, No Dizziness, No Focal Weakness, No Sensory Changes Psychological: No Symptoms Endocrine: No Symptoms Hematologic/Lymphatic: No Symptoms Immunological/Allergic: No Symptoms All Other Systems: Reviewed and Negative - Past Medical History Pertinent Past Medical History: Yes Neurological History: Epilepsy, Seizures ENT History: No Pertinent History Cardiac History: Other Respiratory History: Bronchitis, Pneumonia Endocrine Medical History: Hypothyroidism Musculoskeletal History: Other GI Medical History: No Pertinent History, Irritable Bowel History: No Pertinent History Psycho-Social History: Anxiety, Depression Female Reproductive Disorders: Endometriosis, Menstrual Problems Other Medical History: HX OF "SLIGHT" HEART MURMUR - NOT SEEN BY DIRECTOR EMERGENCY DEPARTMENT. Lactose Intolerant. HX Headaches - Past Surgical History Past Surgical History: Yes Neuro Surgical History: No Pertinent History Cardiac: No Pertinent History Respiratory: No Pertinent History Gastrointestinal: No Pertinent History Genitourinary: No Pertinent History Musculoskeletal: No Pertinent History Female Surgical History: No Pertinent History Other Surgical History: EGD, Colonoscopy. HX Van Teeth Removed. Endoscopy - Social History Smoking Status: Never smoker Exposure to second hand smoke: No Drug Use: marijuana Patient Lives Alone: No Significant Family History: no pertinent family hx - Female History Hx Now: No - Nursing Vital Signs Nursing Vital Signs: Initial Vital Signs Temperature 98.5 F 09/12/21 22:41 Pulse Rate 101 H 09/12/21 22:41 Respiratory Rate 18 09/12/21 22:41 Blood Pressure 145/83 09/12/21 22:41 O2 Sat by Pulse Oximetry 97 09/12/21 22:41 Pain Scale Pain Intensity 0 - Physical Exam General Appearance: no apparent distress, alert Eye Exam: PERRL/EOMI, eyes nml inspection Ears, Nose, Throat Exam: normal ENT inspection, TMs normal, pharynx normal, moist mucous membranes Neck Exam: normal inspection, non-tender, supple, full range of motion Respiratory Exam: normal breath sounds, lungs clear, airway intact, No respiratory distress Cardiovascular Exam: regular rate/rhythm, normal heart sounds, normal peripheral pulses Gastrointestinal/Abdomen Exam: soft, normal bowel sounds, No tenderness, No mass Back Exam: normal inspection, normal range of motion, No CVA tenderness, No ve rtebral tenderness Extremity Exam: normal inspection, normal range of motion, pelvis stable Neurologic Exam: alert, oriented x 3, cooperative, normal mood/affect, nml cerebellar function, nml station & gait, sensation nml, No motor deficits Skin Exam: normal color, warm, dry, No rash Lymphatic Exam: No adenopathy SpO2 Interpretation: normal SpO2: 97 O2 Delivery: Room Air - Course Nursing assessment & vital signs reviewed: Yes - Radiology Exams Chest X-ray Interpretation: Interpreted by me (Normal heart lungs bony thorax. Right lung base granuloma.) Ordered Tests: Active Orders 24 hr Category Date Time Status CHEST 1 VIEW (PORTABLE) Stat Exams 09/12/21 22:53 Taken CULTURE,URINE Stat Lab 09/12/21 22:41 Received HCG,QUALITATIVE URINE Stat Lab 09/12/21 22:57 Completed UA W/RFX UR CULTURE Stat Lab 09/12/21 22:41 Completed Lab/Rad Data: Laboratory Results 09/12/21 09/12/21 Range/Units 22:57 22:41 Urine Color YELLOW (YELLOW) Urine Appearance SLIGHTLY CLOUDY (CLEAR) Urine pH 5.0 (5-6) Ur Specific [place] 1.011 (1.005-1.025) Urine Protein NEGATIVE (Negative) Urine Ketones TRACE (NEGATIVE) Urine Blood NEGATIVE (0-5) Mateo/ul Urine Nitrite NEGATIVE (NEGATIVE) Urine Bilirubin NEGATIVE (NEGATIVE) Urine Urobilinogen NEGATIVE (0-1) mg/dL Ur Leukocyte Esterase MODERATE (NEGATIVE) Urine WBC (Auto) 6-10 (0-5) /HPF Urine RBC (Auto) 3-5 (0-2) /HPF U Epithel Cells (Auto) RARE (FEW) /HPF Urine Bacteria (Auto) RARE (NEGATIVE) /HPF Urine Mucus (Auto) SLIGHT (NEGATIVE) /HPF Urine Culture Reflexed YES (NO) Urine Glucose NEGATIVE (NEGATIVE) mg/dL Urine HCG, Qual NEGATIVE (Negative) - Progress Progress: improved Progress Note: Patient reassessed. She feels well. Work-up revealed a urinary tract infection. Chest x-ray unchanged from previous. Incidental right lung base granuloma. Lungs are clear on physical exam. Vitals stable. Heart rate 85. O2 sat 96% on room air. Blood pressure 130/81. No indication for further work- up at this time. Will discharge home. A prescription for Macrobid was forwarded to patient's pharmacy. Patient agrees to follow-up with primary care doctor within 48 hours. She voiced other complaints concerns at this time. Portions of this note were created with voice recognition technology. There may be grammatical, spelling, punctuation or sound alike errors 09/13/21 00:11 Counseled pt/family regarding: lab results, diagnosis, need for follow-up, rad results - Departure Departure Disposition: Home Clinical Impression: UTI (urinary tract infection), Cough, Exposure to COVID-19 virus Condition: Stable Critical Care Time: No Referrals: HALLIE GRACE [Primary Care Provider] - Follow up/PCP as directed Additional Instructions: Discharge/Care Plan [email or web address] ROMO was seen on 09/13/21 in the Emergency Room. The patient was counseled regarding Diagnosis,Lab results, Imaging studies, need for follow up and when to return to the Emergency Room. Prescriptions given: Discharge Note I have spoken with the patient and/or caregivers. I have explained the patient's condition, diagnosis and treatment plan based on the information available to me at this time. I have answered the patient's and/or caregiver's questions and addressed any concerns. The patient and/or caregivers have as good understanding of the patient's diagnosis, condition and treatment plan as can be expected at this point. The vital signs have been stable. The patient's condition is stable and appropriate for discharge from the emergency department. The patient will pursue further outpatient evaluation with the primary care physician or other designated or consulting physician as outlined in the discharge instructions. The patient and/or caregivers are agreeable to this plan of care and follow-up instructions have been explained in detail. The patient and/or caregivers have received these instruction. The patient/and or caregivers are aware that any significant change in condition or worsening of symptoms should prompt an immediate return to this or the closest emergency department or call 911. Prescriptions: Nitrofurantoin Macro 100 mg [Macrobid 100MG Capsule] 100 mg PO BID 7 Days #14 cap
[2021-09-13 00:03] VITALS: BP 138/81; PULSE 74
[2021-09-13 00:12] VITALS: O2SAT 97
--- NOTE | 2021-09-13 09:26 | XRAY ---
Indication: Cough. Comparison: June 01, 2021. Portable chest again demonstrates normal heart, lungs, and bony thorax with incidental right base calcified granuloma.
== END 2021-09-13 00:19 | disposition home or self-care (01) ==
LOC: ED 22:28
DX: R05.9 Cough, unspecified (principal); Z20.822 Contact with and (suspected) exposure to COVID-19; N39.0 Urinary tract infection, site not specified; G40.909 Epilepsy, unspecified, not intractable, without status epilepticus; Z79.899 Other long term (current) drug therapy
CPT/HCPCS: 71045; 81001; 84703; 87086; 99284; U0003

== ENCOUNTER 2021-09-16 02:27 | Emergency (ER) | payer MEDICAID ==
[2021-09-16] MEDS ORDERED: Zofran 4 MG/2 ML VIAL IV ONE (03:18)
[2021-09-16] MEDS ORDERED: Sodium Chloride 0.9% 1000 ML 1,000 ML IV STA (03:18)
--- NOTE | 2021-09-16 03:18 | ERPHSYRPT ---
- History of Present Illness Time Seen by Provider: 09/16/21 03:10 Historian: patient Exam Limitations: no limitations Patient Subjective Stated Complaint: Patient has c/o N/V, diarrhea, abdominal pain, "feeling too hot", "my heart rate gets too high." States she was here a few days ago for the same complaints and diagnosed with a UTI. Patient states, "but I actually think this is from me smoking marijuana and eating edibles." Triage Nursing Assessment: Patient brought back to ED in a W/C from the waiting room. She is alert and oriented and answering questions appropriately. No SOB noted. Abdomen soft with BS X 4 quads present. Skin is warm, dry, normal skin tone. Physician History: This is a 20-year-old patient of Dr. Juliocesar Kelly who has not felt well for couple weeks after using marijuana and edible fashion as well as smoking. She was seen here in this emergency department on 09/12/2021 and had a negative flu work-up including negative influenza A, B and negative COVID-19 infection. She has had 6 persistent, intermittent nausea vomiting and diarrhea as well as some abdominal pain. Her biggest issue is the nausea. Patient has a history of elevated cholesterol, hypertension, hypothyroidism and irritable bowel syndrome. Timing/Duration: week(s) (1), worse Quality: aching Abdominal Pain Onset Location: generalized abdomen Severity of Pain-Max: mild Severity of Pain-Current: mild Modifying Factors: Improves With: vomiting Associated Symptoms: diarrhea, nausea, vomiting Previous symptoms: same symptoms as today, recently seen, recently treated Allergies/Adverse Reactions: hydromorphone HCl [From Dilaudid] Allergy (Severe, Verified 09/16/21 02:42) Hives Severe itching with hives penicillin G Allergy (Mild, Verified 09/16/21 02:42) Swelling diphenhydramine HCl [From Benadryl] Adverse Reaction (Mild, Verified 09/16/21 02:42) "crazy behavior" pertussis vaccine,adsorbed [Pertussis Vaccine,Adsorbed] Adverse Reaction (Verified 09/16/21 02:42) Swelling Home Medications: Hydroxyzine HCl 25 mg [Atarax 25 mg] 25 mg PO QID 06/05/19 [History] Atorvastatin Calcium 1 ea DAILY 12/24/20 [History] Ergocalciferol (Vitamin D2) [Vitamin D2] 1 ea DAILY 12/24/20 [History] Levothyroxine Sodium [Euthyrox] 100 mcg DAILY 12/24/20 [History] Norethindrone 0.35 mg PO DAILY 04/21/21 [History] lisinopriL [Lisinopril] 10 mg PO DAILY 04/21/21 [History] Nitrofurantoin Macro 100 mg [Macrobid 100MG Capsule] 1 cap PO BID 09/16/21 [History] Prazosin HCl 1 tab PO HS 09/16/21 [History] Hx Tetanus, Diphtheria Vaccination/Date Given: Yes Hx Influenza Vaccination/Date Given: No Hx Pneumococcal Vaccination/Date Given: No Immunizations Up to Date: Yes Travel Risk - International Travel Have you traveled outside of the country in past 3 weeks: No - Coronavirus Screening Are you exhibiting any of the following symptoms?: Yes Symptoms: Cough: New Onset, Vomiting/Diarrhea - Vaccine Status Have you recieved a Covid-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: Yes 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: [employer] - Vaccination Dates Date of 2cond Vaccination (if applicable): 04/01/2021 - Review of Systems Constitutional: No Symptoms Eyes: No Symptoms Ears, Nose, & Throat: No Symptoms Respiratory: No Symptoms Cardiac: No Symptoms Abdominal/Gastrointestinal: Abdominal Pain, Nausea, Vomiting, Diarrhea Genitourinary Symptoms: No Symptoms Musculoskeletal: No Symptoms Skin: No Symptoms Neurological: No Symptoms Psychological: No Symptoms Endocrine: No Symptoms Hematologic/Lymphatic: No Symptoms Immunological/Allergic: No Symptoms All Other Systems: Reviewed and Negative - Past Medical History Pertinent Past Medical History: Yes Neurological History: Epilepsy, Seizures ENT History: No Pertinent History Cardiac History: High Cholesterol, Hypertension, Other Respiratory History: Bronchitis, Pneumonia Endocrine Medical History: Hypothyroidism Musculoskeletal History: Other GI Medical History: Irritable Bowel History: No Pertinent History Psycho-Social History: Anxiety, Depression Female Reproductive Disorders: Endometriosis, Menstrual Problems Other Medical History: HEART MURMUR, Lactose Intolerant,. HX Headaches, PTSD, mitrovalve prolapse, scoliosis, arthritis - Past Surgical History Past Surgical History: Yes Neuro Surgical History: No Pertinent History Cardiac: No Pertinent History Respiratory: No Pertinent History Gastrointestinal: No Pertinent History Genitourinary: No Pertinent History Musculoskeletal: No Pertinent History Female Surgical History: No Pertinent History Other Surgical History: EGD, Colonoscopy. HX Delia Teeth Removed. Endoscopy - Social History Smoking Status: Never smoker Exposure to second hand smoke: No Drug Use: marijuana Patient Lives Alone: No Significant Family History: no pertinent family hx - Female History Hx Last Menstrual Period: July 2021 Hx Now: No - Nursing Vital Signs Nursing Vital Signs: Initial Vital Signs Temperature 97.4 F 09/16/21 02:47 Pulse Rate 95 H 09/16/21 02:47 Respiratory Rate 18 09/16/21 02:47 Blood Pressure 127/69 09/16/21 02:47 O2 Sat by Pulse Oximetry 96 09/16/21 02:47 Pain Scale Pain Intensity 0 - Physical Exam General Appearance: no apparent distress, alert, anxiety Eye Exam: PERRL/EOMI, eyes nml inspection Ears, Nose, Throat Exam: normal ENT inspection, moist mucous membranes Neck Exam: normal inspection, non-tender, supple, full range of motion Respiratory Exam: normal breath sounds, lungs clear, airway intact, No chest tenderness, No respiratory distress Cardiovascular Exam: regular rate/rhythm, normal heart sounds, normal peripheral pulses Gastrointestinal/Abdomen Exam: soft, normal bowel sounds, tenderness (Mild diffuse with palpation), No guarding Pelvic Exam: not done Rectal Exam: not done Back Exam: normal inspection, normal range of motion, No CVA tenderness, No vertebral tenderness Extremity Exam: normal inspection, normal range of motion, pelvis stable Neurologic Exam: alert, oriented x 3, cooperative, senior estimator II-XII nml as tested, normal mood/affect, nml cerebellar function, nml station & gait, sensation nml Skin Exam: normal color, warm, dry Lymphatic Exam: No adenopathy SpO2 Interpretation: normal SpO2: 96 O2 Delivery: Room Air - Course Nursing assessment & vital signs reviewed: Yes Ordered Tests: Active Orders 24 hr Category Date Time Status Clean Catch Urine Specimen STAT Care 09/16/21 03:18 Active IV Insertion STAT Care 09/16/21 03:18 Active ABDOMEN AND PELVIS W/0 CONTRAS [CT] Stat Exams 09/16/21 03:19 Taken AMYLASE Stat Lab 09/16/21 03:42 Completed CBC W DIFF Stat Lab 09/16/21 03:42 Completed CMP Stat Lab 09/16/21 03:42 Completed HCG QUALITATIVE,SERUM Stat Lab 09/16/21 03:43 Completed LIPASE Stat Lab 09/16/21 03:42 Completed Lactic Acid Stat Lab 09/16/21 03:55 Completed UA W/RFX UR CULTURE Stat Lab 09/16/21 05:15 Completed Urine Triage Profile Stat Lab 09/16/21 05:15 Completed Medication Summary Discontinued Medications Generic Name Dose Route Start Last Admin Trade Name Annabel PRN Reason Stop Dose Admin Sodium Chloride 1,000 mls @ 999 mls/hr 09/16/21 03:18 09/16/21 05:15 Sodium Chloride 0.9% 1000 Ml IV 09/16/21 04:18 Infused .Q1H1M STA Infusion Sodium Chloride Confirm 09/16/21 03:52 Sodium Chloride 0.9% 1000 Ml Administered 09/16/21 03:53 Dose 1,000 mls @ ud .ROUTE .STK-MED ONE Ondansetron HCl 4 mg 09/16/21 03:18 09/16/21 03:54 Ondansetron Hcl 4 Mg/2 Ml Vial IV 09/16/21 03:19 4 mg STAT ONE Administration Ondansetron HCl Confirm 09/16/21 03:52 Ondansetron Hcl 4 Mg/2 Ml Vial Administered 09/16/21 03:53 Dose 4 mg .ROUTE .STK-MED ONE Lab/Rad Data: Laboratory Result Diagrams 09/16/21 03:42 09/16/21 03:42 Laboratory Results 09/16/21 09/16/21 09/16/21 Range/Units 05:15 05:15 03:55 WBC (4.0-10.5) K/mm3 RBC (4.1-5.4) M/mm3 Hgb (12.0-16.0) gm/dl Hct (35-47) % MCV (78-100) fl MCH (26-32) pg MCHC (32-36) g/dl RDW (11.5-14.0) % Plt Count (150-450) K/mm3 MPV (7.5-11.0) fl Gran % (36.0-66.0) % Eos # (Auto) (0-0.5) Absolute Lymphs (auto) (1.0-4.6) Absolute Monos (auto) (0.0-1.3) Lymphocytes % (24.0-44.0) % Monocytes % (0.0-12.0) % Eosinophils % (0.00-5.0) % Basophils % (0.0-0.4) % Absolute Granulocytes (1.4-6.9) Basophils # (0-0.4) Sodium (137-145) mmol/L Potassium (3.5-5.1) mmol/L Chloride (98-107) mmol/L Carbon Dioxide (22-30) mmol/L Anion Gap (5-15) MEQ/L BUN (7-17) mg/dL Creatinine (0.52-1.04) mg/dL Estimated GFR ML/MIN Glucose (74-106) mg/dL Lactic Acid 1.0 (0.4-2.0) Calcium (8.4-10.2) mg/dL Total Bilirubin (0.2-1.3) mg/dL AST (14-36) U/L ALT (0-35) U/L Alkaline Phosphatase (38-126) U/L Serum Total Protein (6.3-8.2) g/dL Albumin (3.5-5.0) g/dL Amylase (30-110) U/L Lipase (23-300) U/L Serum , Qual (Negative) Urine Color YELLOW (YELLOW) Urine Appearance SLIGHTLY CLOUDY (CLEAR) Urine pH 6.0 (5-6) Ur Specific [place] 1.020 (1.005-1.025) Urine Protein NEGATIVE (Negative) Urine Ketones TRACE (NEGATIVE) Urine Blood NEGATIVE (0-5) Mateo/ul Urine Nitrite NEGATIVE (NEGATIVE) Urine Bilirubin NEGATIVE (NEGATIVE) Urine Urobilinogen NEGATIVE (0-1) mg/dL Ur Leukocyte Esterase MODERATE (NEGATIVE) Urine WBC (Auto) 6-10 (0-5) /HPF Urine RBC (Auto) 3-5 (0-2) /HPF U Epithel Cells (Auto) RARE (FEW) /HPF Urine Bacteria (Auto) RARE (NEGATIVE) /HPF Urine Mucus (Auto) SLIGHT (NEGATIVE) /HPF Urine Culture Reflexed NO (NO) Urine Glucose NEGATIVE (NEGATIVE) mg/dL Urine Opiates Level NEGATIVE (NEGATIVE) Ur Methadone NEGATIVE (NEGATIVE) Urine Barbiturates NEGATIVE (NEGATIVE) Ur Phencyclidine (PCP) NEGATIVE (NEGATIVE) Urine Amphetamine NEGATIVE (NEGATIVE) U Benzodiazepine Level NEGATIVE (NEGATIVE) Urine Cocaine NEGATIVE (NEGATIVE) Urine Marijuana (THC) POSITIVE (NEGATIVE) 09/16/21 09/16/21 09/16/21 Range/Units 03:43 03:42 03:42 WBC 9.6 (4.0-10.5) K/mm3 RBC 4.69 (4.1-5.4) M/mm3 Hgb 13.6 (12.0-16.0) gm/dl Hct 41.5 (35-47) % MCV 88.5 (78-100) fl MCH 29.0 (26-32) pg MCHC 32.8 (32-36) g/dl RDW 14.1 H (11.5-14.0) % Plt Count 345 (150-450) K/mm3 MPV 10.4 (7.5-11.0) fl Gran % 58.2 (36.0-66.0) % Eos # (Auto) 0.16 (0-0.5) Absolute Lymphs (auto) 2.82 (1.0-4.6) Absolute Monos (auto) 0.99 (0.0-1.3) Lymphocytes % 29.4 (24.0-44.0) % Monocytes % 10.3 (0.0-12.0) % Eosinophils % 1.7 (0.00-5.0) % Basophils % 0.4 (0.0-0.4) % Absolute Granulocytes 5.58 (1.4-6.9) Basophils # 0.04 (0-0.4) Sodium 140 (137-145) mmol/L Potassium 4.4 (3.5-5.1) mmol/L Chloride 103 (98-107) mmol/L Carbon Dioxide 27 (22-30) mmol/L Anion Gap 14.1 (5-15) MEQ/L BUN 15 (7-17) mg/dL Creatinine 0.71 (0.52-1.04) mg/dL Estimated GFR > 60.0 ML/MIN Glucose 90 (74-106) mg/dL Lactic Acid (0.4-2.0) Calcium 9.7 (8.4-10.2) mg/dL Total Bilirubin 0.90 (0.2-1.3) mg/dL AST 28 (14-36) U/L ALT 23 (0-35) U/L Alkaline Phosphatase 85 (38-126) U/L Serum Total Protein 7.1 (6.3-8.2) g/dL Albumin 4.6 (3.5-5.0) g/dL Amylase 51 (30-110) U/L Lipase 76 (23-300) U/L Serum , Qual NEGATIVE (Negative) Urine Color (YELLOW) Urine Appearance (CLEAR) Urine pH (5-6) Ur Specific [place] (1.005-1.025) Urine Protein (Negative) Urine Ketones (NEGATIVE) Urine Blood (0-5) Mateo/ul Urine Nitrite (NEGATIVE) Urine Bilirubin (NEGATIVE) Urine Urobilinogen (0-1) mg/dL Ur Leukocyte Esterase (NEGATIVE) Urine WBC (Auto) (0-5) /HPF Urine RBC (Auto) (0-2) /HPF U Epithel Cells (Auto) (FEW) /HPF Urine Bacteria (Auto) (NEGATIVE) /HPF Urine Mucus (Auto) (NEGATIVE) /HPF Urine Culture Reflexed (NO) Urine Glucose (NEGATIVE) mg/dL Urine Opiates Level (NEGATIVE) Ur Methadone (NEGATIVE) Urine Barbiturates (NEGATIVE) Ur Phencyclidine (PCP) (NEGATIVE) Urine Amphetamine (NEGATIVE) U Benzodiazepine Level (NEGATIVE) Urine Cocaine (NEGATIVE) Urine Marijuana (THC) (NEGATIVE) - Departure Departure Disposition: Home Clinical Impression: Abdominal pain, Nausea and vomiting, UTI (urinary tract infection) Condition: Stable Critical Care Time: No Referrals: HALLIE GRACE [Primary Care Provider] - Follow up/PCP as directed Additional Instructions: Drink plenty of fluids. Avoid marijuana use. Follow-up with Dr. Juliocesar Kelly for further management of your symptoms. Take your medication as prescribed. Stop your Macrodantin antibiotic Prescriptions: Ondansetron ODT 4 MG [Zofran Odt 4 mg] 4 mg PO Q6H PRN PRN #10 tablet PRN Reason: Vomiting Ciprofloxacin [Cipro 500 MG] 500 mg PO BID #14 tablet
[2021-09-16 03:38] LABS: Absolute Neutrophil Ct (ANC) 5.58 (1.4-6.9); Basophil (Absolute #) 0.04 (0-0.4); Eosinophil % 1.7 % (0.00-5.0); Eosinophil (Absolute #) 0.16 (0-0.5); Hematocrit 41.5 % (35-47); Hemoglobin 13.6 gm/dl (12.0-16.0); Lymphocyte (Absolute #) 2.82 (1.0-4.6); Lymphocytes % 29.4 % (24.0-44.0); Mean Cell Volume 88.5 fl (78-100); Mean Corpuscular Hgb Concent. 32.8 g/dl (32-36); Mean Platelet Volume 10.4 fl (7.5-11.0); Monocyte (Absolute #) 0.99 (0.0-1.3); Monocytes % 10.3 % (0.0-12.0); Neutrophil % 58.2 % (36.0-66.0); Platelet Count 345 K/mm3 (150-450); Red Blood Count 4.69 M/mm3 (4.1-5.4); Red Cell Distribution Width 14.1 % (11.5-14.0); White Blood Count 9.6 K/mm3 (4.0-10.5)
[2021-09-16] MEDS ORDERED: Sodium Chloride 0.9% 1000 ML 1,000 ML ONE (03:52)
[2021-09-16] MEDS ORDERED: Zofran 4 MG/2 ML VIAL ONE (03:52)
[2021-09-16 03:53] LABS: ALBUMIN 4.6 g/dL (3.5-5.0); ALKALINE PHOSPHATASE 85 U/L (38-126); AMYLASE 51 U/L (30-110); ANION GAP 14.1 MEQ/L (5-15); BLOOD UREA NITROGEN 15 mg/dL (7-17); CHLORIDE 103 mmol/L (98-107); Calcium 9.7 mg/dL (8.4-10.2); Carbon Dioxide 27 mmol/L (22-30); Creatinine 1 0.71 mg/dL (0.52-1.04); EST GLOMERULAR FILTRATION RATE > 60.0 ML/MIN; Glucose 90 mg/dL (74-106); LIPASE 76 U/L (23-300); Potassium 4.4 mmol/L (3.5-5.1); SGOT/AST 28 U/L (14-36); SGPT/ALT 23 U/L (0-35); SODIUM 140 mmol/L (137-145); Total Protein 7.1 g/dL (6.3-8.2)
[2021-09-16 06:01] LABS: Amphetamine,Urine NEGATIVE (NEGATIVE); Barbiturate,Urine NEGATIVE (NEGATIVE); Benzodiazepine,Urine NEGATIVE (NEGATIVE); Cocaine,Urine NEGATIVE (NEGATIVE); Methadone,Urine NEGATIVE (NEGATIVE); Opiate,Urine NEGATIVE (NEGATIVE); PCP,Urine NEGATIVE (NEGATIVE); THC,Urine POSITIVE (NEGATIVE)
[2021-09-16 06:36] LABS: Appearance SLIGHTLY CLOUDY (CLEAR); Bacteria RARE /HPF (NEGATIVE); Bilirubin NEGATIVE (NEGATIVE); Blood NEGATIVE Ery/ul (0-5); Epithelial Cells RARE /HPF (FEW); Glucose NEGATIVE (NEGATIVE); Ketones TRACE (NEGATIVE); Leukocyte Esterase MODERATE (NEGATIVE); Mucus SLIGHT /HPF (NEGATIVE); Nitrite NEGATIVE (NEGATIVE); Protein,Urine Dip NEGATIVE (Negative); Urobilinogen NEGATIVE mg/dL (0-1)
[2021-09-16] MEDS ORDERED: Levofloxacin 500 MG Tablet PO ONE (06:49)
[2021-09-16] MEDS ORDERED: Levofloxacin 500 MG Tablet ONE (06:53)
[2021-09-16 07:07] VITALS: BP 104/76; PULSE 84; O2SAT 99
--- NOTE | 2021-09-16 09:07 | XRAY ---
Indication: Abdomen pain, chest pain, nausea, vomiting, and diarrhea 2 weeks. Multiple contiguous axial images obtained through the abdomen and pelvis without contrast. Comparison: April 21, 2021. Lung bases remain clear again with incidental small right lower lobe calcified granuloma. Heart not enlarged. Noncontrasted stomach and bowel loops remain nonobstructed with normal appendix. No free fluid/air. Again a few tiny splenic calcified granulomas. Remaining liver, gallbladder, pancreas, spleen, adrenal glands, kidneys, ureters, bladder, uterus, and aorta are unremarkable for noncontrast exam. Osseous structures intact. Impression: 1. Again incidental old granulomatous disease. 2. Remaining CT abdomen/pelvis without contrast exam continues to remain negative. Comment: [facility]. No critical discrepancy.
== END 2021-09-16 07:15 | disposition home or self-care (01) ==
LOC: ED 02:27
DX: R11.2 Nausea with vomiting, unspecified (principal); R10.84 Generalized abdominal pain; N39.0 Urinary tract infection, site not specified; R19.7 Diarrhea, unspecified; E78.5 Hyperlipidemia, unspecified; I10 Essential (primary) hypertension; E03.9 Hypothyroidism, unspecified; Z79.899 Other long term (current) drug therapy
CPT/HCPCS: 36000; 36415; 74176; 80053; 80307; 81001; 81025; 82150; 83605; 83690; 85025; 96374; 99284; J2405; A9270-GY

== ENCOUNTER 2022-01-27 15:39 | Emergency (ER) | payer OTHER ==
[2022-01-27] MEDS ORDERED: Sodium Chloride 0.9% 1000 ML 1,000 ML IV STA (16:38)
[2022-01-27] MEDS ORDERED: Reglan 10 MG/2 ML IV ONE (16:38)
[2022-01-27] MEDS ORDERED: Reglan 10 MG/2 ML ONE (17:05)
[2022-01-27] MEDS ORDERED: Sodium Chloride 0.9% 1000 ML 1,000 ML ONE (17:06)
[2022-01-27 17:09] LABS: Appearance SLIGHTLY CLOUDY (CLEAR); Bilirubin SMALL (NEGATIVE); Glucose NEGATIVE (NEGATIVE)
[2022-01-27 17:10] LABS: Dipstick done @ ? MAIN LAB; Ketones MODERATE-40 (NEGATIVE); Nitrite NEGATIVE (NEGATIVE); Ph 5.5 (5-6); Protein,Urine Dip NEGATIVE (Negative); RBC NEGATIVE Ery/ul (0-5); Specific Gravity >=1.030 (1.005-1.025); Urobilinogen 0.2 mg/dL (0-1)
[2022-01-27 17:16] LABS: Bacteria MANY /HPF (NEGATIVE); Epithelial Cells FEW /HPF (FEW); Mucus MANY /HPF (NEGATIVE)
[2022-01-27 17:19] LABS: Absolute Neutrophil Ct (ANC) 7.62 x10^3/uL (1.4-6.9); Basophil (Absolute #) 0.04 x10^3/uL (0-0.4); Eosinophil % 1.2 % (0.00-5.0); Eosinophil (Absolute #) 0.13 x10^3/uL (0-0.5); Hematocrit 44.4 % (35-47); Hemoglobin 14.9 g/dL (12.0-16.0); Lymphocyte (Absolute #) 1.87 x10^3/uL (1.0-4.6); Lymphocytes % 17.9 % (24.0-44.0); Mean Cell Volume 87.4 fL (78-100); Mean Corpuscular Hemoglobin 29.3 pg (26-32); Mean Corpuscular Hgb Concent. 33.6 g/dL (32-36); Mean Platelet Volume 9.5 fL (7.5-11.0); Monocyte (Absolute #) 0.78 x10^3/uL (0.0-1.3); Monocytes % 7.4 % (0.0-12.0); Neutrophil % 72.8 % (36.0-66.0); Platelet Count 263 x10^3/uL (150-450); Red Blood Count 5.08 x10^6/uL (4.1-5.4); Red Cell Distribution Width 13.3 % (11.5-14.0); White Blood Count 10.5 x10^3/uL (4.0-10.5)
[2022-01-27 17:19] LABS: Urine Cultured Indicated? YES
[2022-01-27 17:27] LABS: ALBUMIN 4.8 g/dL (3.5-5.0); ALKALINE PHOSPHATASE 95 U/L (38-126); AMYLASE 66 U/L (30-110); BLOOD UREA NITROGEN 10 mg/dL (7-17); CHLORIDE 103 mmol/L (98-107); Calcium 9.8 mg/dL (8.4-10.2); Carbon Dioxide 20 mmol/L (22-30); Creatinine 1 0.65 mg/dL (0.52-1.04); EST GLOMERULAR FILTRATION RATE > 60.0 ML/MIN; Glucose 77 mg/dL (74-106); LIPASE 76 U/L (23-300); Potassium 4.2 mmol/L (3.5-5.1); SGOT/AST 27 U/L (14-36); SGPT/ALT 20 U/L (0-35); SODIUM 136 mmol/L (137-145); Total Protein 7.3 g/dL (6.3-8.2)
[2022-01-27 17:34] VITALS: BP 115/87; PULSE 74; O2SAT 96
--- NOTE | 2022-01-27 18:58 | ERPHSYRPT ---
- History of Present Illness Time Seen by Provider: 01/27/22 16:45 Historian: patient, family Exam Limitations: no limitations Patient Subjective Stated Complaint: Abdominal pain Triage Nursing Assessment: Patient brought back to ED per w/c and transferred self to bed. Patient A+O X3. Patient's skin pink, warm and dry. Patient complains of intermitent sharp abdominal pain 7/10 for the past month that has gotten worse today. Patient also complains of N/V and diarrhea. Abdomen soft and round with BS X 4. Physician History: Patient is a 21-year-old female who carries a diagnosis of autism who presents with a recurrence of abdominal pain which is sharp and stabbing. This occurs especially with any palpation to the lower abdomen she is lost her appetite she has near syncopal episodes at times she has difficulty urinating she has had no abdominal surgery she claims no fever chills sweats although she has had nausea vomiting and diarrhea recently. This episode of pain has been going on for 1 week worse the past 2 days. Timing/Duration: week(s) (1) Activities at Onset: none Quality: sharpness, stabbing Abdominal Pain Onset Location: generalized abdomen Allergies/Adverse Reactions: hydromorphone HCl [From Dilaudid] Allergy (Severe, Verified 01/27/22 16:25) Hives Severe itching with hives penicillin G Allergy (Mild, Verified 01/27/22 16:25) Swelling diphenhydramine HCl [From Benadryl] Adverse Reaction (Mild, Verified 01/27/22 16:25) "crazy behavior" pertussis vaccine,adsorbed [Pertussis Vaccine,Adsorbed] Adverse Reaction (Verified 01/27/22 16:25) Swelling Home Medications: Hydroxyzine HCl 25 mg [Atarax 25 mg] 25 mg PO QID 06/05/19 [History] Atorvastatin Calcium 1 ea DAILY 12/24/20 [History] Ergocalciferol (Vitamin D2) [Vitamin D2] 1 ea DAILY 12/24/20 [History] Levothyroxine Sodium [Euthyrox] 100 mcg DAILY 12/24/20 [History] Norethindrone 0.35 mg PO DAILY 04/21/21 [History] lisinopriL [Lisinopril] 10 mg PO DAILY 04/21/21 [History] Nitrofurantoin Macro 100 mg [Macrobid 100MG Capsule] 1 cap PO BID 09/16/21 [History] Prazosin HCl 1 tab PO HS 09/16/21 [History] Hx Tetanus, Diphtheria Vaccination/Date Given: Yes Hx Influenza Vaccination/Date Given: No Hx Pneumococcal Vaccination/Date Given: No Immunizations Up to Date: Yes Travel Risk - International Travel Have you traveled outside of the country in past 3 weeks: No - Coronavirus Screening Are you exhibiting any of the following symptoms?: No Close contact with a COVID-19 positive Pt in past 14-21 Days: No - Vaccine Status Have you recieved a Covid-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: Yes 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: [employer] - Vaccination Dates Date of 2cond Vaccination (if applicable): 04/01/2021 - Review of Systems Constitutional: No Fever, No Chills Eyes: No Symptoms Ears, Nose, & Throat: No Symptoms Respiratory: No Cough, No Dyspnea Cardiac: No Chest Pain, No Edema, No Syncope Abdominal/Gastrointestinal: Abdominal Pain, Nausea, Vomiting, Diarrhea Genitourinary Symptoms: Dysuria Musculoskeletal: No Back Pain, No Neck Pain Skin: No Rash Neurological: No Dizziness, No Focal Weakness, No Sensory Changes Psychological: No Symptoms Endocrine: No Symptoms All Other Systems: Reviewed and Negative - Past Medical History Pertinent Past Medical History: Yes Neurological History: Epilepsy, Seizures ENT History: No Pertinent History Cardiac History: High Cholesterol, Hypertension, Other Respiratory History: Bronchitis, Pneumonia Endocrine Medical History: Hypothyroidism Musculoskeletal History: Other GI Medical History: Irritable Bowel History: No Pertinent History Psycho-Social History: Anxiety, Depression Female Reproductive Disorders: Endometriosis, Menstrual Problems Other Medical History: HEART MURMUR, Lactose Intolerant,. HX Headaches, PTSD, mitrovalve prolapse, scoliosis, arthritis - Past Surgical History Past Surgical History: Yes Neuro Surgical History: No Pertinent History Cardiac: No Pertinent History Respiratory: No Pertinent History Gastrointestinal: No Pertinent History Genitourinary: No Pertinent History Musculoskeletal: No Pertinent History Female Surgical History: No Pertinent History Other Surgical History: EGD, Colonoscopy. HX [place] Teeth Removed. Endoscopy - Social History Smoking Status: Never smoker Exposure to second hand smoke: No Drug Use: none Patient Lives Alone: No Significant Family History: no pertinent family hx - Female History Hx Last Menstrual Period: January Hx Now: No - Nursing Vital Signs Nursing Vital Signs: Initial Vital Signs Temperature 97.9 F 05/27/22 16:26 Pulse Rate 98 H 01/27/22 16:26 Respiratory Rate 18 01/27/22 16:26 Blood Pressure 128/91 01/27/22 16:26 O2 Sat by Pulse Oximetry 98 01/27/22 16:26 Pain Scale Pain Intensity 7 - Physical Exam General Appearance: mild distress, alert Eye Exam: PERRL/EOMI, eyes nml inspection Ears, Nose, Throat Exam: normal ENT inspection, pharynx normal, moist mucous membranes Neck Exam: normal inspection, non-tender, supple, full range of motion Respiratory Exam: normal breath sounds, lungs clear, No respiratory distress Cardiovascular Exam: regular rate/rhythm, normal heart sounds Gastrointestinal/Abdomen Exam: soft, normal bowel sounds, tenderness, guarding, rebound, No mass Back Exam: normal inspection, normal range of motion, No CVA tenderness, No vertebral tenderness Extremity Exam: normal inspection, normal range of motion, pelvis stable Neurologic Exam: alert, oriented x 3, cooperative, normal mood/affect, nml cerebellar function, sensation nml, No motor deficits Skin Exam: normal color, warm, dry SpO2: 96 - Course Nursing assessment & vital signs reviewed: Yes - CT Exams Abdomen/Pelvis CT Interpretation: Other (Negative other than a left ovarian cyst 3.2 cm) Ordered Tests: Active Orders 24 hr Category Date Time Status IV Insertion STAT Care 01/27/22 16:38 Active ABDOMEN AND PELVIS W/0 CONTRAS [CT] Stat Exams 01/27/22 16:39 Taken AMYLASE Stat Lab 01/27/22 17:03 Completed CBC W DIFF Stat Lab 01/27/22 17:03 Completed CMP Stat Lab 01/27/22 17:03 Completed CULTURE,URINE Stat Lab 01/27/22 16:43 Received HCG,QUALITATIVE URINE Stat Lab 01/27/22 17:00 Completed LIPASE Stat Lab 01/27/22 17:03 Completed UA W/RFX CULTURE Stat Lab 01/27/22 16:43 Completed Medication Summary Discontinued Medications Generic Name Dose Route Start Last Admin Trade Name Freq PRN Reason Stop Dose Admin Sodium Chloride 1,000 mls @ 999 mls/hr 01/27/22 16:38 01/27/22 18:34 Sodium Chloride 0.9% 1000 Ml IV 01/27/22 17:38 Infused .Q1H1M STA Infusion Sodium Chloride Confirm 01/27/22 17:06 Sodium Chloride 0.9% 1000 Ml Administered 01/27/22 17:07 Dose 1,000 mls @ ud .ROUTE .[facility] ONE Metoclopramide HCl 10 mg 01/27/22 16:38 01/27/22 17:07 Metoclopramide Hcl 10 Mg/2 Ml Vial IV 01/27/22 16:39 10 mg STAT ONE Administration Metoclopramide HCl Confirm 01/27/22 17:05 Metoclopramide Hcl 10 Mg/2 Ml Vial Administered 01/27/22 17:06 Dose 10 mg .ROUTE .[facility] ONE Lab/Rad Data: Laboratory Result Diagrams 01/27/22 17:03 01/27/22 17:03 Laboratory Results 01/27/22 01/27/22 01/27/22 Range/Units 17:03 17:03 17:00 WBC 10.5 (4.0-10.5) x10^3/uL RBC 5.08 (4.1-5.4) x10^6/uL Hgb 14.9 (12.0-16.0) g/dL Hct 44.4 (35-47) % MCV 87.4 (78-100) fL MCH 29.3 (26-32) pg MCHC 33.6 (32-36) g/dL RDW 13.3 (11.5-14.0) % Plt Count 263 (150-450) x10^3/uL MPV 9.5 (7.5-11.0) fL Gran % 72.8 H (36.0-66.0) % Immature Gran % (Auto) 0.3 (0.00-0.4) % Nucleat RBC Rel Count 0.0 (0.00-0.1) % Eos # (Auto) 0.13 (0-0.5) x10^3/uL Immature Gran # (Auto) 0.03 (0.00-0.03) x10^3u/L Absolute Lymphs (auto) 1.87 (1.0-4.6) x10^3/uL Absolute Monos (auto) 0.78 (0.0-1.3) x10^3/uL Absolute Nucleated RBC 0.00 (0.00-0.01) x10^3u/L Lymphocytes % 17.9 L (24.0-44.0) % Monocytes % 7.4 (0.0-12.0) % Eosinophils % 1.2 (0.00-5.0) % Basophils % 0.4 (0.0-0.4) % Absolute Granulocytes 7.62 H (1.4-6.9) x10^3/uL Basophils # 0.04 (0-0.4) x10^3/uL Sodium 136 L (137-145) mmol/L Potassium 4.2 (3.5-5.1) mmol/L Chloride 103 (98-107) mmol/L Carbon Dioxide 20 L (22-30) mmol/L Anion Gap 18.0 H (5-15) MEQ/L BUN 10 (7-17) mg/dL Creatinine 0.65 (0.52-1.04) mg/dL Estimated GFR > 60.0 ML/MIN Glucose 77 (74-106) mg/dL Calcium 9.8 (8.4-10.2) mg/dL Total Bilirubin 1.00 (0.2-1.3) mg/dL AST 27 (14-36) U/L ALT 20 (0-35) U/L Alkaline Phosphatase 95 (38-126) U/L Serum Total Protein 7.3 (6.3-8.2) g/dL Albumin 4.8 (3.5-5.0) g/dL Amylase 66 (30-110) U/L Lipase 76 (23-300) U/L Urinalys Dipstick Clnc Urine Color (YELLOW) Urine Appearance (CLEAR) Urine pH (5-6) Ur Specific [place] (1.005-1.025) POC Urine Protein Conf (Negative) Urine Ketones (NEGATIVE) Urine Nitrite (NEGATIVE) Urine Bilirubin (NEGATIVE) Urine Urobilinogen (0-1) mg/dL Urine Leukocytes (NEGATIVE) Urine WBC (Auto) (0-5) /HPF Urine RBC (Auto) (0-2) /HPF U Epithel Cells (Auto) (FEW) /HPF Urine Bacteria (Auto) (NEGATIVE) /HPF Urine RBC (0-5) Mateo/ul Urine Mucus (Auto) (NEGATIVE) /HPF Ur Culture Indicated? Urine Glucose (NEGATIVE) mg/dL Urine HCG, Qual NEGATIVE (Negative) 01/27/22 Range/Units 16:43 WBC (4.0-10.5) x10^3/uL RBC (4.1-5.4) x10^6/uL Hgb (12.0-16.0) g/dL Hct (35-47) % MCV (78-100) fL MCH (26-32) pg MCHC (32-36) g/dL RDW (11.5-14.0) % Plt Count (150-450) x10^3/uL MPV (7.5-11.0) fL Gran % (36.0-66.0) % Immature Gran % (Auto) (0.00-0.4) % Nucleat RBC Rel Count (0.00-0.1) % Eos # (Auto) (0-0.5) x10^3/uL Immature Gran # (Auto) (0.00-0.03) x10^3u/L Absolute Lymphs (auto) (1.0-4.6) x10^3/uL Absolute Monos (auto) (0.0-1.3) x10^3/uL Absolute Nucleated RBC (0.00-0.01) x10^3u/L Lymphocytes % (24.0-44.0) % Monocytes % (0.0-12.0) % Eosinophils % (0.00-5.0) % Basophils % (0.0-0.4) % Absolute Granulocytes (1.4-6.9) x10^3/uL Basophils # (0-0.4) x10^3/uL Sodium (137-145) mmol/L Potassium (3.5-5.1) mmol/L Chloride (98-107) mmol/L Carbon Dioxide (22-30) mmol/L Anion Gap (5-15) MEQ/L BUN (7-17) mg/dL Creatinine (0.52-1.04) mg/dL Estimated GFR ML/MIN Glucose (74-106) mg/dL Calcium (8.4-10.2) mg/dL Total Bilirubin (0.2-1.3) mg/dL AST (14-36) U/L ALT (0-35) U/L Alkaline Phosphatase (38-126) U/L Serum Total Protein (6.3-8.2) g/dL Albumin (3.5-5.0) g/dL Amylase (30-110) U/L Lipase (23-300) U/L Urinalys Dipstick Clnc MAIN LAB Urine Color DARK YELLOW (YELLOW) Urine Appearance SLIGHTLY CLOUDY (CLEAR) Urine pH 5.5 (5-6) Ur Specific [place] >=1.030 (1.005-1.025) POC Urine Protein Conf NEGATIVE (Negative) Urine Ketones MODERATE-40 (NEGATIVE) Urine Nitrite NEGATIVE (NEGATIVE) Urine Bilirubin SMALL (NEGATIVE) Urine Urobilinogen 0.2 (0-1) mg/dL Urine Leukocytes NEGATIVE (NEGATIVE) Urine WBC (Auto) 6-10 (0-5) /HPF Urine RBC (Auto) NONE (0-2) /HPF U Epithel Cells (Auto) FEW (FEW) /HPF Urine Bacteria (Auto) MANY (NEGATIVE) /HPF Urine RBC NEGATIVE (0-5) Mateo/ul Urine Mucus (Auto) MANY (NEGATIVE) /HPF Ur Culture Indicated? YES Urine Glucose NEGATIVE (NEGATIVE) mg/dL Urine HCG, Qual (Negative) - Progress Progress: improved - Departure Departure Disposition: Home Clinical Impression: Ovarian cyst, UTI (urinary tract infection) Condition: Stable Critical Care Time: No Referrals: HALLIE GRACE [Primary Care Provider] - Follow up/PCP as directed Instructions: Ovarian Cyst (DC) Prescriptions: Nitrofurantoin Macro 100 mg [Macrobid 100MG Capsule] 100 mg PO BID 7 Days #14 cap Tramadol HCl 50 mg [Ultram 50 mg] 50 mg PO Q6H 3 Days #12 tablet
--- NOTE | 2022-01-27 21:47 | XRAY ---
Indication: Left lower quadrant pain, nausea, vomiting, and diarrhea. Multiple contiguous axial images obtained through the abdomen and pelvis without contrast. Comparison: September 16, 2021. Lung bases remain clear again with small right base calcified granuloma. Heart not enlarged. Noncontrasted stomach and bowel loops are nonobstructed again with normal appendix. New 3.2 cm left ovary cyst. No free fluid/air. Again a few tiny splenic calcified granulomas. Remaining liver, gallbladder, pancreas, spleen, adrenal glands, kidneys, ureters, bladder, uterus, and aorta are unremarkable for noncontrast exam. Osseous structures intact. Impression: 1. New 3.2 cm left ovary cyst. 2. Remaining CT abdomen/pelvis without contrast exam is again negative. Comment: Preliminary interpretation made by [facility]. No critical discrepancy.
== END 2022-01-27 19:11 | disposition home or self-care (01) ==
LOC: ED 15:39
DX: N39.0 Urinary tract infection, site not specified (principal); N83.202 Unspecified ovarian cyst, left side; R10.84 Generalized abdominal pain; R55 Syncope and collapse; R39.198 Other difficulties with micturition; R11.2 Nausea with vomiting, unspecified; R19.7 Diarrhea, unspecified; F84.0 Autistic disorder; E78.5 Hyperlipidemia, unspecified; I10 Essential (primary) hypertension; Z79.891 Long term (current) use of opiate analgesic; Z79.899 Other long term (current) drug therapy
CPT/HCPCS: 36000; 36415; 74176; 80053; 81015; 82150; 83690; 84703; 85025; 87086; 96360; 96374; 99284

== ENCOUNTER 2022-05-19 13:44 | Emergency (ER) | payer OTHER ==
[2022-05-19] MEDS ORDERED: Zofran 4 MG/2 ML VIAL IV ONE (14:04)
[2022-05-19] MEDS ORDERED: Sodium Chloride 0.9% 1000 ML 1,000 ML IV STA (14:04)
--- NOTE | 2022-05-19 14:04 | ERPHSYRPT ---
- History of Present Illness Time Seen by Provider: 05/19/22 14:00 Source: patient Exam Limitations: no limitations Patient Subjective Stated Complaint: PT HERE FOR MULTI CO'S N/V.HEADACHE, BOFY ACHES, CHILLS,COUGH FOR OVER A WEEK NOW AFTER STOPPING DAILY USE OF VAPPING THC Triage Nursing Assessment: PT ALERT, RESP EASY, FACE MASK IN PLACE, SKIN WARM/SWEATING. SHE IS ANGRY WITH DR OFFICE AND PHARMACY FOR NOT HAVING HER [place] PUMP. MOVES ALL EXT WELL, NO EDEMA Physician History: This is a 21-year-old white female patient of Dr. Juliocesar Kelly she presents with a 1 week history of chronic recurrent nausea vomiting, chills, headache and body aches. Patient was supposed to receive an nausea medication pump but never came. sx of n/v, chills, headache, bodyaches for a week. Patient was using marijuana for control of her nausea. However she was told not to do this any longer. However she was using vaping THC for the last week and when she stopped she started having these other issues. Patient has history of elevated cholesterol, hypertension, hypothyroidism, irritable bowel syndrome, anxiety and PTSD. Timing/Duration: week(s) (1) Severity: moderate Associated Symptoms: nausea, vomiting, chills, headaches, loss of appetite, No shortness of breath, No chest pain Allergies/Adverse Reactions: hydromorphone HCl [From Dilaudid] Allergy (Severe, Verified 05/19/22 13:53) Hives Severe itching with hives penicillin G Allergy (Mild, Verified 05/19/22 13:53) Swelling diphenhydramine HCl [From Benadryl] Adverse Reaction (Mild, Verified 05/19/22 13:53) "crazy behavior" pertussis vaccine,adsorbed [Pertussis Vaccine,Adsorbed] Adverse Reaction (Verified 05/19/22 13:53) Swelling Home Medications: Hydroxyzine HCl 25 mg [Atarax 25 mg] 25 mg PO QID 06/05/19 [History] Atorvastatin Calcium 1 ea DAILY 12/24/20 [History] Ergocalciferol (Vitamin D2) [Vitamin D2] 1 ea DAILY 12/24/20 [History] Levothyroxine Sodium [Euthyrox] 100 mcg DAILY 12/24/20 [History] Norethindrone 0.35 mg PO DAILY 04/21/21 [History] lisinopriL [Lisinopril] 10 mg PO DAILY 04/21/21 [History] Prazosin HCl 1 tab PO HS 09/16/21 [History] Hx Tetanus, Diphtheria Vaccination/Date Given: Yes Hx Influenza Vaccination/Date Given: No Hx Pneumococcal Vaccination/Date Given: No Immunizations Up to Date: Yes Travel Risk - International Travel Have you traveled outside of the country in past 3 weeks: No - Coronavirus Screening Are you exhibiting any of the following symptoms?: Yes Symptoms: Shortness of Breath, Vomiting/Diarrhea, Headaches/Body Aches/Fatigue Close contact with a COVID-19 positive Pt in past 14-21 Days: No - Vaccine Status Have you recieved a Covid-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: Yes Front Desk Monitor: Moderna - Vaccination Dates Date of 2cond Vaccination (if applicable): 2020 - Review of Systems Constitutional: Chills Eyes: No Symptoms Ears, Nose, & Throat: No Symptoms Respiratory: No Symptoms Cardiac: No Symptoms Abdominal/Gastrointestinal: Nausea, Vomiting Genitourinary Symptoms: No Symptoms Musculoskeletal: No Symptoms Skin: No Symptoms Neurological: Headache Psychological: No Symptoms Endocrine: No Symptoms Hematologic/Lymphatic: No Symptoms Immunological/Allergic: No Symptoms All Other Systems: Reviewed and Negative - Past Medical History Pertinent Past Medical History: Yes Neurological History: Epilepsy, Seizures ENT History: No Pertinent History Cardiac History: High Cholesterol, Hypertension Respiratory History: Bronchitis, Pneumonia Endocrine Medical History: Hypothyroidism Musculoskeletal History: Osteoarthritis GI Medical History: Irritable Bowel History: No Pertinent History Psycho-Social History: Anxiety, Depression Female Reproductive Disorders: Endometriosis, Menstrual Problems Other Medical History: PMHX: ANXIETY, DEPRESSION, PTSD, IBS, ENDOMETRIOSIS AND MILD MITRAL VALVE PROLAPSE - Past Surgical History Past Surgical History: Yes Neuro Surgical History: No Pertinent History Cardiac: No Pertinent History Respiratory: No Pertinent History Gastrointestinal: No Pertinent History Genitourinary: No Pertinent History Musculoskeletal: No Pertinent History Female Surgical History: No Pertinent History Other Surgical History: EGD, Colonoscopy. HX [place] Teeth Removed. Endoscopy - Social History Smoking Status: Never smoker Exposure to second hand smoke: No Drug Use: none Patient Lives Alone: No Significant Family History: no pertinent family hx - Female History Hx Last Menstrual Period: APRIL Hx Now: No - Nursing Vital Signs Nursing Vital Signs: Initial Vital Signs Temperature 97.0 F 05/19/22 13:46 Pulse Rate 83 05/19/22 13:46 Respiratory Rate 18 05/19/22 13:46 Blood Pressure 156/97 05/19/22 13:46 O2 Sat by Pulse Oximetry 99 05/19/22 13:46 Pain Scale Pain Intensity 4 - Physical Exam General Appearance: no apparent distress, alert, anxiety Eye Exam: PERRL/EOMI, eyes nml inspection Ears, Nose, Throat Exam: normal ENT inspection, moist mucous membranes Neck Exam: normal inspection, non-tender, supple, full range of motion Respiratory Exam: normal breath sounds, lungs clear, airway intact, No chest tenderness, No respiratory distress Cardiovascular Exam: regular rate/rhythm, normal heart sounds, normal peripheral pulses Gastrointestinal/Abdomen Exam: soft, normal bowel sounds, No tenderness Pelvic Exam: not done Rectal Exam: not done Back Exam: normal inspection, normal range of motion, No CVA tenderness, No vertebral tenderness Extremity Exam: normal inspection, normal range of motion, pelvis stable Neurologic Exam: alert, oriented x 3, cooperative, clothes model II-XII nml as tested, normal mood/affect, nml cerebellar function, nml station & gait, sensation nml Skin Exam: normal color, warm, dry Lymphatic Exam: No adenopathy SpO2 Interpretation: normal SpO2: 99 O2 Delivery: Room Air - Course Nursing assessment & vital signs reviewed: Yes EKG Interpreted by Me: RATE (95), Sinus Rhythm, Right Bascom Deviation, NORMAL INTERVALS, NORMAL QRS, NORMAL ST-T, Other (no acute ischemia) Ordered Tests: Active Orders 24 hr Category Date Time Status EKG-ER Only STAT Care 05/19/22 14:06 Active IV Insertion STAT Care 05/19/22 14:04 Active CHEST 1 VIEW (PORTABLE) Stat Exams 05/19/22 15:28 Completed AMYLASE Stat Lab 05/19/22 14:10 Completed CBC W DIFF Stat Lab 05/19/22 14:10 Completed CMP Stat Lab 05/19/22 14:10 Completed CULTURE,URINE Stat Lab 05/19/22 14:10 Received D-DIMER QUANTITATIVE Stat Lab 05/19/22 14:10 Completed HCG,QUALITATIVE URINE Stat Lab 05/19/22 14:10 Completed LIPASE Stat Lab 05/19/22 14:10 Completed Lactic Acid Stat Lab 05/19/22 14:10 Completed [place] Screen Stat Lab 05/19/22 14:10 Completed T4 (Thyroxine) Stat Lab 05/19/22 14:10 Completed TROPONIN Q4H Lab 05/19/22 14:10 Completed TROPONIN Q4H Lab 05/19/22 18:15 Ordered TROPONIN Q4H Lab 05/19/22 22:15 Ordered TSH [TSH, 3RD Generation] Stat Lab 05/19/22 14:10 Completed UA W/RFX CULTURE Stat Lab 05/19/22 14:10 Completed Urine Triage Profile Stat Lab 05/19/22 14:10 Completed Medication Summary Generic Name Dose Route Start Last Admin Trade Name Freq PRN Reason Stop Dose Admin Sodium Chloride 500 mls @ 500 mls/hr 05/19/22 15:06 05/19/22 15:21 Sodium Chloride 0.9% 500 Ml IV 05/19/22 16:05 500 mls/hr .Q1H ONE Administration Discontinued Medications Generic Name Dose Route Start Last Admin Trade Name Freq PRN Reason Stop Dose Admin Sodium Chloride 1,000 mls @ 999 mls/hr 05/19/22 14:04 05/19/22 15:37 Sodium Chloride 0.9% 1000 Ml IV 05/19/22 15:04 Infused .Q1H1M STA Infusion Sodium Chloride Confirm 05/19/22 14:15 Sodium Chloride 0.9% 1000 Ml Administered 05/19/22 14:16 Dose 1,000 mls @ ud .ROUTE .STK-MED ONE Sodium Chloride Confirm 05/19/22 15:19 Sodium Chloride 0.9% 500 Ml Administered 05/19/22 15:20 Dose 500 mls @ ud IV .STK-MED ONE Ondansetron HCl 4 mg 05/19/22 14:04 05/19/22 14:20 Ondansetron Hcl 4 Mg/2 Ml Vial IV 05/19/22 14:05 4 mg STAT ONE Administration Ondansetron HCl Confirm 05/19/22 14:15 Ondansetron Hcl 4 Mg/2 Ml Vial Administered 05/19/22 14:16 Dose 4 mg .ROUTE .STK-MED ONE Lab/Rad Data: Laboratory Result Diagrams 05/19/22 14:10 05/19/22 14:10 Laboratory Results 05/19/22 05/19/22 05/19/22 Range/Units 14:10 14:10 14:10 WBC (4.0-10.5) x10^3/uL RBC (4.1-5.4) x10^6/uL Hgb (12.0-16.0) g/dL Hct (35-47) % MCV (78-100) fL MCH (26-32) pg MCHC (32-36) g/dL RDW (11.5-14.0) % Plt Count (150-450) x10^3/uL MPV (7.5-11.0) fL Gran % (36.0-66.0) % Immature Gran % (Auto) (0.00-0.4) % Nucleat RBC Rel Count (0.00-0.1) % Eos # (Auto) (0-0.5) x10^3/uL Immature Gran # (Auto) (0.00-0.03) x10^3u/L Absolute Lymphs (auto) (1.0-4.6) x10^3/uL Absolute Monos (auto) (0.0-1.3) x10^3/uL Absolute Nucleated RBC (0.00-0.01) x10^3u/L Lymphocytes % (24.0-44.0) % Monocytes % (0.0-12.0) % Eosinophils % (0.00-5.0) % Basophils % (0.0-0.4) % Absolute Granulocytes (1.4-6.9) x10^3/uL Basophils # (0-0.4) x10^3/uL D-Dimer < 0.19 (0.0-0.50) mg/L Sodium (137-145) mmol/L Potassium (3.5-5.1) mmol/L Chloride (98-107) mmol/L Carbon Dioxide (22-30) mmol/L Anion Gap (5-15) MEQ/L BUN (7-17) mg/dL Creatinine (0.52-1.04) mg/dL Estimated GFR ML/MIN Glucose (74-106) mg/dL Lactic Acid (0.4-2.0) Calcium (8.4-10.2) mg/dL Total Bilirubin (0.2-1.3) mg/dL AST (14-36) U/L ALT (0-35) U/L Alkaline Phosphatase (38-126) U/L Troponin I (0.000-0.034) ng/mL Serum Total Protein (6.3-8.2) g/dL Albumin (3.5-5.0) g/dL Amylase (30-110) U/L Lipase (23-300) U/L Thyroxine (T4) 12.0 H (5.53-10.96) ug/dL TSH 3rd Generation 4.790 H (0.47-4.68) mIU/L Urinalys Dipstick Clnc Urine Color (YELLOW) Urine Appearance (CLEAR) Urine pH (5-6) Ur Specific [place] (1.005-1.025) POC Urine Protein Conf (Negative) Urine Ketones (NEGATIVE) Urine Nitrite (NEGATIVE) Urine Bilirubin (NEGATIVE) Urine Urobilinogen (0-1) mg/dL Urine Leukocytes (NEGATIVE) Urine WBC (Auto) (0-5) /HPF Urine RBC (Auto) (0-2) /HPF U Epithel Cells (Auto) (FEW) /HPF Urine Bacteria (Auto) (NEGATIVE) /HPF Urine RBC (0-5) Mateo/ul Urine Mucus (Auto) (NEGATIVE) /HPF Ur Culture Indicated? Urine Glucose (NEGATIVE) mg/dL Urine HCG, Qual (Negative) Urine Opiates Level (NEGATIVE) Ur Methadone (NEGATIVE) Urine Barbiturates (NEGATIVE) Ur Phencyclidine (PCP) (NEGATIVE) Urine Amphetamine (NEGATIVE) U Benzodiazepine Level (NEGATIVE) Urine Cocaine (NEGATIVE) Urine Marijuana (THC) (NEGATIVE) Monoscreen (Negative) Influenza Type A Ag NEGATIVE (NEGATIVE) Influenza Type B Ag NEGATIVE (NEGATIVE) RSV (PCR) NEGATIVE (Negative) SARS-CoV-2 (PCR) NEGATIVE (NEGATIVE) 05/19/22 05/19/22 05/19/22 Range/Units 14:10 14:10 14:10 WBC (4.0-10.5) x10^3/uL RBC (4.1-5.4) x10^6/uL Hgb (12.0-16.0) g/dL Hct (35-47) % MCV (78-100) fL MCH (26-32) pg MCHC (32-36) g/dL RDW (11.5-14.0) % Plt Count (150-450) x10^3/uL MPV (7.5-11.0) fL Gran % (36.0-66.0) % Immature Gran % (Auto) (0.00-0.4) % Nucleat RBC Rel Count (0.00-0.1) % Eos # (Auto) (0-0.5) x10^3/uL Immature Gran # (Auto) (0.00-0.03) x10^3u/L Absolute Lymphs (auto) (1.0-4.6) x10^3/uL Absolute Monos (auto) (0.0-1.3) x10^3/uL Absolute Nucleated RBC (0.00-0.01) x10^3u/L Lymphocytes % (24.0-44.0) % Monocytes % (0.0-12.0) % Eosinophils % (0.00-5.0) % Basophils % (0.0-0.4) % Absolute Granulocytes (1.4-6.9) x10^3/uL Basophils # (0-0.4) x10^3/uL D-Dimer (0.0-0.50) mg/L Sodium (137-145) mmol/L Potassium (3.5-5.1) mmol/L Chloride (98-107) mmol/L Carbon Dioxide (22-30) mmol/L Anion Gap (5-15) MEQ/L BUN (7-17) mg/dL Creatinine (0.52-1.04) mg/dL Estimated GFR ML/MIN Glucose (74-106) mg/dL Lactic Acid (0.4-2.0) Calcium (8.4-10.2) mg/dL Total Bilirubin (0.2-1.3) mg/dL AST (14-36) U/L ALT (0-35) U/L Alkaline Phosphatase (38-126) U/L Troponin I < 0.012 (0.000-0.034) ng/mL Serum Total Protein (6.3-8.2) g/dL Albumin (3.5-5.0) g/dL Amylase (30-110) U/L Lipase (23-300) U/L Thyroxine (T4) (5.53-10.96) ug/dL TSH 3rd Generation (0.47-4.68) mIU/L Urinalys Dipstick Clnc MAIN LAB Urine Color YELLOW (YELLOW) Urine Appearance SLIGHTLY CLOUDY (CLEAR) Urine pH 5.5 (5-6) Ur Specific [place] >=1.030 (1.005-1.025) POC Urine Protein Conf NEGATIVE (Negative) Urine Ketones TRACE (NEGATIVE) Urine Nitrite NEGATIVE (NEGATIVE) Urine Bilirubin SMALL (NEGATIVE) Urine Urobilinogen 0.2 (0-1) mg/dL Urine Leukocytes TRACE (NEGATIVE) Urine WBC (Auto) 3-5 (0-5) /HPF Urine RBC (Auto) 0-2 (0-2) /HPF U Epithel Cells (Auto) RARE (FEW) /HPF Urine Bacteria (Auto) MODERATE (NEGATIVE) /HPF Urine RBC TRACE NON-HEM (0-5) Mateo/ul Urine Mucus (Auto) MODERATE (NEGATIVE) /HPF Ur Culture Indicated? YES Urine Glucose NEGATIVE (NEGATIVE) mg/dL Urine HCG, Qual (Negative) Urine Opiates Level (NEGATIVE) Ur Methadone (NEGATIVE) Urine Barbiturates (NEGATIVE) Ur Phencyclidine (PCP) (NEGATIVE) Urine Amphetamine (NEGATIVE) U Benzodiazepine Level (NEGATIVE) Urine Cocaine (NEGATIVE) Urine Marijuana (THC) (NEGATIVE) Monoscreen NEGATIVE (Negative) Influenza Type A Ag (NEGATIVE) Influenza Type B Ag (NEGATIVE) RSV (PCR) (Negative) SARS-CoV-2 (PCR) (NEGATIVE) 05/19/22 05/19/22 05/19/22 Range/Units 14:10 14:10 14:10 WBC (4.0-10.5) x10^3/uL RBC (4.1-5.4) x10^6/uL Hgb (12.0-16.0) g/dL Hct (35-47) % MCV (78-100) fL MCH (26-32) pg MCHC (32-36) g/dL RDW (11.5-14.0) % Plt Count (150-450) x10^3/uL MPV (7.5-11.0) fL Gran % (36.0-66.0) % Immature Gran % (Auto) (0.00-0.4) % Nucleat RBC Rel Count (0.00-0.1) % Eos # (Auto) (0-0.5) x10^3/uL Immature Gran # (Auto) (0.00-0.03) x10^3u/L Absolute Lymphs (auto) (1.0-4.6) x10^3/uL Absolute Monos (auto) (0.0-1.3) x10^3/uL Absolute Nucleated RBC (0.00-0.01) x10^3u/L Lymphocytes % (24.0-44.0) % Monocytes % (0.0-12.0) % Eosinophils % (0.00-5.0) % Basophils % (0.0-0.4) % Absolute Granulocytes (1.4-6.9) x10^3/uL Basophils # (0-0.4) x10^3/uL D-Dimer (0.0-0.50) mg/L Sodium 142 (137-145) mmol/L Potassium 3.7 (3.5-5.1) mmol/L Chloride 107 (98-107) mmol/L Carbon Dioxide 22 (22-30) mmol/L Anion Gap 17.0 H (5-15) MEQ/L BUN 12 (7-17) mg/dL Creatinine 0.70 (0.52-1.04) mg/dL Estimated GFR > 60.0 ML/MIN Glucose 91 (74-106) mg/dL Lactic Acid 1.4 (0.4-2.0) Calcium 9.6 (8.4-10.2) mg/dL Total Bilirubin 1.30 (0.2-1.3) mg/dL AST 36 (14-36) U/L ALT 32 (0-35) U/L Alkaline Phosphatase 104 (38-126) U/L Troponin I (0.000-0.034) ng/mL Serum Total Protein 8.1 (6.3-8.2) g/dL Albumin 4.9 (3.5-5.0) g/dL Amylase 76 (30-110) U/L Lipase 102 (23-300) U/L Thyroxine (T4) (5.53-10.96) ug/dL TSH 3rd Generation (0.47-4.68) mIU/L Urinalys Dipstick Clnc Urine Color (YELLOW) Urine Appearance (CLEAR) Urine pH (5-6) Ur Specific [place] (1.005-1.025) POC Urine Protein Conf (Negative) Urine Ketones (NEGATIVE) Urine Nitrite (NEGATIVE) Urine Bilirubin (NEGATIVE) Urine Urobilinogen (0-1) mg/dL Urine Leukocytes (NEGATIVE) Urine WBC (Auto) (0-5) /HPF Urine RBC (Auto) (0-2) /HPF U Epithel Cells (Auto) (FEW) /HPF Urine Bacteria (Auto) (NEGATIVE) /HPF Urine RBC (0-5) Mateo/ul Urine Mucus (Auto) (NEGATIVE) /HPF Ur Culture Indicated? Urine Glucose (NEGATIVE) mg/dL Urine HCG, Qual (Negative) Urine Opiates Level NEGATIVE (NEGATIVE) Ur Methadone NEGATIVE (NEGATIVE) Urine Barbiturates NEGATIVE (NEGATIVE) Ur Phencyclidine (PCP) NEGATIVE (NEGATIVE) Urine Amphetamine NEGATIVE (NEGATIVE) U Benzodiazepine Level NEGATIVE (NEGATIVE) Urine Cocaine NEGATIVE (NEGATIVE) Urine Marijuana (THC) POSITIVE (NEGATIVE) Monoscreen (Negative) Influenza Type A Ag (NEGATIVE) Influenza Type B Ag (NEGATIVE) RSV (PCR) (Negative) SARS-CoV-2 (PCR) (NEGATIVE) 05/19/22 05/19/22 Range/Units 14:10 14:10 WBC 10.9 H (4.0-10.5) x10^3/uL RBC 4.98 (4.1-5.4) x10^6/uL Hgb 15.0 (12.0-16.0) g/dL Hct 44.5 (35-47) % MCV 89.4 (78-100) fL MCH 30.1 (26-32) pg MCHC 33.7 (32-36) g/dL RDW 12.9 (11.5-14.0) % Plt Count 349 (150-450) x10^3/uL MPV 9.3 (7.5-11.0) fL Gran % 66.2 H (36.0-66.0) % Immature Gran % (Auto) 0.4 (0.00-0.4) % Nucleat RBC Rel Count 0.0 (0.00-0.1) % Eos # (Auto) 0.38 (0-0.5) x10^3/uL Immature Gran # (Auto) 0.04 H (0.00-0.03) x10^3u/L Absolute Lymphs (auto) 2.46 (1.0-4.6) x10^3/uL Absolute Monos (auto) 0.73 (0.0-1.3) x10^3/uL Absolute Nucleated RBC 0.00 (0.00-0.01) x10^3u/L Lymphocytes % 22.6 L (24.0-44.0) % Monocytes % 6.7 (0.0-12.0) % Eosinophils % 3.5 (0.00-5.0) % Basophils % 0.6 (0.0-0.4) % Absolute Granulocytes 7.21 H (1.4-6.9) x10^3/uL Basophils # 0.07 (0-0.4) x10^3/uL D-Dimer (0.0-0.50) mg/L Sodium (137-145) mmol/L Potassium (3.5-5.1) mmol/L Chloride (98-107) mmol/L Carbon Dioxide (22-30) mmol/L Anion Gap (5-15) MEQ/L BUN (7-17) mg/dL Creatinine (0.52-1.04) mg/dL Estimated GFR ML/MIN Glucose (74-106) mg/dL Lactic Acid (0.4-2.0) Calcium (8.4-10.2) mg/dL Total Bilirubin (0.2-1.3) mg/dL AST (14-36) U/L ALT (0-35) U/L Alkaline Phosphatase (38-126) U/L Troponin I (0.000-0.034) ng/mL Serum Total Protein (6.3-8.2) g/dL Albumin (3.5-5.0) g/dL Amylase (30-110) U/L Lipase (23-300) U/L Thyroxine (T4) (5.53-10.96) ug/dL TSH 3rd Generation (0.47-4.68) mIU/L Urinalys Dipstick Clnc Urine Color (YELLOW) Urine Appearance (CLEAR) Urine pH (5-6) Ur Specific [place] (1.005-1.025) POC Urine Protein Conf (Negative) Urine Ketones (NEGATIVE) Urine Nitrite (NEGATIVE) Urine Bilirubin (NEGATIVE) Urine Urobilinogen (0-1) mg/dL Urine Leukocytes (NEGATIVE) Urine WBC (Auto) (0-5) /HPF Urine RBC (Auto) (0-2) /HPF U Epithel Cells (Auto) (FEW) /HPF Urine Bacteria (Auto) (NEGATIVE) /HPF Urine RBC (0-5) Mateo/ul Urine Mucus (Auto) (NEGATIVE) /HPF Ur Culture Indicated? Urine Glucose (NEGATIVE) mg/dL Urine HCG, Qual NEGATIVE (Negative) Urine Opiates Level (NEGATIVE) Ur Methadone (NEGATIVE) Urine Barbiturates (NEGATIVE) Ur Phencyclidine (PCP) (NEGATIVE) Urine Amphetamine (NEGATIVE) U Benzodiazepine Level (NEGATIVE) Urine Cocaine (NEGATIVE) Urine Marijuana (THC) (NEGATIVE) Monoscreen (Negative) Influenza Type A Ag (NEGATIVE) Influenza Type B Ag (NEGATIVE) RSV (PCR) (Negative) SARS-CoV-2 (PCR) (NEGATIVE) - Progress Progress: improved, re-examined Progress Note: 05/19/22 15:30 Patient had called her primary care doctor's office who is not available at this time to let them know that she wants to be admitted to detox. She told them she was detoxing off of marijuana. The patient's mother also arrived and stated that she wanted to be sure that her chest x-ray was performed to rule out a lung condition that the patient has had in the past. I explained to both the patient and the patient's mother the results of her work-up so far does not show any acute, admissible or emergent diagnoses. She has mild dehydration which we gave her 1-1/2 L of normal saline. She has mild UTI which we will be sending a prescription for antibiotics and, per patient request, I will be sending a prescription for Phenergan suppositories to control her nausea and vomiting symptoms over the weekend. 05/19/22 15:57 Chest x-ray read by myself and by Dr. Garcia our radiologist. No evidence of any acute cardiopulmonary process. There are no changes when compared to the chest x-ray dated September 12, 2021 which was also read as nonacute. Counseled pt/family regarding: lab results, diagnosis, need for follow-up, rad results - Departure Departure Disposition: Home Clinical Impression: Chronic vomiting, Mild dehydration, UTI (urinary tract infection) Condition: Stable Critical Care Time: No Referrals: HALLIE GRACE [Primary Care Provider] - Follow up/PCP as directed Additional Instructions: Drink plenty of fluids. Take your medication as prescribed. Follow-up with your primary care provider on 05/22/2022 for further evaluation and management. Prescriptions: Promethazine HCl 25 mg RC Q8H PRN PRN #10 supp.rect PRN Reason: Nausea/Vomiting Levofloxacin [Levaquin 500 MG Tablet] 500 mg PO DAILY #7 tablet
[2022-05-19] MEDS ORDERED: Zofran 4 MG/2 ML VIAL ONE (14:15)
[2022-05-19] MEDS ORDERED: Sodium Chloride 0.9% 1000 ML 1,000 ML ONE (14:15)
[2022-05-19 14:30] LABS: Absolute Neutrophil Ct (ANC) 7.21 x10^3/uL (1.4-6.9); Basophil (Absolute #) 0.07 x10^3/uL (0-0.4); Eosinophil % 3.5 % (0.00-5.0); Eosinophil (Absolute #) 0.38 x10^3/uL (0-0.5); Hematocrit 44.5 % (35-47); Lymphocyte (Absolute #) 2.46 x10^3/uL (1.0-4.6); Lymphocytes % 22.6 % (24.0-44.0); Mean Cell Volume 89.4 fL (78-100); Mean Corpuscular Hemoglobin 30.1 pg (26-32); Mean Corpuscular Hgb Concent. 33.7 g/dL (32-36); Mean Platelet Volume 9.3 fL (7.5-11.0); Monocyte (Absolute #) 0.73 x10^3/uL (0.0-1.3); Monocytes % 6.7 % (0.0-12.0); Neutrophil % 66.2 % (36.0-66.0); Platelet Count 349 x10^3/uL (150-450); Red Blood Count 4.98 x10^6/uL (4.1-5.4); Red Cell Distribution Width 12.9 % (11.5-14.0); White Blood Count 10.9 x10^3/uL (4.0-10.5)
[2022-05-19 14:39] LABS: Bacteria MODERATE /HPF (NEGATIVE); Epithelial Cells RARE /HPF (FEW); Mucus MODERATE /HPF (NEGATIVE); RBC 0-2 /HPF (0-2)
[2022-05-19 14:41] LABS: Appearance SLIGHTLY CLOUDY (CLEAR); Bilirubin SMALL (NEGATIVE); Glucose NEGATIVE (NEGATIVE); Ketones TRACE (NEGATIVE); Specific Gravity >=1.030 (1.005-1.025)
[2022-05-19 14:42] LABS: Dipstick done @ ? MAIN LAB; Nitrite NEGATIVE (NEGATIVE); Ph 5.5 (5-6); Protein,Urine Dip NEGATIVE (Negative); RBC TRACE NON-HEM Ery/ul (0-5); Urobilinogen 0.2 mg/dL (0-1)
[2022-05-19 14:46] LABS: Urine Cultured Indicated? YES
[2022-05-19 14:49] LABS: ALBUMIN 4.9 g/dL (3.5-5.0); ALKALINE PHOSPHATASE 104 U/L (38-126); AMYLASE 76 U/L (30-110); BLOOD UREA NITROGEN 12 mg/dL (7-17); CHLORIDE 107 mmol/L (98-107); Calcium 9.6 mg/dL (8.4-10.2); Carbon Dioxide 22 mmol/L (22-30); EST GLOMERULAR FILTRATION RATE > 60.0 ML/MIN; Glucose 91 mg/dL (74-106); LIPASE 102 U/L (23-300); Potassium 3.7 mmol/L (3.5-5.1); SGOT/AST 36 U/L (14-36); SGPT/ALT 32 U/L (0-35); SODIUM 142 mmol/L (137-145); Total Protein 8.1 g/dL (6.3-8.2)
[2022-05-19] MEDS ORDERED: Sodium Chloride 0.9% 500 ML 500 ML IV ONE ×2 (15:06→15:19)
[2022-05-19 15:20] LABS: TSH, 3RD Generation 4.79 mIU/L (0.47-4.68)
[2022-05-19 15:26] LABS: Amphetamine,Urine NEGATIVE (NEGATIVE); Barbiturate,Urine NEGATIVE (NEGATIVE); Benzodiazepine,Urine NEGATIVE (NEGATIVE); Cocaine,Urine NEGATIVE (NEGATIVE); Methadone,Urine NEGATIVE (NEGATIVE); Opiate,Urine NEGATIVE (NEGATIVE); PCP,Urine NEGATIVE (NEGATIVE); THC,Urine POSITIVE (NEGATIVE)
[2022-05-19 15:28] LABS: INFLUENZA A NEGATIVE (NEGATIVE); INFLUENZA B NEGATIVE (NEGATIVE); RESPIRATORY SYNCTIAL VIRUS NEGATIVE (Negative); SARS-CoV-2 Xpert Express NEGATIVE (NEGATIVE)
--- NOTE | 2022-05-19 15:56 | XRAY ---
Indication: Fever and chills. Comparison: September 12, 2021 Portable chest again demonstrates normal heart, lungs, and bony thorax with incidental right base calcified granuloma.
[2022-05-19 16:11] VITALS: BP 132/79; PULSE 78; O2SAT 98
== END 2022-05-19 16:12 | disposition home or self-care (01) ==
LOC: ED 13:44
DX: N39.0 Urinary tract infection, site not specified (principal); E86.0 Dehydration; R11.10 Vomiting, unspecified; R51.9 Headache, unspecified; M79.10 Myalgia, unspecified site; E78.5 Hyperlipidemia, unspecified; I10 Essential (primary) hypertension; Z79.899 Other long term (current) drug therapy
CPT/HCPCS: 0241U; 36000; 36415; 71045; 80053; 80307; 81015; 81025; 82150; 83605; 83690; 84436; 84443; 84484; 85025; 85379; 86308; 87086; 93005; 96360; 96374; 99284; J2405

== ENCOUNTER 2022-05-23 11:41 | Observation (INO) | payer OTHER ==
[2022-05-23] MEDS ORDERED: Sodium Chloride 0.9% 1000 ML 1,000 ML IV STA ×2 (11:52→11:56)
[2022-05-23] MEDS ORDERED: Zofran 4 MG/2 ML VIAL IV ONE (11:52)
[2022-05-23] MEDS ORDERED: Sodium Chloride 0.9% 1000 ML 1,000 ML ONE ×2 (11:57→12:46)
[2022-05-23] MEDS ORDERED: Zofran 4 MG/2 ML VIAL ONE (11:57)
[2022-05-23 12:18] LABS: Absolute Neutrophil Ct (ANC) 10.18 x10^3/uL (1.4-6.9); Basophil (Absolute #) 0.06 x10^3/uL (0-0.4); Eosinophil % 0.6 % (0.00-5.0); Eosinophil (Absolute #) 0.08 x10^3/uL (0-0.5); Hematocrit 45.8 % (35-47); Hemoglobin 15.2 g/dL (12.0-16.0); Lymphocyte (Absolute #) 1.63 x10^3/uL (1.0-4.6); Lymphocytes % 12.6 % (24.0-44.0); Mean Cell Volume 89.6 fL (78-100); Mean Corpuscular Hemoglobin 29.7 pg (26-32); Mean Corpuscular Hgb Concent. 33.2 g/dL (32-36); Mean Platelet Volume 9.3 fL (7.5-11.0); Monocyte (Absolute #) 0.92 x10^3/uL (0.0-1.3); Monocytes % 7.1 % (0.0-12.0); Neutrophil % 78.8 % (36.0-66.0); Platelet Count 342 x10^3/uL (150-450); Red Blood Count 5.11 x10^6/uL (4.1-5.4); Red Cell Distribution Width 12.8 % (11.5-14.0); White Blood Count 12.9 x10^3/uL (4.0-10.5)
[2022-05-23 12:35] LABS: INR 1.24 (0.8-3.0); PROTIME 12.9 SECONDS (9.4-12.5)
[2022-05-23 12:41] LABS: ALKALINE PHOSPHATASE 112 U/L (38-126); AMYLASE 88 U/L (30-110); ANION GAP 25.8 MEQ/L (5-15); BLOOD UREA NITROGEN 11 mg/dL (7-17); CHLORIDE 112 mmol/L (98-107); Calcium 9.6 mg/dL (8.4-10.2); Creatinine 1 0.68 mg/dL (0.52-1.04); EST GLOMERULAR FILTRATION RATE > 60.0 ML/MIN; Glucose 73 mg/dL (74-106); LIPASE 87 U/L (23-300); Potassium 4.4 mmol/L (3.5-5.1); SGOT/AST 18 U/L (14-36); SGPT/ALT 22 U/L (0-35); SODIUM 141 mmol/L (137-145); Total Protein 8.2 g/dL (6.3-8.2)
[2022-05-23 12:44] LABS: Appearance CLEAR (CLEAR); Bilirubin SMALL (NEGATIVE); Dipstick done @ ? MAIN LAB; Glucose NEGATIVE (NEGATIVE); Ketones LARGE-80 (NEGATIVE); Nitrite NEGATIVE (NEGATIVE); Ph 5.5 (5-6); RBC SMALL Ery/ul (0-5); Specific Gravity >=1.030 (1.005-1.025); Urobilinogen 0.2 mg/dL (0-1)
[2022-05-23] MEDS ORDERED: Phenergan 25 MG INJ*** 25 MG in Sodium Chloride 0.9% 100 ML IV ONE (12:45)
[2022-05-23 12:46] LABS: Epithelial Cells RARE /HPF (FEW); Mucus SLIGHT /HPF (NEGATIVE)
[2022-05-23] MEDS ORDERED: Phenergan 25 MG INJ ONE (12:46)
[2022-05-23] MEDS ORDERED: Sodium Chloride 0.9% 100 ML ONE (12:46)
[2022-05-23 12:48] LABS: Protein,Urine Dip >=300 (Negative); Urine Cultured Indicated? YES
[2022-05-23 12:49] LABS: Carbon Dioxide 7 mmol/L (22-30)
[2022-05-23 13:07] LABS: Amphetamine,Urine NEGATIVE (NEGATIVE); Barbiturate,Urine NEGATIVE (NEGATIVE); Benzodiazepine,Urine NEGATIVE (NEGATIVE); Cocaine,Urine NEGATIVE (NEGATIVE); Methadone,Urine NEGATIVE (NEGATIVE); Opiate,Urine NEGATIVE (NEGATIVE); PCP,Urine NEGATIVE (NEGATIVE); THC,Urine POSITIVE (NEGATIVE)
--- NOTE | 2022-05-23 13:11 | XRAY ---
Indication: Nausea and vomiting. Multiple contiguous axial images obtained through the abdomen and pelvis without contrast. Comparison: January 27, 2022 Lung bases again demonstrate small right base calcified granuloma. Heart not enlarged. Noncontrasted stomach and bowel loops remain nonobstructed again with normal appendix. No free fluid/air. Stable tiny hepatic/splenic calcified granulomas. Remaining liver, gallbladder, pancreas, spleen, adrenal glands, kidneys, ureters, bladder, uterus, and aorta are unremarkable for noncontrast exam. Osseous structures intact again with minimal levoscoliosis centered at L2 and tiny bilateral acetabular bone islands. Impression: 1. Again chronic bony findings and old granulomatous disease. 2. Remaining CT abdomen/pelvis without contrast exam is again negative.
--- NOTE | 2022-05-23 13:13 | XRAY ---
Indication: Nausea and vomiting. Comparison: May 19, 2022 Portable chest again demonstrates normal heart, lungs, and bony thorax with incidental right base calcified granuloma.
[2022-05-23 13:27] LABS: INFLUENZA A NEGATIVE (NEGATIVE); INFLUENZA B NEGATIVE (NEGATIVE); RESPIRATORY SYNCTIAL VIRUS NEGATIVE (Negative); SARS-CoV-2 Xpert Express NEGATIVE (NEGATIVE)
--- NOTE | 2022-05-23 13:29 | ERPHSYRPT ---
- History of Present Illness Time Seen by Provider: 05/23/22 11:55 Historian: patient, EMS, other (PCP) Exam Limitations: no limitations Patient Subjective Stated Complaint: Hypotension Triage Nursing Assessment: Patient brought into ED per EMS and transferred to bed with assist of 3. Patient A+O X 3. Patient's skin pale, warm and dry. Patient was at Dr. Gandara's office for ER follow up from Sunday. Dr. Gandara's staff unable to obtain b/p after 3 attempts. Patient complains of being lightheaded, dizzy, STEINER, N/V. Patient states she has pain all over. EMS reports patient unable to walk at this time. Physician History: Patient is a 21-year-old female with multiple medical problems including irritable bowel syndrome and hypotension found at the PCP office she was seen in the ER last Sunday or 5 days ago found to have UTI was put on Levaquin but was unable to take that and has been vomiting consistently since her p.o. intake is been very low she feels she is dehydrated. Timing/Duration: day(s) (5) Activities at Onset: none Abdominal Pain Onset Location: epigastric Pain Radiation: no radiation Severity of Pain-Max: mild Severity of Pain-Current: mild Modifying Factors: Improves With: eating, vomiting Associated Symptoms: loss of appetite, nausea, shortness of breath, vomiting, weakness Allergies/Adverse Reactions: hydromorphone HCl [From Dilaudid] Allergy (Severe, Verified 05/23/22 11:43) Hives Severe itching with hives penicillin G Allergy (Mild, Verified 05/23/22 11:43) Swelling diphenhydramine HCl [From Benadryl] Adverse Reaction (Mild, Verified 05/23/22 11:43) "crazy behavior" pertussis vaccine,adsorbed [Pertussis Vaccine,Adsorbed] Adverse Reaction (Verified 05/23/22 11:43) Swelling Home Medications: Hydroxyzine HCl 25 mg [Atarax 25 mg] 25 mg PO QID 06/05/19 [History] Atorvastatin Calcium 1 ea DAILY 12/24/20 [History] Ergocalciferol (Vitamin D2) [Vitamin D2] 1 ea DAILY 12/24/20 [History] Levothyroxine Sodium [Euthyrox] 100 mcg DAILY 12/24/20 [History] Norethindrone 0.35 mg PO DAILY 04/21/21 [History] lisinopriL [Lisinopril] 10 mg PO DAILY 04/21/21 [History] Prazosin HCl 1 tab PO HS 09/16/21 [History] Hx Tetanus, Diphtheria Vaccination/Date Given: Yes Hx Influenza Vaccination/Date Given: No Hx Pneumococcal Vaccination/Date Given: No Immunizations Up to Date: Yes Travel Risk - International Travel Have you traveled outside of the country in past 3 weeks: No - Coronavirus Screening Are you exhibiting any of the following symptoms?: No Close contact with a COVID-19 positive Pt in past 14-21 Days: No - Vaccine Status Have you recieved a Covid-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: Yes Simulation Educator: Moderna - Vaccination Dates Date of 2cond Vaccination (if applicable): 2020 - Review of Systems Constitutional: No Fever, No Chills Eyes: No Symptoms Ears, Nose, & Throat: No Symptoms Respiratory: No Cough, No Dyspnea Cardiac: No Chest Pain, No Edema, No Syncope Abdominal/Gastrointestinal: Abdominal Pain, Nausea, Vomiting, No Diarrhea Genitourinary Symptoms: No Dysuria Musculoskeletal: No Back Pain, No Neck Pain Skin: No Rash Neurological: No Dizziness, No Focal Weakness, No Sensory Changes Psychological: No Symptoms Endocrine: No Symptoms All Other Systems: Reviewed and Negative - Past Medical History Pertinent Past Medical History: Yes Neurological History: Epilepsy, Seizures ENT History: No Pertinent History Cardiac History: High Cholesterol, Hypertension Respiratory History: Bronchitis, Pneumonia Endocrine Medical History: Hypothyroidism Musculoskeletal History: Osteoarthritis GI Medical History: Irritable Bowel History: No Pertinent History Psycho-Social History: Anxiety, Depression Female Reproductive Disorders: Endometriosis, Menstrual Problems Other Medical History: PMHX: ANXIETY, DEPRESSION, PTSD, IBS, ENDOMETRIOSIS AND MILD MITRAL VALVE PROLAPSE - Past Surgical History Past Surgical History: Yes Neuro Surgical History: No Pertinent History Cardiac: No Pertinent History Respiratory: No Pertinent History Gastrointestinal: No Pertinent History Genitourinary: No Pertinent History Musculoskeletal: No Pertinent History Female Surgical History: No Pertinent History Other Surgical History: EGD, Colonoscopy. HX [place] Teeth Removed. Endoscopy - Social History Smoking Status: Never smoker Exposure to second hand smoke: No Drug Use: none Patient Lives Alone: No Significant Family History: no pertinent family hx - Female History Hx Last Menstrual Period: Hx Now: No - Nursing Vital Signs Nursing Vital Signs: Initial Vital Signs Temperature 98.3 F 05/23/22 11:43 Pulse Rate 98 H 05/23/22 11:43 Respiratory Rate 18 05/23/22 11:43 Blood Pressure 161/135 05/23/22 11:43 O2 Sat by Pulse Oximetry 98 05/23/22 11:43 Pain Scale Pain Intensity 5 - Physical Exam General Appearance: moderate distress Eye Exam: PERRL/EOMI, eyes nml inspection Ears, Nose, Throat Exam: dry mucous membranes, No moist mucous membranes Neck Exam: normal inspection, non-tender, supple, full range of motion Respiratory Exam: normal breath sounds, lungs clear, No respiratory distress Cardiovascular Exam: regular rate/rhythm, normal heart sounds Gastrointestinal/Abdomen Exam: soft, No tenderness, No mass Back Exam: normal inspection, normal range of motion, No CVA tenderness, No vertebral tenderness Extremity Exam: normal inspection, normal range of motion, pelvis stable Neurologic Exam: alert, oriented x 3, agitation, depressed mood/affect Skin Exam: normal color, warm, dry SpO2 Interpretation: normal SpO2: 98 O2 Delivery: Room Air - Course Nursing assessment & vital signs reviewed: Yes - Radiology Exams Chest X-ray Interpretation: Reviewed by me - CT Exams Abdomen/Pelvis CT Interpretation: Negative Ordered Tests: Active Orders 24 hr Category Date Time Status IV Insertion STAT Care 05/23/22 11:43 Active cath [Cath for Specimen-Straight] STAT Care 05/23/22 12:08 Active ABDOMEN AND PELVIS W/0 CONTRAS [CT] Stat Exams 05/23/22 11:53 Completed CHEST 1 VIEW (PORTABLE) Stat Exams 05/23/22 11:53 Completed AMYLASE Stat Lab 05/23/22 12:13 Completed BLOOD CULTURE Stat Lab 05/23/22 12:40 Received CBC W DIFF Stat Lab 05/23/22 12:13 Completed CMP Stat Lab 05/23/22 12:13 Completed CULTURE,URINE Stat Lab 05/23/22 12:03 Received HCG,QUALITATIVE URINE Stat Lab 05/23/22 12:02 Completed LIPASE Stat Lab 05/23/22 12:13 Completed Lactic Acid Stat Lab 05/23/22 11:52 Completed PROTIME WITH INR Stat Lab 05/23/22 12:13 Completed UA W/RFX CULTURE Stat Lab 05/23/22 12:03 Completed Urine Triage Profile Stat Lab 05/23/22 12:02 Completed Medication Summary Discontinued Medications Generic Name Dose Route Start Last Admin Trade Name Annabel PRN Reason Stop Dose Admin Sodium Chloride 1,000 mls @ 999 mls/hr 05/23/22 11:52 05/23/22 13:04 Sodium Chloride 0.9% 1000 Ml IV 05/23/22 12:52 999 mls/hr .Q1H1M STA Administration Sodium Chloride 1,000 mls @ 999 mls/hr 05/23/22 11:56 05/23/22 13:01 Sodium Chloride 0.9% 1000 Ml IV 05/23/22 12:56 Infused .Q1H1M STA Infusion Sodium Chloride Confirm 05/23/22 11:57 Sodium Chloride 0.9% 1000 Ml Administered 05/23/22 11:58 Dose 1,000 mls @ ud .ROUTE .STK-MED ONE Promethazine HCl 25 mg/ Sodium 101 mls @ 200 mls/hr 05/23/22 12:45 05/23/22 13:04 Chloride IV 05/23/22 13:15 200 mls/hr STAT ONE Administration Sodium Chloride Confirm 05/23/22 12:46 Sodium Chloride 0.9% Administered 05/23/22 12:47 Dose 100 mls @ ud .ROUTE .STK-MED ONE Sodium Chloride Confirm 05/23/22 12:46 Sodium Chloride 0.9% 1000 Ml Administered 05/23/22 12:47 Dose 1,000 mls @ ud .ROUTE .STK-MED ONE Ondansetron HCl 4 mg 05/23/22 11:52 05/23/22 12:01 Ondansetron Hcl 4 Mg/2 Ml Vial IV 05/23/22 11:53 4 mg STAT ONE Administration Ondansetron HCl Confirm 05/23/22 11:57 Ondansetron Hcl 4 Mg/2 Ml Vial Administered 05/23/22 11:58 Dose 4 mg .ROUTE .STK-MED ONE Promethazine HCl Confirm 05/23/22 12:46 Promethazine Hcl 25 Mg/Ml Vial Administered 05/23/22 12:47 Dose 25 mg .ROUTE .STK-MED ONE Lab/Rad Data: Laboratory Result Diagrams 05/23/22 12:13 05/23/22 12:13 Laboratory Results 05/23/22 05/23/22 05/23/22 Range/Units 12:13 12:13 12:13 WBC 12.9 H (4.0-10.5) x10^3/uL RBC 5.11 (4.1-5.4) x10^6/uL Hgb 15.2 (12.0-16.0) g/dL Hct 45.8 (35-47) % MCV 89.6 (78-100) fL MCH 29.7 (26-32) pg MCHC 33.2 (32-36) g/dL RDW 12.8 (11.5-14.0) % Plt Count 342 (150-450) x10^3/uL MPV 9.3 (7.5-11.0) fL Gran % 78.8 H (36.0-66.0) % Immature Gran % (Auto) 0.4 (0.00-0.4) % Nucleat RBC Rel Count 0.0 (0.00-0.1) % Eos # (Auto) 0.08 (0-0.5) x10^3/uL Immature Gran # (Auto) 0.05 H (0.00-0.03) x10^3u/L Absolute Lymphs (auto) 1.63 (1.0-4.6) x10^3/uL Absolute Monos (auto) 0.92 (0.0-1.3) x10^3/uL Absolute Nucleated RBC 0.00 (0.00-0.01) x10^3u/L Lymphocytes % 12.6 L (24.0-44.0) % Monocytes % 7.1 (0.0-12.0) % Eosinophils % 0.6 (0.00-5.0) % Basophils % 0.5 (0.0-0.4) % Absolute Granulocytes 10.18 H (1.4-6.9) x10^3/uL Basophils # 0.06 (0-0.4) x10^3/uL PT 12.9 H (9.4-12.5) SECONDS INR 1.24 (0.8-3.0) Sodium 141 (137-145) mmol/L Potassium 4.4 (3.5-5.1) mmol/L Chloride 112 H (98-107) mmol/L Carbon Dioxide 7 L* (22-30) mmol/L Anion Gap 25.8 H (5-15) MEQ/L BUN 11 (7-17) mg/dL Creatinine 0.68 (0.52-1.04) mg/dL Estimated GFR > 60.0 ML/MIN Glucose 73 L (74-106) mg/dL Lactic Acid (0.4-2.0) Calcium 9.6 (8.4-10.2) mg/dL Total Bilirubin 1.30 (0.2-1.3) mg/dL AST 18 (14-36) U/L ALT 22 (0-35) U/L Alkaline Phosphatase 112 (38-126) U/L Serum Total Protein 8.2 (6.3-8.2) g/dL Albumin 5.0 (3.5-5.0) g/dL Amylase 88 (30-110) U/L Lipase 87 (23-300) U/L Urinalys Dipstick Clnc Urine Color (YELLOW) Urine Appearance (CLEAR) Urine pH (5-6) Ur Specific [place] (1.005-1.025) POC Urine Protein Conf (Negative) Urine Ketones (NEGATIVE) Urine Nitrite (NEGATIVE) Urine Bilirubin (NEGATIVE) Urine Urobilinogen (0-1) mg/dL Urine Leukocytes (NEGATIVE) Urine WBC (Auto) (0-5) /HPF Urine RBC (Auto) (0-2) /HPF U Hyaline Cast (Auto) (0-2) /LPF U Epithel Cells (Auto) (FEW) /HPF Urine Bacteria (Auto) (NEGATIVE) /HPF Urine RBC (0-5) Mateo/ul Urine Mucus (Auto) (NEGATIVE) /HPF Ur Culture Indicated? Urine Glucose (NEGATIVE) mg/dL Urine HCG, Qual (Negative) Urine Opiates Level (NEGATIVE) Ur Methadone (NEGATIVE) Urine Barbiturates (NEGATIVE) Ur Phencyclidine (PCP) (NEGATIVE) Urine Amphetamine (NEGATIVE) U Benzodiazepine Level (NEGATIVE) Urine Cocaine (NEGATIVE) Urine Marijuana (THC) (NEGATIVE) 05/23/22 05/23/22 05/23/22 Range/Units 12:03 12:02 12:02 WBC (4.0-10.5) x10^3/uL RBC (4.1-5.4) x10^6/uL Hgb (12.0-16.0) g/dL Hct (35-47) % MCV (78-100) fL MCH (26-32) pg MCHC (32-36) g/dL RDW (11.5-14.0) % Plt Count (150-450) x10^3/uL MPV (7.5-11.0) fL Gran % (36.0-66.0) % Immature Gran % (Auto) (0.00-0.4) % Nucleat RBC Rel Count (0.00-0.1) % Eos # (Auto) (0-0.5) x10^3/uL Immature Gran # (Auto) (0.00-0.03) x10^3u/L Absolute Lymphs (auto) (1.0-4.6) x10^3/uL Absolute Monos (auto) (0.0-1.3) x10^3/uL Absolute Nucleated RBC (0.00-0.01) x10^3u/L Lymphocytes % (24.0-44.0) % Monocytes % (0.0-12.0) % Eosinophils % (0.00-5.0) % Basophils % (0.0-0.4) % Absolute Granulocytes (1.4-6.9) x10^3/uL Basophils # (0-0.4) x10^3/uL PT (9.4-12.5) SECONDS INR (0.8-3.0) Sodium (137-145) mmol/L Potassium (3.5-5.1) mmol/L Chloride (98-107) mmol/L Carbon Dioxide (22-30) mmol/L Anion Gap (5-15) MEQ/L BUN (7-17) mg/dL Creatinine (0.52-1.04) mg/dL Estimated GFR ML/MIN Glucose (74-106) mg/dL Lactic Acid (0.4-2.0) Calcium (8.4-10.2) mg/dL Total Bilirubin (0.2-1.3) mg/dL AST (14-36) U/L ALT (0-35) U/L Alkaline Phosphatase (38-126) U/L Serum Total Protein (6.3-8.2) g/dL Albumin (3.5-5.0) g/dL Amylase (30-110) U/L Lipase (23-300) U/L Urinalys Dipstick Clnc MAIN LAB Urine Color YELLOW (YELLOW) Urine Appearance CLEAR (CLEAR) Urine pH 5.5 (5-6) Ur Specific [place] >=1.030 (1.005-1.025) POC Urine Protein Conf >=300 (Negative) Urine Ketones LARGE-80 (NEGATIVE) Urine Nitrite NEGATIVE (NEGATIVE) Urine Bilirubin SMALL (NEGATIVE) Urine Urobilinogen 0.2 (0-1) mg/dL Urine Leukocytes NEGATIVE (NEGATIVE) Urine WBC (Auto) 3-5 (0-5) /HPF Urine RBC (Auto) NONE (0-2) /HPF U Hyaline Cast (Auto) 6-10 (0-2) /LPF U Epithel Cells (Auto) RARE (FEW) /HPF Urine Bacteria (Auto) NONE (NEGATIVE) /HPF Urine RBC SMALL (0-5) Mateo/ul Urine Mucus (Auto) SLIGHT (NEGATIVE) /HPF Ur Culture Indicated? YES Urine Glucose NEGATIVE (NEGATIVE) mg/dL Urine HCG, Qual NEGATIVE (Negative) Urine Opiates Level NEGATIVE (NEGATIVE) Ur Methadone NEGATIVE (NEGATIVE) Urine Barbiturates NEGATIVE (NEGATIVE) Ur Phencyclidine (PCP) NEGATIVE (NEGATIVE) Urine Amphetamine NEGATIVE (NEGATIVE) U Benzodiazepine Level NEGATIVE (NEGATIVE) Urine Cocaine NEGATIVE (NEGATIVE) Urine Marijuana (THC) POSITIVE (NEGATIVE) 05/23/22 Range/Units 11:52 WBC (4.0-10.5) x10^3/uL RBC (4.1-5.4) x10^6/uL Hgb (12.0-16.0) g/dL Hct (35-47) % MCV (78-100) fL MCH (26-32) pg MCHC (32-36) g/dL RDW (11.5-14.0) % Plt Count (150-450) x10^3/uL MPV (7.5-11.0) fL Gran % (36.0-66.0) % Immature Gran % (Auto) (0.00-0.4) % Nucleat RBC Rel Count (0.00-0.1) % Eos # (Auto) (0-0.5) x10^3/uL Immature Gran # (Auto) (0.00-0.03) x10^3u/L Absolute Lymphs (auto) (1.0-4.6) x10^3/uL Absolute Monos (auto) (0.0-1.3) x10^3/uL Absolute Nucleated RBC (0.00-0.01) x10^3u/L Lymphocytes % (24.0-44.0) % Monocytes % (0.0-12.0) % Eosinophils % (0.00-5.0) % Basophils % (0.0-0.4) % Absolute Granulocytes (1.4-6.9) x10^3/uL Basophils # (0-0.4) x10^3/uL PT (9.4-12.5) SECONDS INR (0.8-3.0) Sodium (137-145) mmol/L Potassium (3.5-5.1) mmol/L Chloride (98-107) mmol/L Carbon Dioxide (22-30) mmol/L Anion Gap (5-15) MEQ/L BUN (7-17) mg/dL Creatinine (0.52-1.04) mg/dL Estimated GFR ML/MIN Glucose (74-106) mg/dL Lactic Acid 1.7 (0.4-2.0) Calcium (8.4-10.2) mg/dL Total Bilirubin (0.2-1.3) mg/dL AST (14-36) U/L ALT (0-35) U/L Alkaline Phosphatase (38-126) U/L Serum Total Protein (6.3-8.2) g/dL Albumin (3.5-5.0) g/dL Amylase (30-110) U/L Lipase (23-300) U/L Urinalys Dipstick Clnc Urine Color (YELLOW) Urine Appearance (CLEAR) Urine pH (5-6) Ur Specific [place] (1.005-1.025) POC Urine Protein Conf (Negative) Urine Ketones (NEGATIVE) Urine Nitrite (NEGATIVE) Urine Bilirubin (NEGATIVE) Urine Urobilinogen (0-1) mg/dL Urine Leukocytes (NEGATIVE) Urine WBC (Auto) (0-5) /HPF Urine RBC (Auto) (0-2) /HPF U Hyaline Cast (Auto) (0-2) /LPF U Epithel Cells (Auto) (FEW) /HPF Urine Bacteria (Auto) (NEGATIVE) /HPF Urine RBC (0-5) Mateo/ul Urine Mucus (Auto) (NEGATIVE) /HPF Ur Culture Indicated? Urine Glucose (NEGATIVE) mg/dL Urine HCG, Qual (Negative) Urine Opiates Level (NEGATIVE) Ur Methadone (NEGATIVE) Urine Barbiturates (NEGATIVE) Ur Phencyclidine (PCP) (NEGATIVE) Urine Amphetamine (NEGATIVE) U Benzodiazepine Level (NEGATIVE) Urine Cocaine (NEGATIVE) Urine Marijuana (THC) (NEGATIVE) - Progress Progress: improved Discussed with Dr.: Spivey - Departure Departure Disposition: Observation Clinical Impression: Dehydration Condition: Fair Critical Care Time: No Referrals: HALLIE GRACE [Primary Care Provider] - Follow up/PCP as directed
[2022-05-23] MEDS ORDERED: Levofloxacin 500MG/100ML D5W 500 MG/100 ML BAG IV ONE (13:32)
[2022-05-23] MEDS ORDERED: Sodium Chloride 0.9% 1000 ML 1,000 ML IV SCH (13:45)
[2022-05-23] MEDS ORDERED: NORMAL SALINE IV SCH (14:00)
[2022-05-23] MEDS ORDERED: DEXTROSE 5% IV SCH (14:00)
[2022-05-23] MEDS ORDERED: Dextrose 5%-NS IV Solution 1000 ML 1,000 ML IV ONE (14:47)
[2022-05-23] MEDS ORDERED: Dextrose 5%-NS IV Solution 1000 ML 1,000 ML IV SCH (15:00)
[2022-05-23] MEDS ORDERED: Ativan 2 MG/1 ML VIAL IV PRN (16:11)
[2022-05-23] MEDS: Reglan 10 MG/2 ML IV SCH ×2 (16:18→21:17)
[2022-05-23] MEDS: Ativan 20 MG/10 ML MDV IV PRN (16:18)
[2022-05-23] MEDS: ATARAX 25 MG PO SCH ×2 (16:28→21:17)
[2022-05-23] MEDS: CLARITIN 10 MG PO SCH (16:28)
[2022-05-23] MEDS ORDERED: MEDICATION INTERVENTION MC SCH (16:30)
[2022-05-23 20:50] LABS: ANION GAP 13.8 MEQ/L (5-15); BLOOD UREA NITROGEN 8 mg/dL (7-17); CHLORIDE 113 mmol/L (98-107); Calcium 8.7 mg/dL (8.4-10.2); Carbon Dioxide 18 mmol/L (22-30); Creatinine 1 0.58 mg/dL (0.52-1.04); EST GLOMERULAR FILTRATION RATE > 60.0 ML/MIN; Glucose 96 mg/dL (74-106); Potassium 3.9 mmol/L (3.5-5.1); SODIUM 140 mmol/L (137-145)
[2022-05-23] MEDS: PHENERGAN 25 MG PO PRN (22:26)
[2022-05-23] MEDS: Dextrose 5%-Lr IV Solution 1000 ML 1,000 ML IV SCH (22:29)
[2022-05-24] MEDS ORDERED: VENTOLIN COMMON CANISTER IH PRN (04:34)
[2022-05-24 05:08] LABS: Basophil (Absolute #) 0.04 x10^3/uL (0-0.4); Eosinophil % 2.4 % (0.00-5.0); Hematocrit 39.2 % (35-47); Hemoglobin 13.3 g/dL (12.0-16.0); Lymphocyte (Absolute #) 2.68 x10^3/uL (1.0-4.6); Lymphocytes % 32.5 % (24.0-44.0); Mean Cell Volume 88.1 fL (78-100); Mean Corpuscular Hemoglobin 29.9 pg (26-32); Mean Corpuscular Hgb Concent. 33.9 g/dL (32-36); Mean Platelet Volume 9.3 fL (7.5-11.0); Monocyte (Absolute #) 0.71 x10^3/uL (0.0-1.3); Monocytes % 8.6 % (0.0-12.0); Neutrophil % 55.8 % (36.0-66.0); Platelet Count 282 x10^3/uL (150-450); Red Blood Count 4.45 x10^6/uL (4.1-5.4); White Blood Count 8.3 x10^3/uL (4.0-10.5)
[2022-05-24 05:42] LABS: ALBUMIN 3.9 g/dL (3.5-5.0); ALKALINE PHOSPHATASE 78 U/L (38-126); ANION GAP 11.4 MEQ/L (5-15); BLOOD UREA NITROGEN 6 mg/dL (7-17); CHLORIDE 111 mmol/L (98-107); Calcium 8.7 mg/dL (8.4-10.2); Carbon Dioxide 20 mmol/L (22-30); Creatinine 1 0.56 mg/dL (0.52-1.04); EST GLOMERULAR FILTRATION RATE > 60.0 ML/MIN; Glucose 100 mg/dL (74-106); Potassium 3.4 mmol/L (3.5-5.1); SGOT/AST 17 U/L (14-36); SGPT/ALT 18 U/L (0-35); SODIUM 139 mmol/L (137-145); Total Protein 6.5 g/dL (6.3-8.2)
[2022-05-24] MEDS ORDERED: Dextrose 5%-Lr IV Solution 1000 ML 1,000 ML IV ONE (06:52)
[2022-05-24] MEDS: Dextrose 5%-Lr IV Solution 1000 ML 1,000 ML IV SCH ×3 (06:54→19:59)
[2022-05-24] MEDS: Reglan 10 MG/2 ML IV SCH ×4 (08:21→22:20)
[2022-05-24] MEDS: PHENERGAN 25 MG PO PRN (08:21)
[2022-05-24] MEDS: Ativan 20 MG/10 ML MDV IV PRN (08:25)
--- NOTE | 2022-05-24 09:07 | PCM.NOTE ---
Date and Time: 05/24/22901 Subjective Assessment: Pt has not urinated since admission - in ER urine was taken via catheter. She only drank a little orange juice last night in an effort to increase her blood sugar, and it didn't set well. Having some nausea but it's better with the phenergan. Overall feeling better than at admission, but not feeling well. C/o charp/achy lower abd pain, 5/10. Different than her usual abd pain. - Review of Systems Constitutional: Weakness Abdominal/Gastrointestinal: Abdominal Pain, Nausea Genitourinary Symptoms: Urinary Retention Neurological: Dizziness Objective Exam General Appearance: mild distress (in bed with eyes closed. has some lower abd pain when moving from her side to her back.), alert Neurologic Exam: oriented x 3, cooperative Skin Exam: normal color, warm, dry, No rash Eye Exam: eyes nml inspection Ears, Nose, Throat Exam: moist mucous membranes Neck Exam: normal inspection Respiratory Exam: normal breath sounds, lungs clear, No crackles/rales, No rhonchi, No wheezing Cardiovascular Exam: regular rate/rhythm, normal heart sounds, No murmur Gastrointestinal/Abdomen Exam: soft, normal bowel sounds, tenderness (suprapubic), No distention, No mass, No guarding, No rebound Extremity Exam: normal inspection, No pedal edema, No swelling Back Exam: normal inspection, No rash OBJECTIVE DATA Vital Signs: Vital Signs - 24 hr Temp Pulse Resp BP Pulse Ox 05/24/22 07:36 97.1 F 57 L 16 107/64 100 05/24/22 07:32 56 L 14 99 05/24/22 04:00 97.5 F 54 L 16 118/77 98 05/24/22 00:00 97.8 F 58 L 18 114/65 99 05/23/22 20:00 97.7 F 64 18 109/68 99 05/23/22 19:46 71 16 98 05/23/22 14:52 98 F 75 16 121/63 99 05/23/22 14:00 64 16 109/66 99 05/23/22 13:29 98 05/23/22 13:00 76 16 137/79 98 05/23/22 11:43 98.3 F 98 H 18 161/135 98 Pain Assessment - Last Documented Pain Intensity 0 Intake and Output: Intake & Output 05/21/22 05/22/22 05/23/22 05/24/22 11:59 11:59 11:59 11:59 Intake Total 1816 Balance 1816 Weight 77.6 kg 80 kg Lab Results: Lab Results-Last 24 Hours 05/23/22 05/23/22 05/23/22 Range/Units 11:52 12:02 12:02 WBC (4.0-10.5) x10^3/uL RBC (4.1-5.4) x10^6/uL Hgb (12.0-16.0) g/dL Hct (35-47) % MCV (78-100) fL MCH (26-32) pg MCHC (32-36) g/dL RDW (11.5-14.0) % Plt Count (150-450) x10^3/uL MPV (7.5-11.0) fL Gran % (36.0-66.0) % Immature Gran % (Auto) (0.00-0.4) % Nucleat RBC Rel Count (0.00-0.1) % Eos # (Auto) (0-0.5) x10^3/uL Immature Gran # (Auto) (0.00-0.03) x10^3u/L Absolute Lymphs (auto) (1.0-4.6) x10^3/uL Absolute Monos (auto) (0.0-1.3) x10^3/uL Absolute Nucleated RBC (0.00-0.01) x10^3u/L Lymphocytes % (24.0-44.0) % Monocytes % (0.0-12.0) % Eosinophils % (0.00-5.0) % Basophils % (0.0-0.4) % Absolute Granulocytes (1.4-6.9) x10^3/uL Basophils # (0-0.4) x10^3/uL PT (9.4-12.5) SECONDS INR (0.8-3.0) Sodium (137-145) mmol/L Potassium (3.5-5.1) mmol/L Chloride (98-107) mmol/L Carbon Dioxide (22-30) mmol/L Anion Gap (5-15) MEQ/L BUN (7-17) mg/dL Creatinine (0.52-1.04) mg/dL Estimated GFR ML/MIN Glucose (74-106) mg/dL POC Glucometer (74 to 106) mg/dL Hemoglobin A1c (4.5-6.0) % Lactic Acid 1.7 (0.4-2.0) Calcium (8.4-10.2) mg/dL Total Bilirubin (0.2-1.3) mg/dL AST (14-36) U/L ALT (0-35) U/L Alkaline Phosphatase (38-126) U/L Serum Total Protein (6.3-8.2) g/dL Albumin (3.5-5.0) g/dL Amylase (30-110) U/L Lipase (23-300) U/L Urinalys Dipstick Clnc Urine Color (YELLOW) Urine Appearance (CLEAR) Urine pH (5-6) Ur Specific [place] (1.005-1.025) POC Urine Protein Conf (Negative) Urine Ketones (NEGATIVE) Urine Nitrite (NEGATIVE) Urine Bilirubin (NEGATIVE) Urine Urobilinogen (0-1) mg/dL Urine Leukocytes (NEGATIVE) Urine WBC (Auto) (0-5) /HPF Urine RBC (Auto) (0-2) /HPF U Hyaline Cast (Auto) (0-2) /LPF U Epithel Cells (Auto) (FEW) /HPF Urine Bacteria (Auto) (NEGATIVE) /HPF Urine RBC (0-5) Mateo/ul Urine Mucus (Auto) (NEGATIVE) /HPF Ur Culture Indicated? Urine Glucose (NEGATIVE) mg/dL Urine HCG, Qual NEGATIVE (Negative) Urine Opiates Level NEGATIVE (NEGATIVE) Ur Methadone NEGATIVE (NEGATIVE) Urine Barbiturates NEGATIVE (NEGATIVE) Ur Phencyclidine (PCP) NEGATIVE (NEGATIVE) Urine Amphetamine NEGATIVE (NEGATIVE) U Benzodiazepine Level NEGATIVE (NEGATIVE) Urine Cocaine NEGATIVE (NEGATIVE) Urine Marijuana (THC) POSITIVE (NEGATIVE) Influenza Type A Ag (NEGATIVE) Influenza Type B Ag (NEGATIVE) RSV (PCR) (Negative) SARS-CoV-2 (PCR) (NEGATIVE) 05/23/22 05/23/22 05/23/22 Range/Units 12:03 12:13 12:13 WBC 12.9 H (4.0-10.5) x10^3/uL RBC 5.11 (4.1-5.4) x10^6/uL Hgb 15.2 (12.0-16.0) g/dL Hct 45.8 (35-47) % MCV 89.6 (78-100) fL MCH 29.7 (26-32) pg MCHC 33.2 (32-36) g/dL RDW 12.8 (11.5-14.0) % Plt Count 342 (150-450) x10^3/uL MPV 9.3 (7.5-11.0) fL Gran % 78.8 H (36.0-66.0) % Immature Gran % (Auto) 0.4 (0.00-0.4) % Nucleat RBC Rel Count 0.0 (0.00-0.1) % Eos # (Auto) 0.08 (0-0.5) x10^3/uL Immature Gran # (Auto) 0.05 H (0.00-0.03) x10^3u/L Absolute Lymphs (auto) 1.63 (1.0-4.6) x10^3/uL Absolute Monos (auto) 0.92 (0.0-1.3) x10^3/uL Absolute Nucleated RBC 0.00 (0.00-0.01) x10^3u/L Lymphocytes % 12.6 L (24.0-44.0) % Monocytes % 7.1 (0.0-12.0) % Eosinophils % 0.6 (0.00-5.0) % Basophils % 0.5 (0.0-0.4) % Absolute Granulocytes 10.18 H (1.4-6.9) x10^3/uL Basophils # 0.06 (0-0.4) x10^3/uL PT (9.4-12.5) SECONDS INR (0.8-3.0) Sodium 141 (137-145) mmol/L Potassium 4.4 (3.5-5.1) mmol/L Chloride 112 H (98-107) mmol/L Carbon Dioxide 7 L* (22-30) mmol/L Anion Gap 25.8 H (5-15) MEQ/L BUN 11 (7-17) mg/dL Creatinine 0.68 (0.52-1.04) mg/dL Estimated GFR > 60.0 ML/MIN Glucose 73 L (74-106) mg/dL POC Glucometer (74 to 106) mg/dL Hemoglobin A1c (4.5-6.0) % Lactic Acid (0.4-2.0) Calcium 9.6 (8.4-10.2) mg/dL Total Bilirubin 1.30 (0.2-1.3) mg/dL AST 18 (14-36) U/L ALT 22 (0-35) U/L Alkaline Phosphatase 112 (38-126) U/L Serum Total Protein 8.2 (6.3-8.2) g/dL Albumin 5.0 (3.5-5.0) g/dL Amylase 88 (30-110) U/L Lipase 87 (23-300) U/L Urinalys Dipstick Clnc MAIN LAB Urine Color YELLOW (YELLOW) Urine Appearance CLEAR (CLEAR) Urine pH 5.5 (5-6) Ur Specific [place] >=1.030 (1.005-1.025) POC Urine Protein Conf >=300 (Negative) Urine Ketones LARGE-80 (NEGATIVE) Urine Nitrite NEGATIVE (NEGATIVE) Urine Bilirubin SMALL (NEGATIVE) Urine Urobilinogen 0.2 (0-1) mg/dL Urine Leukocytes NEGATIVE (NEGATIVE) Urine WBC (Auto) 3-5 (0-5) /HPF Urine RBC (Auto) NONE (0-2) /HPF U Hyaline Cast (Auto) 6-10 (0-2) /LPF U Epithel Cells (Auto) RARE (FEW) /HPF Urine Bacteria (Auto) NONE (NEGATIVE) /HPF Urine RBC SMALL (0-5) Mateo/ul Urine Mucus (Auto) SLIGHT (NEGATIVE) /HPF Ur Culture Indicated? YES Urine Glucose NEGATIVE (NEGATIVE) mg/dL Urine HCG, Qual (Negative) Urine Opiates Level (NEGATIVE) Ur Methadone (NEGATIVE) Urine Barbiturates (NEGATIVE) Ur Phencyclidine (PCP) (NEGATIVE) Urine Amphetamine (NEGATIVE) U Benzodiazepine Level (NEGATIVE) Urine Cocaine (NEGATIVE) Urine Marijuana (THC) (NEGATIVE) Influenza Type A Ag (NEGATIVE) Influenza Type B Ag (NEGATIVE) RSV (PCR) (Negative) SARS-CoV-2 (PCR) (NEGATIVE) 05/23/22 05/23/22 05/23/22 Range/Units 12:13 12:35 16:25 WBC (4.0-10.5) x10^3/uL RBC (4.1-5.4) x10^6/uL Hgb (12.0-16.0) g/dL Hct (35-47) % MCV (78-100) fL MCH (26-32) pg MCHC (32-36) g/dL RDW (11.5-14.0) % Plt Count (150-450) x10^3/uL MPV (7.5-11.0) fL Gran % (36.0-66.0) % Immature Gran % (Auto) (0.00-0.4) % Nucleat RBC Rel Count (0.00-0.1) % Eos # (Auto) (0-0.5) x10^3/uL Immature Gran # (Auto) (0.00-0.03) x10^3u/L Absolute Lymphs (auto) (1.0-4.6) x10^3/uL Absolute Monos (auto) (0.0-1.3) x10^3/uL Absolute Nucleated RBC (0.00-0.01) x10^3u/L Lymphocytes % (24.0-44.0) % Monocytes % (0.0-12.0) % Eosinophils % (0.00-5.0) % Basophils % (0.0-0.4) % Absolute Granulocytes (1.4-6.9) x10^3/uL Basophils # (0-0.4) x10^3/uL PT 12.9 H (9.4-12.5) SECONDS INR 1.24 (0.8-3.0) Sodium (137-145) mmol/L Potassium (3.5-5.1) mmol/L Chloride (98-107) mmol/L Carbon Dioxide (22-30) mmol/L Anion Gap (5-15) MEQ/L BUN (7-17) mg/dL Creatinine (0.52-1.04) mg/dL Estimated GFR ML/MIN Glucose (74-106) mg/dL POC Glucometer 96 (74 to 106) mg/dL Hemoglobin A1c (4.5-6.0) % Lactic Acid (0.4-2.0) Calcium (8.4-10.2) mg/dL Total Bilirubin (0.2-1.3) mg/dL AST (14-36) U/L ALT (0-35) U/L Alkaline Phosphatase (38-126) U/L Serum Total Protein (6.3-8.2) g/dL Albumin (3.5-5.0) g/dL Amylase (30-110) U/L Lipase (23-300) U/L Urinalys Dipstick Clnc Urine Color (YELLOW) Urine Appearance (CLEAR) Urine pH (5-6) Ur Specific [place] (1.005-1.025) POC Urine Protein Conf (Negative) Urine Ketones (NEGATIVE) Urine Nitrite (NEGATIVE) Urine Bilirubin (NEGATIVE) Urine Urobilinogen (0-1) mg/dL Urine Leukocytes (NEGATIVE) Urine WBC (Auto) (0-5) /HPF Urine RBC (Auto) (0-2) /HPF U Hyaline Cast (Auto) (0-2) /LPF U Epithel Cells (Auto) (FEW) /HPF Urine Bacteria (Auto) (NEGATIVE) /HPF Urine RBC (0-5) Mateo/ul Urine Mucus (Auto) (NEGATIVE) /HPF Ur Culture Indicated? Urine Glucose (NEGATIVE) mg/dL Urine HCG, Qual (Negative) Urine Opiates Level (NEGATIVE) Ur Methadone (NEGATIVE) Urine Barbiturates (NEGATIVE) Ur Phencyclidine (PCP) (NEGATIVE) Urine Amphetamine (NEGATIVE) U Benzodiazepine Level (NEGATIVE) Urine Cocaine (NEGATIVE) Urine Marijuana (THC) (NEGATIVE) Influenza Type A Ag NEGATIVE (NEGATIVE) Influenza Type B Ag NEGATIVE (NEGATIVE) RSV (PCR) NEGATIVE (Negative) SARS-CoV-2 (PCR) NEGATIVE (NEGATIVE) 05/23/22 05/23/22 05/23/22 Range/Units 20:31 20:36 22:54 WBC (4.0-10.5) x10^3/uL RBC (4.1-5.4) x10^6/uL Hgb (12.0-16.0) g/dL Hct (35-47) % MCV (78-100) fL MCH (26-32) pg MCHC (32-36) g/dL RDW (11.5-14.0) % Plt Count (150-450) x10^3/uL MPV (7.5-11.0) fL Gran % (36.0-66.0) % Immature Gran % (Auto) (0.00-0.4) % Nucleat RBC Rel Count (0.00-0.1) % Eos # (Auto) (0-0.5) x10^3/uL Immature Gran # (Auto) (0.00-0.03) x10^3u/L Absolute Lymphs (auto) (1.0-4.6) x10^3/uL Absolute Monos (auto) (0.0-1.3) x10^3/uL Absolute Nucleated RBC (0.00-0.01) x10^3u/L Lymphocytes % (24.0-44.0) % Monocytes % (0.0-12.0) % Eosinophils % (0.00-5.0) % Basophils % (0.0-0.4) % Absolute Granulocytes (1.4-6.9) x10^3/uL Basophils # (0-0.4) x10^3/uL PT (9.4-12.5) SECONDS INR (0.8-3.0) Sodium 140 (137-145) mmol/L Potassium 3.9 (3.5-5.1) mmol/L Chloride 113 H (98-107) mmol/L Carbon Dioxide 18 L (22-30) mmol/L Anion Gap 13.8 (5-15) MEQ/L BUN 8 (7-17) mg/dL Creatinine 0.58 (0.52-1.04) mg/dL Estimated GFR > 60.0 ML/MIN Glucose 96 (74-106) mg/dL POC Glucometer 72 L 78 (74 to 106) mg/dL Hemoglobin A1c (4.5-6.0) % Lactic Acid (0.4-2.0) Calcium 8.7 (8.4-10.2) mg/dL Total Bilirubin (0.2-1.3) mg/dL AST (14-36) U/L ALT (0-35) U/L Alkaline Phosphatase (38-126) U/L Serum Total Protein (6.3-8.2) g/dL Albumin (3.5-5.0) g/dL Amylase (30-110) U/L Lipase (23-300) U/L Urinalys Dipstick Clnc Urine Color (YELLOW) Urine Appearance (CLEAR) Urine pH (5-6) Ur Specific [place] (1.005-1.025) POC Urine Protein Conf (Negative) Urine Ketones (NEGATIVE) Urine Nitrite (NEGATIVE) Urine Bilirubin (NEGATIVE) Urine Urobilinogen (0-1) mg/dL Urine Leukocytes (NEGATIVE) Urine WBC (Auto) (0-5) /HPF Urine RBC (Auto) (0-2) /HPF U Hyaline Cast (Auto) (0-2) /LPF U Epithel Cells (Auto) (FEW) /HPF Urine Bacteria (Auto) (NEGATIVE) /HPF Urine RBC (0-5) Mateo/ul Urine Mucus (Auto) (NEGATIVE) /HPF Ur Culture Indicated? Urine Glucose (NEGATIVE) mg/dL Urine HCG, Qual (Negative) Urine Opiates Level (NEGATIVE) Ur Methadone (NEGATIVE) Urine Barbiturates (NEGATIVE) Ur Phencyclidine (PCP) (NEGATIVE) Urine Amphetamine (NEGATIVE) U Benzodiazepine Level (NEGATIVE) Urine Cocaine (NEGATIVE) Urine Marijuana (THC) (NEGATIVE) Influenza Type A Ag (NEGATIVE) Influenza Type B Ag (NEGATIVE) RSV (PCR) (Negative) SARS-CoV-2 (PCR) (NEGATIVE) 05/24/22 05/24/22 05/24/22 Range/Units 01:59 05:14 05:14 WBC 8.3 (4.0-10.5) x10^3/uL RBC 4.45 (4.1-5.4) x10^6/uL Hgb 13.3 (12.0-16.0) g/dL Hct 39.2 (35-47) % MCV 88.1 (78-100) fL MCH 29.9 (26-32) pg MCHC 33.9 (32-36) g/dL RDW 13.0 (11.5-14.0) % Plt Count 282 (150-450) x10^3/uL MPV 9.3 (7.5-11.0) fL Gran % 55.8 (36.0-66.0) % Immature Gran % (Auto) 0.2 (0.00-0.4) % Nucleat RBC Rel Count 0.0 (0.00-0.1) % Eos # (Auto) 0.20 (0-0.5) x10^3/uL Immature Gran # (Auto) 0.02 (0.00-0.03) x10^3u/L Absolute Lymphs (auto) 2.68 (1.0-4.6) x10^3/uL Absolute Monos (auto) 0.71 (0.0-1.3) x10^3/uL Absolute Nucleated RBC 0.00 (0.00-0.01) x10^3u/L Lymphocytes % 32.5 (24.0-44.0) % Monocytes % 8.6 (0.0-12.0) % Eosinophils % 2.4 (0.00-5.0) % Basophils % 0.5 (0.0-0.4) % Absolute Granulocytes 4.60 (1.4-6.9) x10^3/uL Basophils # 0.04 (0-0.4) x10^3/uL PT (9.4-12.5) SECONDS INR (0.8-3.0) Sodium (137-145) mmol/L Potassium (3.5-5.1) mmol/L Chloride (98-107) mmol/L Carbon Dioxide (22-30) mmol/L Anion Gap (5-15) MEQ/L BUN (7-17) mg/dL Creatinine (0.52-1.04) mg/dL Estimated GFR ML/MIN Glucose (74-106) mg/dL POC Glucometer 81 (74 to 106) mg/dL Hemoglobin A1c (4.5-6.0) % Lactic Acid 0.9 (0.4-2.0) Calcium (8.4-10.2) mg/dL Total Bilirubin (0.2-1.3) mg/dL AST (14-36) U/L ALT (0-35) U/L Alkaline Phosphatase (38-126) U/L Serum Total Protein (6.3-8.2) g/dL Albumin (3.5-5.0) g/dL Amylase (30-110) U/L Lipase (23-300) U/L Urinalys Dipstick Clnc Urine Color (YELLOW) Urine Appearance (CLEAR) Urine pH (5-6) Ur Specific [place] (1.005-1.025) POC Urine Protein Conf (Negative) Urine Ketones (NEGATIVE) Urine Nitrite (NEGATIVE) Urine Bilirubin (NEGATIVE) Urine Urobilinogen (0-1) mg/dL Urine Leukocytes (NEGATIVE) Urine WBC (Auto) (0-5) /HPF Urine RBC (Auto) (0-2) /HPF U Hyaline Cast (Auto) (0-2) /LPF U Epithel Cells (Auto) (FEW) /HPF Urine Bacteria (Auto) (NEGATIVE) /HPF Urine RBC (0-5) Mateo/ul Urine Mucus (Auto) (NEGATIVE) /HPF Ur Culture Indicated? Urine Glucose (NEGATIVE) mg/dL Urine HCG, Qual (Negative) Urine Opiates Level (NEGATIVE) Ur Methadone (NEGATIVE) Urine Barbiturates (NEGATIVE) Ur Phencyclidine (PCP) (NEGATIVE) Urine Amphetamine (NEGATIVE) U Benzodiazepine Level (NEGATIVE) Urine Cocaine (NEGATIVE) Urine Marijuana (THC) (NEGATIVE) Influenza Type A Ag (NEGATIVE) Influenza Type B Ag (NEGATIVE) RSV (PCR) (Negative) SARS-CoV-2 (PCR) (NEGATIVE) 05/24/22 05/24/22 05/24/22 Range/Units 05:14 06:48 07:55 WBC (4.0-10.5) x10^3/uL RBC (4.1-5.4) x10^6/uL Hgb (12.0-16.0) g/dL Hct (35-47) % MCV (78-100) fL MCH (26-32) pg MCHC (32-36) g/dL RDW (11.5-14.0) % Plt Count (150-450) x10^3/uL MPV (7.5-11.0) fL Gran % (36.0-66.0) % Immature Gran % (Auto) (0.00-0.4) % Nucleat RBC Rel Count (0.00-0.1) % Eos # (Auto) (0-0.5) x10^3/uL Immature Gran # (Auto) (0.00-0.03) x10^3u/L Absolute Lymphs (auto) (1.0-4.6) x10^3/uL Absolute Monos (auto) (0.0-1.3) x10^3/uL Absolute Nucleated RBC (0.00-0.01) x10^3u/L Lymphocytes % (24.0-44.0) % Monocytes % (0.0-12.0) % Eosinophils % (0.00-5.0) % Basophils % (0.0-0.4) % Absolute Granulocytes (1.4-6.9) x10^3/uL Basophils # (0-0.4) x10^3/uL PT (9.4-12.5) SECONDS INR (0.8-3.0) Sodium 139 (137-145) mmol/L Potassium 3.4 L (3.5-5.1) mmol/L Chloride 111 H (98-107) mmol/L Carbon Dioxide 20 L (22-30) mmol/L Anion Gap 11.4 (5-15) MEQ/L BUN 6 L (7-17) mg/dL Creatinine 0.56 (0.52-1.04) mg/dL Estimated GFR > 60.0 ML/MIN Glucose 100 (74-106) mg/dL POC Glucometer 102 (74 to 106) mg/dL Hemoglobin A1c 4.62 (4.5-6.0) % Lactic Acid (0.4-2.0) Calcium 8.7 (8.4-10.2) mg/dL Total Bilirubin 1.30 (0.2-1.3) mg/dL AST 17 (14-36) U/L ALT 18 (0-35) U/L Alkaline Phosphatase 78 (38-126) U/L Serum Total Protein 6.5 (6.3-8.2) g/dL Albumin 3.9 (3.5-5.0) g/dL Amylase (30-110) U/L Lipase (23-300) U/L Urinalys Dipstick Clnc Urine Color (YELLOW) Urine Appearance (CLEAR) Urine pH (5-6) Ur Specific [place] (1.005-1.025) POC Urine Protein Conf (Negative) Urine Ketones (NEGATIVE) Urine Nitrite (NEGATIVE) Urine Bilirubin (NEGATIVE) Urine Urobilinogen (0-1) mg/dL Urine Leukocytes (NEGATIVE) Urine WBC (Auto) (0-5) /HPF Urine RBC (Auto) (0-2) /HPF U Hyaline Cast (Auto) (0-2) /LPF U Epithel Cells (Auto) (FEW) /HPF Urine Bacteria (Auto) (NEGATIVE) /HPF Urine RBC (0-5) Mateo/ul Urine Mucus (Auto) (NEGATIVE) /HPF Ur Culture Indicated? Urine Glucose (NEGATIVE) mg/dL Urine HCG, Qual (Negative) Urine Opiates Level (NEGATIVE) Ur Methadone (NEGATIVE) Urine Barbiturates (NEGATIVE) Ur Phencyclidine (PCP) (NEGATIVE) Urine Amphetamine (NEGATIVE) U Benzodiazepine Level (NEGATIVE) Urine Cocaine (NEGATIVE) Urine Marijuana (THC) (NEGATIVE) Influenza Type A Ag (NEGATIVE) Influenza Type B Ag (NEGATIVE) RSV (PCR) (Negative) SARS-CoV-2 (PCR) (NEGATIVE) Radiology Exams: Radiology Procedures Category Date Time Status ABDOMEN AND PELVIS W/0 CONTRAS [CT] Stat Exams 05/23/22 11:53 Completed CHEST 1 VIEW (PORTABLE) Stat Exams 05/23/22 11:53 Completed Multi-Disciplinary Progress Notes: Multi-Disciplinary Progress Notes 05/24/22 07:35 Respiratory Note by [place] Discussed patient's medication-Breo with the patient and informed her we could substitute with our formulary substitution or she could have family bring in from home and patient states she will have her mother bring it in. Instructed patient to let nursing know when Breo is brought in so they can inform RT and have Pharmacy check it. Initialized on 05/24/22 07:35 - END OF NOTE Assessment/Plan (1) Dehydration Current Visit: Yes Status: Acute Assessment & Plan: much improved Code(s): E86.0 - DEHYDRATION (2) Anuria Current Visit: Yes Status: Acute Assessment & Plan: pre-renal vs post renal. I think likely there is some urinary retention - bladder scan stat, if not able to accomodate that would anchor a catheter. Code(s): R34 - ANURIA AND OLIGURIA (3) Abdominal pain Current Visit: No Status: Acute Qualifiers: Abdominal location: lower abdomen, unspecified Qualified Code(s): R10.30 - Lower abdominal pain, unspecified Assessment & Plan: acute on chronic. could be related to bladder. The difficulty is that she has chronic abdominal pain (?Crohn's disease) and needs to be seeing GI. Code(s): R10.9 - UNSPECIFIED ABDOMINAL PAIN (4) Anxiety Current Visit: No Status: Chronic Code(s): F41.9 - ANXIETY DISORDER, UNSPECIFIED (5) UTI (urinary tract infection) Current Visit: No Status: Ruled-out Qualifiers: Urinary tract infection type: acute cystitis Hematuria presence: without hematuria Qualified Code(s): N30.00 - Acute cystitis without hematuria Assessment & Plan: the UA for which she was given antibiotics had a culture that was basically negative. Code(s): N39.0 - URINARY TRACT INFECTION, SITE NOT SPECIFIED (6) Vomiting Current Visit: No Status: Acute Qualifiers: Vomiting type: unspecified Nausea presence: with nausea Qualified Code(s): R11.2 - Nausea with vomiting, unspecified Code(s): R11.10 - VOMITING, UNSPECIFIED
[2022-05-24 09:48] LABS: Appearance SLIGHTLY CLOUDY (CLEAR); Glucose NEGATIVE (NEGATIVE)
[2022-05-24 09:49] LABS: Bilirubin SMALL (NEGATIVE); Dipstick done @ ? MAIN LAB; Ketones LARGE-80 (NEGATIVE); Nitrite NEGATIVE (NEGATIVE); Ph 5.5 (5-6); Protein,Urine Dip 100 (Negative); RBC TRACE NON-HEM Ery/ul (0-5); Specific Gravity >=1.030 (1.005-1.025); Urobilinogen 0.2 mg/dL (0-1)
[2022-05-24 09:50] LABS: Bacteria RARE /HPF (NEGATIVE); Mucus SLIGHT /HPF (NEGATIVE); RBC 0-2 /HPF (0-2); Urine Cultured Indicated? YES
[2022-05-24] MEDS ORDERED: NON-FORMULARY ITEM (Fluticasone/Vilanterol [Breo Ellipta 100-25 Mcg Inh] 1 EACH Blst.W.Dev IH SCH (10:00)
[2022-05-24] MEDS ORDERED: Levofloxacin 500MG/100ML D5W 500 MG/100 ML BAG IV SCH (10:00)
[2022-05-24] MEDS: CLARITIN 10 MG PO SCH (10:46)
[2022-05-24] MEDS: ATARAX 25 MG PO SCH ×4 (10:46→22:23)
[2022-05-24] MEDS: Levofloxacin 500MG/100ML D5W 500 MG/100 ML BAG IV SCH (10:46)
[2022-05-24] MEDS: FLUZONE QUAD 2022-2023 SYRINGE IM ONE (12:34)
[2022-05-24] MEDS: SYNTHROID 100 MCG PO SCH (16:35)
[2022-05-24] MEDS: Phenergan 25 MG INJ*** 25 MG in Sodium Chloride 0.9% 100 ML IV PRN (17:21)
[2022-05-25] MEDS: Phenergan 25 MG INJ*** 25 MG in Sodium Chloride 0.9% 100 ML IV PRN (03:24)
[2022-05-25] MEDS: Dextrose 5%-Lr IV Solution 1000 ML 1,000 ML IV SCH ×2 (04:33→23:45)
[2022-05-25 07:47] LABS: Absolute Neutrophil Ct (ANC) 3.69 x10^3/uL (1.4-6.9); Basophil (Absolute #) 0.04 x10^3/uL (0-0.4); Eosinophil (Absolute #) 0.32 x10^3/uL (0-0.5); Hematocrit 37.4 % (35-47); Hemoglobin 13.1 g/dL (12.0-16.0); Lymphocyte (Absolute #) 3.17 x10^3/uL (1.0-4.6); Lymphocytes % 39.8 % (24.0-44.0); Mean Cell Volume 85.8 fL (78-100); Mean Platelet Volume 9.6 fL (7.5-11.0); Monocyte (Absolute #) 0.72 x10^3/uL (0.0-1.3); Neutrophil % 46.4 % (36.0-66.0); Platelet Count 264 x10^3/uL (150-450); Red Blood Count 4.36 x10^6/uL (4.1-5.4); Red Cell Distribution Width 12.9 % (11.5-14.0)
[2022-05-25] MEDS: Reglan 10 MG/2 ML IV SCH ×4 (08:00→22:32)
--- NOTE | 2022-05-25 08:45 | PCM.NOTE ---
Date and Time: 05/25/22 08 Subjective Assessment: patient states she remains nauseated and complains of low abd pain and vaginal pain. states she has sharp pains intermittently and manipulating her barton caused her to scream in pain. Objective Exam General Appearance: no apparent distress, alert Respiratory Exam: normal breath sounds, lungs clear, No respiratory distress Cardiovascular Exam: regular rate/rhythm, normal heart sounds Gastrointestinal/Abdomen Exam: soft, tenderness (low abd, LLQ), No guarding, No rebound Extremity Exam: normal inspection, normal range of motion OBJECTIVE DATA Vital Signs: Vital Signs - 24 hr Temp Pulse Resp BP Pulse Ox 05/25/22 08:05 62 16 98 05/25/22 07:29 97.5 F 59 L 16 117/73 99 05/25/22 03:36 97.7 F 58 L 18 121/84 100 05/25/22 00:00 73 25 H 05/24/22 19:59 55 L 16 98 05/24/22 19:48 97.1 F 58 L 16 120/74 100 05/24/22 16:00 98.2 F 75 16 120/75 100 05/24/22 11:38 98.3 F 50 L 18 136/77 100 Pain Assessment - Last Documented Pain Intensity 6 Intake and Output: Intake & Output 05/22/22 05/23/22 05/24/22 05/25/22 11:59 11:59 11:59 11:59 Intake Total 191 3851 Output Total 1550 Balance 191 2301 Weight 77.6 kg 80 kg 79.9 kg Lab Results: Lab Results-Last 24 Hours 05/24/22 05/24/22 05/24/22 Range/Units 09:35 11:17 16:34 WBC (4.0-10.5) x10^3/uL RBC (4.1-5.4) x10^6/uL Hgb (12.0-16.0) g/dL Hct (35-47) % MCV (78-100) fL MCH (26-32) pg MCHC (32-36) g/dL RDW (11.5-14.0) % Plt Count (150-450) x10^3/uL MPV (7.5-11.0) fL Gran % (36.0-66.0) % Immature Gran % (Auto) (0.00-0.4) % Nucleat RBC Rel Count (0.00-0.1) % Eos # (Auto) (0-0.5) x10^3/uL Immature Gran # (Auto) (0.00-0.03) x10^3u/L Absolute Lymphs (auto) (1.0-4.6) x10^3/uL Absolute Monos (auto) (0.0-1.3) x10^3/uL Absolute Nucleated RBC (0.00-0.01) x10^3u/L Lymphocytes % (24.0-44.0) % Monocytes % (0.0-12.0) % Eosinophils % (0.00-5.0) % Basophils % (0.0-0.4) % Absolute Granulocytes (1.4-6.9) x10^3/uL Basophils # (0-0.4) x10^3/uL POC Glucometer 97 94 (74 to 106) mg/dL Urinalys Dipstick Clnc MAIN LAB Urine Color YELLOW (YELLOW) Urine Appearance SLIGHTLY CLOUDY (CLEAR) Urine pH 5.5 (5-6) Ur Specific Thatcher >=1.030 (1.005-1.025) POC Urine Protein Conf 100 (Negative) Urine Ketones LARGE-80 (NEGATIVE) Urine Nitrite NEGATIVE (NEGATIVE) Urine Bilirubin SMALL (NEGATIVE) Urine Urobilinogen 0.2 (0-1) mg/dL Urine Leukocytes NEGATIVE (NEGATIVE) Urine WBC (Auto) 3-5 (0-5) /HPF Urine RBC (Auto) 0-2 (0-2) /HPF U Epithel Cells (Auto) NONE (FEW) /HPF Urine Bacteria (Auto) RARE (NEGATIVE) /HPF Urine RBC TRACE NON-HEM (0-5) Mateo/ul Urine Mucus (Auto) SLIGHT (NEGATIVE) /HPF Ur Culture Indicated? YES Urine Glucose NEGATIVE (NEGATIVE) mg/dL 05/24/22 05/25/22 05/25/22 Range/Units 20:39 06:45 07:35 WBC 8.0 (4.0-10.5) x10^3/uL RBC 4.36 (4.1-5.4) x10^6/uL Hgb 13.1 (12.0-16.0) g/dL Hct 37.4 (35-47) % MCV 85.8 (78-100) fL MCH 30.0 (26-32) pg MCHC 35.0 (32-36) g/dL RDW 12.9 (11.5-14.0) % Plt Count 264 (150-450) x10^3/uL MPV 9.6 (7.5-11.0) fL Gran % 46.4 (36.0-66.0) % Immature Gran % (Auto) 0.3 (0.00-0.4) % Nucleat RBC Rel Count 0.0 (0.00-0.1) % Eos # (Auto) 0.32 (0-0.5) x10^3/uL Immature Gran # (Auto) 0.02 (0.00-0.03) x10^3u/L Absolute Lymphs (auto) 3.17 (1.0-4.6) x10^3/uL Absolute Monos (auto) 0.72 (0.0-1.3) x10^3/uL Absolute Nucleated RBC 0.00 (0.00-0.01) x10^3u/L Lymphocytes % 39.8 (24.0-44.0) % Monocytes % 9.0 (0.0-12.0) % Eosinophils % 4.0 (0.00-5.0) % Basophils % 0.5 (0.0-0.4) % Absolute Granulocytes 3.69 (1.4-6.9) x10^3/uL Basophils # 0.04 (0-0.4) x10^3/uL POC Glucometer 90 91 (74 to 106) mg/dL Urinalys Dipstick Clnc Urine Color (YELLOW) Urine Appearance (CLEAR) Urine pH (5-6) Ur Specific Thatcher (1.005-1.025) POC Urine Protein Conf (Negative) Urine Ketones (NEGATIVE) Urine Nitrite (NEGATIVE) Urine Bilirubin (NEGATIVE) Urine Urobilinogen (0-1) mg/dL Urine Leukocytes (NEGATIVE) Urine WBC (Auto) (0-5) /HPF Urine RBC (Auto) (0-2) /HPF U Epithel Cells (Auto) (FEW) /HPF Urine Bacteria (Auto) (NEGATIVE) /HPF Urine RBC (0-5) Mateo/ul Urine Mucus (Auto) (NEGATIVE) /HPF Ur Culture Indicated? Urine Glucose (NEGATIVE) mg/dL Radiology Exams: Radiology Procedures Category Date Time Status ABDOMEN AND PELVIS W/0 CONTRAS [CT] Stat Exams 05/23/22 11:53 Completed CHEST 1 VIEW (PORTABLE) Stat Exams 05/23/22 11:53 Completed Assessment/Plan (1) Dehydration Current Visit: Yes Status: Acute Assessment & Plan: rehydrated, suspect a component of cyclical vomiting syndrome based on +THC on urine drug screen and normal labs and negative ct abd/pel Code(s): E86.0 - DEHYDRATION (2) Abdominal pain Current Visit: No Status: Acute Qualifiers: Abdominal location: lower abdomen, unspecified Qualified Code(s): R10.30 - Lower abdominal pain, unspecified Assessment & Plan: currently appears related to barton, will d/c her barton at this time. recommend a post-void residual bladder scan. likely she was profoundly dehydrated so lack of urine output was delayed due to this level of dehydration. Code(s): R10.9 - UNSPECIFIED ABDOMINAL PAIN (3) Nausea and vomiting Current Visit: No Status: Acute Assessment & Plan: currently resolved Code(s): R11.2 - NAUSEA WITH VOMITING, UNSPECIFIED
[2022-05-25] MEDS: CLARITIN 10 MG PO SCH (09:29)
[2022-05-25] MEDS: Levofloxacin 500MG/100ML D5W 500 MG/100 ML BAG IV SCH (09:29)
[2022-05-25] MEDS: SYNTHROID 100 MCG PO SCH (09:29)
[2022-05-25] MEDS: ATARAX 25 MG PO SCH ×5 (09:29→22:33)
[2022-05-25] MEDS: SUBLIMAZE 100 MCG/2 ML IV PRN ×2 (11:40→15:40)
[2022-05-25] MEDS: PATIENT OWN MEDICATION IH SCH (11:46)
--- NOTE | 2022-05-25 13:52 | XRAY ---
Indication: Urinary bladder retention. Status post Aiken catheter removal. Ultrasound of the urinary bladder demonstrates normal distention without focal bladder mass or wall thickening. Normal bilateral ureteral jets. Prevoid volume is 156 cc. Postvoid volume is 175 cc as the patient was unable to void. Impression: Negative bladder sonogram. Patient unable to void, explaining increased post void volume.
[2022-05-25 13:57] LABS: ALBUMIN 3.6 g/dL (3.5-5.0); ALKALINE PHOSPHATASE 76 U/L (38-126); ANION GAP 9.8 MEQ/L (5-15); CHLORIDE 114 mmol/L (98-107); Carbon Dioxide 21 mmol/L (22-30); Creatinine 1 0.58 mg/dL (0.52-1.04); EST GLOMERULAR FILTRATION RATE > 60.0 ML/MIN; Glucose 92 mg/dL (74-106); SGOT/AST 14 U/L (14-36); SGPT/ALT 16 U/L (0-35); SODIUM 141 mmol/L (137-145); Total Protein 6.2 g/dL (6.3-8.2)
[2022-05-25 14:50] LABS: BLOOD UREA NITROGEN 2 mg/dL (7-17)
[2022-05-25] MEDS: K-LYTE PO ONE ×2 (15:40→16:03)
[2022-05-25] MEDS ORDERED: Klor Con PO ONE (15:54)
[2022-05-25] MEDS: PHENERGAN 25 MG PO PRN (20:53)
[2022-05-25] MEDS ORDERED: Klor Con PO SCH (22:00)
[2022-05-25] MEDS: Ativan 20 MG/10 ML MDV IV PRN (22:32)
[2022-05-25] MEDS: Klor Con PO SCH (22:33)
[2022-05-26 04:59] LABS: Absolute Neutrophil Ct (ANC) 2.71 x10^3/uL (1.4-6.9); Basophil (Absolute #) 0.03 x10^3/uL (0-0.4); Eosinophil % 4.6 % (0.00-5.0); Eosinophil (Absolute #) 0.29 x10^3/uL (0-0.5); Hematocrit 38.4 % (35-47); Hemoglobin 12.9 g/dL (12.0-16.0); Lymphocyte (Absolute #) 2.78 x10^3/uL (1.0-4.6); Lymphocytes % 43.9 % (24.0-44.0); Mean Cell Volume 87.9 fL (78-100); Mean Corpuscular Hemoglobin 29.5 pg (26-32); Mean Corpuscular Hgb Concent. 33.6 g/dL (32-36); Mean Platelet Volume 9.8 fL (7.5-11.0); Monocyte (Absolute #) 0.51 x10^3/uL (0.0-1.3); Monocytes % 8.1 % (0.0-12.0); Neutrophil % 42.7 % (36.0-66.0); Platelet Count 256 x10^3/uL (150-450); Red Blood Count 4.37 x10^6/uL (4.1-5.4); White Blood Count 6.3 x10^3/uL (4.0-10.5)
[2022-05-26 05:35] LABS: ALBUMIN 3.7 g/dL (3.5-5.0); ALKALINE PHOSPHATASE 72 U/L (38-126); ANION GAP 10.7 MEQ/L (5-15); CHLORIDE 108 mmol/L (98-107); Carbon Dioxide 25 mmol/L (22-30); Creatinine 1 0.55 mg/dL (0.52-1.04); EST GLOMERULAR FILTRATION RATE > 60.0 ML/MIN; Glucose 95 mg/dL (74-106); MAGNESIUM 1.7 mg/dL (1.6-2.3); Potassium 3.1 mmol/L (3.5-5.1); SGOT/AST 16 U/L (14-36); SGPT/ALT 17 U/L (0-35); SODIUM 141 mmol/L (137-145); Total Protein 6.2 g/dL (6.3-8.2)
[2022-05-26 05:58] LABS: BLOOD UREA NITROGEN < 2 mg/dL (7-17)
[2022-05-26] MEDS: Reglan 10 MG/2 ML IV SCH ×5 (07:35→21:14)
[2022-05-26] MEDS: SUBLIMAZE 100 MCG/2 ML IV PRN ×2 (07:35→19:46)
[2022-05-26] MEDS: Dextrose 5%-Lr IV Solution 1000 ML 1,000 ML IV SCH ×2 (07:35→18:39)
[2022-05-26] MEDS: Phenergan 25 MG INJ*** 25 MG in Sodium Chloride 0.9% 100 ML IV PRN (07:53)
[2022-05-26] MEDS: SYNTHROID 100 MCG PO SCH (09:35)
--- NOTE | 2022-05-26 09:38 | PCM.NOTE ---
Date and Time: 05/26/22934 Subjective Assessment: patient is voiding now that barton is out. she was sleeping upon my arrival. still c/o nausea, states she was unable to keep down jello. taking sips of water with meds. no other po intake. Objective Exam General Appearance: no apparent distress Neurologic Exam: alert, oriented x 3 Respiratory Exam: normal breath sounds, lungs clear, No respiratory distress Cardiovascular Exam: regular rate/rhythm, normal heart sounds Gastrointestinal/Abdomen Exam: soft, tenderness (lower abdomen), No distention, No guarding, No rebound Extremity Exam: normal inspection, normal range of motion OBJECTIVE DATA Vital Signs: Vital Signs - 24 hr Temp Pulse Resp BP Pulse Ox 05/26/22 08:00 98 F 98 H 13 99 05/26/22 03:38 97.7 F 70 16 111/62 99 05/25/22 23:34 97.5 F 67 16 119/71 98 05/25/22 20:03 61 16 95 05/25/22 20:00 97.8 F 65 19 119/64 98 05/25/22 16:00 97.5 F 73 16 126/71 98 05/25/22 11:43 97.3 F 74 16 121/82 96 05/25/22 11:05 62 16 98 Pain Assessment - Last Documented Pain Intensity 8 Pain Scale Used 0-10 Pain Scale Intake and Output: Intake & Output 05/23/22 05/24/22 05/25/22 05/26/22 11:59 11:59 11:59 11:59 Intake Total 1915 3851 3209 Output Total 2049 190 Balance 1915 1801 1309 Weight 77.6 kg 80 kg 79.9 kg Lab Results: Lab Results-Last 24 Hours 05/25/22 05/25/22 05/25/22 Range/Units 07:35 11:21 16:04 WBC (4.0-10.5) x10^3/uL RBC (4.1-5.4) x10^6/uL Hgb (12.0-16.0) g/dL Hct (35-47) % MCV (78-100) fL MCH (26-32) pg MCHC (32-36) g/dL RDW (11.5-14.0) % Plt Count (150-450) x10^3/uL MPV (7.5-11.0) fL Gran % (36.0-66.0) % Immature Gran % (Auto) (0.00-0.4) % Nucleat RBC Rel Count (0.00-0.1) % Eos # (Auto) (0-0.5) x10^3/uL Immature Gran # (Auto) (0.00-0.03) x10^3u/L Absolute Lymphs (auto) (1.0-4.6) x10^3/uL Absolute Monos (auto) (0.0-1.3) x10^3/uL Absolute Nucleated RBC (0.00-0.01) x10^3u/L Lymphocytes % (24.0-44.0) % Monocytes % (0.0-12.0) % Eosinophils % (0.00-5.0) % Basophils % (0.0-0.4) % Absolute Granulocytes (1.4-6.9) x10^3/uL Basophils # (0-0.4) x10^3/uL Sodium 141 (137-145) mmol/L Potassium 3.0 L* (3.5-5.1) mmol/L Chloride 114 H (98-107) mmol/L Carbon Dioxide 21 L (22-30) mmol/L Anion Gap 9.8 (5-15) MEQ/L BUN 2 L (7-17) mg/dL Creatinine 0.58 (0.52-1.04) mg/dL Estimated GFR > 60.0 ML/MIN Glucose 92 (74-106) mg/dL POC Glucometer 88 85 (74 to 106) mg/dL Calcium 9.0 (8.4-10.2) mg/dL Magnesium (1.6-2.3) mg/dL Total Bilirubin 1.10 (0.2-1.3) mg/dL AST 14 (14-36) U/L ALT 16 (0-35) U/L Alkaline Phosphatase 76 (38-126) U/L Serum Total Protein 6.2 L (6.3-8.2) g/dL Albumin 3.6 (3.5-5.0) g/dL 05/25/22 05/26/22 05/26/22 Range/Units 20:45 04:25 04:25 WBC 6.3 (4.0-10.5) x10^3/uL RBC 4.37 (4.1-5.4) x10^6/uL Hgb 12.9 (12.0-16.0) g/dL Hct 38.4 (35-47) % MCV 87.9 (78-100) fL MCH 29.5 (26-32) pg MCHC 33.6 (32-36) g/dL RDW 13.0 (11.5-14.0) % Plt Count 256 (150-450) x10^3/uL MPV 9.8 (7.5-11.0) fL Gran % 42.7 (36.0-66.0) % Immature Gran % (Auto) 0.2 (0.00-0.4) % Nucleat RBC Rel Count 0.0 (0.00-0.1) % Eos # (Auto) 0.29 (0-0.5) x10^3/uL Immature Gran # (Auto) 0.01 (0.00-0.03) x10^3u/L Absolute Lymphs (auto) 2.78 (1.0-4.6) x10^3/uL Absolute Monos (auto) 0.51 (0.0-1.3) x10^3/uL Absolute Nucleated RBC 0.00 (0.00-0.01) x10^3u/L Lymphocytes % 43.9 (24.0-44.0) % Monocytes % 8.1 (0.0-12.0) % Eosinophils % 4.6 (0.00-5.0) % Basophils % 0.5 (0.0-0.4) % Absolute Granulocytes 2.71 (1.4-6.9) x10^3/uL Basophils # 0.03 (0-0.4) x10^3/uL Sodium 141 (137-145) mmol/L Potassium 3.1 L (3.5-5.1) mmol/L Chloride 108 H (98-107) mmol/L Carbon Dioxide 25 (22-30) mmol/L Anion Gap 10.7 (5-15) MEQ/L BUN < 2 L (7-17) mg/dL Creatinine 0.55 (0.52-1.04) mg/dL Estimated GFR > 60.0 ML/MIN Glucose 95 (74-106) mg/dL POC Glucometer 90 (74 to 106) mg/dL Calcium 9.0 (8.4-10.2) mg/dL Magnesium 1.7 (1.6-2.3) mg/dL Total Bilirubin 1.00 (0.2-1.3) mg/dL AST 16 (14-36) U/L ALT 17 (0-35) U/L Alkaline Phosphatase 72 (38-126) U/L Serum Total Protein 6.2 L (6.3-8.2) g/dL Albumin 3.7 (3.5-5.0) g/dL 05/26/22 Range/Units 08:03 WBC (4.0-10.5) x10^3/uL RBC (4.1-5.4) x10^6/uL Hgb (12.0-16.0) g/dL Hct (35-47) % MCV (78-100) fL MCH (26-32) pg MCHC (32-36) g/dL RDW (11.5-14.0) % Plt Count (150-450) x10^3/uL MPV (7.5-11.0) fL Gran % (36.0-66.0) % Immature Gran % (Auto) (0.00-0.4) % Nucleat RBC Rel Count (0.00-0.1) % Eos # (Auto) (0-0.5) x10^3/uL Immature Gran # (Auto) (0.00-0.03) x10^3u/L Absolute Lymphs (auto) (1.0-4.6) x10^3/uL Absolute Monos (auto) (0.0-1.3) x10^3/uL Absolute Nucleated RBC (0.00-0.01) x10^3u/L Lymphocytes % (24.0-44.0) % Monocytes % (0.0-12.0) % Eosinophils % (0.00-5.0) % Basophils % (0.0-0.4) % Absolute Granulocytes (1.4-6.9) x10^3/uL Basophils # (0-0.4) x10^3/uL Sodium (137-145) mmol/L Potassium (3.5-5.1) mmol/L Chloride (98-107) mmol/L Carbon Dioxide (22-30) mmol/L Anion Gap (5-15) MEQ/L BUN (7-17) mg/dL Creatinine (0.52-1.04) mg/dL Estimated GFR ML/MIN Glucose (74-106) mg/dL POC Glucometer 83 (74 to 106) mg/dL Calcium (8.4-10.2) mg/dL Magnesium (1.6-2.3) mg/dL Total Bilirubin (0.2-1.3) mg/dL AST (14-36) U/L ALT (0-35) U/L Alkaline Phosphatase (38-126) U/L Serum Total Protein (6.3-8.2) g/dL Albumin (3.5-5.0) g/dL Radiology Exams: Radiology Procedures Category Date Time Status BLADDER [US] Routine Exams 05/25/22 13:34 Completed Multi-Disciplinary Progress Notes: Multi-Disciplinary Progress Notes 05/25/22 10:47 Case Management Note by Tish Rodríguez REVIEWED CHART- NO CHANGE IN DC PLANS AT THIS TIME Initialized on 05/25/22 10:47 - END OF NOTE Assessment/Plan (1) Gastroparesis Current Visit: Yes Status: Acute Assessment & Plan: sees GI at [facility], discussed possibly seeing motility clinic at after discharge. Code(s): K31.84 - GASTROPARESIS (2) Nausea and vomiting Current Visit: No Status: Acute Assessment & Plan: will attemp to advance to a bland diet. seems improved with reglan and phenergan. Code(s): R11.2 - NAUSEA WITH VOMITING, UNSPECIFIED (3) Dehydration Current Visit: Yes Status: Acute Code(s): E86.0 - DEHYDRATION (4) Abdominal pain Current Visit: No Status: Acute Qualifiers: Abdominal location: lower abdomen, unspecified Qualified Code(s): R10.30 - Lower abdominal pain, unspecified Code(s): R10.9 - UNSPECIFIED ABDOMINAL PAIN
[2022-05-26] MEDS: Levofloxacin 500MG/100ML D5W 500 MG/100 ML BAG IV SCH (09:50)
[2022-05-26] MEDS: PATIENT OWN MEDICATION IH SCH ×2 (09:58→10:43)
[2022-05-26] MEDS: ATARAX 25 MG PO SCH ×4 (09:58→21:14)
[2022-05-26] MEDS: Klor Con PO SCH ×2 (09:59→21:14)
[2022-05-26] MEDS: CLARITIN 10 MG PO SCH (09:59)
[2022-05-26] MEDS: PHENERGAN 25 MG PO PRN (19:47)
[2022-05-27] MEDS: Dextrose 5%-Lr IV Solution 1000 ML 1,000 ML IV SCH (04:18)
[2022-05-27] MEDS: PHENERGAN 25 MG PO PRN (04:38)
[2022-05-27 06:03] LABS: Absolute Neutrophil Ct (ANC) 3.08 x10^3/uL (1.4-6.9); Basophil (Absolute #) 0.04 x10^3/uL (0-0.4); Eosinophil % 3.7 % (0.00-5.0); Eosinophil (Absolute #) 0.25 x10^3/uL (0-0.5); Hematocrit 41.1 % (35-47); Hemoglobin 13.6 g/dL (12.0-16.0); Lymphocyte (Absolute #) 2.75 x10^3/uL (1.0-4.6); Lymphocytes % 41.2 % (24.0-44.0); Mean Cell Volume 89.7 fL (78-100); Mean Corpuscular Hemoglobin 29.7 pg (26-32); Mean Corpuscular Hgb Concent. 33.1 g/dL (32-36); Mean Platelet Volume 9.6 fL (7.5-11.0); Monocyte (Absolute #) 0.55 x10^3/uL (0.0-1.3); Monocytes % 8.2 % (0.0-12.0); Neutrophil % 46.2 % (36.0-66.0); Platelet Count 252 x10^3/uL (150-450); Red Blood Count 4.58 x10^6/uL (4.1-5.4); Red Cell Distribution Width 13.1 % (11.5-14.0); White Blood Count 6.7 x10^3/uL (4.0-10.5)
[2022-05-27 06:18] LABS: ANION GAP 11.8 MEQ/L (5-15); CHLORIDE 107 mmol/L (98-107); Calcium 9.4 mg/dL (8.4-10.2); Carbon Dioxide 26 mmol/L (22-30); Creatinine 1 0.62 mg/dL (0.52-1.04); EST GLOMERULAR FILTRATION RATE > 60.0 ML/MIN; Glucose 94 mg/dL (74-106); Potassium 3.2 mmol/L (3.5-5.1); SODIUM 142 mmol/L (137-145)
[2022-05-27 06:20] LABS: BLOOD UREA NITROGEN < 2 mg/dL (7-17)
[2022-05-27] MEDS: PATIENT OWN MEDICATION IH SCH (07:42)
[2022-05-27 07:45] VITALS: O2SAT 98
--- NOTE | 2022-05-27 07:48 | PCM.DS ---
Discharge Summary Date of Admission: 05/23/22 14:30 Admitting Physician: HALLIE GRACE Primary Care Provider: HALLIE GRACE Allergies Allergies hydromorphone HCl [From Dilaudid] Allergy (Severe, Verified 05/23/22 15:02) Hives Severe itching with hives penicillin G Allergy (Mild, Verified 05/23/22 15:02) Swelling diphenhydramine HCl [From Benadryl] Adverse Reaction (Mild, Verified 05/23/22 15:02) "crazy behavior" pertussis vaccine,adsorbed [Pertussis Vaccine,Adsorbed] Adverse Reaction (Verified 05/23/22 15:02) Swelling Hospital Summary - Hospital Course Hospital Course: patient admitted by Dr Gandara with persistent nausea and vomiting, abd pain. neg ative abd ct. she was profoundly dehydrated on admission with low bicarb. she is rehydrated and tolerating some po, sees GI at [facility] and reportedly dx with gastroparesis of unknown etiology. - Vitals & Intake/Output Vital Signs: Vital Signs Temperature 97.9 F 05/27/22 04:00 Pulse Rate 66 05/27/22 04:00 Respiratory Rate 16 05/27/22 04:00 Blood Pressure 132/80 05/27/22 04:00 O2 Sat by Pulse Oximetry 95 05/27/22 04:00 Intake & Output: Intake & Output 05/24/22 05/25/22 05/26/22 05/27/22 11:59 11:59 11:59 11:59 Intake Total 1916 3851 3209 2757 Output Total 0 2500 1650 Balance 6 5383 156 0742 Weight 80 kg 79.9 kg 80.1 kg - Lab Result Diagrams: 05/27/22 06:01 05/27/22 06:01 Lab Results-Last 24 Hrs: Lab Results-Last 24 Hours 05/26/22 05/26/22 05/26/22 Range/Units 08:03 12:00 17:17 WBC (4.0-10.5) x10^3/uL RBC (4.1-5.4) x10^6/uL Hgb (12.0-16.0) g/dL Hct (35-47) % MCV (78-100) fL MCH (26-32) pg MCHC (32-36) g/dL RDW (11.5-14.0) % Plt Count (150-450) x10^3/uL MPV (7.5-11.0) fL Gran % (36.0-66.0) % Immature Gran % (Auto) (0.00-0.4) % Nucleat RBC Rel Count (0.00-0.1) % Eos # (Auto) (0-0.5) x10^3/uL Immature Gran # (Auto) (0.00-0.03) x10^3u/L Absolute Lymphs (auto) (1.0-4.6) x10^3/uL Absolute Monos (auto) (0.0-1.3) x10^3/uL Absolute Nucleated RBC (0.00-0.01) x10^3u/L Lymphocytes % (24.0-44.0) % Monocytes % (0.0-12.0) % Eosinophils % (0.00-5.0) % Basophils % (0.0-0.4) % Absolute Granulocytes (1.4-6.9) x10^3/uL Basophils # (0-0.4) x10^3/uL Sodium (137-145) mmol/L Potassium (3.5-5.1) mmol/L Chloride (98-107) mmol/L Carbon Dioxide (22-30) mmol/L Anion Gap (5-15) MEQ/L BUN (7-17) mg/dL Creatinine (0.52-1.04) mg/dL Estimated GFR ML/MIN Glucose (74-106) mg/dL POC Glucometer 83 86 111 H (74 to 106) mg/dL Calcium (8.4-10.2) mg/dL 05/26/22 05/27/22 05/27/22 Range/Units 21:12 06:01 06:01 WBC 6.7 (4.0-10.5) x10^3/uL RBC 4.58 (4.1-5.4) x10^6/uL Hgb 13.6 (12.0-16.0) g/dL Hct 41.1 (35-47) % MCV 89.7 (78-100) fL MCH 29.7 (26-32) pg MCHC 33.1 (32-36) g/dL RDW 13.1 (11.5-14.0) % Plt Count 252 (150-450) x10^3/uL MPV 9.6 (7.5-11.0) fL Gran % 46.2 (36.0-66.0) % Immature Gran % (Auto) 0.1 (0.00-0.4) % Nucleat RBC Rel Count 0.0 (0.00-0.1) % Eos # (Auto) 0.25 (0-0.5) x10^3/uL Immature Gran # (Auto) 0.01 (0.00-0.03) x10^3u/L Absolute Lymphs (auto) 2.75 (1.0-4.6) x10^3/uL Absolute Monos (auto) 0.55 (0.0-1.3) x10^3/uL Absolute Nucleated RBC 0.00 (0.00-0.01) x10^3u/L Lymphocytes % 41.2 (24.0-44.0) % Monocytes % 8.2 (0.0-12.0) % Eosinophils % 3.7 (0.00-5.0) % Basophils % 0.6 (0.0-0.4) % Absolute Granulocytes 3.08 (1.4-6.9) x10^3/uL Basophils # 0.04 (0-0.4) x10^3/uL Sodium 142 (137-145) mmol/L Potassium 3.2 L (3.5-5.1) mmol/L Chloride 107 (98-107) mmol/L Carbon Dioxide 26 (22-30) mmol/L Anion Gap 11.8 (5-15) MEQ/L BUN < 2 L (7-17) mg/dL Creatinine 0.62 (0.52-1.04) mg/dL Estimated GFR > 60.0 ML/MIN Glucose 94 (74-106) mg/dL POC Glucometer 93 (74 to 106) mg/dL Calcium 9.4 (8.4-10.2) mg/dL Micro Results-Entire Visit: Microbiology 05/24/22 09:35 Urine Culture - Final Urine, Void NO GROWTH 05/23/22 12:03 Urine Culture - Final Urine, Void NO GROWTH 05/23/22 12:40 Blood Culture - Preliminary Blood NO GROWTH TO DATE 05/23/22 12:13 Blood Culture - Preliminary Blood NO GROWTH TO DATE Accuchecks Date 05/27/22 Date 05/25/22 Time 06:01 Time 22:00 - Radiology Exams Ordered Rad Exams-Entire Visit: Radiology Procedures Category Date Time Status BLADDER [US] Routine Exams 05/25/22 13:34 Completed - Procedures and Test Procedures and Tests throughout Hospitalization: Therapy Orders & Screens 05/23/22 19:43 Respiratory Therapy Assessment DAILY Comment: Diagnosis: DEHYDRATION 05/25/22 10:00 Respiratory MDI DAILY Comment: Diagnosis: DEHYDRATION Discharge Exam General Appearance: no apparent distress Neurologic Exam: alert, oriented x 3 Respiratory Exam: normal breath sounds, lungs clear, No respiratory distress Cardiovascular Exam: regular rate/rhythm, normal heart sounds Gastrointestinal/Abdomen Exam: soft, normal bowel sounds, No tenderness, No distention, No guarding, No rebound Skin Exam: normal color, warm, dry Final Diagnosis/Problem List - Final Discharge Diagnosis/Problem (1) Gastroparesis Current Visit: Yes Status: Acute Code(s): K31.84 - GASTROPARESIS (2) Nausea and vomiting Current Visit: No Status: Acute Code(s): R11.2 - NAUSEA WITH VOMITING, UNSPECIFIED (3) Dehydration Current Visit: Yes Status: Acute Code(s): E86.0 - DEHYDRATION (4) Abdominal pain Current Visit: No Status: Acute Code(s): R10.9 - UNSPECIFIED ABDOMINAL PAIN - Discharge Disposition: Home, Self-Care Condition: Good Prescriptions: New Promethazine HCl 25 mg [Phenergan 25 mg] 25 mg PO Q4H PRN PRN #30 tabl et PRN Reason: Nausea Promethazine HCl 25 mg RC Q6-8HPRN PRN #30 supp.rect PRN Reason: Nausea Metoclopramide HCl 5 mg [Reglan 5 MG] 5 mg PO ACHS #30 tablet Continue Hydroxyzine HCl 25 mg [Atarax 25 mg] 25 mg PO QID Levothyroxine Sodium [Euthyrox] 100 mcg PO DAILY Ergocalciferol (Vitamin D2) [Vitamin D2] 50 mcg PO UD Loratadine [Claritin] 10 mg PO DAILY Prazosin HCl 5 mg PO HS Metoprolol Succinate 25 mg Xl* [Toprol-Xl 25MG Tablets] 25 mg PO DAILY Lisinopril 20 mg [Zestril 20 MG] 20 mg PO DAILY Atorvastatin Calcium 20 mg PO DAILY Fluticasone/Vilanterol [Breo Ellipta 100-25 Mcg INH] 1 puff IH DAILY Follow up with: HALLIE GRACE [Primary Care Provider] - 1 Week
[2022-05-27 08:18] VITALS: BP 101/57; PULSE 59
[2022-05-27] MEDS: Reglan 10 MG/2 ML IV SCH (08:19)
[2022-05-27] MEDS: FLUZONE QUAD 2022-2023 SYRINGE IM ONE (09:15)
[2022-05-27] MEDS ORDERED: FLUZONE QUAD 2022-2023 SYRINGE IM ONE (09:15)
== END 2022-05-27 09:20 | disposition home or self-care (01) ==
LOC: ED 11:41 → MED SURG 14:30
PROVIDERS: ADMIT Family Medicine; ATTEND Family Medicine
DX: K31.84 Gastroparesis (principal); R11.2 Nausea with vomiting, unspecified; E86.0 Dehydration; R10.9 Unspecified abdominal pain; R34 Anuria and oliguria; F41.9 Anxiety disorder, unspecified; N39.0 Urinary tract infection, site not specified; R19.7 Diarrhea, unspecified; Z79.899 Other long term (current) drug therapy; Z20.828 Contact with and (suspected) exposure to other viral communicable diseases
CPT/HCPCS: 0241U; 36000; 36415; 71045; 74176; 76705; 80048; 80053; 80307; 81015; 81025; 82150; 82947; 83036; 83605; 83690; 83735; 85025; 85610; 87040; 87086; 93268; 94640; 94760; 96365; 96367; 96374; 99285; G0008; G0378; P9612; 90686; J1956; J2060; J2405; J2550; J3010; A9270-GY

== ENCOUNTER 2022-10-10 06:34 | Emergency (ER) | payer OTHER ==
[2022-10-10] MEDS ORDERED: Zofran 4 MG/2 ML VIAL IV ONE (07:38)
[2022-10-10] MEDS ORDERED: Sodium Chloride 0.9% 1000 ML 1,000 ML IV STA (07:38)
[2022-10-10] MEDS ORDERED: Ativan 2 MG/1 ML VIAL IV ONE (07:40)
--- NOTE | 2022-10-10 07:51 | ERPHSYRPT ---
- History of Present Illness Time Seen by Provider: 10/10/22 07:15 Source: patient Exam Limitations: no limitations Patient Subjective Stated Complaint: pt states she has been eating 4-8 oz if dark chocolate per day. states it is [employer] and found out la st night that they have a lawsuit against them for very high levels of lead. pt states she has the constant urge to sleep for last 1.5 weeks and for last few days has had abd pain, n/v, and joint pain, and headache. Triage Nursing Assessment: pt back to room per wheelchair. pt transfers to stretcher per self. answers questions approp. skin warm and dry. respirations nonlabored. abd soft and nontender with bowel soounds noted x4 quads. Physician History: This is a 21-year-old white female patient who presents to the emergency department concerned that she has lead poisoning. Patient history was obtained from the patient directly as well as review of the patient's inpatient record from her most recent visit into the hospital. Patient has a history of chronic recurring nausea vomiting, seizure disorder, anxiety issues, depression issues, PTSD, hypothyroidism, hypertension, hyperlipidemia. Patient states that approximately 1 month ago, with the permission of her primary prescribing provider, she stopped her lisinopril high blood pressure medication. She states she was doing fine being off of her blood pressure medication. Patient also states that she stopped her Lipitor. She is no longer taking this medication. When asked, she states that the only medication she is taking is her Breo Ellipta, hydroxyzine and levothyroxine. Approximately 10 days ago patient began eating [employer] chocolate candy bars which is 90% cocoa. She, a few days ago read that this medication has lead in it. Approximately 3 days after she began cons uming the candy bars on a daily basis, she began having symptoms of nausea vomiting muscle aches and "not feeling myself". Despite her knowledge that the candy bars contain the lead metal, she continued to eat the candy bars until last evening. Patient presents to the emergency department looking up at the ceiling with systolic blood pressure in the 150s and a heart rate ranging anywhere between 100- 130 bpm. Patient denies chest pain. She denies shortness of breath. She has no complaints of abdominal pain. She denies diarrhea. During the last 10 days she never sought medical evaluation by her primary care provider. Patient is aware that we will check for heavy metals but that is a s end out lab and that she will need to follow-up with her primary care provider on the results and the management will be determined at that point. Timing/Duration: day(s) (7) Severity: mild Associated Symptoms: nausea, vomiting, malaise, weakness, other, No shortness of breath, No chest pain (Joint pain) Allergies/Adverse Reactions: hydromorphone HCl [From Dilaudid] Allergy (Severe, Verified 10/10/22 07:05) Hives Severe itching with hives penicillin G Allergy (Mild, Verified 10/10/22 07:05) Swelling diphenhydramine HCl [From Benadryl] Adverse Reaction (Mild, Verified 10/10/22 07:05) "crazy behavior" pertussis vaccine,adsorbed [Pertussis Vaccine,Adsorbed] Adverse Reaction (Verified 10/10/22 07:05) Swelling Home Medications: Hydroxyzine HCl 25 mg [Atarax 25 mg] 25 mg PO QID 06/05/19 [History] Levothyroxine Sodium [Euthyrox] 100 mcg PO DAILY 12/24/20 [History] Fluticasone/Vilanterol [Breo Ellipta 100-25 Mcg INH] 1 puff IH DAILY 05/23/22 [History] Hx Tetanus, Diphtheria Vaccination/Date Given: Yes Hx Influenza Vaccination/Date Given: No Hx Pneumococcal Vaccination/Date Given: No Immunizations Up to Date: Yes Travel Risk - International Travel Have you traveled outside of the country in past 3 weeks: No - Coronavirus Screening Are you exhibiting any of the following symptoms?: Yes Symptoms: Vomiting/Diarrhea, Headaches/Body Aches/Fatigue Close contact with a COVID-19 positive Pt in past 14-21 Days: No - Vaccine Status Have you recieved a Covid-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: Yes Coding Compliance Manager: Moderna - Vaccination Dates Date of 2cond Vaccination (if applicable): 2020 - Review of Systems Constitutional: Fatigue, Weakness Eyes: No Symptoms Ears, Nose, & Throat: No Symptoms Respiratory: No Symptoms Cardiac: No Symptoms Abdominal/Gastrointestinal: No Symptoms Genitourinary Symptoms: No Symptoms Musculoskeletal: Arthralgias, Myalgias Skin: No Symptoms Neurological: No Symptoms Psychological: No Symptoms Endocrine: No Symptoms Hematologic/Lymphatic: No Symptoms Immunological/Allergic: No Symptoms All Other Systems: Reviewed and Negative - Past Medical History Pertinent Past Medical History: Yes Neurological History: Epilepsy, Seizures ENT History: No Pertinent History Cardiac History: High Cholesterol, Hypertension Respiratory History: Bronchitis, Pneumonia Endocrine Medical History: Hypothyroidism Musculoskeletal History: Osteoarthritis GI Medical History: Irritable Bowel History: No Pertinent History Psycho-Social History: Anxiety, Depression Female Reproductive Disorders: Endometriosis, Menstrual Problems Other Medical History: PMHX: ANXIETY, DEPRESSION, PTSD, IBS, ENDOMETRIOSIS AND MILD MITRAL VALVE PROLAPSE, GASTROPERISIS - Past Surgical History Past Surgical History: Yes Neuro Surgical History: No Pertinent History Cardiac: No Pertinent History Respiratory: No Pertinent History Gastrointestinal: No Pertinent History Genitourinary: No Pertinent History Musculoskeletal: No Pertinent History Female Surgical History: No Pertinent History Other Surgical History: EGD, Colonoscopy. HX [place] Teeth Removed. Endoscopy - Social History Smoking Status: Unknown if ever smoked Exposure to second hand smoke: Yes Drug Use: none Patient Lives Alone: No Significant Family History: no pertinent family hx - Female History Hx Last Menstrual Period: depo shot Hx Now: No - Nursing Vital Signs Nursing Vital Signs: Initial Vital Signs Temperature 99.0 F 10/10/22 06:51 Pulse Rate 120 H 10/10/22 06:51 Respiratory Rate 18 10/10/22 06:51 Blood Pressure 140/101 10/10/22 06:51 O2 Sat by Pulse Oximetry 97 10/10/22 06:51 Pain Scale Pain Intensity 4 - Physical Exam General Appearance: no apparent distress, alert Eye Exam: PERRL/EOMI, eyes nml inspection Ears, Nose, Throat Exam: normal ENT inspection, moist mucous membranes Neck Exam: normal inspection, non-tender, supple, full range of motion Respiratory Exam: normal breath sounds, lungs clear, airway intact, No chest tenderness, No respiratory distress Cardiovascular Exam: tachycardia Gastrointestinal/Abdomen Exam: soft, normal bowel sounds, No tenderness Pelvic Exam: not done Rectal Exam: not done Back Exam: normal inspection, normal range of motion, No CVA tenderness, No vertebral tenderness Extremity Exam: normal inspection, normal range of motion, pelvis stable Neurologic Exam: alert, oriented x 3, cooperative, prosthetic assistant II-XII nml as tested, normal mood/affect, nml cerebellar function, nml station & gait, sensation nml Skin Exam: normal color, warm, dry Lymphatic Exam: No adenopathy SpO2 Interpretation: normal SpO2: 97 O2 Delivery: Room Air - Course Nursing assessment & vital signs reviewed: Yes EKG Interpreted by Me: RATE (95), Sinus Rhythm, NORMAL AXIS, NORMAL INTERVALS, NORMAL QRS, NORMAL ST-T, Other (This twelve-lead EKG was interpreted by me. There are no acute ischemic changes on today's twelve-lead EKG.) Ordered Tests: Active Orders 24 hr Category Date Time Status EKG-ER Only STAT Care 10/10/22 07:36 Active IV Insertion STAT Care 10/10/22 07:36 Active BLOOD CULTURE Stat Lab 10/10/22 08:05 Received CBC W DIFF Stat Lab 10/10/22 08:15 Completed CMP Stat Lab 10/10/22 08:30 Completed HCG QUALITATIVE,SERUM Stat Lab 10/10/22 Completed Lactic Acid Stat Lab 10/10/22 07:36 Completed T4 (Thyroxine) Stat Lab 10/10/22 08:30 Completed TROPONIN Q4H Lab 10/10/22 08:30 Completed TROPONIN Q4H Lab 10/10/22 11:45 Ordered TROPONIN Q4H Lab 10/10/22 15:45 Ordered TSH, 3RD Generation Stat Lab 10/10/22 08:30 Completed UA W/RFX UR CULTURE Stat Lab 10/10/22 10:15 Completed Urine Triage Profile Stat Lab 10/10/22 10:15 Received Medication Summary Discontinued Medications Generic Name Dose Route Start Last Admin Trade Name Freq PRN Reason Stop Dose Admin Sodium Chloride 1,000 mls @ 999 mls/hr 10/10/22 07:38 10/10/22 09:54 Sodium Chloride 0.9% 1000 Ml IV 10/10/22 08:38 Infused .Q1H1M STA Infusion Sodium Chloride Confirm 10/10/22 08:05 Sodium Chloride 0.9% 1000 Ml Administered 10/10/22 08:06 Dose 1,000 mls @ ud .ROUTE .STK-MED ONE Lorazepam 0.5 mg 10/10/22 07:40 10/10/22 08:07 Lorazepam 2 Mg/1 Ml 2 Mg Vial IV 10/10/22 07:41 0.5 mg STAT ONE Administration Lorazepam Confirm 10/10/22 08:05 Lorazepam 2 Mg/1 Ml 2 Mg Vial Administered 10/10/22 08:06 Dose 2 mg .ROUTE .STK-MED ONE Ondansetron HCl 4 mg 10/10/22 07:38 10/10/22 08:06 Ondansetron Hcl 4 Mg/2 Ml Vial IV 10/10/22 07:39 4 mg STAT ONE Administration Ondansetron HCl Confirm 10/10/22 08:05 Ondansetron Hcl 4 Mg/2 Ml Vial Administered 10/10/22 08:06 Dose 4 mg .ROUTE .STK-MED ONE Lab/Rad Data: Laboratory Result Diagrams 10/10/22 08:15 10/10/22 08:30 Laboratory Results 10/10/22 10/10/22 10/10/22 Range/Units Unknown 10:15 08:30 WBC (4.0-10.5) x10^3/uL RBC (4.1-5.4) x10^6/uL Hgb (12.0-16.0) g/dL Hct (35-47) % MCV (78-100) fL MCH (26-32) pg MCHC (32-36) g/dL RDW (11.5-14.0) % Plt Count (150-450) x10^3/uL MPV (7.5-11.0) fL Gran % (36.0-66.0) % Immature Gran % (Auto) (0.00-0.4) % Nucleat RBC Rel Count (0.00-0.1) % Eos # (Auto) (0-0.5) x10^3/uL Immature Gran # (Auto) (0.00-0.03) x10^3u/L Absolute Lymphs (auto) (1.0-4.6) x10^3/uL Absolute Monos (auto) (0.0-1.3) x10^3/uL Absolute Nucleated RBC (0.00-0.01) x10^3u/L Lymphocytes % (24.0-44.0) % Monocytes % (0.0-12.0) % Eosinophils % (0.00-5.0) % Basophils % (0.0-0.4) % Absolute Granulocytes (1.4-6.9) x10^3/uL Basophils # (0-0.4) x10^3/uL Sodium (137-145) mmol/L Potassium (3.5-5.1) mmol/L Chloride (98-107) mmol/L Carbon Dioxide (22-30) mmol/L Anion Gap (5-15) MEQ/L BUN (7-17) mg/dL Creatinine (0.52-1.04) mg/dL Estimated GFR ML/MIN Glucose (74-106) mg/dL Lactic Acid (0.4-2.0) Calcium (8.4-10.2) mg/dL Total Bilirubin (0.2-1.3) mg/dL AST (14-36) U/L ALT (0-35) U/L Alkaline Phosphatase (38-126) U/L Troponin I (0.000-0.034) ng/mL Serum Total Protein (6.3-8.2) g/dL Albumin (3.5-5.0) g/dL Thyroxine (T4) (5.53-10.96) ug/dL TSH 3rd Generation (0.47-4.68) mIU/L Serum , Qual NEGATIVE (Negative) Urine Color Yellow (Yellow) Urine Appearance Clear (Clear) Urine pH 5.0 (4.6-8.0) Ur Specific Clio 1.015 (1.005-1.030) Urine Protein Negative (Negative) Urine Glucose (UA) Negative (Negative) mg/dL Urine Ketones 15 A (Negative) Urine Blood Negative (Negative) Urine Nitrite Negative (Negative) Urine Bilirubin Negative (Negative) Urine Urobilinogen 0.2 (0.2) mg/dL Ur Leukocyte Esterase Negative (Negative) U Hyaline Cast (Auto) NONE SEEN (0-2) /LPF Urine Microscopic RBC 0-2 (0-5) /HPF Urine Microscopic WBC 0-2 (0-5) /HPF Ur Epithelial Cells None Seen (None Seen) /HPF Urine Bacteria None Seen (None Seen) /HPF Urine Culture Reflexed NO (NO) Influenza Type A Ag NEGATIVE (NEGATIVE) Influenza Type B Ag NEGATIVE (NEGATIVE) RSV (PCR) NEGATIVE (Negative) SARS-CoV-2 (PCR) NEGATIVE (NEGATIVE) 10/10/22 10/10/22 10/10/22 Range/Units 08:30 08:30 08:15 WBC 10.7 H (4.0-10.5) x10^3/uL RBC 5.46 H (4.1-5.4) x10^6/uL Hgb 16.0 (12.0-16.0) g/dL Hct 46.6 (35-47) % MCV 85.3 (78-100) fL MCH 29.3 (26-32) pg MCHC 34.3 (32-36) g/dL RDW 13.0 (11.5-14.0) % Plt Count 353 (150-450) x10^3/uL MPV 9.2 (7.5-11.0) fL Gran % 66.2 H (36.0-66.0) % Immature Gran % (Auto) 0.3 (0.00-0.4) % Nucleat RBC Rel Count 0.0 (0.00-0.1) % Eos # (Auto) 0.10 (0-0.5) x10^3/uL Immature Gran # (Auto) 0.03 (0.00-0.03) x10^3u/L Absolute Lymphs (auto) 2.77 (1.0-4.6) x10^3/uL Absolute Monos (auto) 0.69 (0.0-1.3) x10^3/uL Absolute Nucleated RBC 0.00 (0.00-0.01) x10^3u/L Lymphocytes % 25.8 (24.0-44.0) % Monocytes % 6.4 (0.0-12.0) % Eosinophils % 0.9 (0.00-5.0) % Basophils % 0.4 (0.0-0.4) % Absolute Granulocytes 7.09 H (1.4-6.9) x10^3/uL Basophils # 0.04 (0-0.4) x10^3/uL Sodium 139 (137-145) mmol/L Potassium 3.4 L (3.5-5.1) mmol/L Chloride 109 H (98-107) mmol/L Carbon Dioxide 19 L (22-30) mmol/L Anion Gap 14.8 (5-15) MEQ/L BUN 5 L (7-17) mg/dL Creatinine 0.60 (0.52-1.04) mg/dL Estimated GFR > 60.0 ML/MIN Glucose 105 (74-106) mg/dL Lactic Acid (0.4-2.0) Calcium 9.2 (8.4-10.2) mg/dL Total Bilirubin 0.40 (0.2-1.3) mg/dL AST 21 (14-36) U/L ALT 21 (0-35) U/L Alkaline Phosphatase 91 (38-126) U/L Troponin I < 0.012 (0.000-0.034) ng/mL Serum Total Protein 7.9 (6.3-8.2) g/dL Albumin 4.8 (3.5-5.0) g/dL Thyroxine (T4) 9.68 (5.53-10.96) ug/dL TSH 3rd Generation 7.200 H (0.47-4.68) mIU/L Serum , Qual (Negative) Urine Color (Yellow) Urine Appearance (Clear) Urine pH (4.6-8.0) Ur Specific Clio (1.005-1.030) Urine Protein (Negative) Urine Glucose (UA) (Negative) mg/dL Urine Ketones (Negative) Urine Blood (Negative) Urine Nitrite (Negative) Urine Bilirubin (Negative) Urine Urobilinogen (0.2) mg/dL Ur Leukocyte Esterase (Negative) U Hyaline Cast (Auto) (0-2) /LPF Urine Microscopic RBC (0-5) /HPF Urine Microscopic WBC (0-5) /HPF Ur Epithelial Cells (None Seen) /HPF Urine Bacteria (None Seen) /HPF Urine Culture Reflexed (NO) Influenza Type A Ag (NEGATIVE) Influenza Type B Ag (NEGATIVE) RSV (PCR) (Negative) SARS-CoV-2 (PCR) (NEGATIVE) 10/10/22 Range/Units 07:36 WBC (4.0-10.5) x10^3/uL RBC (4.1-5.4) x10^6/uL Hgb (12.0-16.0) g/dL Hct (35-47) % MCV (78-100) fL MCH (26-32) pg MCHC (32-36) g/dL RDW (11.5-14.0) % Plt Count (150-450) x10^3/uL MPV (7.5-11.0) fL Gran % (36.0-66.0) % Immature Gran % (Auto) (0.00-0.4) % Nucleat RBC Rel Count (0.00-0.1) % Eos # (Auto) (0-0.5) x10^3/uL Immature Gran # (Auto) (0.00-0.03) x10^3u/L Absolute Lymphs (auto) (1.0-4.6) x10^3/uL Absolute Monos (auto) (0.0-1.3) x10^3/uL Absolute Nucleated RBC (0.00-0.01) x10^3u/L Lymphocytes % (24.0-44.0) % Monocytes % (0.0-12.0) % Eosinophils % (0.00-5.0) % Basophils % (0.0-0.4) % Absolute Granulocytes (1.4-6.9) x10^3/uL Basophils # (0-0.4) x10^3/uL Sodium (137-145) mmol/L Potassium (3.5-5.1) mmol/L Chloride (98-107) mmol/L Carbon Dioxide (22-30) mmol/L Anion Gap (5-15) MEQ/L BUN (7-17) mg/dL Creatinine (0.52-1.04) mg/dL Estimated GFR ML/MIN Glucose (74-106) mg/dL Lactic Acid 1.0 (0.4-2.0) Calcium (8.4-10.2) mg/dL Total Bilirubin (0.2-1.3) mg/dL AST (14-36) U/L ALT (0-35) U/L Alkaline Phosphatase (38-126) U/L Troponin I (0.000-0.034) ng/mL Serum Total Protein (6.3-8.2) g/dL Albumin (3.5-5.0) g/dL Thyroxine (T4) (5.53-10.96) ug/dL TSH 3rd Generation (0.47-4.68) mIU/L Serum , Qual (Negative) Urine Color (Yellow) Urine Appearance (Clear) Urine pH (4.6-8.0) Ur Specific Clio (1.005-1.030) Urine Protein (Negative) Urine Glucose (UA) (Negative) mg/dL Urine Ketones (Negative) Urine Blood (Negative) Urine Nitrite (Negative) Urine Bilirubin (Negative) Urine Urobilinogen (0.2) mg/dL Ur Leukocyte Esterase (Negative) U Hyaline Cast (Auto) (0-2) /LPF Urine Microscopic RBC (0-5) /HPF Urine Microscopic WBC (0-5) /HPF Ur Epithelial Cells (None Seen) /HPF Urine Bacteria (None Seen) /HPF Urine Culture Reflexed (NO) Influenza Type A Ag (NEGATIVE) Influenza Type B Ag (NEGATIVE) RSV (PCR) (Negative) SARS-CoV-2 (PCR) (NEGATIVE) - Progress Progress: improved, re-examined Progress Note: 10/10/22 11:07 Medical decision making: This patient's medical issues are of moderate complexity. This is based on the patient's multiple complaints as well as the medical history I reviewed,, the medication list and allergy list that I reviewed. In addition, I reviewed old inpatient medical records on this patient. The above information as well as findings on physical examination led me to order multiple tests including blood work, urinalysis, flu screen and ur ine drug triage. Based on the results of the blood work and urine studies, I had a lengthy discussion with the patient's primary care provider, Dr. Juliocesar Kelly. Together, we formulated a discharge plan including having the patient continue her medication as prescribed, stop eating the lint chocolate, call Dr. Juliocesar Kelly's office today to make arranges for follow-up appointment in order to follow-up with the heavy metal lab work that I ordered. The results of that study will not be back for approximately 1 week. I also sent a prescription for Zofran for this patient to her pharmacy 10/10/22 11:11 Discussed with : Allyssa Counseled pt/family regarding: lab results, diagnosis, need for follow-up - Departure Departure Disposition: Home Clinical Impression: Nausea & vomiting, Anxiety about health Condition: Stable Critical Care Time: No Referrals: HALLIE GRACE [Primary Care Provider] - Follow up/PCP as directed Additional Instructions: Drink plenty of fluids. Stop eating that brand of chocolate. Call Dr. Juliocesar Kelly's office today to make arranges for follow-up appointment to follow- up on the heavy metal lab that was obtained today. Continue all your other medications as prescribed.
[2022-10-10] MEDS ORDERED: Zofran 4 MG/2 ML VIAL ONE (08:05)
[2022-10-10] MEDS ORDERED: Sodium Chloride 0.9% 1000 ML 1,000 ML ONE (08:05)
[2022-10-10] MEDS ORDERED: Ativan 2 MG/1 ML VIAL ONE (08:05)
[2022-10-10 08:33] LABS: Absolute Neutrophil Ct (ANC) 7.09 x10^3/uL (1.4-6.9); BASOPHIL % 0.4 % (0.0-0.4); Basophil (Absolute #) 0.04 x10^3/uL (0-0.4); Eosinophil % 0.9 % (0.00-5.0); Hematocrit 46.6 % (35-47); IMMATURE GRAN # 0.03 x10^3u/L (0.00-0.03); IMMATURE GRAN % 0.3 % (0.00-0.4); Lymphocyte (Absolute #) 2.77 x10^3/uL (1.0-4.6); Lymphocytes % 25.8 % (24.0-44.0); Mean Cell Volume 85.3 fL (78-100); Mean Corpuscular Hemoglobin 29.3 pg (26-32); Mean Corpuscular Hgb Concent. 34.3 g/dL (32-36); Mean Platelet Volume 9.2 fL (7.5-11.0); Monocyte (Absolute #) 0.69 x10^3/uL (0.0-1.3); Monocytes % 6.4 % (0.0-12.0); Neutrophil % 66.2 % (36.0-66.0); Platelet Count 353 x10^3/uL (150-450); Red Blood Count 5.46 x10^6/uL (4.1-5.4); White Blood Count 10.7 x10^3/uL (4.0-10.5)
[2022-10-10 09:13] LABS: INFLUENZA A NEGATIVE (NEGATIVE); INFLUENZA B NEGATIVE (NEGATIVE); RESPIRATORY SYNCTIAL VIRUS NEGATIVE (Negative); SARS-CoV-2 Xpert Express NEGATIVE (NEGATIVE)
[2022-10-10 09:28] LABS: ALBUMIN 4.8 g/dL (3.5-5.0); ALKALINE PHOSPHATASE 91 U/L (38-126); ANION GAP 14.8 MEQ/L (5-15); BLOOD UREA NITROGEN 5 mg/dL (7-17); CHLORIDE 109 mmol/L (98-107); Calcium 9.2 mg/dL (8.4-10.2); Carbon Dioxide 19 mmol/L (22-30); EST GLOMERULAR FILTRATION RATE > 60.0 ML/MIN; Glucose 105 mg/dL (74-106); Potassium 3.4 mmol/L (3.5-5.1); SGOT/AST 21 U/L (14-36); SGPT/ALT 21 U/L (0-35); SODIUM 139 mmol/L (137-145); T4 (Thyroxine) 9.68 ug/dL (5.53-10.96); Total Protein 7.9 g/dL (6.3-8.2)
[2022-10-10 11:30] LABS: Appearance Clear (Clear); Bacteria None Seen /HPF (None Seen); Bilirubin Negative (Negative); Blood Negative (Negative); Epithelial Cells None Seen /HPF (None Seen); Glucose, Urine Negative (Negative); Hyaline Casts NONE SEEN /LPF (0-2); Ketones 15 (Negative); Leukocyte Esterase Negative (Negative); Nitrite Negative (Negative); Protein,Urine Dip Negative (Negative); RBC 0-2 /HPF (0-5); Specific Gravity 1.015 (1.005-1.030); Urobilinogen 0.2 mg/dL (0.2); WBC 0-2 /HPF (0-5)
[2022-10-10 11:46] LABS: ADD URINE CULTURE? NO (NO)
[2022-10-10 11:50] LABS: Amphetamine,Urine NEGATIVE (NEGATIVE); Barbiturate,Urine NEGATIVE (NEGATIVE); Benzodiazepine,Urine NEGATIVE (NEGATIVE); Cocaine,Urine NEGATIVE (NEGATIVE); Methadone,Urine NEGATIVE (NEGATIVE); Opiate,Urine NEGATIVE (NEGATIVE); PCP,Urine NEGATIVE (NEGATIVE); THC,Urine POSITIVE (NEGATIVE)
[2022-10-10 12:02] VITALS: BP 138/76; PULSE 88; O2SAT 98
[2022-10-12 15:17] LABS: Arsenic, Blood 1 ug/L (0-9); Lead, Blood <1.0 ug/dL (0.0-3.4)
[2022-10-12 15:18] LABS: Cadmium, Blood <0.5 ug/L (0.0-1.2); Mercury, Blood <1.0 ug/L (0.0-14.9)
== END 2022-10-10 12:02 | disposition home or self-care (01) ==
LOC: ED 06:34
DX: R11.2 Nausea with vomiting, unspecified (principal); F45.9 Somatoform disorder, unspecified; M79.10 Myalgia, unspecified site; I10 Essential (primary) hypertension; E78.5 Hyperlipidemia, unspecified; Z79.899 Other long term (current) drug therapy
CPT/HCPCS: 0241U; 36000; 36415; 80053; 80307; 81001; 82175; 82300; 83605; 83655; 83825; 84436; 84443; 84484; 84703; 85025; 87040; 93005; 96360; 96374; 96375; 99284; J2060; J2405

== ENCOUNTER 2023-01-31 01:25 | Emergency (ER) | payer OTHER ==
--- NOTE | 2023-01-31 02:13 | ERPHSYRPT ---
- History of Present Illness Time Seen by Provider: 01/31/23 01:55 Patient Subjective Stated Complaint: pt states she took a whole bag of "delta gummies". states they were 600mg per gummy and there were 10 in the bag. denies trying to hurt herself. states she just forgot what kind of gummies they were and ate all of them. Triage Nursing Assessment: pt in per wheelchair and transfers to stretcher with assist of 1. pt cooperative at this time. respirations nonlabored with lungs cta. skin warm and dry. pt tearful andanxious during exam. pt denies trying to hurt herself and states that taking more than 1 was an accident Physician History: This is a 22-year-old white female patient who was eating delta Gummies and forgot what kind of Gummies they were and ate the whole small bag of them. Poison control was notified. We obtain recommendations from them. The patient denies being suicidal and homicidal. It is purely an accident. She simply forgot what kind of gummy she was eating. Patient is tearful and anxious. Timing/Duration: today Severity of Symptoms-Max: mild (To moderate) Severity of Symptoms-Current: mild Context related to: other (Accidental) Suicidal thoughts: accidental Associated Symptoms: anxiety, other (Tearful), No suicidal ideation Previous symptoms: no prior history, no recent treatment Allergies/Adverse Reactions: hydromorphone HCl [From Dilaudid] Allergy (Severe, Verified 01/31/23 01:35) Hives Severe itching with hives penicillin G Allergy (Mild, Verified 01/31/23 01:35) Swelling diphenhydramine HCl [From Benadryl] Adverse Reaction (Mild, Verified 01/31/23 01:35) "crazy behavior" pertussis vaccine,adsorbed [Pertussis Vaccine,Adsorbed] Adverse Reaction (Verified 01/31/23 01:35) Swelling Home Medications: Hydroxyzine HCl 25 mg [Atarax 25 mg] 25 mg PO QID 06/05/19 [History] Levothyroxine Sodium [Euthyrox] 100 mcg PO DAILY 12/24/20 [History] Hx Tetanus, Diphtheria Vaccination/Date Given: No Hx Influenza Vaccination/Date Given: No Hx Pneumococcal Vaccination/Date Given: No Travel Risk - International Travel Have you traveled outside of the country in past 3 weeks: No - Coronavirus Screening Are you exhibiting any of the following symptoms?: No Close contact with a COVID-19 positive Pt in past 14-21 Days: No - Vaccine Status Have you recieved a Covid-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: Yes 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 - Vaccination Dates Date of 2cond Vaccination (if applicable): 2020 - Past Medical History Pertinent Past Medical History: Yes Neurological History: Seizures ENT History: No Pertinent History Cardiac History: High Cholesterol, Hypertension Respiratory History: Bronchitis, Pneumonia Endocrine Medical History: Hypothyroidism Musculoskeletal History: Osteoarthritis GI Medical History: Irritable Bowel History: No Pertinent History Psycho-Social History: Anxiety, Depression Female Reproductive Disorders: Endometriosis, Menstrual Problems Other Medical History: PMHX: ANXIETY, DEPRESSION, PTSD, IBS, ENDOMETRIOSIS AND MILD MITRAL VALVE PROLAPSE, GASTROPERISIS. pt states stress related seizures - Past Surgical History Past Surgical History: Yes Neuro Surgical History: No Pertinent History Cardiac: No Pertinent History Respiratory: No Pertinent History Gastrointestinal: No Pertinent History Genitourinary: No Pertinent History Musculoskeletal: No Pertinent History Female Surgical History: No Pertinent History Other Surgical History: EGD, Colonoscopy. HX [place] Teeth Removed. Endoscopy - Social History Smoking Status: Never smoker Exposure to second hand smoke: Yes Drug Use: marijuana Patient Lives Alone: No Significant Family History: no pertinent family hx - Female History Hx Last Menstrual Period: depo shot Hx Now: No - Review of Systems Constitutional: No Symptoms Eyes: No Symptoms Ears, Nose, & Throat: No Symptoms Respiratory: No Symptoms Cardiac: No Symptoms Abdominal/Gastrointestinal: No Symptoms Genitourinary Symptoms: No Symptoms Musculoskeletal: No Symptoms Skin: No Symptoms Neurological: No Symptoms Psychological: Anxiety, Other (Tearful) Endocrine: No Symptoms Hematologic/Lymphatic: No Symptoms Immunological/Allergic: No Symptoms All Other Systems: Reviewed and Negative - Nursing Vital Signs Nursing Vital Signs: Initial Vital Signs Temperature 97.2 F 01/31/23 01:34 Pulse Rate 78 01/31/23 01:34 Respiratory Rate 18 01/31/23 01:34 Blood Pressure 167/123 01/31/23 01:34 O2 Sat by Pulse Oximetry 97 01/31/23 01:34 Pain Scale Pain Intensity 0 - Physical Exam General Appearance: no apparent distress, alert, anxiety Eyes, Ears, Nose, Throat Exam: normal ENT inspection, moist mucous membranes Neck Exam: normal inspection, non-tender, supple, full range of motion Respiratory Exam: airway intact, No chest tenderness, No respiratory distress Cardiovascular Exam: regular rate/rhythm, normal heart sounds, normal peripheral pulses Gastrointestinal/Abdominal Exam: soft, normal bowel sounds, No tenderness Extremities Exam: normal inspection, normal range of motion, No evidence of injury Current Suicidality: denies suicide plan Neurological 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, 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, oriented x 3, anxious Appearance: appropriate appearance, appropriate insight Behavior/Eye Contact/Speech: alert & cooperative, cooperative, good eye contact Thoughts/Hallucinations: normal thought pattern, no apparent hallucination Skin Exam: normal color, warm, dry SpO2 Interpretation: normal SpO2: 97 O2 Delivery: Room Air - Course Nursing assessment & vital signs reviewed: Yes EKG Interpreted by Me: RATE, Sinus Rhythm, NORMAL AXIS, NORMAL INTERVALS, NORMAL QRS, NORMAL ST-T, Other (No acute ischemic changes on today's twelve-lead EKG.) Ordered Tests: Active Orders 24 hr Category Date Time Status ACETAMINOPHEN Stat Lab 01/31/23 02:22 Completed CBC W DIFF Stat Lab 01/31/23 02:22 Completed CMP Stat Lab 01/31/23 02:22 Completed CULTURE,URINE Stat Lab 01/31/23 02:42 Received HCG QUALITATIVE, URINE Stat Lab 01/31/23 02:44 Completed SALICYLATE Stat Lab 01/31/23 02:22 Completed UA W/RFX UR CULTURE Stat Lab 01/31/23 02:42 Completed Medication Summary Generic Name Dose Route Start Last Admin Trade Name Freq PRN Reason Stop Dose Admin Ceftriaxone Sodium 1,000 mg 01/31/23 03:31 Ceftriaxone Sodium 1000 Mg Inj Vial IM 01/31/23 03:32 STAT ONE Ondansetron HCl 4 mg 01/31/23 03:31 Zofran 4 Mg/Udtablet Orally Disintegrating PO 01/31/23 03:32 STAT ONE Lab/Rad Data: Laboratory Result Diagrams 01/31/23 02:22 01/31/23 02:22 Laboratory Results 01/31/23 01/31/23 01/31/23 Range/Units 02:44 02:42 02:22 WBC (4.0-10.5) x10^3/uL RBC (4.1-5.4) x10^6/uL Hgb (12.0-16.0) g/dL Hct (35-47) % MCV (78-100) fL MCH (26-32) pg MCHC (32-36) g/dL RDW (11.5-14.0) % Plt Count (150-450) x10^3/uL MPV (7.5-11.0) fL Gran % (36.0-66.0) % Immature Gran % (Auto) (0.00-0.4) % Nucleat RBC Rel Count (0.00-0.1) % Eos # (Auto) (0-0.5) x10^3/uL Immature Gran # (Auto) (0.00-0.03) x10^3u/L Absolute Lymphs (auto) (1.0-4.6) x10^3/uL Absolute Monos (auto) (0.0-1.3) x10^3/uL Absolute Nucleated RBC (0.00-0.01) x10^3u/L Lymphocytes % (24.0-44.0) % Monocytes % (0.0-12.0) % Eosinophils % (0.00-5.0) % Basophils % (0.0-0.4) % Absolute Granulocytes (1.4-6.9) x10^3/uL Basophils # (0-0.4) x10^3/uL Sodium (137-145) mmol/L Potassium (3.5-5.1) mmol/L Chloride (98-107) mmol/L Carbon Dioxide (22-30) mmol/L Anion Gap (5-15) MEQ/L BUN (7-17) mg/dL Creatinine (0.52-1.04) mg/dL Estimated GFR ML/MIN Glucose (74-106) mg/dL Calcium (8.4-10.2) mg/dL Total Bilirubin (0.2-1.3) mg/dL AST (14-36) U/L ALT (0-35) U/L Alkaline Phosphatase (38-126) U/L Serum Total Protein (6.3-8.2) g/dL Albumin (3.5-5.0) g/dL Urine Color Dark Yellow A (Yellow) Urine Appearance Clear (Clear) Urine pH 6.0 (4.6-8.0) Ur Specific [place] >=1.030 A (1.005-1.030) Urine Protein 30 (Negative) Urine Glucose (UA) Negative (Negative) mg/dL Urine Ketones 80 A (Negative) Urine Blood Negative (Negative) Urine Nitrite Negative (Negative) Urine Bilirubin Negative (Negative) Urine Urobilinogen 1.0 A (0.2) mg/dL Ur Leukocyte Esterase Small A (Negative) U Hyaline Cast (Auto) NONE SEEN (0-2) /LPF Urine Microscopic RBC 3-5 (0-5) /HPF Urine Microscopic WBC 21-50 A (0-5) /HPF Ur Epithelial Cells Rare (None Seen) /HPF Urine Bacteria Few A (None Seen) /HPF Urine Culture Reflexed YES (NO) Urine HCG, Qual NEGATIVE (NEGATIVE) Salicylates < 1.0 L (2-20) mg/dL Acetaminophen < 10 L (10-30) ug/ml 01/31/23 01/31/23 Range/Units 02:22 02:22 WBC 8.8 (4.0-10.5) x10^3/uL RBC 4.86 (4.1-5.4) x10^6/uL Hgb 14.3 (12.0-16.0) g/dL Hct 42.8 (35-47) % MCV 88.1 (78-100) fL MCH 29.4 (26-32) pg MCHC 33.4 (32-36) g/dL RDW 12.5 (11.5-14.0) % Plt Count 295 (150-450) x10^3/uL MPV 9.1 (7.5-11.0) fL Gran % 74.0 H (36.0-66.0) % Immature Gran % (Auto) 0.2 (0.00-0.4) % Nucleat RBC Rel Count 0.0 (0.00-0.1) % Eos # (Auto) 0.07 (0-0.5) x10^3/uL Immature Gran # (Auto) 0.02 (0.00-0.03) x10^3u/L Absolute Lymphs (auto) 1.56 (1.0-4.6) x10^3/uL Absolute Monos (auto) 0.60 (0.0-1.3) x10^3/uL Absolute Nucleated RBC 0.00 (0.00-0.01) x10^3u/L Lymphocytes % 17.7 L (24.0-44.0) % Monocytes % 6.8 (0.0-12.0) % Eosinophils % 0.8 (0.00-5.0) % Basophils % 0.5 (0.0-0.4) % Absolute Granulocytes 6.53 (1.4-6.9) x10^3/uL Basophils # 0.04 (0-0.4) x10^3/uL Sodium 141 (137-145) mmol/L Potassium 3.6 (3.5-5.1) mmol/L Chloride 105 (98-107) mmol/L Carbon Dioxide 22 (22-30) mmol/L Anion Gap 17.2 H (5-15) MEQ/L BUN 8 (7-17) mg/dL Creatinine 0.68 (0.52-1.04) mg/dL Estimated GFR > 60.0 ML/MIN Glucose 104 (74-106) mg/dL Calcium 9.4 (8.4-10.2) mg/dL Total Bilirubin 1.00 (0.2-1.3) mg/dL AST 22 (14-36) U/L ALT 23 (0-35) U/L Alkaline Phosphatase 94 (38-126) U/L Serum Total Protein 8.1 (6.3-8.2) g/dL Albumin 4.8 (3.5-5.0) g/dL Urine Color (Yellow) Urine Appearance (Clear) Urine pH (4.6-8.0) Ur Specific [place] (1.005-1.030) Urine Protein (Negative) Urine Glucose (UA) (Negative) mg/dL Urine Ketones (Negative) Urine Blood (Negative) Urine Nitrite (Negative) Urine Bilirubin (Negative) Urine Urobilinogen (0.2) mg/dL Ur Leukocyte Esterase (Negative) U Hyaline Cast (Auto) (0-2) /LPF Urine Microscopic RBC (0-5) /HPF Urine Microscopic WBC (0-5) /HPF Ur Epithelial Cells (None Seen) /HPF Urine Bacteria (None Seen) /HPF Urine Culture Reflexed (NO) Urine HCG, Qual (NEGATIVE) Salicylates (2-20) mg/dL Acetaminophen (10-30) ug/ml - Progress Progress: improved Progress Note: 01/31/23 02:39 Patient's medical issue is 1 of moderate complexity. The level of complexity in the work-up performed and is based on review of the patient's past medical history, review of the patient's medication list, review of the patient's drug allergy list, history of present illness and physical findings on examination. We also contacted Poison Control Center who recommended observation until the patient is back to her baseline. We ordered a CBC, CMP, urinalysis, urine test and performed a twelve-lead EKG. We are awaiting the results. Patient has a urinary tract infection. She has not had any vomiting but she has nausea. 01/31/23 03:32 We will provide her with Rocephin 1 g intramuscularly and Zofran ODT. We will discharge her to home with a prescription for Bactrim DS antibiotic and Zofran ODT Counseled pt/family regarding: lab results, diagnosis, need for follow-up Medical Desision Making - Diagnostic Testing Diagnostic test were ordered, analyzed, and reviewed by me: Yes - Risk of complications The pt has a mod risk of morbidity or mortality based on: Need for prescription drug management - Departure Departure Disposition: Home Clinical Impression: Accidental ingestion of substance, UTI (urinary tract infection) Condition: Stable Critical Care Time: No Referrals: HALLIE GRACE [Primary Care Provider] - Follow up/PCP as directed Additional Instructions: Drink plenty of water. Do not advance your diet until you are drink clean water and clear liquids well. Take your antibiotics and use your Zofran as prescribed. Prescriptions: Ondansetron ODT 4 MG [Zofran Odt 4 mg] 4 mg PO Q6H PRN PRN #10 tablet PRN Reason: Vomiting Smz/Tmp Ds Tablet [Bactrim Ds Tablet] 1 udtab PO BID #14 tablet
[2023-01-31 02:24] LABS: Absolute Neutrophil Ct (ANC) 6.53 x10^3/uL (1.4-6.9); BASOPHIL % 0.5 % (0.0-0.4); Basophil (Absolute #) 0.04 x10^3/uL (0-0.4); Eosinophil % 0.8 % (0.00-5.0); Eosinophil (Absolute #) 0.07 x10^3/uL (0-0.5); Hematocrit 42.8 % (35-47); Hemoglobin 14.3 g/dL (12.0-16.0); IMMATURE GRAN # 0.02 x10^3u/L (0.00-0.03); IMMATURE GRAN % 0.2 % (0.00-0.4); Lymphocyte (Absolute #) 1.56 x10^3/uL (1.0-4.6); Lymphocytes % 17.7 % (24.0-44.0); Mean Cell Volume 88.1 fL (78-100); Mean Corpuscular Hemoglobin 29.4 pg (26-32); Mean Corpuscular Hgb Concent. 33.4 g/dL (32-36); Mean Platelet Volume 9.1 fL (7.5-11.0); Monocytes % 6.8 % (0.0-12.0); Platelet Count 295 x10^3/uL (150-450); Red Blood Count 4.86 x10^6/uL (4.1-5.4); Red Cell Distribution Width 12.5 % (11.5-14.0); White Blood Count 8.8 x10^3/uL (4.0-10.5)
[2023-01-31 02:39] LABS: ALBUMIN 4.8 g/dL (3.5-5.0); ALKALINE PHOSPHATASE 94 U/L (38-126); ANION GAP 17.2 MEQ/L (5-15); BLOOD UREA NITROGEN 8 mg/dL (7-17); CHLORIDE 105 mmol/L (98-107); Calcium 9.4 mg/dL (8.4-10.2); Carbon Dioxide 22 mmol/L (22-30); Creatinine 1 0.68 mg/dL (0.52-1.04); EST GLOMERULAR FILTRATION RATE > 60.0 ML/MIN; Glucose 104 mg/dL (74-106); Potassium 3.6 mmol/L (3.5-5.1); SGOT/AST 22 U/L (14-36); SGPT/ALT 23 U/L (0-35); SODIUM 141 mmol/L (137-145); Total Protein 8.1 g/dL (6.3-8.2)
[2023-01-31 02:45] LABS: ACETAMINOPHEN < 10 ug/ml (10-30); SALICYLATE < 1.0 mg/dL (2-20)
[2023-01-31 02:49] LABS: HCG URINE TEST NEGATIVE (NEGATIVE)
[2023-01-31 02:53] LABS: Appearance Clear (Clear); Bacteria Few /HPF (None Seen); Bilirubin Negative (Negative); Blood Negative (Negative); Epithelial Cells Rare /HPF (None Seen); Glucose, Urine Negative (Negative); Hyaline Casts NONE SEEN /LPF (0-2); Ketones 80 (Negative); Leukocyte Esterase Small (Negative); Nitrite Negative (Negative); Protein,Urine Dip 30 (Negative); Specific Gravity >=1.030 (1.005-1.030); WBC 21-50 /HPF (0-5)
[2023-01-31 02:57] LABS: ADD URINE CULTURE? YES (NO)
[2023-01-31] MEDS ORDERED: ZOFRAN ODT 4 MG PO ONE (03:31)
[2023-01-31] MEDS ORDERED: Rocephin 1000 MG INJ IM ONE (03:31)
[2023-01-31] MEDS ORDERED: ZOFRAN ODT 4 MG ONE (03:32)
[2023-01-31] MEDS ORDERED: Rocephin 1000 MG INJ ONE (03:41)
[2023-01-31] MEDS ORDERED: XYLOCAINE 1% HCL 20 ML MDV ONE (03:42)
[2023-01-31] MEDS ORDERED: Sodium Chloride 0.9% 1000 ML 1,000 ML IV STA (06:19)
[2023-01-31] MEDS ORDERED: Sodium Chloride 0.9% 1000 ML 1,000 ML ONE (06:20)
[2023-01-31 06:34] VITALS: O2SAT 98
[2023-01-31 07:29] VITALS: BP 133/95; PULSE 55
== END 2023-01-31 07:30 | disposition home or self-care (01) ==
LOC: ED 01:25
DX: T40.711A Poisoning by cannabis, accidental (unintentional), initial encounter (principal); R11.0 Nausea; N39.0 Urinary tract infection, site not specified; E78.5 Hyperlipidemia, unspecified; I10 Essential (primary) hypertension; Z79.899 Other long term (current) drug therapy
CPT/HCPCS: 36000; 36415; 80053; 80143; 80179; 81001; 81025; 85025; 87086; 96360; 96372; 99284; J0696; Q0162

== ENCOUNTER 2023-02-23 16:40 | Emergency (ER) | payer OTHER ==
[2023-02-23 17:03] VITALS: BP 132/102; PULSE 90; O2SAT 96
[2023-02-23] MEDS ORDERED: Sodium Chloride 0.9% 1000 ML 1,000 ML IV STA (17:05)
--- NOTE | 2023-02-23 17:18 | ERPHSYRPT ---
- History of Present Illness Time Seen by Provider: 02/23/23 16:46 Source: patient Patient Subjective Stated Complaint: Pt states that for 3 weeks her body has been numb and for the past 2 weeks her head has been numb too, states that she can feel when you touch her but it feels weird and like it's numb Triage Nursing Assessment: Pt was brought to the ER by her grandfather, miriam, denies pain at this time, pt was in this ER about 3 weeks ago for eating too many gummies and states that she has felt this way since, pulses normal, skin n/w/d, no difficulty breathing, doesn't appear to be in any distress Physician History: Patient states that she has been feeling off for approximately 3 weeks. 3 weeks ago patient was seen in this emergency department for taking too many delta 8 Gummies. States that she had a minor panic attack at that point time. Since that time she has felt like she is having an out of body experience. She feels "numb all over". States that she still feels touch, sensation, has intact motor function. However just feels "off". No fevers no chills, does not believe that she is . No other falls or trauma. Patient called her PCP but cannot be seen until March 05. Therefore comes into the emergency department today. She has not seen a neurologist or anyone else for this. Allergies/Adverse Reactions: hydromorphone HCl [From Dilaudid] Allergy (Severe, Verified 02/23/23 17:03) Hives Severe itching with hives penicillin G Allergy (Mild, Verified 02/23/23 17:03) Swelling diphenhydramine HCl [From Benadryl] Adverse Reaction (Mild, Verified 02/23/23 17:03) "crazy behavior" pertussis vaccine,adsorbed [Pertussis Vaccine,Adsorbed] Adverse Reaction (Verified 02/23/23 17:03) Swelling Home Medications: Levothyroxine Sodium [Euthyrox] 100 mcg PO DAILY 12/24/20 [History] Hx Tetanus, Diphtheria Vaccination/Date Given: No Hx Influenza Vaccination/Date Given: No Hx Pneumococcal Vaccination/Date Given: No Travel Risk - International Travel Have you traveled outside of the country in past 3 weeks: No - Coronavirus Screening Are you exhibiting any of the following symptoms?: No Close contact with a COVID-19 positive Pt in past 14-21 Days: No - Vaccine Status Have you recieved a Covid-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: 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 - Vaccination Dates Date of 2cond Vaccination (if applicable): 2020 - Review of Systems Constitutional: No Fever, No Chills Eyes: No Symptoms Ears, Nose, & Throat: No Symptoms Respiratory: No Cough, No Dyspnea Cardiac: No Chest Pain, No Edema, No Syncope Abdominal/Gastrointestinal: No Abdominal Pain, No Nausea, No Vomiting, No Mariel rrhea Genitourinary Symptoms: No Dysuria Musculoskeletal: No Back Pain, No Neck Pain Skin: No Rash Neurological: No Dizziness, No Focal Weakness, No Sensory Changes Psychological: No Symptoms Endocrine: No Symptoms All Other Systems: Reviewed and Negative - Past Medical History Pertinent Past Medical History: Yes Neurological History: Seizures ENT History: No Pertinent History Cardiac History: High Cholesterol, Hypertension Respiratory History: Bronchitis, Pneumonia Endocrine Medical History: Hypothyroidism Musculoskeletal History: Osteoarthritis GI Medical History: Irritable Bowel History: No Pertinent History Psycho-Social History: Anxiety, Depression Female Reproductive Disorders: Endometriosis, Menstrual Problems Other Medical History: PMHX: ANXIETY, DEPRESSION, PTSD, IBS, ENDOMETRIOSIS AND MILD MITRAL VALVE PROLAPSE, GASTROPERISIS. pt states stress related seizures - Past Surgical History Past Surgical History: Yes Neuro Surgical History: No Pertinent History Cardiac: No Pertinent History Respiratory: No Pertinent History Gastrointestinal: No Pertinent History Genitourinary: No Pertinent History Musculoskeletal: No Pertinent History Female Surgical History: No Pertinent History Other Surgical History: EGD, Colonoscopy. HX [place] Teeth Removed. Endoscopy - Social History Smoking Status: Never smoker Exposure to second hand smoke: Yes Drug Use: none Patient Lives Alone: No Significant Family History: no pertinent family hx - Female History Hx Now: No (depo) - Nursing Vital Signs Nursing Vital Signs: Initial Vital Signs Temperature 98.2 F 02/23/23 16:55 Pulse Rate 90 02/23/23 16:55 Blood Pressure 132/102 02/23/23 16:55 O2 Sat by Pulse Oximetry 96 02/23/23 16:55 Pain Scale Pain Intensity 0 - Physical Exam General Appearance: no apparent distress, alert Eye Exam: PERRL/EOMI, eyes nml inspection Ears, Nose, Throat Exam: normal ENT inspection, TMs normal, pharynx normal, moist mucous membranes Neck Exam: normal inspection, non-tender, supple, full range of motion Respiratory Exam: normal breath sounds, lungs clear, No respiratory distress Cardiovascular Exam: regular rate/rhythm, normal heart sounds, normal peripheral pulses Gastrointestinal/Abdomen Exam: soft, normal bowel sounds, No tenderness, No mass Back Exam: normal inspection, normal range of motion, No CVA tenderness, No vertebral tenderness Extremity Exam: normal inspection, normal range of motion, pelvis stable Neurologic Exam: alert, oriented x 3, cooperative, normal mood/affect, nml cerebellar function, nml station & gait, sensation nml, No motor deficits Skin Exam: normal color, warm, dry, No rash Lymphatic Exam: No adenopathy SpO2: 96 - Course Nursing assessment & vital signs reviewed: Yes EKG Interpreted by Me: Sinus Rhythm Ordered Tests: Active Orders 24 hr Category Date Time Status EKG-ER Only STAT Care 02/23/23 17:05 Active IV Insertion STAT Care 02/23/23 17:05 Active CBC W DIFF Stat Lab 02/23/23 17:25 Completed CMP Stat Lab 02/23/23 17:25 Completed HCG QUALITATIVE, SERUM Stat Lab 02/23/23 17:25 Completed LIPASE Stat Lab 02/23/23 17:25 Completed UA W/RFX UR CULTURE Stat Lab 02/23/23 17:14 Completed Medication Summary Discontinued Medications Generic Name Dose Route Start Last Admin Trade Name Annabel PRN Reason Stop Dose Admin Sodium Chloride 1,000 mls @ 999 mls/hr 02/23/23 17:05 02/23/23 17:31 Sodium Chloride 0.9% 1000 Ml IV 02/23/23 18:05 999 mls/hr .Q1H1M STA Administration Sodium Chloride Confirm 02/23/23 17:30 Sodium Chloride 0.9% 1000 Ml Administered 02/23/23 17:31 Dose 1,000 mls @ ud .ROUTE .STK-MED ONE Lab/Rad Data: Laboratory Result Diagrams 02/23/23 17:25 02/23/23 17:25 Laboratory Results 02/23/23 02/23/23 02/23/23 Range/Units 17:25 17:25 17:25 WBC 8.3 (4.0-10.5) x10^3/uL RBC 5.07 (4.1-5.4) x10^6/uL Hgb 14.8 (12.0-16.0) g/dL Hct 44.6 (35-47) % MCV 88.0 (78-100) fL MCH 29.2 (26-32) pg MCHC 33.2 (32-36) g/dL RDW 12.9 (11.5-14.0) % Plt Count 307 (150-450) x10^3/uL MPV 9.6 (7.5-11.0) fL Gran % 60.8 (36.0-66.0) % Immature Gran % (Auto) 0.2 (0.00-0.4) % Nucleat RBC Rel Count 0.0 (0.00-0.1) % Eos # (Auto) 0.12 (0-0.5) x10^3/uL Immature Gran # (Auto) 0.02 (0.00-0.03) x10^3u/L Absolute Lymphs (auto) 2.44 (1.0-4.6) x10^3/uL Absolute Monos (auto) 0.63 (0.0-1.3) x10^3/uL Absolute Nucleated RBC 0.00 (0.00-0.01) x10^3u/L Lymphocytes % 29.5 (24.0-44.0) % Monocytes % 7.6 (0.0-12.0) % Eosinophils % 1.5 (0.00-5.0) % Basophils % 0.4 (0.0-0.4) % Absolute Granulocytes 5.02 (1.4-6.9) x10^3/uL Basophils # 0.03 (0-0.4) x10^3/uL Sodium 143 (137-145) mmol/L Potassium 3.6 (3.5-5.1) mmol/L Chloride 106 (98-107) mmol/L Carbon Dioxide 24 (22-30) mmol/L Anion Gap 17.1 H (5-15) MEQ/L BUN 10 (7-17) mg/dL Creatinine 0.72 (0.52-1.04) mg/dL Estimated GFR > 60.0 ML/MIN Glucose 96 (74-106) mg/dL Calcium 9.3 (8.4-10.2) mg/dL Total Bilirubin 0.50 (0.2-1.3) mg/dL AST 21 (14-36) U/L ALT 21 (0-35) U/L Alkaline Phosphatase 73 (38-126) U/L Serum Total Protein 8.0 (6.3-8.2) g/dL Albumin 4.7 (3.5-5.0) g/dL Lipase 143 (23-300) U/L Serum HCG, Qual NEGATIVE (NEGATIVE) Urine Color (Yellow) Urine Appearance (Clear) Urine pH (4.6-8.0) Ur Specific [place] (1.005-1.030) Urine Protein (Negative) Urine Glucose (UA) (Negative) mg/dL Urine Ketones (Negative) Urine Blood (Negative) Urine Nitrite (Negative) Urine Bilirubin (Negative) Urine Urobilinogen (0.2) mg/dL Ur Leukocyte Esterase (Negative) U Hyaline Cast (Auto) (0-2) /LPF Urine Microscopic RBC (0-5) /HPF Urine Microscopic WBC (0-5) /HPF Ur Epithelial Cells (None Seen) /HPF Urine Bacteria (None Seen) /HPF Urine Culture Reflexed (NO) 02/23/23 Range/Units 17:14 WBC (4.0-10.5) x10^3/uL RBC (4.1-5.4) x10^6/uL Hgb (12.0-16.0) g/dL Hct (35-47) % MCV (78-100) fL MCH (26-32) pg MCHC (32-36) g/dL RDW (11.5-14.0) % Plt Count (150-450) x10^3/uL MPV (7.5-11.0) fL Gran % (36.0-66.0) % Immature Gran % (Auto) (0.00-0.4) % Nucleat RBC Rel Count (0.00-0.1) % Eos # (Auto) (0-0.5) x10^3/uL Immature Gran # (Auto) (0.00-0.03) x10^3u/L Absolute Lymphs (auto) (1.0-4.6) x10^3/uL Absolute Monos (auto) (0.0-1.3) x10^3/uL Absolute Nucleated RBC (0.00-0.01) x10^3u/L Lymphocytes % (24.0-44.0) % Monocytes % (0.0-12.0) % Eosinophils % (0.00-5.0) % Basophils % (0.0-0.4) % Absolute Granulocytes (1.4-6.9) x10^3/uL Basophils # (0-0.4) x10^3/uL Sodium (137-145) mmol/L Potassium (3.5-5.1) mmol/L Chloride (98-107) mmol/L Carbon Dioxide (22-30) mmol/L Anion Gap (5-15) MEQ/L BUN (7-17) mg/dL Creatinine (0.52-1.04) mg/dL Estimated GFR ML/MIN Glucose (74-106) mg/dL Calcium (8.4-10.2) mg/dL Total Bilirubin (0.2-1.3) mg/dL AST (14-36) U/L ALT (0-35) U/L Alkaline Phosphatase (38-126) U/L Serum Total Protein (6.3-8.2) g/dL Albumin (3.5-5.0) g/dL Lipase (23-300) U/L Serum HCG, Qual (NEGATIVE) Urine Color Yellow (Yellow) Urine Appearance Clear (Clear) Urine pH 6.5 (4.6-8.0) Ur Specific [place] >=1.030 A (1.005-1.030) Urine Protein Negative (Negative) Urine Glucose (UA) Negative (Negative) mg/dL Urine Ketones Trace A (Negative) Urine Blood Negative (Negative) Urine Nitrite Negative (Negative) Urine Bilirubin Negative (Negative) Urine Urobilinogen 1.0 A (0.2) mg/dL Ur Leukocyte Esterase Trace A (Negative) U Hyaline Cast (Auto) NONE SEEN (0-2) /LPF Urine Microscopic RBC 0-2 (0-5) /HPF Urine Microscopic WBC 3-5 (0-5) /HPF Ur Epithelial Cells Rare (None Seen) /HPF Urine Bacteria None Seen (None Seen) /HPF Urine Culture Reflexed NO (NO) - Progress Progress: improved Progress Note: 02/23/23 17:17 Differential diagnosis includes psychiatric disorder, electrolyte abnormality, cardiac arrhythmia, , infection, UTI Plan for basic labs, EKG, UA, urine test here. 02/23/23 18:12 No obvious abnormalities today on EKG or work-up. Repeat neurological exam remained normal. Plan for discharge home close follow-up. Return here sooner for new or changing symptoms. Counseled pt/family regarding: lab results, diagnosis, need for follow-up Medical Desision Making - Diagnostic Testing Diagnostic test were ordered, analyzed, and reviewed by me: Yes - Risk of complications Minimal Risk: Minimal risk of morbidity - Departure Departure Disposition: Home Clinical Impression: Numbness and tingling Condition: Stable Critical Care Time: No Referrals: HALLIE GRACE [Primary Care Provider] - Follow up/PCP as directed
[2023-02-23] MEDS ORDERED: Sodium Chloride 0.9% 1000 ML 1,000 ML ONE (17:30)
[2023-02-23 17:36] LABS: Absolute Neutrophil Ct (ANC) 5.02 x10^3/uL (1.4-6.9); BASOPHIL % 0.4 % (0.0-0.4); Basophil (Absolute #) 0.03 x10^3/uL (0-0.4); Eosinophil % 1.5 % (0.00-5.0); Eosinophil (Absolute #) 0.12 x10^3/uL (0-0.5); Hematocrit 44.6 % (35-47); Hemoglobin 14.8 g/dL (12.0-16.0); IMMATURE GRAN # 0.02 x10^3u/L (0.00-0.03); IMMATURE GRAN % 0.2 % (0.00-0.4); Lymphocyte (Absolute #) 2.44 x10^3/uL (1.0-4.6); Lymphocytes % 29.5 % (24.0-44.0); Mean Corpuscular Hemoglobin 29.2 pg (26-32); Mean Corpuscular Hgb Concent. 33.2 g/dL (32-36); Mean Platelet Volume 9.6 fL (7.5-11.0); Monocyte (Absolute #) 0.63 x10^3/uL (0.0-1.3); Monocytes % 7.6 % (0.0-12.0); Neutrophil % 60.8 % (36.0-66.0); Platelet Count 307 x10^3/uL (150-450); Red Blood Count 5.07 x10^6/uL (4.1-5.4); Red Cell Distribution Width 12.9 % (11.5-14.0); White Blood Count 8.3 x10^3/uL (4.0-10.5)
[2023-02-23 17:46] LABS: Appearance Clear (Clear); Bacteria None Seen /HPF (None Seen); Bilirubin Negative (Negative); Blood Negative (Negative); Epithelial Cells Rare /HPF (None Seen); Glucose, Urine Negative (Negative); Hyaline Casts NONE SEEN /LPF (0-2); Ketones Trace (Negative); Leukocyte Esterase Trace (Negative); Nitrite Negative (Negative); Ph 6.5 (4.6-8.0); Protein,Urine Dip Negative (Negative); RBC 0-2 /HPF (0-5); Specific Gravity >=1.030 (1.005-1.030)
[2023-02-23 17:48] LABS: ADD URINE CULTURE? NO (NO)
[2023-02-23 17:50] LABS: ALBUMIN 4.7 g/dL (3.5-5.0); ALKALINE PHOSPHATASE 73 U/L (38-126); ANION GAP 17.1 MEQ/L (5-15); BLOOD UREA NITROGEN 10 mg/dL (7-17); CHLORIDE 106 mmol/L (98-107); Calcium 9.3 mg/dL (8.4-10.2); Carbon Dioxide 24 mmol/L (22-30); Creatinine 1 0.72 mg/dL (0.52-1.04); EST GLOMERULAR FILTRATION RATE > 60.0 ML/MIN; Glucose 96 mg/dL (74-106); LIPASE 143 U/L (23-300); Potassium 3.6 mmol/L (3.5-5.1); SGOT/AST 21 U/L (14-36); SGPT/ALT 21 U/L (0-35); SODIUM 143 mmol/L (137-145)
[2023-02-23 17:52] LABS: HCG SERUM TEST NEGATIVE (NEGATIVE)
== END 2023-02-23 18:24 | disposition home or self-care (01) ==
LOC: ED 16:40
DX: R20.2 Paresthesia of skin (principal); R20.0 Anesthesia of skin; E78.5 Hyperlipidemia, unspecified; I10 Essential (primary) hypertension; Z79.899 Other long term (current) drug therapy
CPT/HCPCS: 36000; 36415; 80053; 81001; 83690; 84703; 85025; 93005; 99284

== ENCOUNTER 2023-02-24 23:10 | Observation (INO) | payer OTHER ==
[2023-02-24] MEDS ORDERED: Sodium Chloride 0.9% 1000 ML 1,000 ML IV STA (23:25)
[2023-02-24] MEDS ORDERED: Zofran 4 MG/2 ML VIAL IV ONE (23:25)
--- NOTE | 2023-02-24 23:26 | ERPHSYRPT ---
- History of Present Illness Time Seen by Provider: 02/24/23 23:22 Source: patient Exam Limitations: no limitations Physician History: Sinus 22-year-old female came to the emergency room again with same complaints that include nausea vomiting. Patient was in the emergency room yesterday was treated with IV fluid all the blood tests were unremarkable. Patient went home today but now in the last few hours she started having a generalized weakness nausea vomiting chest pain abdominal pain dizziness and she almost passed out at home so she told her mother to bring her to the emergency room. Timing/Duration: today Associated Symptoms: nausea, vomiting, abdominal pain, shortness of breath, chest pain, malaise, weakness Allergies/Adverse Reactions: hydromorphone HCl [From Dilaudid] Allergy (Severe, Verified 02/24/23 23:25) Hives Severe itching with hives penicillin G Allergy (Mild, Verified 02/24/23 23:25) Swelling diphenhydramine HCl [From Benadryl] Adverse Reaction (Mild, Verified 02/24/23 23:25) "crazy behavior" pertussis vaccine,adsorbed [Pertussis Vaccine,Adsorbed] Adverse Reaction (Verified 02/24/23 23:25) Swelling Home Medications: Levothyroxine Sodium [Euthyrox] 100 mcg PO DAILY 12/24/20 [History] Hx Tetanus, Diphtheria Vaccination/Date Given: No Hx Influenza Vaccination/Date Given: No Hx Pneumococcal Vaccination/Date Given: No Travel Risk - Vaccine Status Have you recieved a Covid-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: Yes Meter Mechanic: Moderna - Vaccination Dates Date of 2cond Vaccination (if applicable): 2020 - Review of Systems Constitutional: Lethargy, Malaise, No Fever, No Chills Eyes: No Symptoms Ears, Nose, & Throat: No Symptoms Respiratory: No Cough, No Dyspnea Cardiac: Chest Pain, No Edema, No Syncope Abdominal/Gastrointestinal: Abdominal Pain, Nausea, Vomiting, No Diarrhea Genitourinary Symptoms: No Dysuria Musculoskeletal: No Back Pain, No Neck Pain Skin: No Rash Neurological: No Dizziness, No Focal Weakness, No Sensory Changes Psychological: No Symptoms Endocrine: No Symptoms All Other Systems: Reviewed and Negative - Past Medical History Pertinent Past Medical History: Yes Neurological History: Seizures ENT History: No Pertinent History Cardiac History: High Cholesterol, Hypertension Respiratory History: Bronchitis, Pneumonia Endocrine Medical History: Hypothyroidism Musculoskeletal History: Osteoarthritis GI Medical History: Irritable Bowel History: No Pertinent History Psycho-Social History: Anxiety, Depression Female Reproductive Disorders: Endometriosis, Menstrual Problems Other Medical History: PMHX: ANXIETY, DEPRESSION, PTSD, IBS, ENDOMETRIOSIS AND MILD MITRAL VALVE PROLAPSE, GASTROPERISIS. pt states stress related seizures - Past Surgical History Past Surgical History: Yes Neuro Surgical History: No Pertinent History Cardiac: No Pertinent History Respiratory: No Pertinent History Gastrointestinal: No Pertinent History Genitourinary: No Pertinent History Musculoskeletal: No Pertinent History Female Surgical History: No Pertinent History Other Surgical History: EGD, Colonoscopy. HX [place] Teeth Removed. Endoscopy - Social History Smoking Status: Never smoker Exposure to second hand smoke: Yes Drug Use: none Patient Lives Alone: No Significant Family History: no pertinent family hx - Nursing Vital Signs Nursing Vital Signs: Initial Vital Signs Temperature 98.7 F 02/24/23 23:13 Pulse Rate 99 H 02/24/23 23:13 Respiratory Rate 18 02/24/23 23:13 Blood Pressure 136/109 02/24/23 23:13 O2 Sat by Pulse Oximetry 98 02/24/23 23:13 Pain Scale Pain Intensity 0 - Physical Exam General Appearance: mild distress, alert Eye Exam: PERRL/EOMI, eyes nml inspection Ears, Nose, Throat Exam: normal ENT inspection, TMs normal, pharynx normal, jose st mucous membranes Neck Exam: normal inspection, non-tender, supple, full range of motion Respiratory Exam: normal breath sounds, lungs clear, No respiratory distress Cardiovascular Exam: regular rate/rhythm, normal heart sounds, normal peripheral pulses Gastrointestinal/Abdomen Exam: soft, normal bowel sounds, No tenderness, No mass Back Exam: normal inspection, normal range of motion, No CVA tenderness, No vertebral tenderness Extremity Exam: normal inspection, normal range of motion, pelvis stable Neurologic Exam: alert, oriented x 3, cooperative, normal mood/affect, nml cerebellar function, nml station & gait, sensation nml, No motor deficits Skin Exam: normal color, warm, dry, No rash Lymphatic Exam: No adenopathy SpO2 Interpretation: normal O2 Delivery: Room Air - Course Nursing assessment & vital signs reviewed: Yes Ordered Tests: Active Orders 24 hr Category Date Time Status Transfer Order Routine Transfer 02/24/23 Ordered Medication Summary Generic Name Dose Route Start Last Admin Trade Name Freq PRN Reason Stop Dose Admin Sodium Chloride 1,000 mls @ 999 mls/hr 02/24/23 23:25 Sodium Chloride 0.9% 1000 Ml IV 02/25/23 00:25 .Q1H1M STA Discontinued Medications Generic Name Dose Route Start Last Admin Trade Name Annabel PRN Reason Stop Dose Admin Ondansetron HCl 4 mg 02/24/23 23:25 Ondansetron Hcl 4 Mg/2 Ml Vial IV 02/24/23 23:26 STAT ONE - Progress Progress: unchanged Discussed with : Jennifer Will see patient in: hospital (observation) Counseled pt/family regarding: diagnosis, need for follow-up Medical Desision Making - Discussion of managment Agreed on:: place in obs - Departure Departure Disposition: Observation Clinical Impression: Dehydration Nausea and vomiting Qualifiers: Vomiting type: unspecified Qualified Code(s): R11.2 - Nausea with vomiting, unspecified Condition: Fair Critical Care Time: No Referrals: HALLIE GRACE [Primary Care Provider] - Follow up/PCP as directed
[2023-02-24] MEDS ORDERED: Zofran 4 MG/2 ML VIAL ONE (23:30)
[2023-02-24] MEDS ORDERED: Sodium Chloride 0.9% 1000 ML 1,000 ML ONE (23:30)
[2023-02-25] MEDS: Sodium Chloride 0.9% 1000 ML 1,000 ML IV SCH ×3 (01:00→20:56)
--- NOTE | 2023-02-25 01:50 | PCM.HP ---
History of Present Illness - Chief Complaint Chief Complaint: nauea and vomiting for 3 days History of Present Illness: is a 22 year old female.came to the emergency room again with same complaints that include nausea vomiting. Patient was in the emergency room yesterday was treated with IV fluid all the blood tests were unremarkable. Patient went home today but now in the last few hours she started having a generalized weakness nausea vomiting chest pain abdominal pain dizziness and she almost passed out at home so she told her mother to bring her to the emergency room. Timing/Duration: today Associated Symptoms: nausea, vomiting, abdominal pain, shortness of breath, chest pain, malaise, weakness - Review of Systems Constitutional: No Fever, No Chills Eyes: No Symptoms Ears, Nose, & Throat: No Symptoms Respiratory: No Cough, No Short Of Breath Cardiac: No Chest Pain, No Edema, No Syncope Abdominal/Gastrointestinal: Nausea, Vomiting, No Abdominal Pain, No Diarrhea Genitourinary Symptoms: No Dysuria Musculoskeletal: No Back Pain, No Neck Pain Skin: No Rash Neurological: No Dizziness, No Focal Weakness, No Sensory Changes Psychological: No Symptoms Endocrine: No Symptoms Hematologic/Lymphatic: No Symptoms Immunological/Allergic: No Symptoms Medications & Allergies Home Medications: Home Medication List Levothyroxine Sodium [Euthyrox] 100 mcg PO DAILY 12/24/20 [History Confirmed 02/25/23] Allergies/Adverse Reactions: Allergies Allergy/AdvReac Type Severity Reaction Status Date / Time hydromorphone HCl Allergy Severe Hives Verified 02/24/23 23:25 [From Dilaudid] penicillin G Allergy Mild Swelling Verified 02/24/23 23:25 diphenhydramine HCl AdvReac Mild "crazy Verified 02/24/23 23:25 [From Benadryl] behavior" pertussis vaccine,adsorbed AdvReac Swelling Verified 02/24/23 23:25 [Pertussis Vaccine,Adsorbed] - Past Medical History Past Medical History: Yes Neurological History: No Pertinent History ENT History: No Pertinent History Cardiac History: Other Respiratory History: No Pertinent History Endocrine Medical History: Hypothyroidism Musculoskelatal History: No Pertinent History GI Medical History: Irritable Bowel History: No Pertinent History Pyscho-Social History: Anxiety, Depression, Other Reproductive Disorders: Abnormal Uterine Bleeding Comment: ptsd, gastroparesis - Female History Are you now?: No - Past Surgical History Past Surgical History: Yes Neuro Surgical History: No Pertinent History Cardiac History: No Pertinent History Respiratory Surgery: No Pertinent History GI Surgical History: No Pertinent History Genitourinary Surgical Hx: No Pertinent History Musculskeletal Surgical Hx: No Pertinent History Female Surgical History: No Pertinent History Other Surgical History: EGD, Colonoscopy. HX [place] Teeth Removed. Endoscopy - Social History Smoking Status: Former smoker Exposure to second hand smoke: Yes Alcohol: None Drug Use: none Significant Family History: no pertinent family hx - Physical Exam Vital Signs: Vital Signs - 24 hr Temp Pulse Resp BP Pulse Ox 02/25/23 00:35 99.3 F 79 16 123/78 99 02/24/23 23:13 98.7 F 99 H 18 136/109 98 General Appearance: no apparent distress, alert Neurologic Exam: alert, oriented x 3, cooperative, normal mood/affect, nml cerebellar function, nml station & gait, sensation nml, No motor deficits Eye Exam: PERRL/EOMI, eyes nml inspection Ears, Nose, Throat Exam: normal ENT inspection, TMs normal, pharynx normal, moist mucous membranes Neck Exam: normal inspection, non-tender, supple, full range of motion Respiratory Exam: normal breath sounds, lungs clear, No respiratory distress Cardiovascular Exam: regular rate/rhythm, normal heart sounds, normal peripheral pulses Gastrointestinal/Abdomen Exam: soft, normal bowel sounds, No tenderness, No mass Back Exam: normal inspection, normal range of motion, No CVA tenderness, No vertebral tenderness Extremity Exam: normal inspection, normal range of motion, pelvis stable Skin Exam: normal color, warm, dry, No rash Lymphatic Exam: No adenopathy Assessment/Plan (1) Dehydration Current Visit: Yes Status: Acute Assessment & Plan: Chief Complaint Diagnosis dehydration Allergies Allergy/AdvReac Type Severity Reaction Status Date / Time hydromorphone HCl Allergy Severe Hives Verified 02/24/23 23:25 [From Dilaudid] penicillin G Allergy Mild Swelling Verified 02/24/23 23:25 diphenhydramine HCl AdvReac Mild "crazy Verified 02/24/23 23:25 [From Benadryl] behavior" pertussis vaccine,adsorbed AdvReac Swelling Verified 02/24/23 23:25 [Pertussis Vaccine,Adsorbed] Vital Signs (Last 24 hours) Temp Pulse Resp BP Pulse Ox 02/25/23 00:35 99.3 F 79 16 123/78 99 02/24/23 23:13 98.7 F 99 H 18 136/109 98 Current Medications Generic Name Dose Route Start Last Admin Trade Name Freq PRN Reason Stop Dose Admin Famotidine 20 mg 02/25/23 10:00 Famotidine 20 Mg/1 Vial IV 03/27/23 09:59 Q12HT JOMAR Sodium Chloride 1,000 mls @ 100 mls/hr 02/25/23 00:03 Sodium Chloride 0.9% 1000 Ml IV 03/27/23 00:02 .Q10H JOMAR Levothyroxine Sodium 100 mcg 02/25/23 07:00 Levothyroxine Sodium 100 Mcg Tablet PO 03/27/23 08:00 DAILY@0700 JOMAR Ondansetron HCl 4 mg 02/25/23 00:03 Ondansetron Hcl 4 Mg/2 Ml Vial IV 03/27/23 00:02 Q6H PRN PRN NAUSEA/VOMITING Discontinued Medications Generic Name Dose Route Start Last Admin Trade Name Freq PRN Reason Stop Dose Admin Sodium Chloride 1,000 mls @ 999 mls/hr 02/24/23 23:25 02/24/23 23:33 Sodium Chloride 0.9% 1000 Ml IV 02/25/23 00:25 999 mls/hr .Q1H1M STA Administration Sodium Chloride Confirm 02/24/23 23:30 Sodium Chloride 0.9% 1000 Ml Administered 02/24/23 23:31 Dose 1,000 mls @ ud .ROUTE .STK-MED ONE Ondansetron HCl 4 mg 02/24/23 23:25 02/24/23 23:33 Ondansetron Hcl 4 Mg/2 Ml Vial IV 02/24/23 23:26 4 mg STAT ONE Administration Ondansetron HCl Confirm 02/24/23 23:30 Ondansetron Hcl 4 Mg/2 Ml Vial Administered 02/24/23 23:31 Dose 4 mg .ROUTE .STK-MED ONE Intake & Output (Last 24 hours) 02/22/23 02/23/23 02/24/23 02/25/23 11:59 11:59 11:59 11:59 Weight 74.9 kg Orders (Last 24 hours) Category Date Time Status Up Ad Elzbieta ROUTINE Activity 02/25/23 00:03 Active Code Status Order ROUTINE Care 02/25/23 00:03 Active IV Care Q6H Care 02/25/23 00:[address] in Observation ROUTINE Care 02/25/23 00:03 Active House Regular Diet Diet 02/25/23 Breakfast Active CBC W DIFF AM.LAB Lab 02/25/23 04:00 Ordered CMP AM.LAB Lab 02/25/23 04:00 Ordered Famotidine 20 mg Vial [Pepcid 20 MG VIAL] Med 02/25/23 10:00 Ordered 20 mg IV Q12HT Levothyroxine Sodium 100 Mcg [Synthroid 100 Mcg] Med 02/25/23 07:00 Ordered 100 mcg PO DAILY@0700 NaCl 0.9% 1000 ml [Sodium Chloride 0.9% 1000 ML] 1,000 Med 02/24/23 23:30 Discontinued ml .ROUTE UD NaCl 0.9% 1000 ml [Sodium Chloride 0.9% 1000 ML] 1,000 Med 02/25/23 00:03 Ordered ml IV 100 mls/hr NaCl 0.9% 1000 ml [Sodium Chloride 0.9% 1000 ML] 1,000 Med 02/24/23 23:25 Discontinued ml IV 999 mls/hr Ondansetron HCl 4 mg/2 ml [Zofran 4 MG/2 ML VIAL] Med 02/24/23 23:30 Discontinued 4 mg .ROUTE .STK-MED ONE Ondansetron HCl 4 mg/2 ml [Zofran 4 MG/2 ML VIAL] Med 02/25/23 00:03 Ordered 4 mg IV Q6H PRN PRN Ondansetron HCl 4 mg/2 ml [Zofran 4 MG/2 ML VIAL] Med 02/24/23 23:25 Discontinued 4 mg IV STAT ONE Patient Care Notes (Last 24 hours) 02/25/23 01:15 Nursing Admission Note by Parisa Patel [id number] Pt arrived to 112 pt was ambulatory to bathroom with nurse pt was assisted back to bed upon physical assessment, pt stated that she was extremely dizzy and weak. Pt gait was unsteady and required assistance with ambulation. pt states that she is in poor health and needs a caregiver at home. pt did not appoint a lay caregiver at this time. pt states that due to her depression, anxiety, ptsd, gastroparesis, and hypothyroidism, she will need someone at home to help her. pt states that her last emesis was prior to coming in to the ed at 2200. pt states that she had a syncope episode and woke her mom up and was told by her mom to call 911. pt denies pain at this time. pt states she has the depo shot and does not have a period. no hcg was ordered at this time. pt states there is no possible way she could be . all questions and concerns were addressed at this time, call light within reach, bed alarm activated. [id number] reviewed med list with dr yadav. per , ok to resume synthroid. Initialized on 02/25/23 01:15 - END OF NOTE Code(s): E86.0 - DEHYDRATION (2) Nausea and vomiting Current Visit: Yes Status: Acute Qualifiers: Vomiting type: unspecified Qualified Code(s): R11.2 - Nausea with vomiting, unspecified Code(s): R11.2 - NAUSEA WITH VOMITING, UNSPECIFIED
[2023-02-25] MEDS: SYNTHROID 100 MCG PO SCH ×2 (05:26→08:08)
[2023-02-25] MEDS: Zofran 4 MG/2 ML VIAL IV PRN ×2 (05:32→17:47)
[2023-02-25 05:58] LABS: Absolute Neutrophil Ct (ANC) 5.17 x10^3/uL (1.4-6.9); BASOPHIL % 0.4 % (0.0-0.4); Basophil (Absolute #) 0.04 x10^3/uL (0-0.4); Eosinophil % 1.1 % (0.00-5.0); Hematocrit 40.9 % (35-47); Hemoglobin 13.2 g/dL (12.0-16.0); IMMATURE GRAN # 0.02 x10^3u/L (0.00-0.03); IMMATURE GRAN % 0.2 % (0.00-0.4); Lymphocyte (Absolute #) 3.01 x10^3/uL (1.0-4.6); Lymphocytes % 33.5 % (24.0-44.0); Mean Cell Volume 89.7 fL (78-100); Mean Corpuscular Hemoglobin 28.9 pg (26-32); Mean Corpuscular Hgb Concent. 32.3 g/dL (32-36); Mean Platelet Volume 11.1 fL (7.5-11.0); Monocyte (Absolute #) 0.64 x10^3/uL (0.0-1.3); Monocytes % 7.1 % (0.0-12.0); Neutrophil % 57.7 % (36.0-66.0); Platelet Count 194 x10^3/uL (150-450); Red Blood Count 4.56 x10^6/uL (4.1-5.4); Red Cell Distribution Width 13.1 % (11.5-14.0)
[2023-02-25 06:28] LABS: ALBUMIN 3.9 g/dL (3.5-5.0); ALKALINE PHOSPHATASE 54 U/L (38-126); ANION GAP 14.6 MEQ/L (5-15); BLOOD UREA NITROGEN 8 mg/dL (7-17); CHLORIDE 107 mmol/L (98-107); Calcium 8.8 mg/dL (8.4-10.2); Carbon Dioxide 22 mmol/L (22-30); EST GLOMERULAR FILTRATION RATE > 60.0 ML/MIN; Glucose 82 mg/dL (74-106); Potassium 3.3 mmol/L (3.5-5.1); SGOT/AST 20 U/L (14-36); SGPT/ALT 16 U/L (0-35); SODIUM 141 mmol/L (137-145); Total Protein 6.7 g/dL (6.3-8.2)
[2023-02-25 07:08] LABS: Slide Review 1 YES
[2023-02-25] MEDS: Pepcid 20 MG VIAL IV SCH ×2 (08:09→20:57)
--- NOTE | 2023-02-25 10:58 | PCM.NOTE ---
Date and Time: 02/25/23 1053 Subjective Assessment: No acute events overnight. Patient has various complaints; main complaint is that she full body numbness, moving to her head and mouth. However, she can feel when somebody touches her, but that "my body feels like it is not there." She denies tingling paresthesias. Also complains of diffuse "dull sharp pains" all over her body. Denies vertigo or dizziness on standing, but states she is unsteady on her gait. Does not have ataxais or particular gait preference to one side. Denies positional vertigo. States has been eating at home, although has not yet eaten this morning due to lack of appetite. States yesterday, she had sudden syncope while walking to her bed, unwitnessed, unaware of how long she wa s out. Awoke on floor next to her bed on her side, no pain or brusing from her fall, no vomitus, no bowel or bladder incontinence, no post-ictal confusion. Her mother is at bedside, notes that patient has an increase in her blood pressure when she stands up. - Review of Systems Constitutional: Fatigue, Lethargy, Weakness, No Fever Eyes: No Eye Pain, No Vision Changes Ears, Nose, & Throat: No Hearing Changes, No Nose Congestion, No Mouth Pain, No Throat Pain Respiratory: No Cough, No Short Of Breath Cardiac: Chest Pain, Syncope, No Edema, No Palpitations, No Orthopnea Abdominal/Gastrointestinal: Nausea, Vomiting, No Abdominal Pain, No Diarrhea Genitourinary Symptoms: No Dysuria, No Frequency, No Hematuria Skin: No Rash, No Skin Lesions Neurological: Dizziness, Gait Changes, Headache, Sensory Changes, No Focal Weakness, No Seizure, No Speech Changes, No Tremors, No Vertigo Psychological: Anxiety, Depression Endocrine: No No Symptoms Hematologic/Lymphatic: No No Symptoms Immunological/Allergic: No No Symptoms Objective Exam General Appearance: no apparent distress (sitting up in bed) Neurologic Exam: alert, oriented x 3, sensation nml (intact to light touch and pain), depressed mood/affect (flat affect), No motor deficits (moving all extremities well) Skin Exam: No rash Eye Exam: EOMI, eyes nml inspection Respiratory Exam: normal breath sounds, No lungs clear, No respiratory distress Cardiovascular Exam: regular rate/rhythm, No murmur, No edema Gastrointestinal/Abdomen Exam: soft, No tenderness, No distention OBJECTIVE DATA Vital Signs: Vital Signs - 24 hr Temp Pulse Resp BP Pulse Ox 02/25/23 06:47 98.0 F 64 17 128/71 97 02/25/23 03:46 98.8 F 72 17 129/82 99 02/25/23 00:35 99.3 F 79 16 123/78 99 02/24/23 23:13 98.7 F 99 H 18 136/109 98 Pain Assessment - Last Documented Pain Intensity 0 Intake and Output: Intake & Output 02/22/23 02/23/23 02/24/23 02/25/23 11:59 11:59 11:59 11:59 Intake Total 0 Balance 0 Weight 74.9 kg Lab Results: Lab Results-Last 24 Hours 02/25/23 02/25/23 Range/Units 05:28 05:28 WBC 9.0 (4.0-10.5) x10^3/uL RBC 4.56 (4.1-5.4) x10^6/uL Hgb 13.2 (12.0-16.0) g/dL Hct 40.9 (35-47) % MCV 89.7 (78-100) fL MCH 28.9 (26-32) pg MCHC 32.3 (32-36) g/dL RDW 13.1 (11.5-14.0) % Plt Count 194 D (150-450) x10^3/uL MPV 11.1 H (7.5-11.0) fL Gran % 57.7 (36.0-66.0) % Immature Gran % (Auto) 0.2 (0.00-0.4) % Nucleat RBC Rel Count 0.0 (0.00-0.1) % Eos # (Auto) 0.10 (0-0.5) x10^3/uL Immature Gran # (Auto) 0.02 (0.00-0.03) x10^3u/L Absolute Lymphs (auto) 3.01 (1.0-4.6) x10^3/uL Absolute Monos (auto) 0.64 (0.0-1.3) x10^3/uL Absolute Nucleated RBC 0.00 (0.00-0.01) x10^3u/L Lymphocytes % 33.5 (24.0-44.0) % Monocytes % 7.1 (0.0-12.0) % Eosinophils % 1.1 (0.00-5.0) % Basophils % 0.4 (0.0-0.4) % Absolute Granulocytes 5.17 (1.4-6.9) x10^3/uL Basophils # 0.04 (0-0.4) x10^3/uL Sodium 141 (137-145) mmol/L Potassium 3.3 L (3.5-5.1) mmol/L Chloride 107 (98-107) mmol/L Carbon Dioxide 22 (22-30) mmol/L Anion Gap 14.6 (5-15) MEQ/L BUN 8 (7-17) mg/dL Creatinine 0.60 (0.52-1.04) mg/dL Estimated GFR > 60.0 ML/MIN Glucose 82 (74-106) mg/dL Calcium 8.8 (8.4-10.2) mg/dL Total Bilirubin 1.00 (0.2-1.3) mg/dL AST 20 (14-36) U/L ALT 16 (0-35) U/L Alkaline Phosphatase 54 (38-126) U/L Serum Total Protein 6.7 (6.3-8.2) g/dL Albumin 3.9 (3.5-5.0) g/dL Slides for Path Review YES Assessment/Plan (1) Nausea and vomiting Current Visit: Yes Status: Acute Qualifiers: Vomiting type: unspecified Qualified Code(s): R11.2 - Nausea with vomiting, unspecified Assessment & Plan: 22 y/o F with h/o reported anxiety/depression/PTSD, hypothyroidism, and gastroparesis of unknown etiology, here with malaise, nausea, and gait instability. Patient has frequent hospital visits, with some documented history, but only medication she takes is thyroid pills. And it is unclear if any firm diagnosis has been identified. ## Nausea - No vomiting since arriving here. Has not tried eating yet, but states was eating well at home. - continue PRN Zofran - regular diet - continue NS at 100 ml/hr for now; can likely stop if eating well ## Neurologic complaints - these do not fit in any neurologic pattern, with main complaint being numbness with intact sensation, which she is unable to elucidate any further - perhaps a paresthesia, but she denies. But it also does not follow any anatomic distribution. Also her gait instability +/- syncope. However, her description of the syncope is not fitting, either. Perhaps she was hypovolemic, but denies orthostatic symptoms. She had an autoimmune panel done in 2019 that was unrevealing. Normal B12, MMA, folate levels in October. Unfortunately, does not have any obvious reason for her symptoms, but also lacks any inpatient reason for evaluation. I suspect patient has a large component of somatization from complaints related to the prior diagnoses of anxiety/depression/PTSD, but not currently in treatment. - PT consult to evaluate gait - if too unsteady to walk, will need placement to work on rehab and use of assistive devices - otherwise will need outpatient follow up with neurology - would benefit from mental health referral given her extensive medical history from an early age ## hypothyroidism - normal TSH in November 2022. - continue home Synthroid 100 mcg daily - check TSH in AM ## Hypokalemia - - give KCl 40 mEq PO x1 - repeat BMP in AM Code Status: Full code Diet: Regular Prophylaxis: Ambulatory Dispo: home tomorrow if able to walk; otherwise will need rehab placement 45 min spent in care of patient, majority of which discussing symptoms, diagn ostic ambiguity, and prognosis with patient and daughter. Code(s): R11.2 - NAUSEA WITH VOMITING, UNSPECIFIED Telemedicine Encounter - Telemedicine Encounter Telemedicine Encounter: The entirety of this encounter was performed via Telemedicine"
[2023-02-25] MEDS ORDERED: Klor Con PO ONE (11:01)
[2023-02-25] MEDS ORDERED: DESYREL 50 MG PO PRN (12:08)
[2023-02-26 04:32] LABS: Hematocrit 41.3 % (35-47); Hemoglobin 13.4 g/dL (12.0-16.0); Mean Corpuscular Hemoglobin 29.2 pg (26-32); Mean Corpuscular Hgb Concent. 32.4 g/dL (32-36); Mean Platelet Volume 10.4 fL (7.5-11.0); Platelet Count 227 x10^3/uL (150-450); Red Blood Count 4.59 x10^6/uL (4.1-5.4); Red Cell Distribution Width 13.2 % (11.5-14.0); White Blood Count 7.2 x10^3/uL (4.0-10.5)
[2023-02-26 05:16] LABS: ANION GAP 15.5 MEQ/L (5-15); BLOOD UREA NITROGEN 6 mg/dL (7-17); CHLORIDE 110 mmol/L (98-107); Carbon Dioxide 19 mmol/L (22-30); Creatinine 1 0.65 mg/dL (0.52-1.04); EST GLOMERULAR FILTRATION RATE > 60.0 ML/MIN; Glucose 93 mg/dL (74-106); Potassium 4.1 mmol/L (3.5-5.1); SODIUM 141 mmol/L (137-145)
[2023-02-26] MEDS: Sodium Chloride 0.9% 1000 ML 1,000 ML IV SCH (06:16)
[2023-02-26] MEDS: SYNTHROID 100 MCG PO SCH (06:16)
[2023-02-26] MEDS: Pepcid 20 MG VIAL IV SCH (09:41)
--- NOTE | 2023-02-26 09:57 | PCM.DS ---
Discharge Summary Date of Admission: 02/25/23 00:01 Date of Discharge: 02/26/2023 Admitting Physician: VAL PATIÑO Primary Care Provider: HALLIE GRACE Allergies Allergies hydromorphone HCl [From Dilaudid] Allergy (Severe, Verified 02/24/23 23:25) Hives Severe itching with hives penicillin G Allergy (Mild, Verified 02/24/23 23:25) Swelling diphenhydramine HCl [From Benadryl] Adverse Reaction (Mild, Verified 02/24/23 23:25) "crazy behavior" pertussis vaccine,adsorbed [Pertussis Vaccine,Adsorbed] Adverse Reaction (Verified 02/24/23 23:25) Swelling Hospital Summary - Hospital Course Hospital Course: 22-year-old female with history of various complaints including anxiety/depression/PTSD, hypothyroidism, and gastroparesis of unknown etiology, who presented with nausea, vomiting, and generalized weakness and presyncope. Her story varied slightly on different days and speaking to different providers, but her main complaint appears to be a sense of diffuse generalized numbness and unsteady gait. She complained of nausea and vomiting in the ED, but did not have any vomiting at the hospital, and was tolerating oral diet. She mainly complained of a full body numbness, but was able to sense when people were touching her, but stated that "my body feels like it is not there" when she is lying in bed. Did not have any sense of tingling or paresthesias. But then did say that she had "dull sharp pains "all over her body. Denies vertigo or dizziness on standing, but said that she is unsteady with her gait. No particular falling gait preference to 1 side, but described episode of syncope while walking to her bed at home. She awoke on the floor with no bruising or pain from her fall, and no significant sequela that would indicate cardiogenic or seizure causes of her syncope. She reports no orthostatic symptoms, rather that her blood pressure rises whenever she stands up. She required 1 dose of Zofran on the floor, but otherwise tolerated p.o. well. She declined use of a rolling walker to assist her in her movements, and went to the bathroom by herself instead. Her only lab abnormality was some mild hypokalemia that was successfully repleted. We discussed options to help her ensure that she has good mobility, including recommending physical therapy in the hospital, in a rehab setting, and at home. Patient declined rehab, and said that she did not want anyone in her house. She was willing to consider a rolling walker at home, but notes that she had one a few years ago and did not use it. Stated that she just "wanted to go home". We will try to arrange for home health evaluation. Patient also asked for home health aide at one point. - Vitals & Intake/Output Vital Signs: Vital Signs Temperature 96.8 F 02/26/23 07:27 Pulse Rate 62 02/26/23 07:27 Respiratory Rate 17 02/26/23 07:27 Blood Pressure 115/65 02/26/23 07:27 O2 Sat by Pulse Oximetry 95 02/26/23 07:27 Intake & Output: Intake & Output 02/23/23 02/24/23 02/25/23 02/26/23 11:59 11:59 11:59 11:59 Intake Total 0 1700 Output Total 2300 Balance 0 -600 Weight 74.9 kg - Lab Result Diagrams: 02/26/23 04:13 02/26/23 04:13 Lab Results-Last 24 Hrs: Lab Results-Last 24 Hours 02/26/23 02/26/23 Range/Units 04:13 04:13 WBC 7.2 (4.0-10.5) x10^3/uL RBC 4.59 (4.1-5.4) x10^6/uL Hgb 13.4 (12.0-16.0) g/dL Hct 41.3 (35-47) % MCV 90.0 (78-100) fL MCH 29.2 (26-32) pg MCHC 32.4 (32-36) g/dL RDW 13.2 (11.5-14.0) % Plt Count 227 (150-450) x10^3/uL MPV 10.4 (7.5-11.0) fL Sodium 141 (137-145) mmol/L Potassium 4.1 D (3.5-5.1) mmol/L Chloride 110 H (98-107) mmol/L Carbon Dioxide 19 L (22-30) mmol/L Anion Gap 15.5 H (5-15) MEQ/L BUN 6 L (7-17) mg/dL Creatinine 0.65 (0.52-1.04) mg/dL Estimated GFR > 60.0 ML/MIN Glucose 93 (74-106) mg/dL Calcium 9.0 (8.4-10.2) mg/dL TSH 3rd Generation 2.890 (0.47-4.68) mIU/L - Procedures and Test Procedures and Tests throughout Hospitalization: Therapy Orders & Screens 02/25/23 11:13 PT Eval & Treat ( Order) ONCE Reason for Eval:: gait instability Diagnosis: nauea and vomiting for 3 days Discharge Exam General Appearance: no apparent distress Neurologic Exam: alert, oriented x 3, depressed mood/affect Eye Exam: eyes nml inspection Respiratory Exam: normal breath sounds, lungs clear, No respiratory distress Cardiovascular Exam: regular rate/rhythm, No murmur, No edema Gastrointestinal/Abdomen Exam: soft, No tenderness, No distention Final Diagnosis/Problem List - Final Discharge Diagnosis/Problem (1) Nausea and vomiting Current Visit: Yes Status: Acute Code(s): R11.2 - NAUSEA WITH VOMITING, UNSPECIFIED (2) Abnormal gait Current Visit: Yes Status: Acute Code(s): R26.9 - UNSPECIFIED ABNORMALITIES OF GAIT AND MOBILITY - Discharge Discharge Date: 02/26/23 Disposition: Home, Self-Care Condition: Fair Prescriptions: Continue Levothyroxine Sodium [Euthyrox] 100 mcg PO DAILY Follow up with: HALLIE GRACE [Primary Care Provider] - 1 Week
[2023-02-26 12:38] VITALS: BP 110/60; PULSE 50; O2SAT 98
== END 2023-02-26 13:30 | disposition home or self-care (01) ==
LOC: ED 23:10 → MED SURG 02-25 00:01
PROVIDERS: ADMIT General Practice; ATTEND General Practice
DX: R11.2 Nausea with vomiting, unspecified (principal); R26.9 Unspecified abnormalities of gait and mobility; E87.6 Hypokalemia; E86.0 Dehydration; R55 Syncope and collapse; Z79.899 Other long term (current) drug therapy; Z20.828 Contact with and (suspected) exposure to other viral communicable diseases
CPT/HCPCS: 36415; 80048; 80053; 84443; 85025; 85027; 96360; 96374; 97161; 99285; Q3014; G0378; J2405; A9270-GY

== ENCOUNTER 2023-03-08 18:11 | Emergency (ER) | payer OTHER ==
[2023-03-08 20:26] VITALS: O2SAT 98
[2023-03-08 21:04] VITALS: BP 122/89; PULSE 94
[2023-03-08] MEDS ORDERED: TORAdol 30 mg Injection IV ONE (21:14)
[2023-03-08] MEDS ORDERED: Sodium Chloride 0.9% 1000 ML 1,000 ML IV STA (21:14)
[2023-03-08] MEDS ORDERED: Compazine 10 MG/2 ML IV ONE (21:14)
[2023-03-08] MEDS ORDERED: TORAdol 30 mg Injection ONE (21:23)
[2023-03-08] MEDS ORDERED: Sodium Chloride 0.9% 1000 ML 1,000 ML ONE (21:23)
[2023-03-08] MEDS ORDERED: Compazine 10 MG/2 ML ONE (21:23)
[2023-03-08 21:36] LABS: Absolute Neutrophil Ct (ANC) 6.05 x10^3/uL (1.4-6.9); BASOPHIL % 0.3 % (0.0-0.4); Basophil (Absolute #) 0.03 x10^3/uL (0-0.4); Eosinophil % 0.9 % (0.00-5.0); Eosinophil (Absolute #) 0.08 x10^3/uL (0-0.5); Hematocrit 44.7 % (35-47); Hemoglobin 15.3 g/dL (12.0-16.0); IMMATURE GRAN # 0.02 x10^3u/L (0.00-0.03); IMMATURE GRAN % 0.2 % (0.00-0.4); Lymphocyte (Absolute #) 2.45 x10^3/uL (1.0-4.6); Lymphocytes % 26.5 % (24.0-44.0); Mean Corpuscular Hemoglobin 29.8 pg (26-32); Mean Corpuscular Hgb Concent. 34.2 g/dL (32-36); Mean Platelet Volume 9.5 fL (7.5-11.0); Monocyte (Absolute #) 0.63 x10^3/uL (0.0-1.3); Monocytes % 6.8 % (0.0-12.0); Neutrophil % 65.3 % (36.0-66.0); Platelet Count 311 x10^3/uL (150-450); Red Blood Count 5.14 x10^6/uL (4.1-5.4); Red Cell Distribution Width 12.6 % (11.5-14.0); White Blood Count 9.3 x10^3/uL (4.0-10.5)
[2023-03-08 21:56] LABS: ALBUMIN 4.9 g/dL (3.5-5.0); ALKALINE PHOSPHATASE 71 U/L (38-126); ANION GAP 16.7 MEQ/L (5-15); BLOOD UREA NITROGEN 9 mg/dL (7-17); CHLORIDE 102 mmol/L (98-107); Calcium 9.7 mg/dL (8.4-10.2); Carbon Dioxide 25 mmol/L (22-30); Creatinine 1 0.64 mg/dL (0.52-1.04); EST GLOMERULAR FILTRATION RATE > 60.0 ML/MIN; Glucose 83 mg/dL (74-106); Potassium 3.5 mmol/L (3.5-5.1); SGOT/AST 23 U/L (14-36); SGPT/ALT 22 U/L (0-35); SODIUM 140 mmol/L (137-145); Total Protein 8.3 g/dL (6.3-8.2)
--- NOTE | 2023-03-08 22:07 | ERPHSYRPT ---
- History of Present Illness Time Seen by Provider: 03/08/23 20:00 Source: patient Exam Limitations: no limitations Patient Subjective Stated Complaint: pt states she has had a headache off and on for over a month. states she has been having increase in dizziness Triage Nursing Assessment: pt alert and oriented, answers questions approp. pt back to room per wheelchair and transfers to stretcher pers elf with steady gait noted. respirations nonlabored. skin warm and dry. abd sof t and nontender. pupils equal and reactive. bilat upper and lower ext strength equal and wnl. Physician History: Patient is a 22-year-old female presents to our ED with a headache. Patient states she has been experiencing headache and syncope for the past 2 to 3 months. Patient has had multiple CAT scans of her head and blood work. Patient is being worked up for her headache and syncope by her primary care doctor. Patient's CAT scans are all negative. Patient states they are currently scheduling her for an MRI. No associated chest pain or shortness of breath. No nausea vomiting or diaphoresis. Patient states she called her primary care doctor today to report recurrent episodes of her symptomology. Patient states primary care doctor referred her to our ED for management of her headache and basic labs. Patient declined another CT of her head. Patient does not want to be exposed to the radiation as she has had several negative CT scans over the past few months. Patient's symptoms are mild to moderate in intensity. No specific worsening or improving factors. Mother at bedside. They voiced no other complaints or concerns at this time. Portions of this note were created with voice recognition technology. There may be grammatical, spelling, punctuation or sound alike errors Timing/Duration: today Severity: mild Modifying Factors: Improves With: nothing Associated Symptoms: syncope Allergies/Adverse Reactions: hydromorphone HCl [From Dilaudid] Allergy (Severe, Verified 03/08/23 19:51) Hives Severe itching with hives penicillin G Allergy (Mild, Verified 03/08/23 19:51) Swelling diphenhydramine HCl [From Benadryl] Adverse Reaction (Mild, Verified 03/08/23 19:51) "crazy behavior" pertussis vaccine,adsorbed [Pertussis Vaccine,Adsorbed] Adverse Reaction (Verified 03/08/23 19:51) Swelling Home Medications: Levothyroxine Sodium [Euthyrox] 100 mcg PO DAILY 12/24/20 [History] Hx Tetanus, Diphtheria Vaccination/Date Given: Yes Hx Influenza Vaccination/Date Given: No Hx Pneumococcal Vaccination/Date Given: No Immunizations Up to Date: Yes Travel Risk - International Travel Have you traveled outside of the country in past 3 weeks: No - Coronavirus Screening Are you exhibiting any of the following symptoms?: No Close contact with a COVID-19 positive Pt in past 14-21 Days: No - Vaccine Status Have you recieved a Covid-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: Yes [place]: Moderna - Vaccination Dates Date of 2cond Vaccination (if applicable): 2020 - Review of Systems Constitutional: No Symptoms, No Fever, No Chills Eyes: No Symptoms Ears, Nose, & Throat: No Symptoms Respiratory: No Symptoms, No Cough, No Dyspnea Cardiac: No Symptoms, No Chest Pain, No Edema, No Syncope Abdominal/Gastrointestinal: No Symptoms, No Abdominal Pain, No Nausea, No Vomiting, No Diarrhea Genitourinary Symptoms: No Symptoms, No Dysuria Musculoskeletal: No Symptoms, No Back Pain, No Neck Pain Skin: No Symptoms, No Rash Neurological: No Symptoms, No Dizziness, No Focal Weakness, No Sensory Changes Psychological: No Symptoms Endocrine: No Symptoms Hematologic/Lymphatic: No Symptoms Immunological/Allergic: No Symptoms All Other Systems: Reviewed and Negative - Past Medical History Pertinent Past Medical History: Yes Neurological History: No Pertinent History ENT History: No Pertinent History Cardiac History: High Cholesterol, Other Respiratory History: No Pertinent History Endocrine Medical History: Hypothyroidism Musculoskeletal History: No Pertinent History GI Medical History: Irritable Bowel History: No Pertinent History Psycho-Social History: Anxiety, Depression, Other Female Reproductive Disorders: Abnormal Uterine Bleeding Other Medical History: ptsd, gastroparesis, shara - Past Surgical History Past Surgical History: Yes Neuro Surgical History: No Pertinent History Cardiac: No Pertinent History Respiratory: No Pertinent History Gastrointestinal: No Pertinent History Genitourinary: No Pertinent History Musculoskeletal: No Pertinent History Female Surgical History: No Pertinent History Other Surgical History: EGD, Colonoscopy. HX [place] Teeth Removed. Endoscopy - Social History Smoking Status: Former smoker Exposure to second hand smoke: Yes Drug Use: none Patient Lives Alone: No Significant Family History: no pertinent family hx - Female History Hx Last Menstrual Period: depo shot- no period Hx Now: No - Nursing Vital Signs Nursing Vital Signs: Initial Vital Signs Temperature 97.2 F 03/08/23 19:42 Pulse Rate 88 03/08/23 19:42 Respiratory Rate 16 03/08/23 19:42 Blood Pressure 141/96 03/08/23 19:42 O2 Sat by Pulse Oximetry 97 03/08/23 19:42 Pain Scale Pain Intensity 7 - Physical Exam General Appearance: no apparent distress, alert Eye Exam: PERRL/EOMI, eyes nml inspection Ears, Nose, Throat Exam: normal ENT inspection, TMs normal, pharynx normal, moist mucous membranes Neck Exam: normal inspection, non-tender, supple, full range of motion Respiratory Exam: normal breath sounds, lungs clear, No respiratory distress Cardiovascular Exam: regular rate/rhythm, normal heart sounds, normal peripheral pulses Gastrointestinal/Abdomen Exam: soft, normal bowel sounds, No tenderness, No mass Back Exam: normal inspection, normal range of motion, No CVA tenderness, No vertebral tenderness Extremity Exam: normal inspection, normal range of motion, pelvis stable Neurologic Exam: alert, oriented x 3, cooperative, normal mood/affect, nml cereb ellar function, nml station & gait, sensation nml, No motor deficits Skin Exam: normal color, warm, dry, No rash Lymphatic Exam: No adenopathy SpO2 Interpretation: normal SpO2: 98 O2 Delivery: Room Air - Course Nursing assessment & vital signs reviewed: Yes EKG Interpreted by Me: RATE ([id number]), Sinus Rhythm, NORMAL AXIS, NORMAL INTERVALS Ordered Tests: Active Orders 24 hr Category Date Time Status Rn Utilization Management Um STAT Care 03/08/23 21:13 Active EKG-ER Only STAT Care 03/08/23 22:07 Active IV Insertion STAT Care 03/08/23 21:12 Active Pulse Oximetry (ED) STAT Care 03/08/23 21:12 Active CBC W DIFF Stat Lab 03/08/23 21:25 Completed CMP Stat Lab 03/08/23 21:25 Completed TROPONIN Q4H Lab 03/08/23 21:25 Completed TROPONIN Q4H Lab 03/09/23 01:15 Ordered TROPONIN Q4H Lab 03/09/23 05:15 Ordered Medication Summary Generic Name Dose Route Start Last Admin Trade Name Freq PRN Reason Stop Dose Admin Sodium Chloride 1,000 mls @ 999 mls/hr 03/08/23 21:14 03/08/23 21:29 Sodium Chloride 0.9% 1000 Ml IV 03/08/23 22:14 999 mls/hr .Q1H1M STA Administration Discontinued Medications Generic Name Dose Route Start Last Admin Trade Name Annabel PRN Reason Stop Dose Admin Sodium Chloride Confirm 03/08/23 21:23 Sodium Chloride 0.9% 1000 Ml Administered 03/08/23 21:24 Dose 1,000 mls @ ud .ROUTE .STK-MED ONE Ketorolac Tromethamine 30 mg 03/08/23 21:14 03/08/23 21:29 Ketorolac Tromethamine 30 Mg/Ml Inj IV 03/08/23 21:15 30 mg STAT ONE Administration Ketorolac Tromethamine Confirm 03/08/23 21:23 Ketorolac Tromethamine 30 Mg/Ml Inj Administered 03/08/23 21:24 Dose 30 mg .ROUTE .STK-MED ONE Prochlorperazine Edisylate 10 mg 03/08/23 21:14 03/08/23 21:28 Prochlorperazine Edisylate 10 Mg/2 Ml Vial IV 03/08/23 21:15 10 mg STAT ONE Administration Prochlorperazine Edisylate Confirm 03/08/23 21:23 Prochlorperazine Edisylate 10 Mg/2 Ml Vial Administered 03/08/23 21:24 Dose 10 mg .ROUTE .STK-MED ONE Lab/Rad Data: Laboratory Result Diagrams 03/08/23 21:25 03/08/23 21:25 Laboratory Results 03/08/23 03/08/23 03/08/23 Range/Units 21:25 21:25 21:25 WBC 9.3 (4.0-10.5) x10^3/uL RBC 5.14 (4.1-5.4) x10^6/uL Hgb 15.3 (12.0-16.0) g/dL Hct 44.7 (35-47) % MCV 87.0 (78-100) fL MCH 29.8 (26-32) pg MCHC 34.2 (32-36) g/dL RDW 12.6 (11.5-14.0) % Plt Count 311 (150-450) x10^3/uL MPV 9.5 (7.5-11.0) fL Gran % 65.3 (36.0-66.0) % Immature Gran % (Auto) 0.2 (0.00-0.4) % Nucleat RBC Rel Count 0.0 (0.00-0.1) % Eos # (Auto) 0.08 (0-0.5) x10^3/uL Immature Gran # (Auto) 0.02 (0.00-0.03) x10^3u/L Absolute Lymphs (auto) 2.45 (1.0-4.6) x10^3/uL Absolute Monos (auto) 0.63 (0.0-1.3) x10^3/uL Absolute Nucleated RBC 0.00 (0.00-0.01) x10^3u/L Lymphocytes % 26.5 (24.0-44.0) % Monocytes % 6.8 (0.0-12.0) % Eosinophils % 0.9 (0.00-5.0) % Basophils % 0.3 (0.0-0.4) % Absolute Granulocytes 6.05 (1.4-6.9) x10^3/uL Basophils # 0.03 (0-0.4) x10^3/uL Sodium 140 (137-145) mmol/L Potassium 3.5 (3.5-5.1) mmol/L Chloride 102 (98-107) mmol/L Carbon Dioxide 25 (22-30) mmol/L Anion Gap 16.7 H (5-15) MEQ/L BUN 9 (7-17) mg/dL Creatinine 0.64 (0.52-1.04) mg/dL Estimated GFR > 60.0 ML/MIN Glucose 83 (74-106) mg/dL Calcium 9.7 (8.4-10.2) mg/dL Total Bilirubin 1.00 (0.2-1.3) mg/dL AST 23 (14-36) U/L ALT 22 (0-35) U/L Alkaline Phosphatase 71 (38-126) U/L Troponin I < 0.012 (0.000-0.034) ng/mL Serum Total Protein 8.3 H (6.3-8.2) g/dL Albumin 4.9 (3.5-5.0) g/dL - Progress Progress: improved Progress Note: Patient 22-year-old female presents emergency department for treatment of a headache. Patient states she has been experiencing headache and syncope for the past 2 to 3 months. Testing ordered include CBC CMP troponin. CBC CMP troponin are all negative. EKG shows sinus rhythm. Patient declined CT head. Patient received Compazine Toradol and normal saline for headache management. Patient reassessed. Headache resolved. Patient currently asymptomatic. Patient requesting discharge. No indication for further work-up. Will discharge home. Patient agrees to follow-up with her primary care doctor within 48 hours for reevaluation. Portions of this note were created with voice recognition technology. There may be grammatical, spelling, punctuation or sound alike errors Complexity of problem addressed is moderate, acute complicated No critical care time Complexity data reviewed and analyzed is moderate. Test ordered. Test review ed. Clinical correlation made between laboratory findings and history and physical. Patient declined CT head. Risk of complication and or risk of morbidity/mortality of patient management is moderate. Patient received IV Toradol Compazine and sodium chloride. A prescription for Toradol was forwarded to patient's pharmacy. Patient agrees to follow-up with primary care doctor within 48 hours for reevaluation. Plan of care established via shared decision making. Time spent to discharge patient approximately 10 minutes. Vital stable. No social determinants of health present to impede follow-up. 03/08/23 22:18 Counseled pt/family regarding: lab results, diagnosis, need for follow-up - Departure Departure Disposition: Home Clinical Impression: Headache, Syncope Condition: Stable Critical Care Time: No Referrals: ANNA VARGAS NP, RN [Primary Care Provider] - Follow up/PCP as directed Additional Instructions: Discharge/Care Plan ARTURO PRECIADO DEMETRIUS was seen on 03/08/23 in the Emergency Room. The patient was counseled regarding Diagnosis,Lab results, Imaging studies, need for follow up and when to return to the Emergency Room. Prescriptions given: Discharge Note I have spoken with the patient and/or caregivers. I have explained the patient's condition, diagnosis and treatment plan based on the information available to me at this time. I have answered the patient's and/or caregiver's questions and addressed any concerns. The patient and/or caregivers have as good understanding of the patient's diagnosis, condition and treatment plan as can be expected at this point. The vital signs have been stable. The patient's condition is stable and appropriate for discharge from the emergency department. The patient will pursue further outpatient evaluation with the primary care physician or other designated or consulting physician as outlined in the dischar ge instructions. The patient and/or caregivers are agreeable to this plan of care and follow-up instructions have been explained in detail. The patient and/or caregivers have received these instruction. The patient/and or caregivers are aware that any significant change in condition or worsening of symptoms should prompt an immediate return to this or the closest emergency department or call 911. Prescriptions: Ketorolac Trometh 10 mg Tab [TORAdol 10 MG TABLET] 10 mg PO TID 5 Days #15 tablet
== END 2023-03-08 22:31 | disposition home or self-care (01) ==
LOC: ED 18:11
DX: R51.9 Headache, unspecified (principal); R55 Syncope and collapse; E78.5 Hyperlipidemia, unspecified; Z79.899 Other long term (current) drug therapy
CPT/HCPCS: 36000; 36415; 80053; 84484; 85025; 93005; 93041; 94760; 96360; 96374; 96375; 99284; J1885

== ENCOUNTER 2023-06-20 14:09 | Emergency (ER) | payer OTHER ==
[2023-06-20 14:30] VITALS: TEMP 97
[2023-06-20] MEDS ORDERED: Zofran 4 MG/2 ML VIAL IV ONE (14:38)
[2023-06-20] MEDS ORDERED: Sodium Chloride 0.9% 1000 ML 1,000 ML IV STA ×3 (14:38→18:39)
--- NOTE | 2023-06-20 14:38 | ERPHSYRPT ---
- History of Present Illness Time Seen by Provider: 06/20/23 14:38 Source: patient, family Exam Limitations: no limitations Patient Subjective Stated Complaint: pt here for weakness, vomiting,cough,chills for a few days now. pt thinks she is sick from vaping delta 8, she states she has problems with this before from vaping, but is vaping for a eating Triage Nursing Assessment: pt arrived per , has multi co's, resp easy, skin w/d/p, she state she is nauseated daily, no vomitng in er, no paul noted Physician History: This is a 22-year-old white female with multiple medical problems including hypothyroidism, hyperlipidemia, hypertension, asthma, irritable bowel syndrome and anxiety and presents with vomiting chills and cough for the last 2 to 3 days. Today she vomited 8 times. She has not had any diarrhea. Patient has chronic problem with decreased appetite and was vaping using delta 8. However this did not seem to help. She has no chest pain she has no shortness of breath. She denies abdominal pain. Timing/Duration: day(s) Cough Quality/Degree: mild Possible Cause: occasional episodes Modifying Factors: Improves With: albuterol inhaler Associated Symptoms: fever, chills, cough (Mild occasional), muscle aches, No chest pain/soreness Allergies/Adverse Reactions: hydromorphone HCl [From Dilaudid] Allergy (Severe, Verified 06/20/23 14:18) Hives Severe itching with hives penicillin G Allergy (Mild, Verified 06/20/23 14:18) Swelling diphenhydramine HCl [From Benadryl] Adverse Reaction (Mild, Verified 06/20/23 14:18) "crazy behavior" pertussis vaccine,adsorbed [Pertussis Vaccine,Adsorbed] Adverse Reaction (Verified 06/20/23 14:18) Swelling Home Medications: Levothyroxine Sodium [Euthyrox] 100 mcg PO DAILY 12/24/20 [History] Albuterol Sulfate Mdi [ALBUTEROL/Proair Hfa MDI] 2 puffs DAILY 06/20/23 [H istory] Mirtazapine [Remeron] 15 mg PO DAILY 06/20/23 [History] Ondansetron [Ondansetron Odt ] 4 mg PO Q6H PRN 06/20/23 [History] Hx Tetanus, Diphtheria Vaccination/Date Given: Yes Hx Influenza Vaccination/Date Given: No Hx Pneumococcal Vaccination/Date Given: No Immunizations Up to Date: Yes Travel Risk - International Travel Have you traveled outside of the country in past 3 weeks: No - Coronavirus Screening Are you exhibiting any of the following symptoms?: No Close contact with a COVID-19 positive Pt in past 14-21 Days: No - Vaccine Status Have you recieved a Covid-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: Yes [employer]: Moderna - Vaccination Dates Date of 2cond Vaccination (if applicable): 2020 - Review of Systems Constitutional: Weakness Eyes: No Symptoms Ears, Nose, & Throat: No Symptoms Respiratory: Cough Cardiac: No Symptoms (Mild) Abdominal/Gastrointestinal: Vomiting, Appetite Changes Genitourinary Symptoms: No Symptoms Musculoskeletal: No Symptoms Skin: No Symptoms Neurological: No Symptoms Psychological: No Symptoms Endocrine: No Symptoms Hematologic/Lymphatic: No Symptoms Immunological/Allergic: No Symptoms - Past Medical History Pertinent Past Medical History: Yes Neurological History: Migraines, Seizures ENT History: No Pertinent History Cardiac History: High Cholesterol, Hypertension Respiratory History: Asthma Endocrine Medical History: Hypothyroidism Musculoskeletal History: No Pertinent History GI Medical History: Irritable Bowel History: No Pertinent History Psycho-Social History: Anxiety, Depression, Other Female Reproductive Disorders: Abnormal Uterine Bleeding Other Medical History: STRESS SEIZURES, NUMBNESS STARTED IN FACE AND FANNED OUT. NOW COMES AND GOES HERE AND THERE. AT TIME OF EVAL SHE HAD NUMBNESS AND TINGLING INTO B LE. CHENCHO. ASTHMA WITH EXERTION. ENDOMETRIOSIS. - Past Surgical History Past Surgical History: Yes Neuro Surgical History: No Pertinent History Cardiac: No Pertinent History Respiratory: No Pertinent History Gastrointestinal: No Pertinent History Genitourinary: No Pertinent History Musculoskeletal: No Pertinent History Female Surgical History: No Pertinent History Other Surgical History: EGD, Colonoscopy. HX Stevenson Teeth Removed. Endoscopy - Social History Smoking Status: Former smoker Exposure to second hand smoke: Yes Drug Use: none Patient Lives Alone: No Significant Family History: no pertinent family hx - Female History Hx Last Menstrual Period: none Hx Now: No - Nursing Vital Signs Nursing Vital Signs: Initial Vital Signs Temperature 97.0 F 06/20/23 14:30 Pulse Rate 86 06/20/23 14:30 Respiratory Rate 18 06/20/23 14:30 Blood Pressure 160/107 06/20/23 14:30 O2 Sat by Pulse Oximetry 98 06/20/23 14:30 Pain Scale Pain Intensity 7 - Physical Exam General Appearance: no apparent distress, alert, anxiety Eye Exam: PERRL/EOMI, eyes nml inspection Ears, Nose, Throat Exam: normal ENT inspection, moist mucous membranes Neck Exam: normal inspection, non-tender, supple, full range of motion Respiratory Exam: normal breath sounds, lungs clear, airway intact, No chest tenderness, No respiratory distress Cardiovascular Exam: regular rate/rhythm, normal heart sounds, normal peripheral pulses Gastrointestinal/Abdomen Exam: soft, normal bowel sounds, No tenderness Pelvic Exam: not done Rectal Exam: not done Back Exam: normal inspection, normal range of motion, No CVA tenderness Extremity Exam: normal inspection, normal range of motion, pelvis stable Neurologic Exam: alert, oriented x 3, cooperative, 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 nml as tested, normal mood/affect, nml cerebellar function, nml station & gait, sensation nml Skin Exam: normal color, warm, dry Lymphatic Exam: No adenopathy SpO2 Interpretation: normal SpO2: 97 O2 Delivery: Room Air - Course Nursing assessment & vital signs reviewed: Yes Ordered Tests: Active Orders 24 hr Category Date Time Status IV Insertion STAT Care 06/20/23 14:38 Active CHEST 1 VIEW (PORTABLE) Stat Exams 06/20/23 17:34 Taken AMYLASE Stat Lab 06/20/23 14:48 Completed CBC W DIFF Stat Lab 06/20/23 14:48 Completed CMP Stat Lab 06/20/23 14:48 Completed CULTURE,URINE Stat Lab 06/20/23 15:33 Received HCG QUALITATIVE, SERUM Stat Lab 06/20/23 14:48 Completed UA W/RFX UR CULTURE Stat Lab 06/20/23 15:33 Completed Urine Triage Profile Stat Lab 06/20/23 15:33 Completed Medication Summary Generic Name Dose Route Start Last Admin Trade Name Freq PRN Reason Stop Dose Admin Sodium Chloride 1,000 mls @ 999 mls/hr 06/20/23 18:39 Sodium Chloride 0.9% 1000 Ml IV 06/20/23 19:39 .Q1H1M STA Discontinued Medications Generic Name Dose Route Start Last Admin Trade Name Freq PRN Reason Stop Dose Admin Sodium Chloride 1,000 mls @ 999 mls/hr 06/20/23 14:38 06/20/23 16:43 Sodium Chloride 0.9% 1000 Ml IV 06/20/23 15:38 Infused .Q1H1M STA Infusion Sodium Chloride Confirm 06/20/23 15:36 Sodium Chloride 0.9% 1000 Ml Administered 06/20/23 15:37 Dose 1,000 mls @ ud .ROUTE .STK-MED ONE Sodium Chloride 1,000 mls @ 999 mls/hr 06/20/23 16:29 06/20/23 17:35 Sodium Chloride 0.9% 1000 Ml IV 06/20/23 17:29 Infused .Q1H1M STA Infusion Ceftriaxone Sodium/Dextrose 1 g in 50 mls @ 100 mls/hr 06/20/23 16:29 06/20/23 17:07 Rocephin 1 Gm-D5w 50 Ml Bag IV 06/20/23 16:58 Infused STAT STA Infusion Ceftriaxone Sodium/Dextrose Confirm 06/20/23 16:32 Rocephin 1 Gm-D5w 50 Ml Bag Administered 06/20/23 16:33 Dose 1 g in 50 mls @ ud IV .STK-MED ONE Sodium Chloride Confirm 06/20/23 16:32 Sodium Chloride 0.9% 1000 Ml Administered 06/20/23 16:33 Dose 1,000 mls @ ud .ROUTE .STK-MED ONE Ondansetron HCl 4 mg 06/20/23 14:38 06/20/23 15:39 Ondansetron Hcl 4 Mg/2 Ml Vial IV 06/20/23 14:39 4 mg STAT ONE Administration Ondansetron HCl Confirm 06/20/23 15:36 Ondansetron Hcl 4 Mg/2 Ml Vial Administered 06/20/23 15:37 Dose 4 mg .ROUTE .STK-MED ONE Lab/Rad Data: Laboratory Result Diagrams 06/20/23 14:48 06/20/23 14:48 Laboratory Results 06/20/23 06/20/23 06/20/23 Range/Units 15:33 15:33 14:50 WBC (4.0-10.5) x10^3/uL RBC (4.1-5.4) x10^6/uL Hgb (12.0-16.0) g/dL Hct (35-47) % MCV (78-100) fL MCH (26-32) pg MCHC (32-36) g/dL RDW (11.5-14.0) % Plt Count (150-450) x10^3/uL MPV (7.5-11.0) fL Gran % (36.0-66.0) % Immature Gran % (Auto) (0.00-0.4) % Nucleat RBC Rel Count (0.00-0.1) % Eos # (Auto) (0-0.5) x10^3/uL Immature Gran # (Auto) (0.00-0.03) x10^3u/L Absolute Lymphs (auto) (1.0-4.6) x10^3/uL Absolute Monos (auto) (0.0-1.3) x10^3/uL Absolute Nucleated RBC (0.00-0.01) x10^3u/L Lymphocytes % (24.0-44.0) % Monocytes % (0.0-12.0) % Eosinophils % (0.00-5.0) % Basophils % (0.0-0.4) % Absolute Granulocytes (1.4-6.9) x10^3/uL Basophils # (0-0.4) x10^3/uL Sodium (137-145) mmol/L Potassium (3.5-5.1) mmol/L Chloride (98-107) mmol/L Carbon Dioxide (22-30) mmol/L Anion Gap (5-15) MEQ/L BUN (7-17) mg/dL Creatinine (0.52-1.04) mg/dL Estimated GFR ML/MIN Glucose (74-106) mg/dL Calcium (8.4-10.2) mg/dL Total Bilirubin (0.2-1.3) mg/dL AST (14-36) U/L ALT (0-35) U/L Alkaline Phosphatase (38-126) U/L Serum Total Protein (6.3-8.2) g/dL Albumin (3.5-5.0) g/dL Amylase (30-110) U/L Serum HCG, Qual (NEGATIVE) Urine Color Dark Yellow A (Yellow) Urine Appearance Cloudy A (Clear) Urine pH 5.5 (4.6-8.0) Ur Specific [place] >=1.030 A (1.005-1.030) Urine Protein 100 A (Negative) Urine Glucose (UA) Negative (Negative) mg/dL Urine Ketones >=160 A (Negative) Urine Blood Negative (Negative) Urine Nitrite Negative (Negative) Urine Bilirubin Negative (Negative) Urine Urobilinogen 1.0 A (0.2) mg/dL Ur Leukocyte Esterase Trace A (Negative) U Hyaline Cast (Auto) 3-5 A (0-2) /LPF Urine Microscopic RBC 3-5 (0-5) /HPF Urine Microscopic WBC 11-20 A (0-5) /HPF Ur Epithelial Cells Few (None Seen) /HPF Urine Bacteria Moderate A (None Seen) /HPF Urine Yeast (Budding) (None Seen) /HPF Urine Culture Reflexed YES (NO) Urine Opiates Level NEGATIVE (NEGATIVE) Ur Methadone NEGATIVE (NEGATIVE) Urine Barbiturates NEGATIVE (NEGATIVE) Ur Phencyclidine (PCP) NEGATIVE (NEGATIVE) Urine Amphetamine NEGATIVE (NEGATIVE) U Benzodiazepine Level NEGATIVE (NEGATIVE) Urine Cocaine NEGATIVE (NEGATIVE) Urine Marijuana (THC) POSITIVE (NEGATIVE) Influenza Type A Ag NEGATIVE (NEGATIVE) Influenza Type B Ag NEGATIVE (NEGATIVE) RSV (PCR) NEGATIVE (NEGATIVE) SARS-CoV-2 (PCR) NEGATIVE (NEGATIVE) 06/20/23 06/20/23 06/20/23 Range/Units 14:48 14:48 14:48 WBC 10.4 (4.0-10.5) x10^3/uL RBC 5.05 (4.1-5.4) x10^6/uL Hgb 15.3 (12.0-16.0) g/dL Hct 45.9 (35-47) % MCV 90.9 (78-100) fL MCH 30.3 (26-32) pg MCHC 33.3 (32-36) g/dL RDW 12.1 (11.5-14.0) % Plt Count 291 (150-450) x10^3/uL MPV 9.2 (7.5-11.0) fL Gran % 77.6 H (36.0-66.0) % Immature Gran % (Auto) 0.3 (0.00-0.4) % Nucleat RBC Rel Count 0.0 (0.00-0.1) % Eos # (Auto) 0.08 (0-0.5) x10^3/uL Immature Gran # (Auto) 0.03 (0.00-0.03) x10^3u/L Absolute Lymphs (auto) 1.57 (1.0-4.6) x10^3/uL Absolute Monos (auto) 0.60 (0.0-1.3) x10^3/uL Absolute Nucleated RBC 0.00 (0.00-0.01) x10^3u/L Lymphocytes % 15.1 L (24.0-44.0) % Monocytes % 5.8 (0.0-12.0) % Eosinophils % 0.8 (0.00-5.0) % Basophils % 0.4 (0.0-0.4) % Absolute Granulocytes 8.10 H (1.4-6.9) x10^3/uL Basophils # 0.04 (0-0.4) x10^3/uL Sodium 141 (137-145) mmol/L Potassium 3.4 L (3.5-5.1) mmol/L Chloride 105 (98-107) mmol/L Carbon Dioxide 18 L (22-30) mmol/L Anion Gap 21.5 H (5-15) MEQ/L BUN 12 (7-17) mg/dL Creatinine 0.67 (0.52-1.04) mg/dL Estimated GFR > 60.0 ML/MIN Glucose 80 (74-106) mg/dL Calcium 9.7 (8.4-10.2) mg/dL Total Bilirubin 1.40 H (0.2-1.3) mg/dL AST 21 (14-36) U/L ALT 19 (0-35) U/L Alkaline Phosphatase 84 (38-126) U/L Serum Total Protein 8.0 (6.3-8.2) g/dL Albumin 5.0 (3.5-5.0) g/dL Amylase 93 (30-110) U/L Serum HCG, Qual NEGATIVE (NEGATIVE) Urine Color (Yellow) Urine Appearance (Clear) Urine pH (4.6-8.0) Ur Specific [place] (1.005-1.030) Urine Protein (Negative) Urine Glucose (UA) (Negative) mg/dL Urine Ketones (Negative) Urine Blood (Negative) Urine Nitrite (Negative) Urine Bilirubin (Negative) Urine Urobilinogen (0.2) mg/dL Ur Leukocyte Esterase (Negative) U Hyaline Cast (Auto) (0-2) /LPF Urine Microscopic RBC (0-5) /HPF Urine Microscopic WBC (0-5) /HPF Ur Epithelial Cells (None Seen) /HPF Urine Bacteria (None Seen) /HPF Urine Yeast (Budding) (None Seen) /HPF Urine Culture Reflexed (NO) Urine Opiates Level (NEGATIVE) Ur Methadone (NEGATIVE) Urine Barbiturates (NEGATIVE) Ur Phencyclidine (PCP) (NEGATIVE) Urine Amphetamine (NEGATIVE) U Benzodiazepine Level (NEGATIVE) Urine Cocaine (NEGATIVE) Urine Marijuana (THC) (NEGATIVE) Influenza Type A Ag (NEGATIVE) Influenza Type B Ag (NEGATIVE) RSV (PCR) (NEGATIVE) SARS-CoV-2 (PCR) (NEGATIVE) - Progress Progress: improved, re-examined Air Movement: good Progress Note: 06/20/23 16:12 This patient's medical issue is 1 of moderate complexity. The level complexity in the work-up performed is based on review of the patient's past medical history, review the patient's medication list, review the patient's drug allergy list, history present illness and physical findings on examination. The work- up in this patient includes placement of intravenous line, infusion of normal saline solution, COVID-19 test, monotest, group A strep test, urinalysis, test, CBC, CMP, amylase and lipase. 06/20/23 18:40 Chest x-ray was interpreted by me. There is no evidence of any acute cardiopulmonary process. Counseled pt/family regarding: lab results, diagnosis, need for follow-up Medical Desision Making - Independent Historian Additional History obtained from: Mother - Diagnostic Testing Diagnostic test were ordered, analyzed, and reviewed by me: Yes Radiological Interpretation: Interpreted by me - Risk of complications The pt has a mod risk of morbidity or mortality based on: Need for prescription drug management - Departure Departure Disposition: Home Clinical Impression: UTI (urinary tract infection), Dehydration, Vomiting Condition: Stable Critical Care Time: No Referrals: AMAN COLVIN DO [Primary Care Provider] - Follow up/PCP as directed Additional Instructions: Drink plenty of clear liquids prior to advancing diet. Avoid fatty greasy spicy foods. Call your primary care physician and/or donor services coordinator tomorrow, 06/21/2023 to make arranges for follow-up appointment for further evaluation and management. Prescriptions: Ondansetron ODT 4 MG [Zofran Odt 4 mg] 4 mg PO Q6H PRN PRN #10 tablet PRN Reason: Vomiting Cefdinir 300 mg PO BID 7 Days #14 cap
[2023-06-20 14:53] LABS: BASOPHIL % 0.4 % (0.0-0.4); Basophil (Absolute #) 0.04 x10^3/uL (0-0.4); Eosinophil % 0.8 % (0.00-5.0); Eosinophil (Absolute #) 0.08 x10^3/uL (0-0.5); Hematocrit 45.9 % (35-47); Hemoglobin 15.3 g/dL (12.0-16.0); IMMATURE GRAN # 0.03 x10^3u/L (0.00-0.03); IMMATURE GRAN % 0.3 % (0.00-0.4); Lymphocyte (Absolute #) 1.57 x10^3/uL (1.0-4.6); Lymphocytes % 15.1 % (24.0-44.0); Mean Cell Volume 90.9 fL (78-100); Mean Corpuscular Hemoglobin 30.3 pg (26-32); Mean Corpuscular Hgb Concent. 33.3 g/dL (32-36); Mean Platelet Volume 9.2 fL (7.5-11.0); Monocytes % 5.8 % (0.0-12.0); Neutrophil % 77.6 % (36.0-66.0); Platelet Count 291 x10^3/uL (150-450); Red Blood Count 5.05 x10^6/uL (4.1-5.4); Red Cell Distribution Width 12.1 % (11.5-14.0); White Blood Count 10.4 x10^3/uL (4.0-10.5)
[2023-06-20 15:04] LABS: HCG SERUM TEST NEGATIVE (NEGATIVE)
[2023-06-20 15:06] LABS: ALKALINE PHOSPHATASE 84 U/L (38-126); AMYLASE 93 U/L (30-110); ANION GAP 21.5 MEQ/L (5-15); BLOOD UREA NITROGEN 12 mg/dL (7-17); CHLORIDE 105 mmol/L (98-107); Calcium 9.7 mg/dL (8.4-10.2); Carbon Dioxide 18 mmol/L (22-30); Creatinine 1 0.67 mg/dL (0.52-1.04); EST GLOMERULAR FILTRATION RATE > 60.0 ML/MIN; Glucose 80 mg/dL (74-106); Potassium 3.4 mmol/L (3.5-5.1); SGOT/AST 21 U/L (14-36); SGPT/ALT 19 U/L (0-35); SODIUM 141 mmol/L (137-145)
[2023-06-20 15:30] LABS: INFLUENZA A NEGATIVE (NEGATIVE); INFLUENZA B NEGATIVE (NEGATIVE); RESPIRATORY SYNCTIAL VIRUS NEGATIVE (NEGATIVE); SARS-CoV-2 Xpert Express NEGATIVE (NEGATIVE)
[2023-06-20] MEDS ORDERED: Zofran 4 MG/2 ML VIAL ONE (15:36)
[2023-06-20] MEDS ORDERED: Sodium Chloride 0.9% 1000 ML 1,000 ML ONE ×3 (15:36→18:50)
[2023-06-20 15:55] LABS: Amphetamine,Urine NEGATIVE (NEGATIVE); Barbiturate,Urine NEGATIVE (NEGATIVE); Benzodiazepine,Urine NEGATIVE (NEGATIVE); Cocaine,Urine NEGATIVE (NEGATIVE); Methadone,Urine NEGATIVE (NEGATIVE); Opiate,Urine NEGATIVE (NEGATIVE); PCP,Urine NEGATIVE (NEGATIVE); THC,Urine POSITIVE (NEGATIVE)
[2023-06-20 16:05] LABS: Appearance Cloudy (Clear); Bacteria Moderate /HPF (None Seen); Bilirubin Negative (Negative); Blood Negative (Negative); Epithelial Cells Few /HPF (None Seen); Glucose, Urine Negative (Negative); Ketones >=160 (Negative); Leukocyte Esterase Trace (Negative); Nitrite Negative (Negative); Ph 5.5 (4.6-8.0); Protein,Urine Dip 100 (Negative); Specific Gravity >=1.030 (1.005-1.030)
[2023-06-20 16:06] LABS: ADD URINE CULTURE? YES (NO)
[2023-06-20] MEDS ORDERED: ROCEPHIN 1 Gm-D5w 50 ml Bag** 1 G/50 ML IVPB IV STA (16:29)
[2023-06-20] MEDS ORDERED: ROCEPHIN 1 Gm-D5w 50 ml Bag** 1 G/50 ML IVPB IV ONE (16:32)
[2023-06-20 19:39] VITALS: RESP 16; O2SAT 99
[2023-06-20 20:02] VITALS: BP 122/71; PULSE 80
--- NOTE | 2023-06-21 08:47 | XRAY ---
Indication: Cough and vomiting. Comparison: November 06, 2022 Portable apical lordotic chest again demonstrates normal heart, lungs, and bony thorax with incidental calcified granulomas.
== END 2023-06-20 20:13 | disposition home or self-care (01) ==
LOC: ED 14:09
DX: N39.0 Urinary tract infection, site not specified (principal); E86.0 Dehydration; R11.2 Nausea with vomiting, unspecified; R68.83 Chills (without fever); R05.1 Acute cough; E78.5 Hyperlipidemia, unspecified; I10 Essential (primary) hypertension; Z79.899 Other long term (current) drug therapy
CPT/HCPCS: 0241U; 36000; 36415; 71045; 80053; 80307; 81001; 82150; 84703; 85025; 87086; 96360; 96365; 96374; 99284; J0696; J2405

== ENCOUNTER 2023-06-23 09:50 | Emergency (ER) | payer OTHER ==
[2023-06-23] MEDS ORDERED: Sodium Chloride 0.9% 1000 ML 1,000 ML IV STA (10:39)
[2023-06-23] MEDS ORDERED: Zofran 4 MG/2 ML VIAL IV ONE (10:39)
[2023-06-23 10:43] VITALS: TEMP 98.3
--- NOTE | 2023-06-23 10:45 | ERPHSYRPT ---
- History of Present Illness Time Seen by Provider: 06/23/23 10:41 Source: patient Exam Limitations: no limitations Patient Subjective Stated Complaint: uti and dehydration Triage Nursing Assessment: Patient reports to ER with c/o UTI and dehydration. Patient states she was seen in our ER 3 days ago and diagnosed with UTI. Patient states that her symptoms have not improved. Patient having burning and pain with urination and abdominal pain. Urine dark agustin with strong odor. Patient weak and needing assistance with transfers and ambulation. Patient reports that she has not consumed food in 9 days and states she is only able to take sips of d rinks. Patient reports n/v. Abdomen tender with palpation. Patient reports last BM was this morning. Physician History: she was seen in our ER 3 days ago and diagnosed with UTI Patient states that her symptoms have not improved. Patient having burning and pain with urination and abdominal pain. Patient weak and needing assistance with transfers and ambulation. Patient reports that she has not consumed food in 9 days and states she is only able to take sips of drinks. Patient reports n/v. Patient reports last BM was this morning. Timing/Duration: day(s) Severity of Pain-Max: none Severity of Pain-Current: none Prior abdominal problems: none Sexual intercourse history: non-contributory Modifying Factors: Improves With: nothing Associated Symptoms: urinary frequency Allergies/Adverse Reactions: hydromorphone HCl [From Dilaudid] Allergy (Severe, Verified 06/23/23 10:15) Hives Severe itching with hives penicillin G Allergy (Mild, Verified 06/23/23 10:15) Swelling diphenhydramine HCl [From Benadryl] Adverse Reaction (Mild, Verified 06/23/23 10:15) "crazy behavior" pertussis vaccine,adsorbed [Pertussis Vaccine,Adsorbed] Adverse Reaction (Verified 06/23/23 10:15) Swelling Home Medications: Levothyroxine Sodium [Euthyrox] 100 mcg PO DAILY 12/24/20 [History] Albuterol Sulfate Mdi [ALBUTEROL/Proair Hfa MDI] 2 puffs DAILY 06/20/23 [History] Hx Tetanus, Diphtheria Vaccination/Date Given: Yes Hx Influenza Vaccination/Date Given: No Hx Pneumococcal Vaccination/Date Given: No Travel Risk - International Travel Have you traveled outside of the country in past 3 weeks: No - Coronavirus Screening Are you exhibiting any of the following symptoms?: No Close contact with a COVID-19 positive Pt in past 14-21 Days: No - Vaccine Status Have you recieved a Covid-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: Yes 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 - Vaccination Dates Date of 2cond Vaccination (if applicable): unk - Review of Systems Constitutional: Weakness, No Fever, No Chills Eyes: No Symptoms Ears, Nose, & Throat: No Symptoms Respiratory: No Cough, No Dyspnea Cardiac: No Chest Pain, No Edema, No Syncope Abdominal/Gastrointestinal: No Abdominal Pain, No Nausea, No Vomiting, No Diarrhea Genitourinary Symptoms: Dysuria, Frequency Musculoskeletal: No Symptoms, No Back Pain, No Neck Pain Skin: No Symptoms, No Rash Neurological: No Dizziness, No Focal Weakness, No Sensory Changes Psychological: No Symptoms Endocrine: No Symptoms All Other Systems: Reviewed and Negative - Past Medical History Pertinent Past Medical History: Yes Neurological History: Migraines, Seizures ENT History: No Pertinent History Cardiac History: High Cholesterol, Hypertension Respiratory History: Asthma Endocrine Medical History: Hypothyroidism Musculoskeletal History: No Pertinent History GI Medical History: Irritable Bowel History: No Pertinent History Psycho-Social History: Anxiety, Depression, Other Female Reproductive Disorders: Abnormal Uterine Bleeding Other Medical History: STRESS SEIZURES, NUMBNESS STARTED IN FACE AND FANNED OUT. NOW COMES AND GOES HERE AND THERE. AT TIME OF EVAL SHE HAD NUMBNESS AND TINGLING INTO B LE. CHENCHO. ASTHMA WITH EXERTION. ENDOMETRIOSIS. - Past Surgical History Past Surgical History: Yes Neuro Surgical History: No Pertinent History Cardiac: No Pertinent History Respiratory: No Pertinent History Gastrointestinal: No Pertinent History Genitourinary: No Pertinent History Musculoskeletal: No Pertinent History Female Surgical History: No Pertinent History Other Surgical History: EGD, Colonoscopy. HX [place] Teeth Removed. Endoscopy - Social History Smoking Status: Former smoker Exposure to second hand smoke: No Drug Use: none Patient Lives Alone: No Significant Family History: no pertinent family hx - Female History Hx Now: No - Nursing Vital Signs Nursing Vital Signs: Initial Vital Signs Temperature 98.3 F 06/23/23 10:24 Pulse Rate 103 H 06/23/23 10:24 Respiratory Rate 16 06/23/23 10:24 Blood Pressure 136/99 06/23/23 10:24 O2 Sat by Pulse Oximetry 98 06/23/23 10:24 Pain Scale Pain Intensity 5 - Physical Exam General Appearance: no apparent distress, alert, anxiety Eye Exam: PERRL/EOMI, eyes nml inspection Ears, Nose, Throat Exam: normal ENT inspection, TMs normal, pharynx normal, moist mucous membranes Neck Exam: normal inspection, non-tender, supple, full range of motion Respiratory Exam: normal breath sounds, lungs clear, No respiratory distress Cardiovascular Exam: regular rate/rhythm, normal heart sounds, normal peripheral pulses Gastrointestinal/Abdomen Exam: soft, No tenderness, No mass Back Exam: normal inspection, normal range of motion, No CVA tenderness, No vertebral tenderness Extremity Exam: normal inspection, normal range of motion, pelvis stable Neurologic Exam: alert, oriented x 3, cooperative, 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, normal mood/affect, sensation nml, No motor deficits Skin Exam: normal color, warm, dry Lymphatic Exam: No adenopathy SpO2: 98 - Course Nursing assessment & vital signs reviewed: Yes Ordered Tests: Active Orders 24 hr Category Date Time Status CBC W DIFF Stat Lab 06/23/23 10:50 Completed CMP Stat Lab 06/23/23 10:50 Completed CULTURE,URINE Stat Lab 06/23/23 10:39 Received UA W/RFX UR CULTURE Stat Lab 06/23/23 10:39 Completed Urine Triage Profile Stat Lab 06/23/23 10:39 Completed Medication Summary Discontinued Medications Generic Name Dose Route Start Last Admin Trade Name Annabel PRN Reason Stop Dose Admin Sodium Chloride 1,000 mls @ 999 mls/hr 06/23/23 10:39 06/23/23 10:57 Sodium Chloride 0.9% 1000 Ml IV 06/23/23 11:39 999 mls/hr .Q1H1M STA Administration Sodium Chloride Confirm 06/23/23 10:56 Sodium Chloride 0.9% 1000 Ml Administered 06/23/23 10:57 Dose 1,000 mls @ ud .ROUTE .STK-MED ONE Ondansetron HCl 4 mg 06/23/23 10:39 06/23/23 10:57 Ondansetron Hcl 4 Mg/2 Ml Vial IV 06/23/23 10:40 4 mg STAT ONE Administration Ondansetron HCl Confirm 06/23/23 10:56 Ondansetron Hcl 4 Mg/2 Ml Vial Administered 06/23/23 10:57 Dose 4 mg .ROUTE .STK-MED ONE Lab/Rad Data: Laboratory Result Diagrams 06/23/23 10:50 06/23/23 10:50 Laboratory Results 06/23/23 06/23/23 06/23/23 Range/Units 10:50 10:50 10:39 WBC 9.6 (4.0-10.5) x10^3/uL RBC 5.63 H (4.1-5.4) x10^6/uL Hgb 17.1 H (12.0-16.0) g/dL Hct 50.4 H (35-47) % MCV 89.5 (78-100) fL MCH 30.4 (26-32) pg MCHC 33.9 (32-36) g/dL RDW 12.1 (11.5-14.0) % Plt Count 343 (150-450) x10^3/uL MPV 9.2 (7.5-11.0) fL Gran % 70.0 H (36.0-66.0) % Immature Gran % (Auto) 0.4 (0.00-0.4) % Nucleat RBC Rel Count 0.0 (0.00-0.1) % Eos # (Auto) 0.12 (0-0.5) x10^3/uL Immature Gran # (Auto) 0.04 H (0.00-0.03) x10^3u/L Absolute Lymphs (auto) 1.86 (1.0-4.6) x10^3/uL Absolute Monos (auto) 0.80 (0.0-1.3) x10^3/uL Absolute Nucleated RBC 0.00 (0.00-0.01) x10^3u/L Lymphocytes % 19.4 L (24.0-44.0) % Monocytes % 8.4 (0.0-12.0) % Eosinophils % 1.3 (0.00-5.0) % Basophils % 0.5 (0.0-0.4) % Absolute Granulocytes 6.70 (1.4-6.9) x10^3/uL Basophils # 0.05 (0-0.4) x10^3/uL Sodium 142 (137-145) mmol/L Potassium 3.7 (3.5-5.1) mmol/L Chloride 109 H (98-107) mmol/L Carbon Dioxide 8 L* (22-30) mmol/L Anion Gap 27.7 H (5-15) MEQ/L BUN 8 (7-17) mg/dL Creatinine 0.85 (0.52-1.04) mg/dL Estimated GFR > 60.0 ML/MIN Glucose 74 (74-106) mg/dL Calcium 9.9 (8.4-10.2) mg/dL Total Bilirubin 1.10 (0.2-1.3) mg/dL AST 21 (14-36) U/L ALT 19 (0-35) U/L Alkaline Phosphatase 94 (38-126) U/L Serum Total Protein 8.9 H (6.3-8.2) g/dL Albumin 5.4 H (3.5-5.0) g/dL Urine Color (Yellow) Urine Appearance (Clear) Urine pH (4.6-8.0) Ur Specific [place] (1.005-1.030) Urine Protein (Negative) Urine Glucose (UA) (Negative) mg/dL Urine Ketones (Negative) Urine Blood (Negative) Urine Nitrite (Negative) Urine Bilirubin (Negative) Urine Urobilinogen (0.2) mg/dL Ur Leukocyte Esterase (Negative) U Hyaline Cast (Auto) (0-2) /LPF Urine Microscopic RBC (0-5) /HPF Urine Microscopic WBC (0-5) /HPF Ur Epithelial Cells (None Seen) /HPF Urine Bacteria (None Seen) /HPF Granular Casts (None Seen) /LPF Urine Yeast (Budding) (None Seen) /HPF Urine Culture Reflexed (NO) Urine Opiates Level NEGATIVE (NEGATIVE) Ur Methadone NEGATIVE (NEGATIVE) Urine Barbiturates NEGATIVE (NEGATIVE) Ur Phencyclidine (PCP) NEGATIVE (NEGATIVE) Urine Amphetamine NEGATIVE (NEGATIVE) U Benzodiazepine Level NEGATIVE (NEGATIVE) Urine Cocaine NEGATIVE (NEGATIVE) Urine Marijuana (THC) POSITIVE (NEGATIVE) 06/23/23 Range/Units 10:39 WBC (4.0-10.5) x10^3/uL RBC (4.1-5.4) x10^6/uL Hgb (12.0-16.0) g/dL Hct (35-47) % MCV (78-100) fL MCH (26-32) pg MCHC (32-36) g/dL RDW (11.5-14.0) % Plt Count (150-450) x10^3/uL MPV (7.5-11.0) fL Gran % (36.0-66.0) % Immature Gran % (Auto) (0.00-0.4) % Nucleat RBC Rel Count (0.00-0.1) % Eos # (Auto) (0-0.5) x10^3/uL Immature Gran # (Auto) (0.00-0.03) x10^3u/L Absolute Lymphs (auto) (1.0-4.6) x10^3/uL Absolute Monos (auto) (0.0-1.3) x10^3/uL Absolute Nucleated RBC (0.00-0.01) x10^3u/L Lymphocytes % (24.0-44.0) % Monocytes % (0.0-12.0) % Eosinophils % (0.00-5.0) % Basophils % (0.0-0.4) % Absolute Granulocytes (1.4-6.9) x10^3/uL Basophils # (0-0.4) x10^3/uL Sodium (137-145) mmol/L Potassium (3.5-5.1) mmol/L Chloride (98-107) mmol/L Carbon Dioxide (22-30) mmol/L Anion Gap (5-15) MEQ/L BUN (7-17) mg/dL Creatinine (0.52-1.04) mg/dL Estimated GFR ML/MIN Glucose (74-106) mg/dL Calcium (8.4-10.2) mg/dL Total Bilirubin (0.2-1.3) mg/dL AST (14-36) U/L ALT (0-35) U/L Alkaline Phosphatase (38-126) U/L Serum Total Protein (6.3-8.2) g/dL Albumin (3.5-5.0) g/dL Urine Color Yellow (Yellow) Urine Appearance Clear (Clear) Urine pH 5.5 (4.6-8.0) Ur Specific [place] >=1.030 A (1.005-1.030) Urine Protein 300 A (Negative) Urine Glucose (UA) Negative (Negative) mg/dL Urine Ketones >=160 A (Negative) Urine Blood Small A (Negative) Urine Nitrite Negative (Negative) Urine Bilirubin Negative (Negative) Urine Urobilinogen 1.0 A (0.2) mg/dL Ur Leukocyte Esterase Negative (Negative) U Hyaline Cast (Auto) 6-10 A (0-2) /LPF Urine Microscopic RBC 0-2 (0-5) /HPF Urine Microscopic WBC 3-5 (0-5) /HPF Ur Epithelial Cells Few (None Seen) /HPF Urine Bacteria None Seen (None Seen) /HPF Granular Casts 3-5 A (None Seen) /LPF Urine Yeast (Budding) Few A (None Seen) /HPF Urine Culture Reflexed YES (NO) Urine Opiates Level (NEGATIVE) Ur Methadone (NEGATIVE) Urine Barbiturates (NEGATIVE) Ur Phencyclidine (PCP) (NEGATIVE) Urine Amphetamine (NEGATIVE) U Benzodiazepine Level (NEGATIVE) Urine Cocaine (NEGATIVE) Urine Marijuana (THC) (NEGATIVE) - Progress Progress: improved Air Movement: good Blood Culture(s) Obtained: No Antibiotics given: No Counseled pt/family regarding: lab results, diagnosis, need for follow-up Medical Desision Making - Diagnostic Testing Diagnostic test were ordered, analyzed, and reviewed by me: Yes Radiological Interpretation: Reviewed by me - Risk of complications Minimal Risk: Minimal risk of morbidity - Departure Departure Disposition: Home Clinical Impression: Mild dehydration UTI (urinary tract infection) Qualifiers: Urinary tract infection type: site unspecified Hematuria presence: without h ematuria Qualified Code(s): N39.0 - Urinary tract infection, site not specified Condition: Stable Critical Care Time: No Referrals: AMAN COLVIN DO [Primary Care Provider] - Follow Up with PCP/3 days Instructions: Dehydration, Adult (DC) Additional Instructions: Discharge/Care Plan ARTURO PRECIADO was seen on 06/23/23 in the Emergency Room. The patient was counseled regarding Diagnosis,Lab results, Imaging studies, need for follow up and when to return to the Emergency Room. Prescriptions given: Discharge Note I have spoken with the patient and/or caregivers. I have explained the patient's condition, diagnosis and treatment plan based on the information available to me at this time. I have answered the patient's and/or caregiver's questions and addressed any concerns. The patient and/or caregivers have as good understanding of the patient's diagnosis, condition and treatment plan as can be expected at this point. The vital signs have been stable. The patient's condition is stable and appropriate for discharge from the emergency department. The patient will pursue further outpatient evaluation with the primary care physician or other designated or consulting physician as outlined in the discha rge instructions. The patient and/or caregivers are agreeable to this plan of care and follow-up instructions have been explained in detail. The patient and/or caregivers have received these instruction. The patient/and or caregivers are aware that any significant change in condition or worsening of symptoms should prompt an immediate return to this or the closest emergency department or call 911. ARTURO PRECIADO was seen on 06/23/23 n the Emergency Room. At that time you were treated for an emergent condition, during your visit Laboratory, Radiology and/or other procedures may have been ordered. It is very important that you follow-up with your Primary Care Physician AMAN COLVIN DO within the next 24-48 hours to review your Emergency Room visit and the final results of testing that was ordered. Some test results such as Urine Cultures, Blood Cultures, and other cultures if ordered will not be finalized for 24-48 hours. If you do not have a Primary Care Provider please call the medical records department at [phone] ext [phone] to obtain a copy of your results or you may sign into our patient portal to obtain these results by visiting us @ [email or web address] and completing the following steps: 1. Click on the Patient Portal link 2. Click the Patient Self Enrollment Link to complete the enrollment form and entering your 3. Once the enrollment form is completed you will receive an email with a temporary ID and password at the email address you provided. 4. Next choose a user name and password. Your user name must be at least 4 characters long and your password must be at least 4 characters long. 5. Choose a security question from the list and provide your answer to the question. If you already have signed into the Health Portal you may access your Health Care Information 26/03 by the following steps: 1. Login to our website @ [email or web address] 2. Enter your original user name and password. FAQS The [facility] Health Portal is an online tool that contains your Lab Results, Radiology Reports, Visit History, Discharge Instructions and Health Summary Lab and Radiology Results will not be available for 72 hours on the portal. The Portal is a secure site, passwords are encryted and URLs are re-written so they cannot be copied and pasted. You and authorized family members are the only ones who can access your Portal. Also there is a timeout feature that protects your information if you leave the Portal page open. If you have technical difficulty please use the Contact Us link on the page this will allow you to submit any questions you have regarding the Portal or you may contact the Medical Record Department at [phone] ext [phone].
[2023-06-23] MEDS ORDERED: Zofran 4 MG/2 ML VIAL ONE (10:56)
[2023-06-23] MEDS ORDERED: Sodium Chloride 0.9% 1000 ML 1,000 ML ONE (10:56)
[2023-06-23 10:59] LABS: BASOPHIL % 0.5 % (0.0-0.4); Basophil (Absolute #) 0.05 x10^3/uL (0-0.4); Eosinophil % 1.3 % (0.00-5.0); Eosinophil (Absolute #) 0.12 x10^3/uL (0-0.5); Hematocrit 50.4 % (35-47); Hemoglobin 17.1 g/dL (12.0-16.0); IMMATURE GRAN # 0.04 x10^3u/L (0.00-0.03); IMMATURE GRAN % 0.4 % (0.00-0.4); Lymphocyte (Absolute #) 1.86 x10^3/uL (1.0-4.6); Lymphocytes % 19.4 % (24.0-44.0); Mean Cell Volume 89.5 fL (78-100); Mean Corpuscular Hemoglobin 30.4 pg (26-32); Mean Corpuscular Hgb Concent. 33.9 g/dL (32-36); Mean Platelet Volume 9.2 fL (7.5-11.0); Monocytes % 8.4 % (0.0-12.0); Platelet Count 343 x10^3/uL (150-450); Red Blood Count 5.63 x10^6/uL (4.1-5.4); Red Cell Distribution Width 12.1 % (11.5-14.0); White Blood Count 9.6 x10^3/uL (4.0-10.5)
[2023-06-23 11:20] LABS: ALBUMIN 5.4 g/dL (3.5-5.0); ALKALINE PHOSPHATASE 94 U/L (38-126); ANION GAP 27.7 MEQ/L (5-15); BLOOD UREA NITROGEN 8 mg/dL (7-17); CHLORIDE 109 mmol/L (98-107); Calcium 9.9 mg/dL (8.4-10.2); Creatinine 1 0.85 mg/dL (0.52-1.04); EST GLOMERULAR FILTRATION RATE > 60.0 ML/MIN; Glucose 74 mg/dL (74-106); Potassium 3.7 mmol/L (3.5-5.1); SGOT/AST 21 U/L (14-36); SGPT/ALT 19 U/L (0-35); SODIUM 142 mmol/L (137-145); Total Protein 8.9 g/dL (6.3-8.2)
[2023-06-23 11:27] LABS: Carbon Dioxide 8 mmol/L (22-30)
[2023-06-23 11:35] LABS: Amphetamine,Urine NEGATIVE (NEGATIVE); Barbiturate,Urine NEGATIVE (NEGATIVE); Benzodiazepine,Urine NEGATIVE (NEGATIVE); Cocaine,Urine NEGATIVE (NEGATIVE); Methadone,Urine NEGATIVE (NEGATIVE); Opiate,Urine NEGATIVE (NEGATIVE); PCP,Urine NEGATIVE (NEGATIVE); THC,Urine POSITIVE (NEGATIVE)
[2023-06-23 11:53] LABS: Appearance Clear (Clear); Bacteria None Seen /HPF (None Seen); Bilirubin Negative (Negative); Blood Small (Negative); Epithelial Cells Few /HPF (None Seen); Glucose, Urine Negative (Negative); Ketones >=160 (Negative); Leukocyte Esterase Negative (Negative); Nitrite Negative (Negative); Ph 5.5 (4.6-8.0); Protein,Urine Dip 300 (Negative); RBC 0-2 /HPF (0-5); Specific Gravity >=1.030 (1.005-1.030)
[2023-06-23 11:54] LABS: Budding Yeast Few /HPF (None Seen)
[2023-06-23 11:55] LABS: ADD URINE CULTURE? YES (NO)
[2023-06-23 12:07] VITALS: O2SAT 98
[2023-06-23 12:12] VITALS: BP 129/80; PULSE 85; RESP 17
== END 2023-06-23 12:37 | disposition home or self-care (01) ==
LOC: ED 09:50
DX: E86.0 Dehydration (principal); N39.0 Urinary tract infection, site not specified; R10.9 Unspecified abdominal pain; R53.1 Weakness; R11.2 Nausea with vomiting, unspecified; E78.5 Hyperlipidemia, unspecified; I10 Essential (primary) hypertension; Z79.899 Other long term (current) drug therapy
CPT/HCPCS: 36000; 36415; 80053; 80307; 81001; 85025; 87086; 96360; 96374; 99284; J2405

== ENCOUNTER 2023-09-14 02:32 | Emergency (ER) | payer OTHER ==
[2023-09-14 02:59] LABS: HCG URINE TEST NEGATIVE (NEGATIVE)
[2023-09-14 03:00] VITALS: TEMP 98.4
[2023-09-14 03:14] LABS: Appearance Clear (Clear); Bilirubin Negative (Negative); Blood Small (Negative); Epithelial Cells Few /HPF (None Seen); Glucose, Urine Negative (Negative); Hyaline Casts NONE SEEN /LPF (0-2); Ketones 15 (Negative); Leukocyte Esterase Small (Negative); Nitrite Negative (Negative); Protein,Urine Dip Negative (Negative); RBC 0-2 /HPF (0-5); Specific Gravity 1.015 (1.005-1.030); Urobilinogen 0.2 mg/dL (0.2)
[2023-09-14 03:15] LABS: ADD URINE CULTURE? YES (NO); Bacteria Moderate /HPF (None Seen); Group A Strep NOT DETECTED (NEGATIVE)
[2023-09-14 03:27] LABS: INFLUENZA A NEGATIVE (NEGATIVE); INFLUENZA B NEGATIVE (NEGATIVE); RESPIRATORY SYNCTIAL VIRUS NEGATIVE (NEGATIVE); SARS-CoV-2 Xpert Express NEGATIVE (NEGATIVE)
[2023-09-14 03:47] LABS: Amphetamine,Urine NEGATIVE (NEGATIVE); Barbiturate,Urine NEGATIVE (NEGATIVE); Benzodiazepine,Urine NEGATIVE (NEGATIVE); Cocaine,Urine NEGATIVE (NEGATIVE); Methadone,Urine NEGATIVE (NEGATIVE); Opiate,Urine NEGATIVE (NEGATIVE); PCP,Urine NEGATIVE (NEGATIVE); THC,Urine POSITIVE (NEGATIVE)
[2023-09-14 04:39] LABS: BASOPHIL % 0.6 % (0.0-0.4); Basophil (Absolute #) 0.05 x10^3/uL (0-0.4); Eosinophil % 2.8 % (0.00-5.0); Eosinophil (Absolute #) 0.25 x10^3/uL (0-0.5); Hemoglobin 14.5 g/dL (12.0-16.0); IMMATURE GRAN # 0.04 x10^3u/L (0.00-0.03); IMMATURE GRAN % 0.4 % (0.00-0.4); Lymphocyte (Absolute #) 1.38 x10^3/uL (1.0-4.6); Lymphocytes % 15.3 % (24.0-44.0); Mean Cell Volume 90.7 fL (78-100); Mean Corpuscular Hemoglobin 29.9 pg (26-32); Mean Platelet Volume 9.3 fL (7.5-11.0); Monocytes % 6.7 % (0.0-12.0); Neutrophil % 74.2 % (36.0-66.0); Platelet Count 340 x10^3/uL (150-450); Red Blood Count 4.85 x10^6/uL (4.1-5.4); Red Cell Distribution Width 11.9 % (11.5-14.0)
[2023-09-14 04:48] LABS: ALBUMIN 4.5 g/dL (3.5-5.0); ALKALINE PHOSPHATASE 74 U/L (38-126); ANION GAP 13.5 MEQ/L (5-15); BLOOD UREA NITROGEN 7 mg/dL (7-17); CHLORIDE 105 mmol/L (98-107); Calcium 9.6 mg/dL (8.4-10.2); Carbon Dioxide 25 mmol/L (22-30); Creatinine 1 0.75 mg/dL (0.52-1.04); EST GLOMERULAR FILTRATION RATE 114.7 ML/MIN; Glucose 90 mg/dL (74-106); Potassium 3.5 mmol/L (3.5-5.1); SGOT/AST 22 U/L (14-36); SGPT/ALT 58 U/L (0-35); SODIUM 140 mmol/L (137-145); TROPONIN < 0.012 ng/mL (0.000-0.034); Total Protein 7.4 g/dL (6.3-8.2)
[2023-09-14 06:18] VITALS: O2SAT 91
[2023-09-14] MEDS ORDERED: KEFLEX 500 MG PO ONE (06:32)
--- NOTE | 2023-09-14 06:35 | ERPHSYRPT ---
- History of Present Illness Time Seen by Provider: 09/14/23 03:24 Source: patient, family Exam Limitations: no limitations Patient Subjective Stated Complaint: pt states she has been using a thc vape pen "all day, every day" for last 2-3 months. states she has been having rib pain and upper back pain. Triage Nursing Assessment: pt alert and oriented, answers questions approp. pt ambulates into room with steady gait noted. respirations nonlabored. skin warm and dry. heart rate 84, sinus rhythm on monitor. o2 sat mid to high 90's on room air. Physician History: 22 years old female presented in the ER with complaints of cough, generalized chest soreness because of heavy use of vaping pen for the last few months. Patient reports coughing up clear to yellow sputum at times without any difficulty breathing. Patient is very anxious and wants to make sure she does not have any pneumonia. Patient denies any suicidal or homicidal ideations. She is not in any distress currently. Allergies/Adverse Reactions: hydromorphone HCl [From Dilaudid] Allergy (Severe, Verified 06/25/23 12:23) Hives Severe itching with hives penicillin G Allergy (Mild, Verified 06/25/23 12:23) Swelling diphenhydramine HCl [From Benadryl] Adverse Reaction (Mild, Verified 06/25/23 12:23) "crazy behavior" pertussis vaccine,adsorbed [Pertussis Vaccine,Adsorbed] Adverse Reaction (Verified 06/25/23 12:23) Swelling Home Medications: Levothyroxine Sodium [Euthyrox] 100 mcg PO DAILY 12/24/20 [History] Albuterol Sulfate Mdi [ALBUTEROL/Proair Hfa MDI] 2 puffs DAILY 06/20/23 [History] Hx Tetanus, Diphtheria Vaccination/Date Given: Yes Hx Influenza Vaccination/Date Given: No Hx Pneumococcal Vaccination/Date Given: No Travel Risk - International Travel Have you traveled outside of the country in past 3 weeks: No - Coronavirus Screening Are you exhibiting any of the following symptoms?: No Close contact with a COVID-19 positive Pt in past 14-21 Days: No - Vaccine Status Have you recieved a Covid-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: Yes 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 - Vaccination Dates Date of 2cond Vaccination (if applicable): unk - Review of Systems Constitutional: No Symptoms Eyes: No Symptoms Ears, Nose, & Throat: No Symptoms Respiratory: Cough Cardiac: Chest Pain Abdominal/Gastrointestinal: No Symptoms Genitourinary Symptoms: No Symptoms Musculoskeletal: No Symptoms Skin: No Symptoms Neurological: No Symptoms Psychological: Anxiety, No Suicidal Ideations, No Homicidal Ideations Endocrine: No Symptoms Hematologic/Lymphatic: No Symptoms Immunological/Allergic: No Symptoms - Past Medical History Pertinent Past Medical History: Yes Neurological History: Migraines, Seizures ENT History: No Pertinent History Cardiac History: High Cholesterol, Hypertension Respiratory History: Asthma Endocrine Medical History: Hypothyroidism Musculoskeletal History: No Pertinent History GI Medical History: Irritable Bowel History: No Pertinent History Psycho-Social History: Anxiety, Depression, Other Female Reproductive Disorders: Abnormal Uterine Bleeding, Endometriosis Other Medical History: STRESS SEIZURES, CHENCHO. ASTHMA WITH EXERTION. ENDOMETRIOSIS. Austism, PTSD, - Past Surgical History Past Surgical History: Yes Neuro Surgical History: No Pertinent History Cardiac: No Pertinent History Respiratory: No Pertinent History Gastrointestinal: No Pertinent History Genitourinary: No Pertinent History Musculoskeletal: No Pertinent History Female Surgical History: No Pertinent History Other Surgical History: EGD, Colonoscopy. HX [place] Teeth Removed. Endoscopy. epidural steroid injections - Social History Smoking Status: Never smoker Exposure to second hand smoke: No Drug Use: none Patient Lives Alone: No Significant Family History: no pertinent family hx - Female History Hx Last Menstrual Period: depo shot Hx Now: No - Nursing Vital Signs Nursing Vital Signs: Initial Vital Signs Temperature 98.4 F 09/14/23 02:41 Pulse Rate 92 H 09/14/23 02:41 Respiratory Rate 18 09/14/23 02:41 Blood Pressure 132/104 09/14/23 02:41 O2 Sat by Pulse Oximetry 97 09/14/23 02:41 Pain Scale Pain Intensity 0 - Physical Exam General Appearance: no apparent distress, alert, anxiety Eye Exam: PERRL/EOMI Ears, Nose, Throat Exam: normal ENT inspection Neck Exam: normal inspection, non-tender, supple, full range of motion Respiratory Exam: normal breath sounds, lungs clear Cardiovascular Exam: regular rate/rhythm, normal heart sounds Gastrointestinal/Abdomen Exam: soft, normal bowel sounds, No tenderness Back Exam: normal inspection, normal range of motion Extremity Exam: normal inspection, normal range of motion Neurologic Exam: alert, oriented x 3, cooperative, nml cerebellar function, nml station & gait, sensation nml, No normal mood/affect, No motor deficits Skin Exam: normal color SpO2 Interpretation: normal SpO2: 91 O2 Delivery: Room Air - Course EKG Interpreted by Me: RATE (78), NORMAL AXIS, NORMAL INTERVALS Ordered Tests: Medication Summary Discontinued Medications Generic Name Dose Route Start Last Admin Trade Name Annabel PRN Reason Stop Dose Admin Cephalexin HCl 500 mg 09/14/23 06:32 09/14/23 06:39 Cephalexin Mh500 Mg Capsule PO 09/14/23 06:33 500 mg STAT ONE Administration Cephalexin HCl Confirm 09/14/23 06:38 Cephalexin Mh500 Mg Capsule Administered 09/14/23 06:39 Dose 500 mg .ROUTE .STK-MED ONE Lab/Rad Data: Laboratory Result Diagrams 09/14/23 04:00 09/14/23 03:45 Laboratory Results 09/14/23 09/14/23 09/14/23 Range/Units 04:00 03:45 03:29 WBC 9.0 (4.0-10.5) x10^3/uL RBC 4.85 (4.1-5.4) x10^6/uL Hgb 14.5 (12.0-16.0) g/dL Hct 44.0 (35-47) % MCV 90.7 (78-100) fL MCH 29.9 (26-32) pg MCHC 33.0 (32-36) g/dL RDW 11.9 (11.5-14.0) % Plt Count 340 (150-450) x10^3/uL MPV 9.3 (7.5-11.0) fL Gran % 74.2 H (36.0-66.0) % Immature Gran % (Auto) 0.4 (0.00-0.4) % Nucleat RBC Rel Count 0.0 (0.00-0.1) % Eos # (Auto) 0.25 (0-0.5) x10^3/uL Immature Gran # (Auto) 0.04 H (0.00-0.03) x10^3u/L Absolute Lymphs (auto) 1.38 (1.0-4.6) x10^3/uL Absolute Monos (auto) 0.60 (0.0-1.3) x10^3/uL Absolute Nucleated RBC 0.00 (0.00-0.01) x10^3u/L Lymphocytes % 15.3 L (24.0-44.0) % Monocytes % 6.7 (0.0-12.0) % Eosinophils % 2.8 (0.00-5.0) % Basophils % 0.6 (0.0-0.4) % Absolute Granulocytes 6.70 (1.4-6.9) x10^3/uL Basophils # 0.05 (0-0.4) x10^3/uL Sodium 140 (137-145) mmol/L Potassium 3.5 (3.5-5.1) mmol/L Chloride 105 (98-107) mmol/L Carbon Dioxide 25 (22-30) mmol/L Anion Gap 13.5 (5-15) MEQ/L BUN 7 (7-17) mg/dL Creatinine 0.75 (0.52-1.04) mg/dL Estimated GFR 114.7 ML/MIN Glucose 90 (74-106) mg/dL Calcium 9.6 (8.4-10.2) mg/dL Total Bilirubin 0.90 (0.2-1.3) mg/dL AST 22 (14-36) U/L ALT 58 H (0-35) U/L Alkaline Phosphatase 74 (38-126) U/L Troponin I < 0.012 (0.000-0.034) ng/mL Serum Total Protein 7.4 (6.3-8.2) g/dL Albumin 4.5 (3.5-5.0) g/dL Urine Color (Yellow) Urine Appearance (Clear) Urine pH (4.6-8.0) Ur Specific Cable (1.005-1.030) Urine Protein (Negative) Urine Glucose (UA) (Negative) mg/dL Urine Ketones (Negative) Urine Blood (Negative) Urine Nitrite (Negative) Urine Bilirubin (Negative) Urine Urobilinogen (0.2) mg/dL Ur Leukocyte Esterase (Negative) U Hyaline Cast (Auto) (0-2) /LPF Urine Microscopic RBC (0-5) /HPF Urine Microscopic WBC (0-5) /HPF Ur Epithelial Cells (None Seen) /HPF Urine Bacteria (None Seen) /HPF Urine Culture Reflexed (NO) Urine HCG, Qual (NEGATIVE) Urine Opiates Level NEGATIVE (NEGATIVE) Ur Methadone NEGATIVE (NEGATIVE) Urine Barbiturates NEGATIVE (NEGATIVE) Ur Phencyclidine (PCP) NEGATIVE (NEGATIVE) Urine Amphetamine NEGATIVE (NEGATIVE) U Benzodiazepine Level NEGATIVE (NEGATIVE) Urine Cocaine NEGATIVE (NEGATIVE) Urine Marijuana (THC) POSITIVE A (NEGATIVE) Influenza Type A Ag (NEGATIVE) Influenza Type B Ag (NEGATIVE) RSV (PCR) (NEGATIVE) SARS-CoV-2 (PCR) (NEGATIVE) Group A Strep Antibody (NEGATIVE) 09/14/23 09/14/23 09/14/23 Range/Units 02:51 02:47 02:47 WBC (4.0-10.5) x10^3/uL RBC (4.1-5.4) x10^6/uL Hgb (12.0-16.0) g/dL Hct (35-47) % MCV (78-100) fL MCH (26-32) pg MCHC (32-36) g/dL RDW (11.5-14.0) % Plt Count (150-450) x10^3/uL MPV (7.5-11.0) fL Gran % (36.0-66.0) % Immature Gran % (Auto) (0.00-0.4) % Nucleat RBC Rel Count (0.00-0.1) % Eos # (Auto) (0-0.5) x10^3/uL Immature Gran # (Auto) (0.00-0.03) x10^3u/L Absolute Lymphs (auto) (1.0-4.6) x10^3/uL Absolute Monos (auto) (0.0-1.3) x10^3/uL Absolute Nucleated RBC (0.00-0.01) x10^3u/L Lymphocytes % (24.0-44.0) % Monocytes % (0.0-12.0) % Eosinophils % (0.00-5.0) % Basophils % (0.0-0.4) % Absolute Granulocytes (1.4-6.9) x10^3/uL Basophils # (0-0.4) x10^3/uL Sodium (137-145) mmol/L Potassium (3.5-5.1) mmol/L Chloride (98-107) mmol/L Carbon Dioxide (22-30) mmol/L Anion Gap (5-15) MEQ/L BUN (7-17) mg/dL Creatinine (0.52-1.04) mg/dL Estimated GFR ML/MIN Glucose (74-106) mg/dL Calcium (8.4-10.2) mg/dL Total Bilirubin (0.2-1.3) mg/dL AST (14-36) U/L ALT (0-35) U/L Alkaline Phosphatase (38-126) U/L Troponin I (0.000-0.034) ng/mL Serum Total Protein (6.3-8.2) g/dL Albumin (3.5-5.0) g/dL Urine Color Yellow (Yellow) Urine Appearance Clear (Clear) Urine pH 6.0 (4.6-8.0) Ur Specific Cable 1.015 (1.005-1.030) Urine Protein Negative (Negative) Urine Glucose (UA) Negative (Negative) mg/dL Urine Ketones 15 A (Negative) Urine Blood Small A (Negative) Urine Nitrite Negative (Negative) Urine Bilirubin Negative (Negative) Urine Urobilinogen 0.2 (0.2) mg/dL Ur Leukocyte Esterase Small A (Negative) U Hyaline Cast (Auto) NONE SEEN (0-2) /LPF Urine Microscopic RBC 0-2 (0-5) /HPF Urine Microscopic WBC 11-20 A (0-5) /HPF Ur Epithelial Cells Few (None Seen) /HPF Urine Bacteria Moderate A (None Seen) /HPF Urine Culture Reflexed YES (NO) Urine HCG, Qual NEGATIVE (NEGATIVE) Urine Opiates Level (NEGATIVE) Ur Methadone (NEGATIVE) Urine Barbiturates (NEGATIVE) Ur Phencyclidine (PCP) (NEGATIVE) Urine Amphetamine (NEGATIVE) U Benzodiazepine Level (NEGATIVE) Urine Cocaine (NEGATIVE) Urine Marijuana (THC) (NEGATIVE) Influenza Type A Ag NEGATIVE (NEGATIVE) Influenza Type B Ag NEGATIVE (NEGATIVE) RSV (PCR) NEGATIVE (NEGATIVE) SARS-CoV-2 (PCR) NEGATIVE (NEGATIVE) Group A Strep Antibody NOT DETECTED (NEGATIVE) - Progress Progress: unchanged Progress Note: 09/14/23 06:25 22 years old is evaluated in the ER for complaints of cough and chest soreness after having heavy vaping. Patient is very anxious. She is thoroughly counseled. She is not suicidal or homicidal repeated evaluations. She is overly concerned about use of vape. EKG is normal sinus rhythm with no acute ischemic changes, negative troponins. Normal white count, unremarkable chemistries. No RSV COVID and flu. Does have UTI and started on Keflex. Recommended outpatient follow-up primary care and therapist. This point I do not think patient needs any other workup in the ER and is being discharged with outpatient follow-up. Counseled pt/family regarding: lab results, diagnosis, need for follow-up, rad results Medical Desision Making - Independent Historian Additional History obtained from: Mother - Diagnostic Testing Diagnostic test were ordered, analyzed, and reviewed by me: Yes Radiological Interpretation: Interpreted by me, Reviewed by me - Risk of complications The pt has a mod risk of morbidity or mortality based on: Need for prescription drug management - Departure Departure Disposition: Home Clinical Impression: Bronchitis, Anxiety, UTI (urinary tract infection) Condition: Stable Critical Care Time: No Referrals: AMAN COLVIN DO [Primary Care Provider] - Follow up with PCP 1 day Instructions: Generalized anxiety disorder, Urinary Tract Infection, Adult ED Additional Instructions: Follow-up with your primary care and therapist for reevaluation. Do not smoke or vape. Use inhaler which you have at home as recommended. Return to ER/call 911 if having any suicidal or homicidal ideations. Prescriptions: Cephalexin Mh 500 mg [Keflex 500 mg] 500 mg PO TID #21 cap
[2023-09-14] MEDS ORDERED: KEFLEX 500 MG ONE (06:38)
[2023-09-14 07:05] VITALS: BP 117/81; PULSE 76; RESP 18
--- NOTE | 2023-09-14 09:14 | XRAY ---
Indication: Chest tightness. Sore throat. Comparison: June 20, 2023 Portable chest again demonstrates normal heart, lungs, and bony thorax with incidental medial right base calcified granuloma.
== END 2023-09-14 07:00 | disposition home or self-care (01) ==
LOC: ED 02:32
DX: J40 Bronchitis, not specified as acute or chronic (principal); F41.9 Anxiety disorder, unspecified; N39.0 Urinary tract infection, site not specified; R05.9 Cough, unspecified; R07.9 Chest pain, unspecified; E78.5 Hyperlipidemia, unspecified; I10 Essential (primary) hypertension; Z79.899 Other long term (current) drug therapy
CPT/HCPCS: 0241U; 36415; 71045; 80053; 80307; 81001; 81025; 84484; 85025; 87086; 87651; 93005; 99284; A9270-GY

== ENCOUNTER 2023-09-16 13:13 | Emergency (ER) | payer OTHER ==
--- NOTE | 2023-09-16 13:41 | ERPHSYRPT ---
- History of Present Illness Time Seen by Provider: 09/16/23 13:40 Source: patient, family Exam Limitations: no limitations Physician History: I was delayed in seeing this pt as they could not get back into a room until now as they just came back. Pt has withdrawal also from THC OTC, with n and v and aching all over. SHe also has some abd pain. no hx trauma. Not SOBreath. No CP. UTI previously also. Hx confirmed thorugh independent source of mom in ER. discussed risks/benefits of testing cbc, cmp, lactate, lipase, amu, hcg, US, CT, UA, urine triage, pepcid, ondans, omep, IVF with pt and family and they wish to proceed, these are ordered. results discussed. Timing/Duration: day(s) Activites at Onset: eating Quality: burning, cramping Onset Location: abdominal pain, pelvic pain Pain Radiation: generalized flank Severity of Pain-Max: moderate Severity of Pain-Current: moderate Sexual intercourse history: non-contributory Modifying Factors: Improves With: vomiting Associated Symptoms: nausea Allergies/Adverse Reactions: hydromorphone HCl [From Dilaudid] Allergy (Severe, Verified 09/16/23 13:42) Hives Severe itching with hives penicillin G Allergy (Mild, Verified 09/16/23 13:42) Swelling diphenhydramine HCl [From Benadryl] Adverse Reaction (Mild, Verified 09/16/23 13:42) "crazy behavior" pertussis vaccine,adsorbed [Pertussis Vaccine,Adsorbed] Adverse Reaction (Verified 09/16/23 13:42) Swelling Home Medications: Levothyroxine Sodium [Euthyrox] 100 mcg PO DAILY 12/24/20 [History] Hx Tetanus, Diphtheria Vaccination/Date Given: Yes Hx Influenza Vaccination/Date Given: No Hx Pneumococcal Vaccination/Date Given: No Travel Risk - Vaccine Status Have you recieved a Covid-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: Yes Orientation And Mobility Specialist: Moderna - Vaccination Dates Date of 2cond Vaccination (if applicable): unk - Review of Systems Constitutional: No Fever, No Chills Eyes: No Symptoms Ears, Nose, & Throat: No Symptoms Respiratory: Cough, No Dyspnea Cardiac: No Chest Pain, No Edema, No Syncope Abdominal/Gastrointestinal: Abdominal Pain, Nausea, Vomiting, No Diarrhea Genitourinary Symptoms: No Dysuria Musculoskeletal: No Back Pain, No Neck Pain Skin: No Rash Neurological: No Dizziness, No Focal Weakness, No Sensory Changes Psychological: No Symptoms Endocrine: No Symptoms Hematologic/Lymphatic: No Symptoms Immunological/Allergic: No Symptoms All Other Systems: Reviewed and Negative - Past Medical History Pertinent Past Medical History: Yes Neurological History: Migraines, Seizures ENT History: No Pertinent History Cardiac History: High Cholesterol, Hypertension Respiratory History: Asthma Endocrine Medical History: Hypothyroidism Musculoskeletal History: No Pertinent History GI Medical History: Irritable Bowel History: No Pertinent History Psycho-Social History: Anxiety, Depression, Other Female Reproductive Disorders: Abnormal Uterine Bleeding, Endometriosis Other Medical History: STRESS SEIZURES, CHENCHO. ASTHMA WITH EXERTION. ENDOMETRIOSIS. Austism, PTSD, - Past Surgical History Past Surgical History: Yes Neuro Surgical History: No Pertinent History Cardiac: No Pertinent History Respiratory: No Pertinent History Gastrointestinal: No Pertinent History Genitourinary: No Pertinent History Musculoskeletal: No Pertinent History Female Surgical History: No Pertinent History Other Surgical History: EGD, Colonoscopy. HX [place] Teeth Removed. Endoscopy. epidural steroid injections - Social History Smoking Status: Never smoker Exposure to second hand smoke: No Drug Use: none Patient Lives Alone: No Significant Family History: no pertinent family hx - Nursing Vital Signs Nursing Vital Signs: Initial Vital Signs Temperature 99.0 F 09/16/23 13:43 Pulse Rate 120 H 09/16/23 13:43 Respiratory Rate 20 09/16/23 13:43 Blood Pressure 164/124 09/16/23 13:43 O2 Sat by Pulse Oximetry 97 09/16/23 13:43 Pain Scale Pain Intensity 4 - Physical Exam General Appearance: no apparent distress, alert Eye Exam: PERRL/EOMI, eyes nml inspection Ears, Nose, Throat Exam: normal ENT inspection, TMs normal, moist mucous membranes, pharyngeal erythema Neck Exam: normal inspection, non-tender, supple, full range of motion Respiratory Exam: normal breath sounds, lungs clear, airway intact, No respiratory distress, No accessory muscle use, No prolonged expirations, No crackles/rales, No rhonchi, No wheezing, No stridor Cardiovascular Exam: regular rate/rhythm, normal heart sounds, normal peripheral pulses Gastrointestinal/Abdomen Exam: soft, No tenderness, No mass Pelvic Exam: not done Rectal Exam: deferred Back Exam: normal inspection, normal range of motion, No CVA tenderness, No vertebral tenderness Extremity Exam: normal inspection, normal range of motion, pelvis stable Neurologic Exam: alert, oriented x 3, 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, 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, normal mood/affect, sensation nml, No motor deficits Skin Exam: normal color, warm, dry Lymphatic Exam: No adenopathy SpO2 Interpretation: normal SpO2: 97 O2 Delivery: Room Air - Course Nursing assessment & vital signs reviewed: Yes - CT Exams Abdomen/Pelvis CT Interpretation: Tele-radiologist Report, Other (left ovarian cyst lung and spleen and liver granulomas.) Ordered Tests: Active Orders 24 hr Category Date Time Status Diabetes Clinical Manager STAT Care 09/16/23 13:49 Active Clean Catch Urine Specimen STAT Care 09/16/23 13:46 Active EKG-ER Only STAT Care 09/16/23 13:46 Active IV Insertion STAT Care 09/16/23 13:46 Active ABDOMEN AND PELVIS W/0 CONTRAS [CT] Stat Exams 09/16/23 13:47 Completed CHEST 1 VIEW (PORTABLE) Stat Exams 09/16/23 13:46 Completed PELVIS TRANS VAGINAL [US] Stat Exams 09/16/23 17:16 Completed ACETAMINOPHEN Stat Lab 09/16/23 14:06 Completed AMYLASE Stat Lab 09/16/23 14:06 Completed CBC W DIFF Stat Lab 09/16/23 14:06 Completed CMP Stat Lab 09/16/23 14:06 Completed CULTURE,URINE Stat Lab 09/16/23 13:40 Received D-DIMER QUANTITATIVE Stat Lab 09/16/23 14:06 Completed ETHYL ALCOHOL Stat Lab 09/16/23 14:06 Completed HCG QUALITATIVE, SERUM Stat Lab 09/16/23 14:06 Completed LIPASE Stat Lab 09/16/23 14:06 Completed Lactic Acid Stat Lab 09/16/23 14:00 Completed NT PRO BNPII Stat Lab 09/16/23 14:06 Completed SALICYLATE Stat Lab 09/16/23 14:06 Completed TROPONIN Q4H Lab 09/16/23 14:06 Completed TROPONIN Q4H Lab 09/16/23 17:40 Completed UA W/RFX UR CULTURE Stat Lab 09/16/23 13:40 Completed Urine Triage Profile Stat Lab 09/16/23 13:51 Completed Medication Summary Generic Name Dose Route Start Last Admin Trade Name Freq PRN Reason Stop Dose Admin Benztropine Mesylate 1 mg 09/17/23 22:56 09/16/23 23:53 Benztropine Mesylate 0.5 Mg Tablet PO 09/17/23 22:57 1 mg STAT ONE Administration Discontinued Medications Generic Name Dose Route Start Last Admin Trade Name Annabel PRKadie Reason Stop Dose Admin Famotidine 20 mg 09/16/23 13:46 09/16/23 14:12 Famotidine 20 Mg/1 Vial IV 09/16/23 13:47 20 mg STAT ONE Administration Famotidine Confirm 09/16/23 13:54 Famotidine 20 Mg/1 Vial Administered 09/16/23 13:55 Dose 20 mg IV .STK-MED ONE Haloperidol Lactate 2 mg 09/16/23 16:00 09/16/23 22:16 Haloperidol Lactate 5 Mg/Ml Vial IM 09/16/23 16:01 2 mg STAT ONE Administration Haloperidol Lactate Confirm 09/16/23 16:19 Haloperidol Lactate 5 Mg/Ml Vial Administered 09/16/23 16:20 Dose 5 mg .ROUTE .STK-MED ONE Haloperidol Lactate Confirm 09/16/23 22:15 Haloperidol Lactate 5 Mg/Ml Vial Administered 09/16/23 22:16 Dose 5 mg .ROUTE .STK-MED ONE Sodium Chloride 1,000 mls @ 999 mls/hr 09/16/23 13:46 09/16/23 15:12 Sodium Chloride 0.9% 1000 Ml IV 09/16/23 14:46 Infused .Q1H1M STA Infusion Sodium Chloride Confirm 09/16/23 13:54 Sodium Chloride 0.9% 1000 Ml Administered 09/16/23 13:55 Dose 1,000 mls @ ud .ROUTE .STK-MED ONE Lorazepam 1 mg 09/16/23 16:29 09/16/23 16:42 Lorazepam 1 Mg Tablet PO 09/16/23 16:30 1 mg STAT ONE Administration Lorazepam Confirm 09/16/23 16:40 Lorazepam 1 Mg Tablet Administered 09/16/23 16:41 Dose 1 mg .ROUTE .STK-MED ONE Lorazepam 1 mg 09/16/23 22:56 09/16/23 23:09 Lorazepam 1 Mg Tablet PO 09/16/23 22:57 1 mg STAT ONE Administration Lorazepam Confirm 09/16/23 23:08 Lorazepam 1 Mg Tablet Administered 09/16/23 23:09 Dose 1 mg .ROUTE .STK-MED ONE Ondansetron HCl 4 mg 09/16/23 13:46 09/16/23 14:04 Ondansetron Hcl 4 Mg/2 Ml Vial IV 09/16/23 13:47 4 mg STAT ONE Administration Ondansetron HCl Confirm 09/16/23 13:54 Ondansetron Hcl 4 Mg/2 Ml Vial Administered 09/16/23 13:55 Dose 4 mg .ROUTE .STK-MED ONE Oseltamivir Phosphate 75 mg 09/16/23 22:57 09/16/23 23:09 Oseltamivir 75 Mg Cap PO 09/16/23 22:58 75 mg STAT ONE Administration Oseltamivir Phosphate Confirm 09/16/23 23:08 Oseltamivir 75 Mg Cap Administered 09/16/23 23:09 Dose 75 mg PO .STK-MED ONE Pantoprazole Sodium 40 mg 09/16/23 13:46 09/16/23 14:16 Pantoprazole 40 Mg Vial IV 09/16/23 13:47 40 mg STAT ONE Administration Pantoprazole Sodium Confirm 09/16/23 13:54 Pantoprazole 40 Mg Vial Administered 09/16/23 13:55 Dose 40 mg IV .STK-MED ONE Lab/Rad Data: Laboratory Result Diagrams 09/16/23 14:06 09/16/23 14:06 Laboratory Results 09/16/23 09/16/23 09/16/23 Range/Units 17:40 14:06 14:06 WBC (4.0-10.5) x10^3/uL RBC (4.1-5.4) x10^6/uL Hgb (12.0-16.0) g/dL Hct (35-47) % MCV (78-100) fL MCH (26-32) pg MCHC (32-36) g/dL RDW (11.5-14.0) % Plt Count (150-450) x10^3/uL MPV (7.5-11.0) fL Gran % (36.0-66.0) % Immature Gran % (Auto) (0.00-0.4) % Nucleat RBC Rel Count (0.00-0.1) % Eos # (Auto) (0-0.5) x10^3/uL Immature Gran # (Auto) (0.00-0.03) x10^3u/L Absolute Lymphs (auto) (1.0-4.6) x10^3/uL Absolute Monos (auto) (0.0-1.3) x10^3/uL Absolute Nucleated RBC (0.00-0.01) x10^3u/L Lymphocytes % (24.0-44.0) % Monocytes % (0.0-12.0) % Eosinophils % (0.00-5.0) % Basophils % (0.0-0.4) % Absolute Granulocytes (1.4-6.9) x10^3/uL Basophils # (0-0.4) x10^3/uL D-Dimer (0.0-0.50) mg/L Sodium (137-145) mmol/L Potassium (3.5-5.1) mmol/L Chloride (98-107) mmol/L Carbon Dioxide (22-30) mmol/L Anion Gap (5-15) MEQ/L BUN (7-17) mg/dL Creatinine (0.52-1.04) mg/dL Estimated GFR ML/MIN Glucose (74-106) mg/dL Lactic Acid (0.4-2.0) Calcium (8.4-10.2) mg/dL Total Bilirubin (0.2-1.3) mg/dL AST (14-36) U/L ALT (0-35) U/L Alkaline Phosphatase (38-126) U/L Troponin I < 0.012 < 0.012 (0.000-0.034) ng/mL NT-Pro-B Natriuret Pep 26.3 (<300) pg/mL Serum Total Protein (6.3-8.2) g/dL Albumin (3.5-5.0) g/dL Amylase (30-110) U/L Lipase (23-300) U/L Serum HCG, Qual NEGATIVE (NEGATIVE) Urine Color (Yellow) Urine Appearance (Clear) Urine pH (4.6-8.0) Ur Specific Page (1.005-1.030) Urine Protein (Negative) Urine Glucose (UA) (Negative) mg/dL Urine Ketones (Negative) Urine Blood (Negative) Urine Nitrite (Negative) Urine Bilirubin (Negative) Urine Urobilinogen (0.2) mg/dL Ur Leukocyte Esterase (Negative) U Hyaline Cast (Auto) (0-2) /LPF Urine Microscopic RBC (0-5) /HPF Urine Microscopic WBC (0-5) /HPF Ur Epithelial Cells (None Seen) /HPF Urine Bacteria (None Seen) /HPF Urine Culture Reflexed (NO) Salicylates (2-20) mg/dL Urine Opiates Level (NEGATIVE) Ur Methadone (NEGATIVE) Acetaminophen (10-30) ug/ml Urine Barbiturates (NEGATIVE) Ur Phencyclidine (PCP) (NEGATIVE) Urine Amphetamine (NEGATIVE) U Benzodiazepine Level (NEGATIVE) Urine Cocaine (NEGATIVE) Urine Marijuana (THC) (NEGATIVE) Ethyl Alcohol (0-10) mg/dL Influenza Type A Ag (NEGATIVE) Influenza Type B Ag (NEGATIVE) RSV (PCR) (NEGATIVE) SARS-CoV-2 (PCR) (NEGATIVE) Group A Strep Antibody (NEGATIVE) Slides for Path Review 09/16/23 09/16/23 09/16/23 Range/Units 14:06 14:06 14:06 WBC 8.4 (4.0-10.5) x10^3/uL RBC 4.82 (4.1-5.4) x10^6/uL Hgb 14.5 (12.0-16.0) g/dL Hct 43.6 (35-47) % MCV 90.5 (78-100) fL MCH 30.1 (26-32) pg MCHC 33.3 (32-36) g/dL RDW 12.1 (11.5-14.0) % Plt Count 265 (150-450) x10^3/uL MPV 9.3 (7.5-11.0) fL Gran % 86.0 H (36.0-66.0) % Immature Gran % (Auto) 0.2 (0.00-0.4) % Nucleat RBC Rel Count 0.0 (0.00-0.1) % Eos # (Auto) 0.01 (0-0.5) x10^3/uL Immature Gran # (Auto) 0.02 (0.00-0.03) x10^3u/L Absolute Lymphs (auto) 0.44 L (1.0-4.6) x10^3/uL Absolute Monos (auto) 0.66 (0.0-1.3) x10^3/uL Absolute Nucleated RBC 0.00 (0.00-0.01) x10^3u/L Lymphocytes % 5.3 L (24.0-44.0) % Monocytes % 7.9 (0.0-12.0) % Eosinophils % 0.1 (0.00-5.0) % Basophils % 0.5 (0.0-0.4) % Absolute Granulocytes 7.20 H (1.4-6.9) x10^3/uL Basophils # 0.04 (0-0.4) x10^3/uL D-Dimer 0.22 (0.0-0.50) mg/L Sodium 140 (137-145) mmol/L Potassium 3.8 (3.5-5.1) mmol/L Chloride 104 (98-107) mmol/L Carbon Dioxide 20 L (22-30) mmol/L Anion Gap 19.9 H (5-15) MEQ/L BUN 5 L (7-17) mg/dL Creatinine 0.56 (0.52-1.04) mg/dL Estimated GFR 131.4 ML/MIN Glucose 91 (74-106) mg/dL Lactic Acid (0.4-2.0) Calcium 9.8 (8.4-10.2) mg/dL Total Bilirubin 1.00 (0.2-1.3) mg/dL AST 25 (14-36) U/L ALT 39 H (0-35) U/L Alkaline Phosphatase 65 (38-126) U/L Troponin I (0.000-0.034) ng/mL NT-Pro-B Natriuret Pep (<300) pg/mL Serum Total Protein 8.4 H (6.3-8.2) g/dL Albumin 5.0 (3.5-5.0) g/dL Amylase 83 (30-110) U/L Lipase 71 (23-300) U/L Serum HCG, Qual (NEGATIVE) Urine Color (Yellow) Urine Appearance (Clear) Urine pH (4.6-8.0) Ur Specific Page (1.005-1.030) Urine Protein (Negative) Urine Glucose (UA) (Negative) mg/dL Urine Ketones (Negative) Urine Blood (Negative) Urine Nitrite (Negative) Urine Bilirubin (Negative) Urine Urobilinogen (0.2) mg/dL Ur Leukocyte Esterase (Negative) U Hyaline Cast (Auto) (0-2) /LPF Urine Microscopic RBC (0-5) /HPF Urine Microscopic WBC (0-5) /HPF Ur Epithelial Cells (None Seen) /HPF Urine Bacteria (None Seen) /HPF Urine Culture Reflexed (NO) Salicylates < 1.0 L (2-20) mg/dL Urine Opiates Level (NEGATIVE) Ur Methadone (NEGATIVE) Acetaminophen < 10 L (10-30) ug/ml Urine Barbiturates (NEGATIVE) Ur Phencyclidine (PCP) (NEGATIVE) Urine Amphetamine (NEGATIVE) U Benzodiazepine Level (NEGATIVE) Urine Cocaine (NEGATIVE) Urine Marijuana (THC) (NEGATIVE) Ethyl Alcohol < 10 (0-10) mg/dL Influenza Type A Ag (NEGATIVE) Influenza Type B Ag (NEGATIVE) RSV (PCR) (NEGATIVE) SARS-CoV-2 (PCR) (NEGATIVE) Group A Strep Antibody (NEGATIVE) Slides for Path Review YES 09/16/23 09/16/23 09/16/23 Range/Units 14:00 13:51 13:40 WBC (4.0-10.5) x10^3/uL RBC (4.1-5.4) x10^6/uL Hgb (12.0-16.0) g/dL Hct (35-47) % MCV (78-100) fL MCH (26-32) pg MCHC (32-36) g/dL RDW (11.5-14.0) % Plt Count (150-450) x10^3/uL MPV (7.5-11.0) fL Gran % (36.0-66.0) % Immature Gran % (Auto) (0.00-0.4) % Nucleat RBC Rel Count (0.00-0.1) % Eos # (Auto) (0-0.5) x10^3/uL Immature Gran # (Auto) (0.00-0.03) x10^3u/L Absolute Lymphs (auto) (1.0-4.6) x10^3/uL Absolute Monos (auto) (0.0-1.3) x10^3/uL Absolute Nucleated RBC (0.00-0.01) x10^3u/L Lymphocytes % (24.0-44.0) % Monocytes % (0.0-12.0) % Eosinophils % (0.00-5.0) % Basophils % (0.0-0.4) % Absolute Granulocytes (1.4-6.9) x10^3/uL Basophils # (0-0.4) x10^3/uL D-Dimer (0.0-0.50) mg/L Sodium (137-145) mmol/L Potassium (3.5-5.1) mmol/L Chloride (98-107) mmol/L Carbon Dioxide (22-30) mmol/L Anion Gap (5-15) MEQ/L BUN (7-17) mg/dL Creatinine (0.52-1.04) mg/dL Estimated GFR ML/MIN Glucose (74-106) mg/dL Lactic Acid 0.8 (0.4-2.0) Calcium (8.4-10.2) mg/dL Total Bilirubin (0.2-1.3) mg/dL AST (14-36) U/L ALT (0-35) U/L Alkaline Phosphatase (38-126) U/L Troponin I (0.000-0.034) ng/mL NT-Pro-B Natriuret Pep (<300) pg/mL Serum Total Protein (6.3-8.2) g/dL Albumin (3.5-5.0) g/dL Amylase (30-110) U/L Lipase (23-300) U/L Serum HCG, Qual (NEGATIVE) Urine Color Yellow (Yellow) Urine Appearance Cloudy A (Clear) Urine pH 5.5 (4.6-8.0) Ur Specific Page >=1.030 A (1.005-1.030) Urine Protein 30 (Negative) Urine Glucose (UA) Negative (Negative) mg/dL Urine Ketones >=160 A (Negative) Urine Blood Negative (Negative) Urine Nitrite Negative (Negative) Urine Bilirubin Negative (Negative) Urine Urobilinogen 1.0 A (0.2) mg/dL Ur Leukocyte Esterase Trace A (Negative) U Hyaline Cast (Auto) 3-5 A (0-2) /LPF Urine Microscopic RBC 0-2 (0-5) /HPF Urine Microscopic WBC 3-5 (0-5) /HPF Ur Epithelial Cells Few (None Seen) /HPF Urine Bacteria Moderate A (None Seen) /HPF Urine Culture Reflexed YES (NO) Salicylates (2-20) mg/dL Urine Opiates Level NEGATIVE (NEGATIVE) Ur Methadone NEGATIVE (NEGATIVE) Acetaminophen (10-30) ug/ml Urine Barbiturates NEGATIVE (NEGATIVE) Ur Phencyclidine (PCP) NEGATIVE (NEGATIVE) Urine Amphetamine NEGATIVE (NEGATIVE) U Benzodiazepine Level NEGATIVE (NEGATIVE) Urine Cocaine NEGATIVE (NEGATIVE) Urine Marijuana (THC) POSITIVE A (NEGATIVE) Ethyl Alcohol (0-10) mg/dL Influenza Type A Ag (NEGATIVE) Influenza Type B Ag (NEGATIVE) RSV (PCR) (NEGATIVE) SARS-CoV-2 (PCR) (NEGATIVE) Group A Strep Antibody (NEGATIVE) Slides for Path Review 09/16/23 Range/Units 11:45 WBC (4.0-10.5) x10^3/uL RBC (4.1-5.4) x10^6/uL Hgb (12.0-16.0) g/dL Hct (35-47) % MCV (78-100) fL MCH (26-32) pg MCHC (32-36) g/dL RDW (11.5-14.0) % Plt Count (150-450) x10^3/uL MPV (7.5-11.0) fL Gran % (36.0-66.0) % Immature Gran % (Auto) (0.00-0.4) % Nucleat RBC Rel Count (0.00-0.1) % Eos # (Auto) (0-0.5) x10^3/uL Immature Gran # (Auto) (0.00-0.03) x10^3u/L Absolute Lymphs (auto) (1.0-4.6) x10^3/uL Absolute Monos (auto) (0.0-1.3) x10^3/uL Absolute Nucleated RBC (0.00-0.01) x10^3u/L Lymphocytes % (24.0-44.0) % Monocytes % (0.0-12.0) % Eosinophils % (0.00-5.0) % Basophils % (0.0-0.4) % Absolute Granulocytes (1.4-6.9) x10^3/uL Basophils # (0-0.4) x10^3/uL D-Dimer (0.0-0.50) mg/L Sodium (137-145) mmol/L Potassium (3.5-5.1) mmol/L Chloride (98-107) mmol/L Carbon Dioxide (22-30) mmol/L Anion Gap (5-15) MEQ/L BUN (7-17) mg/dL Creatinine (0.52-1.04) mg/dL Estimated GFR ML/MIN Glucose (74-106) mg/dL Lactic Acid (0.4-2.0) Calcium (8.4-10.2) mg/dL Total Bilirubin (0.2-1.3) mg/dL AST (14-36) U/L ALT (0-35) U/L Alkaline Phosphatase (38-126) U/L Troponin I (0.000-0.034) ng/mL NT-Pro-B Natriuret Pep (<300) pg/mL Serum Total Protein (6.3-8.2) g/dL Albumin (3.5-5.0) g/dL Amylase (30-110) U/L Lipase (23-300) U/L Serum HCG, Qual (NEGATIVE) Urine Color (Yellow) Urine Appearance (Clear) Urine pH (4.6-8.0) Ur Specific Page (1.005-1.030) Urine Protein (Negative) Urine Glucose (UA) (Negative) mg/dL Urine Ketones (Negative) Urine Blood (Negative) Urine Nitrite (Negative) Urine Bilirubin (Negative) Urine Urobilinogen (0.2) mg/dL Ur Leukocyte Esterase (Negative) U Hyaline Cast (Auto) (0-2) /LPF Urine Microscopic RBC (0-5) /HPF Urine Microscopic WBC (0-5) /HPF Ur Epithelial Cells (None Seen) /HPF Urine Bacteria (None Seen) /HPF Urine Culture Reflexed (NO) Salicylates (2-20) mg/dL Urine Opiates Level (NEGATIVE) Ur Methadone (NEGATIVE) Acetaminophen (10-30) ug/ml Urine Barbiturates (NEGATIVE) Ur Phencyclidine (PCP) (NEGATIVE) Urine Amphetamine (NEGATIVE) U Benzodiazepine Level (NEGATIVE) Urine Cocaine (NEGATIVE) Urine Marijuana (THC) (NEGATIVE) Ethyl Alcohol (0-10) mg/dL Influenza Type A Ag POSITIVE (NEGATIVE) Influenza Type B Ag NEGATIVE (NEGATIVE) RSV (PCR) NEGATIVE (NEGATIVE) SARS-CoV-2 (PCR) NEGATIVE (NEGATIVE) Group A Strep Antibody NOT DETECTED (NEGATIVE) Slides for Path Review - Progress Progress: improved, re-examined Air Movement: good Progress Note: 09/16/23 23:07 pt had some extraparamydal side effects after haldol so discussed risks/benefits of cogentin and also ativan , and for the FLu the tamiflu and she and grandmother wish to proceed. 09/17/23 00:00 pt moris well and now ready to go home. Blood Culture(s) Obtained: No Antibiotics given: No Counseled pt/family regarding: drug and/or alcohol abuse, lab results, diagnosis , need for follow-up, rad results Medical Desision Making - Independent Historian Additional History obtained from: Mother - Discussion of managment Reviewed:: Test results, Need for additional workup Agreed on:: Treatment plan, need for follow-up - Diagnostic Testing Diagnostic test were ordered, analyzed, and reviewed by me: Yes Radiological Interpretation: Reviewed by me - Risk of complications The pt has a mod risk of morbidity or mortality based on: Need for prescription drug management The pt has a high risk of morbidity or mortality based on: Decision regarding hospitilization or escalation of hosp level of care - Departure Departure Disposition: Home Clinical Impression: Influenza A, THC/Cannibus withdrawal Condition: Good Critical Care Time: No Referrals: AMAN COLVIN DO [Primary Care Provider] - Follow up/PCP as directed Instructions: Flu, Adult (DC), Flu, Adult ED Additional Instructions: followup with your for progress recovering from flu, and for counseling to recover from THC product use - return meantime if not improving, vomiting, short of breath, dizziness, trouble swallowing or any other concerns. Prescriptions: Oseltamivir 75 mg [Tamiflu 75MG Capsule] 75 mg PO BID #10 cap
[2023-09-16] MEDS ORDERED: Pepcid 20 MG VIAL IV ONE ×2 (13:46→13:54)
[2023-09-16] MEDS ORDERED: Zofran 4 MG/2 ML VIAL IV ONE (13:46)
[2023-09-16] MEDS ORDERED: PROTONIX 40 MG IV IV ONE ×2 (13:46→13:54)
[2023-09-16] MEDS ORDERED: Sodium Chloride 0.9% 1000 ML 1,000 ML IV STA (13:46)
[2023-09-16 13:51] VITALS: TEMP 99
[2023-09-16] MEDS ORDERED: Sodium Chloride 0.9% 1000 ML 1,000 ML ONE (13:54)
[2023-09-16] MEDS ORDERED: Zofran 4 MG/2 ML VIAL ONE (13:54)
[2023-09-16 14:05] LABS: Appearance Cloudy (Clear); Bacteria Moderate /HPF (None Seen); Bilirubin Negative (Negative); Blood Negative (Negative); Epithelial Cells Few /HPF (None Seen); Glucose, Urine Negative (Negative); Ketones >=160 (Negative); Leukocyte Esterase Trace (Negative); Nitrite Negative (Negative); Ph 5.5 (4.6-8.0); Protein,Urine Dip 30 (Negative); RBC 0-2 /HPF (0-5); Specific Gravity >=1.030 (1.005-1.030)
[2023-09-16 14:07] LABS: BASOPHIL % 0.5 % (0.0-0.4); Basophil (Absolute #) 0.04 x10^3/uL (0-0.4); Eosinophil % 0.1 % (0.00-5.0); Eosinophil (Absolute #) 0.01 x10^3/uL (0-0.5); Hematocrit 43.6 % (35-47); Hemoglobin 14.5 g/dL (12.0-16.0); IMMATURE GRAN # 0.02 x10^3u/L (0.00-0.03); IMMATURE GRAN % 0.2 % (0.00-0.4); Lymphocyte (Absolute #) 0.44 x10^3/uL (1.0-4.6); Lymphocytes % 5.3 % (24.0-44.0); Mean Cell Volume 90.5 fL (78-100); Mean Corpuscular Hemoglobin 30.1 pg (26-32); Mean Corpuscular Hgb Concent. 33.3 g/dL (32-36); Mean Platelet Volume 9.3 fL (7.5-11.0); Monocyte (Absolute #) 0.66 x10^3/uL (0.0-1.3); Monocytes % 7.9 % (0.0-12.0); Platelet Count 265 x10^3/uL (150-450); Red Blood Count 4.82 x10^6/uL (4.1-5.4); Red Cell Distribution Width 12.1 % (11.5-14.0); White Blood Count 8.4 x10^3/uL (4.0-10.5)
[2023-09-16 14:08] LABS: ADD URINE CULTURE? YES (NO)
[2023-09-16 14:21] LABS: ACETAMINOPHEN < 10 ug/ml (10-30); ALKALINE PHOSPHATASE 65 U/L (38-126); AMYLASE 83 U/L (30-110); ANION GAP 19.9 MEQ/L (5-15); BLOOD UREA NITROGEN 5 mg/dL (7-17); CHLORIDE 104 mmol/L (98-107); Calcium 9.8 mg/dL (8.4-10.2); Carbon Dioxide 20 mmol/L (22-30); Creatinine 1 0.56 mg/dL (0.52-1.04); EST GLOMERULAR FILTRATION RATE 131.4 ML/MIN; ETHYL ALCOHOL < 10 mg/dL (0-10); Glucose 91 mg/dL (74-106); LIPASE 71 U/L (23-300); Potassium 3.8 mmol/L (3.5-5.1); SALICYLATE < 1.0 mg/dL (2-20); SGOT/AST 25 U/L (14-36); SGPT/ALT 39 U/L (0-35); SODIUM 140 mmol/L (137-145); Total Protein 8.4 g/dL (6.3-8.2)
[2023-09-16 14:23] LABS: Amphetamine,Urine NEGATIVE (NEGATIVE); Barbiturate,Urine NEGATIVE (NEGATIVE); Benzodiazepine,Urine NEGATIVE (NEGATIVE); Cocaine,Urine NEGATIVE (NEGATIVE); Methadone,Urine NEGATIVE (NEGATIVE); Opiate,Urine NEGATIVE (NEGATIVE); PCP,Urine NEGATIVE (NEGATIVE); THC,Urine POSITIVE (NEGATIVE)
[2023-09-16 14:33] LABS: HCG SERUM TEST NEGATIVE (NEGATIVE)
[2023-09-16 14:44] LABS: NT PRO BNPII 26.3 pg/mL (<300); TROPONIN < 0.012 ng/mL (0.000-0.034)
--- NOTE | 2023-09-16 15:50 | XRAY ---
CLINICAL HISTORY:abd pain and tenderness COMPARISON:None. TECHNIQUE:Contiguous, multislice, non-enhanced CT scan of the abdomen and pelvis was performed in the axial plane with multiplanar reconstructions. FINDINGS: Average-sized liver measuring about 15.2 cm in craniocaudal axis showing homogeneous attenuation with no obvious focal mass lesion within the limitations of non-contrast study. [place] tail liver is seen. Tiny calcific densities are seen in both lobes of the liver representing calcified granulomas. Gallbladder shows no definite calculi inside. Pancreas appears unremarkable. Average-sized spleen showing calcific foci representing healed granulomas. No adrenal mass. Both kidneys appear normal in size, and show normal contour and attenuation. No calculus, mass, or hydronephrosis in either kidney. No ascites. No para-aortic lymphadenopathy. Imaged bowel structures appear unremarkable. No significant bowel dilatation. The appendix could not be clearly assessed. The urinary bladder shows inadequate distention. Normal-sized uterus. A suggestion of a small left ovarian cyst measuring about 17 mm[Series 2; image #[id number]]. Ultrasound correlation is recommended No acute osseous abnormality or suspicious bony lesions. Visualized sections of the lower chest show no focal mass or consolidation. Calcified density is seen in the medial segment of the right lower lobe representing calcified granuloma. IMPRESSION: 1. No acute abdominopelvic abnormality within the limitations of the non-contrast study. 2. A suggestion of a small left ovarian cyst measuring about 17 mm. Ultrasound correlation is recommended. 3. Calcified granuloma at the right lung base. 4. Small calcified splenic and hepatic granulomas. Electronically Signed by: Nj Cortes MD. (09/16/2023 15:45:48 EST)
[2023-09-16] MEDS ORDERED: Haldol 5 MG IM ONE (16:00)
[2023-09-16] MEDS ORDERED: Haldol 5 MG ONE ×2 (16:19→22:15)
[2023-09-16] MEDS ORDERED: Ativan 1 MG PO ONE ×2 (16:29→22:56)
[2023-09-16] MEDS ORDERED: Ativan 1 MG ONE ×2 (16:40→23:08)
--- NOTE | 2023-09-16 19:14 | XRAY ---
Indication: Short of breath. Comparison: September 14, 2023 Portable chest continues to demonstrate normal heart, lungs, and bony thorax with incidental medial right base calcified granuloma.
--- NOTE | 2023-09-16 19:18 | XRAY ---
Indication: Abdomen pain. Ovary cyst. Two-dimensional transvaginal pelvic sonogram performed. Comparison: February 08, 2022 Uterus is now retroflexed measuring 6.4 x 3.8 x 4.7 cm. No focal solid/cystic uterine mass. Endometrial stripe measures 6.4 mm. Endometrial cavity demonstrates tiny sliver of nonspecific fluid without focal mass. Right ovary measures 2.7 x 1.7 x 2.1 cm and left measures 3.7 x 1.2 x 2.8 cm. Normal follicular cysts and perfusion bilaterally. No suspicious adnexal mass or free fluid. Impression: Continued negative transvaginal pelvic sonogram. Comment: Preliminary report was given.
[2023-09-16 19:56] LABS: Slide Review 1 YES
[2023-09-16 22:34] LABS: Group A Strep NOT DETECTED (NEGATIVE)
[2023-09-16 22:45] LABS: INFLUENZA B NEGATIVE (NEGATIVE); RESPIRATORY SYNCTIAL VIRUS NEGATIVE (NEGATIVE); SARS-CoV-2 Xpert Express NEGATIVE (NEGATIVE)
[2023-09-16 22:49] LABS: INFLUENZA A POSITIVE (NEGATIVE)
[2023-09-16] MEDS ORDERED: Tamiflu 75MG Capsule PO ONE ×2 (22:57→23:08)
[2023-09-16 23:09] VITALS: O2SAT 97
[2023-09-17 00:09] VITALS: BP 115/74; PULSE 78; RESP 29
[2023-09-17] MEDS ORDERED: COGENTIN 0.5 MG PO ONE (22:56)
== END 2023-09-17 00:19 | disposition home or self-care (01) ==
LOC: ED 13:13
DX: J10.1 Influenza due to other identified influenza virus with other respiratory manifestations (principal); F12.23 Cannabis dependence with withdrawal; R11.2 Nausea with vomiting, unspecified; M79.10 Myalgia, unspecified site; R10.9 Unspecified abdominal pain; E78.5 Hyperlipidemia, unspecified; I10 Essential (primary) hypertension; Z79.899 Other long term (current) drug therapy
CPT/HCPCS: 0241U; 36000; 36415; 71045; 74176; 76830; 80053; 80143; 80179; 80307; 81001; 82077; 82150; 83605; 83690; 83880; 84484; 84703; 85025; 85379; 87086; 87651; 93005; 93041; 96372; 96374; 96375; 99285; J1630; J2405; A9270-GY

== ENCOUNTER 2024-02-11 13:27 | Emergency (ER) | payer OTHER ==
--- NOTE | 2024-02-11 13:34 | ERPHSYRPT ---
- History of Present Illness Time Seen by Provider: 02/11/24 13:33 Source: patient Exam Limitations: no limitations Physician History: This is a 23-year-old white female patient who presents to our emergency department relatively soon after she had a urethral dilatation by urologist Dr. Middleton in [facility]. She is having difficulty urinating as well as painful urination. She did receive preoperative dose of oral antibiotics which she does not recall the name of. The patient called the urologist office. They recommended that she return to their office for further evaluation. However, the patient states that she does not have money for gas to get to their office and home. Therefore, the patient was told to come to the emergency department to have a Aiken catheter placed. The patient has a history of hypothyroidism, hyperlipidemia, hypertension, asthma, irritable bowel syndrome, anxiety, stress seizures, autism, migraine headaches, endometriosis Timing/Duration: today Activites at Onset: none Quality: burning (with urination), sharpness (With urination) Onset Location: other Pain Radiation: none Severity of Pain-Max: mild (Moderate) Severity of Pain-Current: mild (To moderate) Sexual intercourse history: non-contributory Modifying Factors: Improves With: urinating Associated Symptoms: dysuria, other (Urinary retention) Allergies/Adverse Reactions: hydromorphone HCl [From Dilaudid] Allergy (Severe, Verified 01/24/24 15:57) Hives Severe itching with hives penicillin G Allergy (Mild, Verified 01/24/24 15:57) Swelling duloxetine [From Cymbalta] Allergy (Verified 02/11/24 13:44) Rapid Heart Beat pertussis vaccine,adsorbed [Pertussis Vaccine,Adsorbed] Adverse Reaction (Verified 01/24/24 15:57) Swelling Home Medications: Levothyroxine Sodium [Euthyrox] 100 mcg PO DAILY 12/24/20 [History] Cetirizine HCl [All Day Allergy Relief] 10 mg PO DAILY 01/24/24 [History] Fluticasone Propionate 2 spray INTRANASAL DAILY 01/24/24 [History] Mirtazapine [Remeron] 15 mg PO HS 01/24/24 [History] Ondansetron ODT 4 MG [Zofran Odt 4 mg] 4 mg PO DAILY PRN 02/11/24 [History] Hx Tetanus, Diphtheria Vaccination/Date Given: Yes Hx Influenza Vaccination/Date Given: No Hx Pneumococcal Vaccination/Date Given: No Travel Risk - International Travel Have you traveled outside of the country in past 3 weeks: No - Emerging Infectious Disease Are you exhibiting symptoms associated with any current EIDs: Yes Symptoms: Headaches/Body Aches/ - Review of Systems Constitutional: No Symptoms Eyes: No Symptoms Ears, Nose, & Throat: No Symptoms Respiratory: No Symptoms Cardiac: No Symptoms Abdominal/Gastrointestinal: No Symptoms Genitourinary Symptoms: Dysuria, Urinary Retention Musculoskeletal: No Symptoms Skin: No Symptoms Neurological: No Symptoms Psychological: No Symptoms Endocrine: No Symptoms Hematologic/Lymphatic: No Symptoms Immunological/Allergic: No Symptoms All Other Systems: Reviewed and Negative - Past Medical History Pertinent Past Medical History: Yes Neurological History: Migraines, Seizures ENT History: No Pertinent History Cardiac History: High Cholesterol, Hypertension Respiratory History: Asthma Endocrine Medical History: Hypothyroidism Musculoskeletal History: No Pertinent History GI Medical History: Irritable Bowel History: No Pertinent History Psycho-Social History: Anxiety, Depression, Other Female Reproductive Disorders: Abnormal Uterine Bleeding, Endometriosis Other Medical History: STRESS SEIZURES, CHENCHO, ENDOMETRIOSIS. Austism, PTSD, - Past Surgical History Past Surgical History: Yes Neuro Surgical History: No Pertinent History Cardiac: No Pertinent History Respiratory: No Pertinent History Gastrointestinal: No Pertinent History Genitourinary: No Pertinent History Musculoskeletal: No Pertinent History Female Surgical History: No Pertinent History Other Surgical History: EGD, Colonoscopy, [place] Teeth Removed, Endoscopy, epidural steroid injections Significant Family History: no pertinent family hx - Social History Smoking Status: Never smoker Exposure to second hand smoke: No Drug Use: none Patient Lives Alone: No - Social Determinants of Health Will the patient participate in the screening: Yes Do you worry about a steady place to live?: No In the past 12 months,have you had to go without utilities?: No Transportation Issues: No Has anyone in your support network made you feel unsafe?: No Have you or anyone in your house had to go without enough: No - Nursing Vital Signs Nursing Vital Signs: Initial Vital Signs Temperature 98.7 F 02/11/24 13:33 Pulse Rate 92 H 02/11/24 13:33 Respiratory Rate 16 02/11/24 13:33 Blood Pressure 134/97 02/11/24 13:33 O2 Sat by Pulse Oximetry 97 02/11/24 13:33 Pain Scale Pain Intensity 2 - Physical Exam General Appearance: no apparent distress, alert, anxiety, obese Eye Exam: PERRL/EOMI, eyes nml inspection Ears, Nose, Throat Exam: normal ENT inspection, moist mucous membranes Neck Exam: normal inspection, non-tender, supple, full range of motion Respiratory Exam: airway intact, No chest tenderness, No respiratory distress Gastrointestinal/Abdomen Exam: No tenderness Pelvic Exam: not done Rectal Exam: not done Back Exam: normal inspection, normal range of motion, No CVA tenderness, No vertebral tenderness Neurologic Exam: alert, oriented x 3, cooperative, 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 as tested, nml cerebellar function, nml station & gait, sensation nml Skin Exam: normal color, warm, dry Lymphatic Exam: No adenopathy SpO2 Interpretation: normal O2 Delivery: Room Air - Course Nursing assessment & vital signs reviewed: Yes Ordered Tests: Active Orders 24 hr Category Date Time Status Aiken [Catheter-[place] Aiken] STAT Care 02/11/24 14:01 Active Medication Summary Discontinued Medications Generic Name Dose Route Start Last Admin Trade Name Annabel PRN Reason Stop Dose Admin Lidocaine HCl 200 mg 02/11/24 14:00 Lidocaine Hcl 20 Mg/Ml Jelly Uro-Jet TOP 02/11/24 14:01 STAT ONE - Progress Progress: improved, re-examined Air Movement: good Progress Note: 02/11/24 13:57 My medical decision making and the assignment of low complexity to this patient's medical issue today is based on review of the patient's past medical history, review of the patient's medication list, review of patient drug allergy list, history present illness and physical findings on examination. The workup in this patient includes placement of a Aiken catheter. No radiographic or laboratory studies are necessary. Blood Culture(s) Obtained: No Antibiotics given: Yes Counseled pt/family regarding: diagnosis, need for follow-up Medical Desision Making - Diagnostic Testing Diagnostic test were ordered, analyzed, and reviewed by me: No - Risk of complications Low Risk: Low risk of morbidity from additional dx testing or treatment - Departure Departure Disposition: Home Clinical Impression: Postprocedural urinary retention Condition: Stable Critical Care Time: No Referrals: AMAN COLVIN, [Primary Care Provider] - Follow up/PCP as directed Additional Instructions: Drink plenty of fluids. Take your antibiotics as prescribed. Keep the Aiken catheter in place and follow with the management instructions given to you. Take your other medications as prescribed. Called Dr. Middleton's office today (urology), to make an outpatient appointment to be seen in the next 2 to 3 days to determine if and when the Aiken catheter is removed. Have them remove it in their office. Prescriptions: Ciprofloxacin [Cipro 500 MG] 500 mg PO BID #10 tablet
[2024-02-11 13:44] VITALS: PULSE 92; RESP 16; TEMP 98.7; O2SAT 97
[2024-02-11] MEDS ORDERED: XYLOCAINE 2% Uro-Jet ONE (14:04)
[2024-02-11] MEDS: XYLOCAINE 2% Uro-Jet TOP ONE (14:05)
[2024-02-11 14:37] VITALS: BP 120/62
== END 2024-02-11 14:44 | disposition home or self-care (01) ==
LOC: ED 13:27
DX: N99.89 Other postprocedural complications and disorders of genitourinary system (principal); R33.8 Other retention of urine; R30.0 Dysuria; E78.5 Hyperlipidemia, unspecified; I10 Essential (primary) hypertension; Z79.899 Other long term (current) drug therapy
CPT/HCPCS: 51702; 99283

== ENCOUNTER 2024-04-01 10:40 | Emergency (ER) | payer OTHER ==
[2024-04-01 11:00] VITALS: TEMP 97.7
--- NOTE | 2024-04-01 11:28 | ERPHSYRPT ---
- History of Present Illness Time Seen by Provider: 04/01/24 11:24 Historian: patient Exam Limitations: no limitations Patient Subjective Stated Complaint: C/O abdominal pain with N/V and diarrhea for a few days Triage Nursing Assessment: Patient ambulated back to ER without difficulties. She is alert and oriented; flat affect. NO SOB. Skin tone normal. CARLOS WNL. No active vomiting during assessment. Physician History: 23-year-old female presents to emergency department for evaluation of generalized abdominal pain. Patient is a diabetic with gastroparesis. Patient has been drinking apple cider vinegar with water to lose weight and decrease her cholesterol. Patient believes that this is irritated her gastroparesis. Patient has been experiencing nausea and vomiting for the past 2 to 3 days. No trauma no fever. No rash. Symptoms are mild to moderate in intensity. No specific worsening or improving factors. Patient otherwise feels well. She voices no other complaints or concerns at this time. Portions of this note were created with voice recognition technology. There may be grammatical, spelling, punctuation or sound alike errors Timing/Duration: day(s) (3 days) Activities at Onset: none Quality: aching Abdominal Pain Onset Location: generalized abdomen Pain Radiation: no radiation Severity of Pain-Max: moderate Severity of Pain-Current: mild Modifying Factors: Improves With: nothing Associated Symptoms: denies symptoms Previous symptoms: same symptoms as today Allergies/Adverse Reactions: hydromorphone HCl [From Dilaudid] Allergy (Severe, Verified 04/01/24 10:46) Hives Severe itching with hives penicillin G Allergy (Mild, Verified 04/01/24 10:46) Swelling duloxetine [From Cymbalta] Allergy (Verified 04/01/24 10:46) Rapid Heart Beat pertussis vaccine,adsorbed [Pertussis Vaccine,Adsorbed] Adverse Reaction (Verified 04/01/24 10:46) Swelling Home Medications: Levothyroxine Sodium [Euthyrox] 100 mcg PO DAILY 12/24/20 [History] Cetirizine HCl [All Day Allergy Relief] 10 mg PO DAILY 01/24/24 [History] Fluticasone Propionate 2 spray INTRANASAL DAILY 01/24/24 [History] Ondansetron ODT 4 MG [Zofran Odt 4 mg] 4 mg PO DAILY PRN 02/11/24 [History] Hx Tetanus, Diphtheria Vaccination/Date Given: Yes Hx Influenza Vaccination/Date Given: No Hx Pneumococcal Vaccination/Date Given: No Immunizations Up to Date: Yes Travel Risk - International Travel Have you traveled outside of the country in past 3 weeks: No - Emerging Infectious Disease Are you exhibiting symptoms associated with any current EIDs: Yes Symptoms: Abdominal Pain, Diarrhea, Vomitting - Review of Systems Constitutional: No Symptoms, No Fever, No Chills Eyes: No Symptoms Ears, Nose, & Throat: No Symptoms Respiratory: No Symptoms, No Cough, No Dyspnea Cardiac: No Symptoms, No Chest Pain, No Edema, No Syncope Abdominal/Gastrointestinal: No Symptoms, No Abdominal Pain, No Nausea, No Vomiting, No Diarrhea Genitourinary Symptoms: No Symptoms, No Dysuria Musculoskeletal: No Symptoms, No Back Pain, No Neck Pain Skin: No Rash Neurological: No Symptoms, No Dizziness, No Focal Weakness, No Sensory Changes Psychological: No Symptoms Endocrine: No Symptoms Hematologic/Lymphatic: No Symptoms Immunological/Allergic: No Symptoms All Other Systems: Reviewed and Negative - Past Medical History Pertinent Past Medical History: Yes Neurological History: Migraines, Seizures ENT History: No Pertinent History Cardiac History: High Cholesterol, Hypertension Respiratory History: Asthma Endocrine Medical History: Hypothyroidism Musculoskeletal History: No Pertinent History GI Medical History: Irritable Bowel History: No Pertinent History Psycho-Social History: Anxiety, Depression, Other Female Reproductive Disorders: Abnormal Uterine Bleeding, Endometriosis Other Medical History: CHENCHO, Austism, PTSD - Past Surgical History Past Surgical History: Yes Neuro Surgical History: No Pertinent History Cardiac: No Pertinent History Respiratory: No Pertinent History Gastrointestinal: No Pertinent History Genitourinary: Other Musculoskeletal: No Pertinent History Female Surgical History: No Pertinent History Other Surgical History: EGD, Colonoscopy, [place] Teeth Removed, Endoscopy, epidural steroid injections, urethra Significant Family History: no pertinent family hx - Female History Hx Last Menstrual Period: irregular; depo shot Hx Now: No - Social History Smoking Status: Never smoker Exposure to second hand smoke: No Drug Use: none Patient Lives Alone: No - Social Determinants of Health Will the patient participate in the screening: Yes Do you worry about a steady place to live?: No Do you have any problems with any of the following?: No known problems In the past 12 months,have you had to go without utilities?: No Transportation Issues: No Has anyone in your support network made you feel unsafe?: No Have you or anyone in your house had to go without enough: No - Nursing Vital Signs Nursing Vital Signs: Initial Vital Signs Temperature 97.7 F 04/01/24 10:50 Pulse Rate 62 04/01/24 10:50 Respiratory Rate 15 04/01/24 10:50 Blood Pressure 141/86 04/01/24 10:50 O2 Sat by Pulse Oximetry 99 04/01/24 10:50 Pain Scale Pain Intensity 4 - Physical Exam General Appearance: no apparent distress, alert Eye Exam: PERRL/EOMI, eyes nml inspection Ears, Nose, Throat Exam: normal ENT inspection, pharynx normal, moist mucous membranes Neck Exam: normal inspection, non-tender, supple, full range of motion Respiratory Exam: normal breath sounds, lungs clear, airway intact, No respiratory distress Cardiovascular Exam: regular rate/rhythm, normal heart sounds Gastrointestinal/Abdomen Exam: soft, tenderness (Generalized abdominal tenderness), No mass Back Exam: normal inspection, normal range of motion, No CVA tenderness, No vertebral tenderness Extremity Exam: normal inspection, normal range of motion, pelvis stable Neurologic Exam: alert, oriented x 3, cooperative, normal mood/affect, sensation nml, No motor deficits Skin Exam: normal color, warm, dry Lymphatic Exam: No adenopathy SpO2 Interpretation: normal SpO2: 100 O2 Delivery: Room Air - Course Nursing assessment & vital signs reviewed: Yes - CT Exams Abdomen/Pelvis CT Interpretation: Tele-radiologist Report (No acute findings CT abdomen pelvis) Ordered Tests: Active Orders 24 hr Category Date Time Status IV Insertion STAT Care 04/01/24 11:22 Active ABDOMEN AND PELVIS W/0 CONTRAS [CT] Stat Exams 04/01/24 12:11 Completed CBC W DIFF Stat Lab 04/01/24 11:32 Completed CMP Stat Lab 04/01/24 11:32 Completed CULTURE,URINE Stat Lab 04/01/24 12:47 Received HCG QUALITATIVE, URINE Stat Lab 04/01/24 12:49 Completed LIPASE Stat Lab 04/01/24 11:32 Completed UA W/RFX UR CULTURE Stat Lab 04/01/24 12:47 Completed Medication Summary Generic Name Dose Route Start Last Admin Trade Name Freq PRN Reason Stop Dose Admin Sodium Chloride 1,000 mls @ 100 mls/hr 04/01/24 11:30 04/01/24 11:44 Sodium Chloride 0.9% 1000 Ml IV 05/01/24 11:29 100 mls/hr .Q10H JOMAR Administration Metoclopramide HCl 10 mg 04/01/24 16:30 04/01/24 14:47 Metoclopramide Hcl 10 Mg Tablet PO 05/01/24 16:29 10 mg ACHS JOMAR Administration Discontinued Medications Generic Name Dose Route Start Last Admin Trade Name Freq PRN Reason Stop Dose Admin Norepinephrine/Dextrose 8 mg in 250 mls @ 15 mls/hr 04/01/24 14:50 Norepinephrine 8 Mg/250 Ml-D5w IV 05/01/24 14:49 .[id number] PRN HYPOTENSION Protocol 8 MCG/MIN Ketorolac Tromethamine 30 mg 04/01/24 11:26 04/01/24 11:45 Ketorolac Tromethamine 30 Mg/Ml Inj IV 04/01/24 11:27 30 mg STAT ONE Administration Ketorolac Tromethamine Confirm 04/01/24 11:39 Ketorolac Tromethamine 30 Mg/Ml Inj Administered 04/01/24 11:40 Dose 30 mg .ROUTE .STK-MED ONE Nitrofurantoin Macrocrystals 100 mg 04/01/24 14:24 04/01/24 14:28 Nitrofurantoin Macro 100 Mg Capsule PO 04/01/24 14:25 100 mg STAT ONE Administration Nitrofurantoin Macrocrystals Confirm 04/01/24 14:27 Nitrofurantoin Macro 100 Mg Capsule Administered 04/01/24 14:28 Dose 100 mg .ROUTE .STK-MED ONE Ondansetron HCl 4 mg 04/01/24 11:26 04/01/24 11:46 Ondansetron Hcl 4 Mg/2 Ml Vial IV 04/01/24 11:27 4 mg STAT ONE Administration Ondansetron HCl Confirm 04/01/24 11:39 Ondansetron Hcl 4 Mg/2 Ml Vial Administered 04/01/24 11:40 Dose 4 mg .ROUTE .STK-MED ONE Lab/Rad Data: Laboratory Result Diagrams 04/01/24 11:32 04/01/24 11:32 Laboratory Results 04/01/24 04/01/24 04/01/24 Range/Units 12:49 12:47 11:32 WBC (3.98-10.04) x10^3/uL RBC (3.93-5.22) x10^6/uL Hgb (11.2-15.7) g/dL Hct (34.1-44.9) % MCV (79.4-94.8) fL MCH (25.6-32.2) pg MCHC (32.2-35.5) g/dL RDW (11.7-14.4) % Plt Count (182-369) x10^3/uL MPV (9.4-12.3) fL Gran % (34.0-71.1) % Immature Gran % (Auto) (0.001-0.429) % Nucleat RBC Rel Count (0.00-0.2) % Eos # (Auto) (0.04-0.36) x10^3/uL Immature Gran # (Auto) (0.001-0.031) x10^3u/L Absolute Lymphs (auto) (1.18-3.74) x10^3/uL Absolute Monos (auto) (0.24-0.86) x10^3/uL Absolute Nucleated RBC (0.00-0.012) x10^3u/L Lymphocytes % (19.3-51.7) % Monocytes % (4.7-12.5) % Eosinophils % (0.7-5.8) % Basophils % (0.1-1.2) % Absolute Granulocytes (1.56-6.13) x10^3/uL Basophils # (0.01-0.08) x10^3/uL Sodium 139 (135-145) mmol/L Potassium 3.7 (3.5-5.1) mmol/L Chloride 105 (98-107) mmol/L Carbon Dioxide 26 (22-30) mmol/L Anion Gap 11.6 (5-15) MEQ/L BUN 12 (7-17) mg/dL Creatinine 0.87 (0.52-1.04) mg/dL Estimated GFR 95.4 ML/MIN Glucose 85 (74-106) mg/dL Calcium 9.7 (8.4-10.2) mg/dL Total Bilirubin 1.00 (0.2-1.3) mg/dL AST 22 (14-36) U/L ALT 17 (0-35) U/L Alkaline Phosphatase 61 (38-126) U/L Serum Total Protein 7.4 (6.3-8.2) g/dL Albumin 4.7 (3.5-5.0) g/dL Lipase 84 (23-300) U/L Urine Color Dark Yellow A (Yellow) Urine Appearance Turbid A (Clear) Urine pH 6.0 (4.6-8.0) Ur Specific [place] >=1.030 A (1.005-1.030) Urine Protein 30 (Negative) Urine Glucose (UA) Negative (Negative) mg/dL Urine Ketones 80 A (Negative) Urine Blood NHT (Negative) Urine Nitrite Negative (Negative) Urine Bilirubin Small A (Negative) Urine Urobilinogen 1.0 A (0.2) mg/dL Ur Leukocyte Esterase Large A (Negative) U Hyaline Cast (Auto) 20-50 (0-2) /LPF Urine Microscopic RBC 6-10 A (0-5) /HPF Urine Microscopic WBC >100 A (0-5) /HPF Ur Epithelial Cells Moderate A (None Seen) /HPF Urine Bacteria Many A (None Seen) /HPF Urine Culture Reflexed YES (NO) Urine HCG, Qual NEGATIVE (NEGATIVE) 04/01/24 Range/Units 11:32 WBC 6.8 (3.98-10.04) x10^3/uL RBC 4.83 (3.93-5.22) x10^6/uL Hgb 14.9 (11.2-15.7) g/dL Hct 43.2 (34.1-44.9) % MCV 89.4 (79.4-94.8) fL MCH 30.8 (25.6-32.2) pg MCHC 34.5 (32.2-35.5) g/dL RDW 12.2 (11.7-14.4) % Plt Count 237 (182-369) x10^3/uL MPV 9.3 L (9.4-12.3) fL Gran % 65.2 (34.0-71.1) % Immature Gran % (Auto) 0.3 (0.001-0.429) % Nucleat RBC Rel Count 0.0 (0.00-0.2) % Eos # (Auto) 0.08 (0.04-0.36) x10^3/uL Immature Gran # (Auto) 0.02 (0.001-0.031) x10^3u/L Absolute Lymphs (auto) 1.78 (1.18-3.74) x10^3/uL Absolute Monos (auto) 0.47 (0.24-0.86) x10^3/uL Absolute Nucleated RBC 0.00 (0.00-0.012) x10^3u/L Lymphocytes % 26.1 (19.3-51.7) % Monocytes % 6.9 (4.7-12.5) % Eosinophils % 1.2 (0.7-5.8) % Basophils % 0.3 (0.1-1.2) % Absolute Granulocytes 4.46 (1.56-6.13) x10^3/uL Basophils # 0.02 (0.01-0.08) x10^3/uL Sodium (135-145) mmol/L Potassium (3.5-5.1) mmol/L Chloride (98-107) mmol/L Carbon Dioxide (22-30) mmol/L Anion Gap (5-15) MEQ/L BUN (7-17) mg/dL Creatinine (0.52-1.04) mg/dL Estimated GFR ML/MIN Glucose (74-106) mg/dL Calcium (8.4-10.2) mg/dL Total Bilirubin (0.2-1.3) mg/dL AST (14-36) U/L ALT (0-35) U/L Alkaline Phosphatase (38-126) U/L Serum Total Protein (6.3-8.2) g/dL Albumin (3.5-5.0) g/dL Lipase (23-300) U/L Urine Color (Yellow) Urine Appearance (Clear) Urine pH (4.6-8.0) Ur Specific [place] (1.005-1.030) Urine Protein (Negative) Urine Glucose (UA) (Negative) mg/dL Urine Ketones (Negative) Urine Blood (Negative) Urine Nitrite (Negative) Urine Bilirubin (Negative) Urine Urobilinogen (0.2) mg/dL Ur Leukocyte Esterase (Negative) U Hyaline Cast (Auto) (0-2) /LPF Urine Microscopic RBC (0-5) /HPF Urine Microscopic WBC (0-5) /HPF Ur Epithelial Cells (None Seen) /HPF Urine Bacteria (None Seen) /HPF Urine Culture Reflexed (NO) Urine HCG, Qual (NEGATIVE) - Progress Progress: improved Progress Note: Laboratory workup reveals a urinary tract infection. CBC CMP essentially nonremarkable. CT abdomen pelvis unremarkable. Patient received IV fluids. Nausea medication and pain medication. Symptoms significantly improved. Patient requested nausea medicine prior to being discharged. Otherwise patient states she is ready for discharge. She voices no other complaints or concerns at this time. A prescription for Macrobid forwarded to patient's pharmacy. Patient agrees to follow-up with her primary care doctor within 48 hours for reevaluation. Portions of this note were created with voice recognition technology. There may be grammatical, spelling, punctuation or sound alike errors Complexity problem addressed is moderate acute complicated. No critical care time. Complex of data reviewed and analyzed is moderate. Test ordered test reviewed results analyzed and correlated clinically with history and physical exam. Risk complication and or risk of morbidity/mortality of patient management is moderate. A prescription for Macrobid forwarded to patient's pharmacy. Vital stable. Time spent to discharge patient is approximately 15 minutes. Plan of care established for shared decision making. No social determinants of health present impede follow-up. Portions of this note were created with voice recognition technology. There may be grammatical, spelling, punctuation or sound alike errors 04/01/24 14:46 Counseled pt/family regarding: lab results, diagnosis, need for follow-up, rad results - Departure Departure Disposition: Home Clinical Impression: UTI (urinary tract infection), Abdominal pain, Nausea and vomiting Condition: Stable Critical Care Time: No Referrals: AMAN COLVIN DO [Primary Care Provider] - Follow up/PCP as directed Additional Instructions: Discharge/Care Plan OZZYARTURO MURRAY was seen on 04/01/24 in the Emergency Room. The patient was counseled regarding Diagnosis,Lab results, Imaging studies, need for follow up and when to return to the Emergency Room. Prescriptions given: Discharge Note I have spoken with the patient and/or caregivers. I have explained the patient's condition, diagnosis and treatment plan based on the information available to me at this time. I have answered the patient's and/or caregiver's questions and add ressed any concerns. The patient and/or caregivers have as good understanding of the patient's diagnosis, condition and treatment plan as can be expected at this point. The vital signs have been stable. The patient's condition is stable and appropriate for discharge from the emergency department. The patient will pursue further outpatient evaluation with the primary care physician or other designated or consulting physician as outlined in the discharge instructions. The patient and/or caregivers are agreeable to this plan of care and follow-up instructions have been explained in detail. The patient and/or caregivers have received these instruction. The patient/and or caregivers are aware that any significant change in condition or worsening of symptoms should prompt an immediate return to this or the closest emergency department or call 911. Prescriptions: Nitrofurantoin Macro 100 mg [Macrobid 100MG Capsule] 100 mg PO BID 7 Days #14 cap Metoclopramide HCl [Reglan] 10 mg PO Q6-8HPRN PRN 2 Days #8 tablet MDD 4 PRN Reason: Nausea
[2024-04-01] MEDS ORDERED: TORAdol 30 mg Injection ONE (11:39)
[2024-04-01] MEDS ORDERED: Zofran 4 MG/2 ML VIAL ONE (11:39)
[2024-04-01] MEDS ORDERED: Sodium Chloride 0.9% 1000 ML 1,000 ML ONE (11:39)
[2024-04-01 11:40] LABS: Absolute Neutrophil Ct (ANC) 4.46 x10^3/uL (1.56-6.13); BASOPHIL % 0.3 % (0.1-1.2); Basophil (Absolute #) 0.02 x10^3/uL (0.01-0.08); Eosinophil % 1.2 % (0.7-5.8); Eosinophil (Absolute #) 0.08 x10^3/uL (0.04-0.36); Hematocrit 43.2 % (34.1-44.9); Hemoglobin 14.9 g/dL (11.2-15.7); IMMATURE GRAN # 0.02 x10^3u/L (0.001-0.031); IMMATURE GRAN % 0.3 % (0.001-0.429); Lymphocyte (Absolute #) 1.78 x10^3/uL (1.18-3.74); Lymphocytes % 26.1 % (19.3-51.7); Mean Cell Volume 89.4 fL (79.4-94.8); Mean Corpuscular Hemoglobin 30.8 pg (25.6-32.2); Mean Corpuscular Hgb Concent. 34.5 g/dL (32.2-35.5); Mean Platelet Volume 9.3 fL (9.4-12.3); Monocyte (Absolute #) 0.47 x10^3/uL (0.24-0.86); Monocytes % 6.9 % (4.7-12.5); Neutrophil % 65.2 % (34.0-71.1); Platelet Count 237 x10^3/uL (182-369); Red Blood Count 4.83 x10^6/uL (3.93-5.22); Red Cell Distribution Width 12.2 % (11.7-14.4); White Blood Count 6.8 x10^3/uL (3.98-10.04)
[2024-04-01] MEDS: Sodium Chloride 0.9% 1000 ML 1,000 ML IV SCH (11:44)
[2024-04-01] MEDS: TORAdol 30 mg Injection IV ONE (11:45)
[2024-04-01] MEDS: Zofran 4 MG/2 ML VIAL IV ONE (11:46)
[2024-04-01 11:52] LABS: ALBUMIN 4.7 g/dL (3.5-5.0); ANION GAP 11.6 MEQ/L (5-15); Calcium 9.7 mg/dL (8.4-10.2); Creatinine 1 0.87 mg/dL (0.52-1.04); EST GLOMERULAR FILTRATION RATE 95.4 ML/MIN; Potassium 3.7 mmol/L (3.5-5.1); Total Protein 7.4 g/dL (6.3-8.2)
[2024-04-01 12:55] LABS: HCG URINE TEST NEGATIVE (NEGATIVE)
[2024-04-01 13:15] LABS: Appearance Turbid (Clear); Bacteria Many /HPF (None Seen); Bilirubin Small (Negative); Blood NHT (Negative); Epithelial Cells Moderate /HPF (None Seen); Glucose, Urine Negative (Negative); Ketones 80 (Negative); Leukocyte Esterase Large (Negative); Nitrite Negative (Negative); Protein,Urine Dip 30 (Negative); Specific Gravity >=1.030 (1.005-1.030); WBC >100 /HPF (0-5)
[2024-04-01 13:17] LABS: ADD URINE CULTURE? YES (NO); Hyaline Casts 20-50 /LPF (0-2)
[2024-04-01 14:01] VITALS: O2SAT 100
[2024-04-01] MEDS ORDERED: Macrobid 100MG Capsule ONE (14:27)
[2024-04-01] MEDS: Macrobid 100MG Capsule PO ONE (14:28)
--- NOTE | 2024-04-01 14:34 | XRAY ---
Indication: Pain. Nausea, vomiting, diarrhea. Multiple contiguous axial images obtained through the abdomen and pelvis without contrast. Comparison: September 16, 2023 Lung bases remain clear again with incidental small right lower lobe calcified granuloma. Heart not enlarged. Noncontrasted stomach and bowel loops are nonobstructed again with normal appendix. New colonic radiopacities presumed ingested medication/bismuth or barium. No free fluid/air. Again incidental tiny hepatic/splenic calcified granulomas. Remaining liver, gallbladder, pancreas, spleen, adrenal glands, kidneys, ureters, bladder, uterus, and aorta are unremarkable for noncontrast exam. Osseous structures intact. Impression: Continued negative CT abdomen/pelvis without contrast exam. Again incidental old granulomatous disease.
[2024-04-01] MEDS ORDERED: Reglan 10 MG ONE (14:46)
[2024-04-01] MEDS: Reglan 10 MG PO SCH (14:47)
[2024-04-01] MEDS ORDERED: NOREPINEPHRINE 8 MG/250 ML-D5W 8 MG/250 ML PLAST..BAG IV PRN (14:50)
[2024-04-01 15:03] VITALS: BP 104/62; PULSE 56; RESP 16
== END 2024-04-01 15:14 | disposition home or self-care (01) ==
LOC: ED 10:40
DX: N39.0 Urinary tract infection, site not specified (principal); R10.84 Generalized abdominal pain; R11.2 Nausea with vomiting, unspecified; E11.43 Type 2 diabetes mellitus with diabetic autonomic (poly)neuropathy; K31.84 Gastroparesis; E78.5 Hyperlipidemia, unspecified; I10 Essential (primary) hypertension; Z79.899 Other long term (current) drug therapy
CPT/HCPCS: 36000; 36415; 74176; 80053; 81001; 81025; 83690; 85025; 87086; 96374; 99284; J1885; J2405; A9270-GY

== ENCOUNTER 2024-06-04 13:31 | Emergency (ER) | payer OTHER ==
--- NOTE | 2024-06-04 13:34 | ERPHSYRPT ---
- History of Present Illness Time Seen by Provider: 06/04/24 13:33 Source: patient Exam Limitations: no limitations Physician History: This is a 23-year-old white female patient of Dr. Colvin who arrives by private vehicle secondary to have fevers intermittently for 2 days. Early this morning, the patient states that she measured a temperature of 105.8 F. At approximately 9:00 this morning patient took extra strength Tylenol. Patient arrives to the emergency department today with a temperature of 99.3. Patient has had some nausea but no vomiting and diarrhea today. The vomiting and diarrhea were present intermittently 2 days ago. Patient has no known exposures to individuals with similar symptoms. This patient has a history of hypothyroidism, seasonal allergies, migraine headaches, seizure disorder, depression, anxiety, PTSD, autism, irritable bowel syndrome, hyperlipidemia, hypertension and asthma. Patient denies coughing episodes. She does not have abdominal pain or chest pain. Timing/Duration: day(s) (2) Fever Severity: moderate Associated Symptoms: headache, muscle aches, nausea/vomiting, weakness Allergies/Adverse Reactions: hydromorphone HCl [From Dilaudid] Allergy (Severe, Verified 06/04/24 13:53) Hives Severe itching with hives penicillin G Allergy (Mild, Verified 06/04/24 13:53) Swelling duloxetine [From Cymbalta] Allergy (Verified 06/04/24 13:53) Rapid Heart Beat pertussis vaccine,adsorbed [Pertussis Vaccine,Adsorbed] Adverse Reaction (Verified 06/04/24 13:53) Swelling Home Medications: Levothyroxine Sodium [Euthyrox] 125 mcg PO DAILY 12/24/20 [History] Cetirizine HCl [All Day Allergy Relief] 10 mg PO DAILY 01/24/24 [History] Fluticasone Propionate 2 spray INTRANASAL DAILY 01/24/24 [History] Ondansetron ODT 4 MG [Zofran Odt 4 mg] 4 mg PO DAILY PRN 02/11/24 [History] Topiramate 25 mg [Topamax 25 MG] 25 mg PO DAILY 06/04/24 [History] Hx Tetanus, Diphtheria Vaccination/Date Given: Yes Hx Influenza Vaccination/Date Given: No Hx Pneumococcal Vaccination/Date Given: No Travel Risk - International Travel Have you traveled outside of the country in past 3 weeks: No - Emerging Infectious Disease Are you exhibiting symptoms associated with any current EIDs: Yes Symptoms: Abdominal Pain, Diarrhea, Vomitting - Review of Systems Constitutional: Fever Eyes: No Symptoms Ears, Nose, & Throat: No Symptoms Respiratory: No Symptoms Cardiac: No Symptoms Abdominal/Gastrointestinal: Abdominal Pain, Nausea, Vomiting, Diarrhea, Appetite Changes Genitourinary Symptoms: No Symptoms (None today) Musculoskeletal: No Symptoms Skin: No Symptoms Neurological: No Symptoms Psychological: No Symptoms Endocrine: No Symptoms Hematologic/Lymphatic: No Symptoms Immunological/Allergic: No Symptoms All Other Systems: Reviewed and Negative - Past Medical History Pertinent Past Medical History: Yes Neurological History: Migraines, Seizures ENT History: No Pertinent History Cardiac History: High Cholesterol, Hypertension Respiratory History: Asthma Endocrine Medical History: Hypothyroidism Musculoskeletal History: No Pertinent History GI Medical History: Irritable Bowel History: No Pertinent History Psycho-Social History: Anxiety, Depression, Other Female Reproductive Disorders: Abnormal Uterine Bleeding, Endometriosis Other Medical History: CHENCHO, Austism, PTSD - Past Surgical History Past Surgical History: Yes Neuro Surgical History: No Pertinent History Cardiac: No Pertinent History Respiratory: No Pertinent History Gastrointestinal: No Pertinent History Genitourinary: Other Musculoskeletal: No Pertinent History Female Surgical History: No Pertinent History Other Surgical History: EGD, Colonoscopy, Barry Teeth Removed, Endoscopy, epidural steroid injections, urethra Significant Family History: no pertinent family hx - Female History Hx Last Menstrual Period: irregular; depo shot - Social History Smoking Status: Never smoker Exposure to second hand smoke: No Drug Use: none Patient Lives Alone: No - Social Determinants of Health Will the patient participate in the screening: Yes Do you worry about a steady place to live?: No In the past 12 months,have you had to go without utilities?: No Transportation Issues: No Has anyone in your support network made you feel unsafe?: No Have you or anyone in your house had to go without enough: No - Nursing Vital Signs Nursing Vital Signs: Initial Vital Signs Temperature 99.3 F 06/04/24 13:40 Pulse Rate 83 06/04/24 13:40 Respiratory Rate 18 06/04/24 13:40 Blood Pressure 144/100 06/04/24 13:40 O2 Sat by Pulse Oximetry 99 06/04/24 13:40 Pain Scale Pain Intensity 5 - Physical Exam General Appearance: no apparent distress, alert, anxiety Eye Exam: PERRL/EOMI, eyes nml inspection ENT Exam: normal ENT inspection, no apparent trauma, hearing grossly normal, TMs normal Neck Exam: normal inspection, non-tender, supple, full range of motion Respiratory Exam: normal breath sounds, lungs clear, no respiratory distress, no accessory muscle use, No chest non-tender, No respiratory distress, No accessory muscle use, No rhonchi, No stridor, No wheezing Cardiovascular/Chest Exam: normal heart sounds, regular rate/rhythm Gastrointestinal/Abdominal Exam: soft, non tender, no distention, no mass, no gu arding, no ecchymosis, no organomegaly, no pulsatile mass, normal bowel sounds Pelvic Exam: not done Rectal Exam: not done Extremity Exam: non-tender, normal range of motion, normal inspection, no calf tenderness, no pedal edema, pelvis stable Neurologic Exam: alert, oriented x 3, cooperative, clinical review specialist II-XII nml as tested, nml cerebellar function, nml station & gait, sensation nml Skin Exam: normal color, warm, dry Lymphatic: No adenopathy SpO2 Interpretation: normal O2 Delivery: Room Air - Course Nursing assessment & vital signs reviewed: Yes Ordered Tests: Active Orders 24 hr Category Date Time Status IV Insertion STAT Care 06/04/24 14:02 Active CHEST 1 VIEW (PORTABLE) Stat Exams 06/04/24 14:02 Completed BLOOD CULTURE Stat Lab 06/04/24 14:30 Received CBC W DIFF Stat Lab 06/04/24 14:23 Completed CMP Stat Lab 06/04/24 14:23 Completed HCG QUALITATIVE, SERUM Stat Lab 06/04/24 14:23 Completed Lactic Acid Stat Lab 06/04/24 14:37 Completed MONO SCREEN Stat Lab 06/04/24 14:23 Completed UA W/RFX UR CULTURE Stat Lab 06/04/24 14:09 Completed Medication Summary Discontinued Medications Generic Name Dose Route Start Last Admin Trade Name Freq PRN Reason Stop Dose Admin Acetaminophen 650 mg 06/04/24 14:29 06/04/24 15:19 Acetaminophen 325 Mg Tablet PO 06/04/24 14:30 650 mg STAT STA Administration Acetaminophen Confirm 06/04/24 15:12 Acetaminophen 325 Mg Tablet Administered 06/04/24 15:13 Dose 650 mg .ROUTE .STK-MED ONE Sodium Chloride 1,000 mls @ 999 mls/hr 06/04/24 14:02 06/04/24 15:23 Sodium Chloride 0.9% 1000 Ml IV 06/04/24 15:02 999 mls/hr .Q1H1M STA Administration Sodium Chloride Confirm 06/04/24 15:13 Sodium Chloride 0.9% 1000 Ml Administered 06/04/24 15:14 Dose 1,000 mls @ ud .ROUTE .STK-MED ONE Ibuprofen 600 mg 06/04/24 14:29 06/04/24 15:19 Ibuprofen 600 Mg Tablet PO 06/04/24 14:30 600 mg STAT STA Administration Ibuprofen Confirm 06/04/24 15:12 Ibuprofen 600 Mg Tablet Administered 06/04/24 15:13 Dose 600 mg .ROUTE .STK-MED ONE Ondansetron HCl 4 mg 06/04/24 14:29 06/04/24 15:24 Ondansetron Hcl 4 Mg/2 Ml Vial IV 06/04/24 14:30 4 mg STAT STA Administration Ondansetron HCl Confirm 06/04/24 15:12 Ondansetron Hcl 4 Mg/2 Ml Vial Administered 06/04/24 15:13 Dose 4 mg .ROUTE .STK-MED ONE Lab/Rad Data: Laboratory Result Diagrams 06/04/24 14:23 06/04/24 14:23 Laboratory Results 06/04/24 06/04/24 06/04/24 Range/Units 14:37 14:23 14:23 WBC (3.98-10.04) x10^3/uL RBC (3.93-5.22) x10^6/uL Hgb (11.2-15.7) g/dL Hct (34.1-44.9) % MCV (79.4-94.8) fL MCH (25.6-32.2) pg MCHC (32.2-35.5) g/dL RDW (11.7-14.4) % Plt Count (182-369) x10^3/uL MPV (9.4-12.3) fL Gran % (34.0-71.1) % Immature Gran % (Auto) (0.001-0.429) % Nucleat RBC Rel Count (0.00-0.2) % Eos # (Auto) (0.04-0.36) x10^3/uL Immature Gran # (Auto) (0.001-0.031) x10^3u/L Absolute Lymphs (auto) (1.18-3.74) x10^3/uL Absolute Monos (auto) (0.24-0.86) x10^3/uL Absolute Nucleated RBC (0.00-0.012) x10^3u/L Lymphocytes % (19.3-51.7) % Monocytes % (4.7-12.5) % Eosinophils % (0.7-5.8) % Basophils % (0.1-1.2) % Absolute Granulocytes (1.56-6.13) x10^3/uL Basophils # (0.01-0.08) x10^3/uL Sodium 142 (135-145) mmol/L Potassium 3.3 L (3.5-5.1) mmol/L Chloride 112 H (98-107) mmol/L Carbon Dioxide 19 L (22-30) mmol/L Anion Gap 14.4 (5-15) MEQ/L BUN 12 (7-17) mg/dL Creatinine 0.77 (0.52-1.04) mg/dL Estimated GFR 110.4 ML/MIN Glucose 108 H (74-106) mg/dL Lactic Acid 1.8 (0.4-2.0) Calcium 9.4 (8.4-10.2) mg/dL Total Bilirubin 0.80 (0.2-1.3) mg/dL AST 21 (14-36) U/L ALT 21 (0-35) U/L Alkaline Phosphatase 53 (38-126) U/L Serum Total Protein 7.1 (6.3-8.2) g/dL Albumin 4.4 (3.5-5.0) g/dL Serum HCG, Qual NEGATIVE (NEGATIVE) Urine Color (Yellow) Urine Appearance (Clear) Urine pH (4.6-8.0) Ur Specific Ebony (1.005-1.030) Urine Protein (Negative) Urine Glucose (UA) (Negative) mg/dL Urine Ketones (Negative) Urine Blood (Negative) Urine Nitrite (Negative) Urine Bilirubin (Negative) Urine Urobilinogen (0.2) mg/dL Ur Leukocyte Esterase (Negative) U Hyaline Cast (Auto) (0-2) /LPF Urine Microscopic RBC (0-5) /HPF Urine Microscopic WBC (0-5) /HPF Ur Epithelial Cells (None Seen) /HPF Urine Bacteria (None Seen) /HPF Urine Culture Reflexed (NO) Monoscreen NEGATIVE (NEGATIVE) Influenza Type A Ag (NEGATIVE) Influenza Type B Ag (NEGATIVE) RSV (PCR) (NEGATIVE) SARS-CoV-2 (PCR) (NEGATIVE) Group A Strep Antibody (NEGATIVE) 06/04/24 06/04/24 06/04/24 Range/Units 14:23 14:15 14:15 WBC 6.4 (3.98-10.04) x10^3/uL RBC 4.69 (3.93-5.22) x10^6/uL Hgb 14.6 (11.2-15.7) g/dL Hct 41.7 (34.1-44.9) % MCV 88.9 (79.4-94.8) fL MCH 31.1 (25.6-32.2) pg MCHC 35.0 (32.2-35.5) g/dL RDW 12.4 (11.7-14.4) % Plt Count 285 (182-369) x10^3/uL MPV 9.1 L (9.4-12.3) fL Gran % 55.7 (34.0-71.1) % Immature Gran % (Auto) 0.2 (0.001-0.429) % Nucleat RBC Rel Count 0.0 (0.00-0.2) % Eos # (Auto) 0.13 (0.04-0.36) x10^3/uL Immature Gran # (Auto) 0.01 (0.001-0.031) x10^3u/L Absolute Lymphs (auto) 2.30 (1.18-3.74) x10^3/uL Absolute Monos (auto) 0.37 (0.24-0.86) x10^3/uL Absolute Nucleated RBC 0.00 (0.00-0.012) x10^3u/L Lymphocytes % 35.8 (19.3-51.7) % Monocytes % 5.8 (4.7-12.5) % Eosinophils % 2.0 (0.7-5.8) % Basophils % 0.5 (0.1-1.2) % Absolute Granulocytes 3.58 (1.56-6.13) x10^3/uL Basophils # 0.03 (0.01-0.08) x10^3/uL Sodium (135-145) mmol/L Potassium (3.5-5.1) mmol/L Chloride (98-107) mmol/L Carbon Dioxide (22-30) mmol/L Anion Gap (5-15) MEQ/L BUN (7-17) mg/dL Creatinine (0.52-1.04) mg/dL Estimated GFR ML/MIN Glucose (74-106) mg/dL Lactic Acid (0.4-2.0) Calcium (8.4-10.2) mg/dL Total Bilirubin (0.2-1.3) mg/dL AST (14-36) U/L ALT (0-35) U/L Alkaline Phosphatase (38-126) U/L Serum Total Protein (6.3-8.2) g/dL Albumin (3.5-5.0) g/dL Serum HCG, Qual (NEGATIVE) Urine Color (Yellow) Urine Appearance (Clear) Urine pH (4.6-8.0) Ur Specific Ebony (1.005-1.030) Urine Protein (Negative) Urine Glucose (UA) (Negative) mg/dL Urine Ketones (Negative) Urine Blood (Negative) Urine Nitrite (Negative) Urine Bilirubin (Negative) Urine Urobilinogen (0.2) mg/dL Ur Leukocyte Esterase (Negative) U Hyaline Cast (Auto) (0-2) /LPF Urine Microscopic RBC (0-5) /HPF Urine Microscopic WBC (0-5) /HPF Ur Epithelial Cells (None Seen) /HPF Urine Bacteria (None Seen) /HPF Urine Culture Reflexed (NO) Monoscreen (NEGATIVE) Influenza Type A Ag NEGATIVE (NEGATIVE) Influenza Type B Ag NEGATIVE (NEGATIVE) RSV (PCR) NEGATIVE (NEGATIVE) SARS-CoV-2 (PCR) NEGATIVE (NEGATIVE) Group A Strep Antibody NOT DETECTED (NEGATIVE) 06/04/24 Range/Units 14:09 WBC (3.98-10.04) x10^3/uL RBC (3.93-5.22) x10^6/uL Hgb (11.2-15.7) g/dL Hct (34.1-44.9) % MCV (79.4-94.8) fL MCH (25.6-32.2) pg MCHC (32.2-35.5) g/dL RDW (11.7-14.4) % Plt Count (182-369) x10^3/uL MPV (9.4-12.3) fL Gran % (34.0-71.1) % Immature Gran % (Auto) (0.001-0.429) % Nucleat RBC Rel Count (0.00-0.2) % Eos # (Auto) (0.04-0.36) x10^3/uL Immature Gran # (Auto) (0.001-0.031) x10^3u/L Absolute Lymphs (auto) (1.18-3.74) x10^3/uL Absolute Monos (auto) (0.24-0.86) x10^3/uL Absolute Nucleated RBC (0.00-0.012) x10^3u/L Lymphocytes % (19.3-51.7) % Monocytes % (4.7-12.5) % Eosinophils % (0.7-5.8) % Basophils % (0.1-1.2) % Absolute Granulocytes (1.56-6.13) x10^3/uL Basophils # (0.01-0.08) x10^3/uL Sodium (135-145) mmol/L Potassium (3.5-5.1) mmol/L Chloride (98-107) mmol/L Carbon Dioxide (22-30) mmol/L Anion Gap (5-15) MEQ/L BUN (7-17) mg/dL Creatinine (0.52-1.04) mg/dL Estimated GFR ML/MIN Glucose (74-106) mg/dL Lactic Acid (0.4-2.0) Calcium (8.4-10.2) mg/dL Total Bilirubin (0.2-1.3) mg/dL AST (14-36) U/L ALT (0-35) U/L Alkaline Phosphatase (38-126) U/L Serum Total Protein (6.3-8.2) g/dL Albumin (3.5-5.0) g/dL Serum HCG, Qual (NEGATIVE) Urine Color Yellow (Yellow) Urine Appearance Clear (Clear) Urine pH 5.5 (4.6-8.0) Ur Specific Ebony 1.010 (1.005-1.030) Urine Protein Negative (Negative) Urine Glucose (UA) Negative (Negative) mg/dL Urine Ketones Negative (Negative) Urine Blood Negative (Negative) Urine Nitrite Negative (Negative) Urine Bilirubin Negative (Negative) Urine Urobilinogen 0.2 (0.2) mg/dL Ur Leukocyte Esterase Trace A (Negative) U Hyaline Cast (Auto) NONE SEEN (0-2) /LPF Urine Microscopic RBC 0-2 (0-5) /HPF Urine Microscopic WBC 0-2 (0-5) /HPF Ur Epithelial Cells None Seen (None Seen) /HPF Urine Bacteria None Seen (None Seen) /HPF Urine Culture Reflexed NO (NO) Monoscreen (NEGATIVE) Influenza Type A Ag (NEGATIVE) Influenza Type B Ag (NEGATIVE) RSV (PCR) (NEGATIVE) SARS-CoV-2 (PCR) (NEGATIVE) Group A Strep Antibody (NEGATIVE) - Progress Progress: improved Progress Note: 06/04/24 14:34 My medical decision making and the assignment of moderate complexity to this pat ient's medical issue today is based on review of the patient's past medical history, review the patient's medication list, review of patient drug allergy list, history present illness and physical findings on examination. The workup in this patient includes placement of intravenous line, infusion of Zofran intravenously, infusion of normal saline solution, oral Tylenol and oral ibuprofen, CBC, CMP, urinalysis, chest x-ray, viral swabs, monotest, group A strep test, urinalysis. Differential diagnosis includes but is not limited to urinary tract infection, viral illness, strep pharyngitis, pneumonia 06/04/24 16:01 The chest x-ray was interpreted by the radiologist. There is no new or acute findings 06/04/24 16:02 I interpreted the patient's laboratory data results. Based on the laboratory data results the patient does not have an acute or emergent medical issue. Counseled pt/family regarding: lab results, diagnosis, need for follow-up, rad results Medical Desision Making - Diagnostic Testing Diagnostic test were ordered, analyzed, and reviewed by me: Yes Radiological Interpretation: Reviewed by me, Teleradiologist Report - Risk of complications Low Risk: Low risk of morbidity from additional dx testing or treatment - Departure Departure Disposition: Home Clinical Impression: Fever of unknown origin Condition: Stable Critical Care Time: No Referrals: AMAN COLVIN DO [Primary Care Provider] - Follow up/PCP as directed Additional Instructions: Drink plenty of clear liquids before advancing your diet. Use Tylenol and ibuprofen, alternating every 4 hours while awake, for fever control. May also use lukewarm bath or shower to help control fever as well. Call your primary care provider tomorrow, 06/05/2024, to make arrangements for follow-up appointment for further evaluation and management.
[2024-06-04 13:52] VITALS: TEMP 99.3
[2024-06-04 14:36] LABS: Absolute Neutrophil Ct (ANC) 3.58 x10^3/uL (1.56-6.13); BASOPHIL % 0.5 % (0.1-1.2); Basophil (Absolute #) 0.03 x10^3/uL (0.01-0.08); Eosinophil (Absolute #) 0.13 x10^3/uL (0.04-0.36); Hematocrit 41.7 % (34.1-44.9); Hemoglobin 14.6 g/dL (11.2-15.7); IMMATURE GRAN # 0.01 x10^3u/L (0.001-0.031); IMMATURE GRAN % 0.2 % (0.001-0.429); Lymphocytes % 35.8 % (19.3-51.7); Mean Cell Volume 88.9 fL (79.4-94.8); Mean Corpuscular Hemoglobin 31.1 pg (25.6-32.2); Mean Platelet Volume 9.1 fL (9.4-12.3); Monocyte (Absolute #) 0.37 x10^3/uL (0.24-0.86); Monocytes % 5.8 % (4.7-12.5); Neutrophil % 55.7 % (34.0-71.1); Platelet Count 285 x10^3/uL (182-369); Red Blood Count 4.69 x10^6/uL (3.93-5.22); Red Cell Distribution Width 12.4 % (11.7-14.4); White Blood Count 6.4 x10^3/uL (3.98-10.04)
[2024-06-04 14:48] LABS: Appearance Clear (Clear); Bacteria None Seen /HPF (None Seen); Bilirubin Negative (Negative); Blood Negative (Negative); Epithelial Cells None Seen /HPF (None Seen); Glucose, Urine Negative (Negative); Hyaline Casts NONE SEEN /LPF (0-2); Ketones Negative (Negative); Leukocyte Esterase Trace (Negative); Nitrite Negative (Negative); Ph 5.5 (4.6-8.0); Protein,Urine Dip Negative (Negative); RBC 0-2 /HPF (0-5); Urobilinogen 0.2 mg/dL (0.2); WBC 0-2 /HPF (0-5)
[2024-06-04 14:53] LABS: HCG SERUM TEST NEGATIVE (NEGATIVE)
[2024-06-04 14:54] LABS: ALBUMIN 4.4 g/dL (3.5-5.0); ANION GAP 14.4 MEQ/L (5-15); BILIRUBIN,TOTAL 0.8 mg/dL (0.2-1.3); Calcium 9.4 mg/dL (8.4-10.2); Creatinine 1 0.77 mg/dL (0.52-1.04); EST GLOMERULAR FILTRATION RATE 110.4 ML/MIN; Potassium 3.3 mmol/L (3.5-5.1); Total Protein 7.1 g/dL (6.3-8.2)
[2024-06-04] MEDS ORDERED: MOTRIN 600 MG ONE (15:12)
[2024-06-04] MEDS ORDERED: TYLENOL 325 MG ONE (15:12)
[2024-06-04] MEDS ORDERED: Zofran 4 MG/2 ML VIAL ONE (15:12)
[2024-06-04] MEDS ORDERED: Sodium Chloride 0.9% 1000 ML 1,000 ML ONE (15:13)
[2024-06-04 15:19] LABS: INFLUENZA A NEGATIVE (NEGATIVE); INFLUENZA B NEGATIVE (NEGATIVE); RESPIRATORY SYNCTIAL VIRUS NEGATIVE (NEGATIVE); SARS-CoV-2 Xpert Express NEGATIVE (NEGATIVE)
[2024-06-04] MEDS: TYLENOL 325 MG PO STA (15:19)
[2024-06-04] MEDS: MOTRIN 600 MG PO STA (15:19)
--- NOTE | 2024-06-04 15:22 | XRAY ---
Indication: Fever. Comparison: September 16, 2023 Portable chest inflated and remains clear again with incidental right lung calcified granulomas. Heart not enlarged. Bony thorax intact. No new/acute findings.
[2024-06-04] MEDS: Sodium Chloride 0.9% 1000 ML 1,000 ML IV STA (15:23)
[2024-06-04] MEDS: Zofran 4 MG/2 ML VIAL IV STA (15:24)
[2024-06-04] MEDS: Klor Con PO ONE (16:25)
[2024-06-04] MEDS ORDERED: Klor Con ONE (16:25)
[2024-06-04 16:29] VITALS: BP 111/68; PULSE 83; RESP 16; O2SAT 100
== END 2024-06-04 16:35 | disposition home or self-care (01) ==
LOC: ED 13:31
DX: R50.9 Fever, unspecified (principal); R11.0 Nausea; E78.5 Hyperlipidemia, unspecified; I10 Essential (primary) hypertension; Z79.899 Other long term (current) drug therapy
CPT/HCPCS: 0241U; 36000; 36415; 71045; 80053; 81001; 83605; 84703; 85025; 86308; 87040; 87651; 96360; 96374; 99284; J2405; A9270-GY

== ENCOUNTER 2024-12-16 08:23 | Emergency (ER) | payer MEDICARE ==
[2024-12-16 08:34] VITALS: TEMP 100.2
[2024-12-16] MEDS ORDERED: Sodium Chloride 0.9% 1000 ML 1,000 ML ONE (08:55)
[2024-12-16] MEDS ORDERED: Zofran 4 MG/2 ML VIAL ONE (08:55)
[2024-12-16] MEDS ORDERED: FEVERALL 650 MG ONE (08:55)
--- NOTE | 2024-12-16 09:01 | ERPHSYRPT ---
- History of Present Illness Time Seen by Provider: 12/16/24 08:40 Source: patient Exam Limitations: no limitations Patient Subjective Stated Complaint: Pt states "I went to [facility] because for the past four to five days I have been nauseated and I have a fever and diar kvng." Triage Nursing Assessment: PT presented alert and oriented X 3, skin pwd. Pt ambulates with an upright steady gait, able to speak in clear full sentences. Pt resting comfortably on the bed. Physician History: 24-year-old female diabetic presents to the emergency department for evaluation as a referral from [facility] due to fever nausea vomiting and diarrhea. Symptoms started 4 days ago. Patient believes she is dehydrated. Patient repo rts her urine output is decreased. Patient advises that she had a urethral dilation back in November. However she believes her urine outflow was decreased secondary to dehydration. Subjective fever at home. No back pain no abdominal pain no neck pain no photophobia no meningeal signs. No chest pain or shortness of breath. Symptoms are mild to moderate in intensity. No specific worsening or improving factors. Grandmother at bedside. They voiced no other complaints or concerns at this time. Portions of this note were created with voice recognition technology. There may be grammatical, spelling, punctuation or sound alike errors Timing/Duration: day(s) Severity: moderate Modifying Factors: Improves With: nothing Associated Symptoms: nausea, vomiting, No shortness of breath Allergies/Adverse Reactions: hydromorphone HCl [From Dilaudid] Allergy (Severe, Verified 06/04/24 13:53) Hives Severe itching with hives penicillin G Allergy (Mild, Verified 06/04/24 13:53) Swelling duloxetine [From Cymbalta] Allergy (Verified 06/04/24 13:53) Rapid Heart Beat pertussis vaccine,adsorbed [Pertussis Vaccine,Adsorbed] Adverse Reaction (Verified 06/04/24 13:53) Swelling Home Medications: Cetirizine HCl [All Day Allergy Relief] 10 mg PO DAILY 01/24/24 [History] Fluticasone Propionate 2 spray INTRANASAL DAILY 01/24/24 [History] Ondansetron ODT 4 MG [Zofran Odt 4 mg] 4 mg PO DAILY PRN 02/11/24 [History] Topiramate 25 mg [Topamax 25 MG] 25 mg PO DAILY 06/04/24 [History] Albuterol Sulfate/Budesonide [Airsupra 90-80 Mcg Inhaler] 1 puff IH DAILY PRN 12/16/24 [History] Levothyroxine Sodium [Unithroid] 150 mcg PO DAILY 12/16/24 [History] Hx Tetanus, Diphtheria Vaccination/Date Given: No Hx Influenza Vaccination/Date Given: No Hx Pneumococcal Vaccination/Date Given: No Immunizations Up to Date: No Travel Risk - International Travel Have you traveled outside of the country in past 3 weeks: No - Emerging Infectious Disease Are you exhibiting symptoms associated with any current EIDs: Yes Symptoms: Diarrhea, Fever - Review of Systems Constitutional: No Symptoms, No Fever, No Chills Eyes: No Symptoms Ears, Nose, & Throat: No Symptoms Respiratory: No Symptoms, No Cough, No Dyspnea Cardiac: No Symptoms, No Chest Pain, No Edema, No Syncope Abdominal/Gastrointestinal: No Symptoms, No Abdominal Pain, No Nausea, No Vomi ting, No Diarrhea Genitourinary Symptoms: No Symptoms, No Dysuria Musculoskeletal: No Symptoms, No Back Pain, No Neck Pain Skin: No Symptoms, No Rash Neurological: No Symptoms, No Dizziness, No Focal Weakness, No Sensory Changes Psychological: No Symptoms Endocrine: No Symptoms Hematologic/Lymphatic: No Symptoms Immunological/Allergic: No Symptoms All Other Systems: Reviewed and Negative - Past Medical History Pertinent Past Medical History: Yes Neurological History: Migraines, Seizures ENT History: No Pertinent History Cardiac History: High Cholesterol, Hypertension Respiratory History: Asthma Endocrine Medical History: Hypothyroidism Musculoskeletal History: No Pertinent History GI Medical History: Irritable Bowel History: No Pertinent History Psycho-Social History: Anxiety, Depression, Other Female Reproductive Disorders: Abnormal Uterine Bleeding, Endometriosis Other Medical History: CHENCHO, Austism, PTSD. type II diabetes - Past Surgical History Past Surgical History: Yes Neuro Surgical History: No Pertinent History Cardiac: No Pertinent History Respiratory: No Pertinent History Gastrointestinal: No Pertinent History Genitourinary: Other Musculoskeletal: No Pertinent History Female Surgical History: No Pertinent History Other Surgical History: EGD, Colonoscopy, Levels Teeth Removed, Endoscopy, epidural steroid injections, urethra Significant Family History: no pertinent family hx - Female History Hx Last Menstrual Period: depo Hx Now: No - Social History Smoking Status: Never smoker Exposure to second hand smoke: Yes Drug Use: none - Social Determinants of Health Will the patient participate in the screening: Yes Do you worry about a steady place to live?: No Do you have any problems with any of the following?: No known problems In the past 12 months,have you had to go without utilities?: No Transportation Issues: No Has anyone in your support network made you feel unsafe?: No Have you or anyone in your house had to go w/o enough food: No - Nursing Vital Signs Nursing Vital Signs: Initial Vital Signs Temperature 100.2 F 12/16/24 08:27 Pulse Rate 92 H 12/16/24 08:27 Respiratory Rate 20 12/16/24 08:27 Blood Pressure 128/79 12/16/24 08:27 O2 Sat by Pulse Oximetry 100 12/16/24 08:27 Pain Scale Pain Intensity 0 - Physical Exam General Appearance: no apparent distress, alert Eye Exam: PERRL/EOMI, eyes nml inspection Ears, Nose, Throat Exam: normal ENT inspection, moist mucous membranes Neck Exam: normal inspection, full range of motion Respiratory Exam: normal breath sounds, lungs clear, airway intact, No respiratory distress Cardiovascular Exam: regular rate/rhythm, normal heart sounds, normal peripheral pulses Gastrointestinal/Abdomen Exam: soft, normal bowel sounds, No tenderness, No mass Back Exam: normal inspection, normal range of motion, No CVA tenderness, No vertebral tenderness Extremity Exam: normal inspection, normal range of motion, pelvis stable Neurologic Exam: alert, oriented x 3, cooperative, normal mood/affect, sensation nml, No motor deficits Skin Exam: normal color, warm, dry, No rash Lymphatic Exam: No adenopathy SpO2 Interpretation: normal SpO2: 100 O2 Delivery: Room Air - Course Nursing assessment & vital signs reviewed: Yes Ordered Tests: Active Orders 24 hr Category Date Time Status Insulator Technician STAT Care 12/16/24 08:53 Active IV Insertion STAT Care 12/16/24 08:52 Active Pulse Oximetry (ED) STAT Care 12/16/24 08:52 Active BLOOD CULTURE Stat Lab 12/16/24 09:15 Received CBC W DIFF Stat Lab 12/16/24 08:52 Completed CMP Stat Lab 12/16/24 09:07 Completed CULTURE,URINE Stat Lab 12/16/24 10:31 Received HCG QUALITATIVE, URINE Stat Lab 12/16/24 10:40 Completed Lactic Acid Stat Lab 12/16/24 08:52 Completed TROPONIN Q4H Lab 12/16/24 08:52 Completed TROPONIN Q4H Lab 12/16/24 15:30 Ordered TROPONIN Q4H Lab 12/16/24 19:30 Ordered UA W/RFX UR CULTURE Stat Lab 12/16/24 10:31 Completed Medication Summary Generic Name Dose Route Start Last Admin Trade Name Freq PRN Reason Stop Dose Admin Levofloxacin/Dextrose 500 mg in 100 mls @ 100 mls/hr 12/16/24 11:06 12/16/24 11:16 Levofloxacin 500mg/100ml D5w IV 12/16/24 12:05 100 mls/hr STAT STA 100 mls/hr Administration Discontinued Medications Generic Name Dose Route Start Last Admin Trade Name Freq PRN Reason Stop Dose Admin Acetaminophen 975 mg 12/16/24 08:52 12/16/24 09:12 Acetaminophen 650 Mg Supp.Rect MA 12/16/24 08:53 Not Given STAT STA Acetaminophen Confirm 12/16/24 08:55 Acetaminophen 650 Mg Supp.Rect Administered 12/16/24 08:56 Dose 1,300 mg .ROUTE .STK-MED ONE Dextrose 50 ml 12/16/24 10:32 12/16/24 10:33 Dextrose 50%-Water 50 Ml Abboject IV 12/16/24 10:33 50 ml STAT ONE Administration Dextrose Confirm 12/16/24 10:33 Dextrose 50%-Water 50 Ml Abboject Administered 12/16/24 10:34 Dose 50 ml IV .STK-MED ONE Sodium Chloride 1,000 mls @ 999 mls/hr 12/16/24 08:52 12/16/24 10:17 Sodium Chloride 0.9% 1000 Ml IV 12/16/24 09:52 Infused .Q1H1M STA Infusion Sodium Chloride Confirm 12/16/24 08:55 Sodium Chloride 0.9% 1000 Ml Administered 12/16/24 08:56 Dose 1,000 mls @ ud .ROUTE .STK-MED ONE Acetaminophen 1,000 mg in 100 mls @ 400 mls/hr 12/16/24 09:10 12/16/24 09:35 Ofirmev IV 12/16/24 09:24 Infused STAT ONE Infusion Acetaminophen Confirm 12/16/24 09:16 Ofirmev Administered 12/16/24 09:17 Dose 100 mls @ ud IV .STK-MED ONE Levofloxacin/Dextrose Confirm 12/16/24 11:15 Levofloxacin 500mg/100ml D5w Administered 12/16/24 11:16 Dose 500 mg in 100 mls @ IV .STK-MED ONE Metoclopramide HCl 10 mg 12/16/24 11:11 12/16/24 11:16 Metoclopramide Hcl 10 Mg/2 Ml Vial IV 12/16/24 11:12 10 mg STAT ONE Administration Metoclopramide HCl Confirm 12/16/24 11:15 Metoclopramide Hcl 10 Mg/2 Ml Vial Administered 12/16/24 11:16 Dose 10 mg .ROUTE .STK-MED ONE Ondansetron HCl 4 mg 12/16/24 08:52 12/16/24 09:15 Ondansetron Hcl 4 Mg/2 Ml Vial IV 12/16/24 08:53 4 mg STAT STA Administration Ondansetron HCl Confirm 12/16/24 08:55 Ondansetron Hcl 4 Mg/2 Ml Vial Administered 12/16/24 08:56 Dose 4 mg .ROUTE .STK-MED ONE Lab/Rad Data: Laboratory Result Diagrams 12/16/24 08:52 12/16/24 09:07 Laboratory Results 12/16/24 12/16/24 12/16/24 Range/Units 10:40 10:31 09:15 WBC (3.98-10.04) x10^3/uL RBC (3.93-5.22) x10^6/uL Hgb (11.2-15.7) g/dL Hct (34.1-44.9) % MCV (79.4-94.8) fL MCH (25.6-32.2) pg MCHC (32.2-35.5) g/dL RDW (11.7-14.4) % Plt Count (182-369) x10^3/uL MPV (9.4-12.3) fL Gran % (34.0-71.1) % Immature Gran % (Auto) (0.001-0.429) % Nucleat RBC Rel Count (0.00-0.2) % Eos # (Auto) (0.04-0.36) x10^3/uL Immature Gran # (Auto) (0.001-0.031) x10^3u/L Absolute Lymphs (auto) (1.18-3.74) x10^3/uL Absolute Monos (auto) (0.24-0.86) x10^3/uL Absolute Nucleated RBC (0.00-0.012) x10^3u/L Lymphocytes % (19.3-51.7) % Monocytes % (4.7-12.5) % Eosinophils % (0.7-5.8) % Basophils % (0.1-1.2) % Absolute Granulocytes (1.56-6.13) x10^3/uL Basophils # (0.01-0.08) x10^3/uL Sodium (135-145) mmol/L Potassium (3.5-5.1) mmol/L Chloride (98-107) mmol/L Carbon Dioxide (22-30) mmol/L Anion Gap (5-15) MEQ/L BUN (7-17) mg/dL Creatinine (0.52-1.04) mg/dL Estimated GFR ML/MIN Glucose (74-106) mg/dL Lactic Acid (0.4-2.0) Calcium (8.4-10.2) mg/dL Total Bilirubin (0.2-1.3) mg/dL AST (14-36) U/L ALT (0-35) U/L Alkaline Phosphatase (38-126) U/L Troponin I (0.000-0.033) ng/mL Serum Total Protein (6.3-8.2) g/dL Albumin (3.5-5.0) g/dL Urine Color Yellow (Yellow) Urine Appearance Clear (Clear) Urine pH 5.0 (4.6-8.0) Ur Specific [place] >=1.030 A (1.005-1.030) Urine Protein Trace A (Negative) Urine Glucose (UA) Negative (Negative) mg/dL Urine Ketones >=160 A (Negative) Urine Blood Negative (Negative) Urine Nitrite Negative (Negative) Urine Bilirubin Negative (Negative) Urine Urobilinogen 0.2 (0.2) mg/dL Ur Leukocyte Esterase Negative (Negative) U Hyaline Cast (Auto) NONE SEEN (0-2) /LPF Urine Microscopic RBC 3-5 (0-5) /HPF Urine Microscopic WBC 21-50 A (0-5) /HPF Ur Epithelial Cells Rare (None Seen) /HPF Urine Bacteria Moderate A (None Seen) /HPF Urine Culture Reflexed YES (NO) Urine HCG, Qual NEGATIVE (NEGATIVE) Influenza Type A Ag NEGATIVE (NEGATIVE) Influenza Type B Ag NEGATIVE (NEGATIVE) RSV (PCR) NEGATIVE (NEGATIVE) SARS-CoV-2 (PCR) NEGATIVE (NEGATIVE) 12/16/24 12/16/24 12/16/24 Range/Units 09:07 08:52 08:52 WBC (3.98-10.04) x10^3/uL RBC (3.93-5.22) x10^6/uL Hgb (11.2-15.7) g/dL Hct (34.1-44.9) % MCV (79.4-94.8) fL MCH (25.6-32.2) pg MCHC (32.2-35.5) g/dL RDW (11.7-14.4) % Plt Count (182-369) x10^3/uL MPV (9.4-12.3) fL Gran % (34.0-71.1) % Immature Gran % (Auto) (0.001-0.429) % Nucleat RBC Rel Count (0.00-0.2) % Eos # (Auto) (0.04-0.36) x10^3/uL Immature Gran # (Auto) (0.001-0.031) x10^3u/L Absolute Lymphs (auto) (1.18-3.74) x10^3/uL Absolute Monos (auto) (0.24-0.86) x10^3/uL Absolute Nucleated RBC (0.00-0.012) x10^3u/L Lymphocytes % (19.3-51.7) % Monocytes % (4.7-12.5) % Eosinophils % (0.7-5.8) % Basophils % (0.1-1.2) % Absolute Granulocytes (1.56-6.13) x10^3/uL Basophils # (0.01-0.08) x10^3/uL Sodium 144 (135-145) mmol/L Potassium 3.6 (3.5-5.1) mmol/L Chloride 108 H (98-107) mmol/L Carbon Dioxide 18 L (22-30) mmol/L Anion Gap 20.9 H (5-15) MEQ/L BUN 14 (7-17) mg/dL Creatinine 0.73 (0.52-1.04) mg/dL Estimated GFR 117.0 ML/MIN Glucose 64 L (74-106) mg/dL Lactic Acid 1.1 (0.4-2.0) Calcium 9.6 (8.4-10.2) mg/dL Total Bilirubin 1.60 H (0.2-1.3) mg/dL AST 24 (14-36) U/L ALT 19 (0-35) U/L Alkaline Phosphatase 65 (38-126) U/L Troponin I < 0.012 (0.000-0.033) ng/mL Serum Total Protein 7.0 (6.3-8.2) g/dL Albumin 4.7 (3.5-5.0) g/dL Urine Color (Yellow) Urine Appearance (Clear) Urine pH (4.6-8.0) Ur Specific [place] (1.005-1.030) Urine Protein (Negative) Urine Glucose (UA) (Negative) mg/dL Urine Ketones (Negative) Urine Blood (Negative) Urine Nitrite (Negative) Urine Bilirubin (Negative) Urine Urobilinogen (0.2) mg/dL Ur Leukocyte Esterase (Negative) U Hyaline Cast (Auto) (0-2) /LPF Urine Microscopic RBC (0-5) /HPF Urine Microscopic WBC (0-5) /HPF Ur Epithelial Cells (None Seen) /HPF Urine Bacteria (None Seen) /HPF Urine Culture Reflexed (NO) Urine HCG, Qual (NEGATIVE) Influenza Type A Ag (NEGATIVE) Influenza Type B Ag (NEGATIVE) RSV (PCR) (NEGATIVE) SARS-CoV-2 (PCR) (NEGATIVE) 12/16/24 Range/Units 08:52 WBC 7.3 (3.98-10.04) x10^3/uL RBC 4.89 (3.93-5.22) x10^6/uL Hgb 14.7 (11.2-15.7) g/dL Hct 43.3 (34.1-44.9) % MCV 88.5 (79.4-94.8) fL MCH 30.1 (25.6-32.2) pg MCHC 33.9 (32.2-35.5) g/dL RDW 11.7 (11.7-14.4) % Plt Count 245 (182-369) x10^3/uL MPV 8.9 L (9.4-12.3) fL Gran % 61.3 (34.0-71.1) % Immature Gran % (Auto) 0.1 (0.001-0.429) % Nucleat RBC Rel Count 0.0 (0.00-0.2) % Eos # (Auto) 0.08 (0.04-0.36) x10^3/uL Immature Gran # (Auto) 0.01 (0.001-0.031) x10^3u/L Absolute Lymphs (auto) 2.22 (1.18-3.74) x10^3/uL Absolute Monos (auto) 0.46 (0.24-0.86) x10^3/uL Absolute Nucleated RBC 0.00 (0.00-0.012) x10^3u/L Lymphocytes % 30.6 (19.3-51.7) % Monocytes % 6.3 (4.7-12.5) % Eosinophils % 1.1 (0.7-5.8) % Basophils % 0.6 (0.1-1.2) % Absolute Granulocytes 4.45 (1.56-6.13) x10^3/uL Basophils # 0.04 (0.01-0.08) x10^3/uL Sodium (135-145) mmol/L Potassium (3.5-5.1) mmol/L Chloride (98-107) mmol/L Carbon Dioxide (22-30) mmol/L Anion Gap (5-15) MEQ/L BUN (7-17) mg/dL Creatinine (0.52-1.04) mg/dL Estimated GFR ML/MIN Glucose (74-106) mg/dL Lactic Acid (0.4-2.0) Calcium (8.4-10.2) mg/dL Total Bilirubin (0.2-1.3) mg/dL AST (14-36) U/L ALT (0-35) U/L Alkaline Phosphatase (38-126) U/L Troponin I (0.000-0.033) ng/mL Serum Total Protein (6.3-8.2) g/dL Albumin (3.5-5.0) g/dL Urine Color (Yellow) Urine Appearance (Clear) Urine pH (4.6-8.0) Ur Specific [place] (1.005-1.030) Urine Protein (Negative) Urine Glucose (UA) (Negative) mg/dL Urine Ketones (Negative) Urine Blood (Negative) Urine Nitrite (Negative) Urine Bilirubin (Negative) Urine Urobilinogen (0.2) mg/dL Ur Leukocyte Esterase (Negative) U Hyaline Cast (Auto) (0-2) /LPF Urine Microscopic RBC (0-5) /HPF Urine Microscopic WBC (0-5) /HPF Ur Epithelial Cells (None Seen) /HPF Urine Bacteria (None Seen) /HPF Urine Culture Reflexed (NO) Urine HCG, Qual (NEGATIVE) Influenza Type A Ag (NEGATIVE) Influenza Type B Ag (NEGATIVE) RSV (PCR) (NEGATIVE) SARS-CoV-2 (PCR) (NEGATIVE) - Progress Progress: improved Progress Note: Patient reported that her glucometer alerted her of a low blood glucose. Patient states her glucose was 53. We advised eating a meal. However patient states that she cannot tolerate p.o. as she is still nauseous. D50 ordered and administered. 12/16/24 10:32 24-year-old female presents the emergency department for evaluation of nausea vomiting fever.. Patient diagnosed with a urinary tract infection on outpatient basis. Patient states the nausea and vomiting precluded her from taking her medications. Workup reveals dehydration. Additionally UTI confirmed. Patient received IV dose of Levaquin. Patient received a dose of Zofran. However patient states Zofran is not effective for her. Patient requested Reglan. Patient then received a dose of Reglan. Patient nausea significantly improved. Patient tolerating p.o. A prescription for Reglan along with Levaquin forwarded to patient's pharmacy. Patient agrees to follow-up with the primary care doctor within 48 hours for reevaluation. She voices no other complaints or concerns at this time. Portions of this note were created with voice recognition technology. There may be grammatical, spelling, punctuation or sound alike errors Complexity of problem addressed is moderate acute complicated. No critical care time. Complex of data reviewed and analyzed as moderate. Test ordered test reviewed results analyzed and correlated clinically with history and physical exam. Risk of complication and or risk of morbidity/mortality of patient management is moderate. A prescription for Reglan and Levaquin forwarded to patient's pharmacy. Vital stable. Time spent to discharge patient is approximately 15 minutes. Plan of care established for shared decision making. No social determinants of health present to impede follow-up. Portions of this note were created with voice recognition technology. There may be grammatical, spelling, punctuation or sound alike errors 12/16/24 11:14 Counseled pt/family regarding: lab results, diagnosis, need for follow-up - Departure Departure Disposition: Home Clinical Impression: Fever, Nausea & vomiting, Urinary tract infection, Dehydration Condition: Stable Critical Care Time: No Referrals: AMAN COLVIN DO [Primary Care Provider] - Follow up/PCP as directed Additional Instructions: Discharge/Care Plan GABRIELA PRECIADOYENNJose ROMO was seen on 12/16/24 in the Emergency Room. The patient was counseled regarding Diagnosis,Lab results, Imaging studies, need for follow up and when to return to the Emergency Room. Prescriptions given: Discharge Note I have spoken with the patient and/or caregivers. I have explained the patient's condition, diagnosis and treatment plan based on the information available to me at this time. I have answered the patient's and/or caregiver's questions and addressed any concerns. The patient and/or caregivers have as good understanding of the patient's diagnosis, condition and treatment plan as can be expected at this point. The vital signs have been stable. The patient's condition is stable and appropriate for discharge from the emergency department. The patient will pursue further outpatient evaluation with the primary care p hymaritaan or other designated or consulting physician as outlined in the discharge instructions. The patient and/or caregivers are agreeable to this plan of care and follow-up instructions have been explained in detail. The patient and/or caregivers have received these instruction. The patient/and or caregivers are aware that any significant change in condition or worsening of symptoms should prompt an immediate return to this or the closest emergency department or call 911. Prescriptions: Metoclopramide HCl 10 mg [Reglan 10 MG] 10 mg PO Q8H PRN PRN 3 Days #9 tablet PRN Reason: Vomiting Levofloxacin [Levaquin 500 MG Tablet] 500 mg PO DAILY #7 tablet
[2024-12-16] MEDS: FEVERALL 650 MG PR STA (09:12)
[2024-12-16] MEDS: Zofran 4 MG/2 ML VIAL IV STA (09:15)
[2024-12-16] MEDS: Sodium Chloride 0.9% 1000 ML 1,000 ML IV STA (09:15)
[2024-12-16] MEDS ORDERED: OFIRMEV 100 ML IV ONE (09:16)
[2024-12-16] MEDS: OFIRMEV 1,000 MG/100 ML ML IV ONE (09:16)
[2024-12-16 09:22] LABS: Absolute Neutrophil Ct (ANC) 4.45 x10^3/uL (1.56-6.13); BASOPHIL % 0.6 % (0.1-1.2); Basophil (Absolute #) 0.04 x10^3/uL (0.01-0.08); Eosinophil % 1.1 % (0.7-5.8); Eosinophil (Absolute #) 0.08 x10^3/uL (0.04-0.36); Hematocrit 43.3 % (34.1-44.9); Hemoglobin 14.7 g/dL (11.2-15.7); IMMATURE GRAN # 0.01 x10^3u/L (0.001-0.031); IMMATURE GRAN % 0.1 % (0.001-0.429); Lymphocyte (Absolute #) 2.22 x10^3/uL (1.18-3.74); Lymphocytes % 30.6 % (19.3-51.7); Mean Cell Volume 88.5 fL (79.4-94.8); Mean Corpuscular Hemoglobin 30.1 pg (25.6-32.2); Mean Corpuscular Hgb Concent. 33.9 g/dL (32.2-35.5); Mean Platelet Volume 8.9 fL (9.4-12.3); Monocyte (Absolute #) 0.46 x10^3/uL (0.24-0.86); Monocytes % 6.3 % (4.7-12.5); Neutrophil % 61.3 % (34.0-71.1); Platelet Count 245 x10^3/uL (182-369); Red Blood Count 4.89 x10^6/uL (3.93-5.22); Red Cell Distribution Width 11.7 % (11.7-14.4); White Blood Count 7.3 x10^3/uL (3.98-10.04)
[2024-12-16 09:37] LABS: ALBUMIN 4.7 g/dL (3.5-5.0); ANION GAP 20.9 MEQ/L (5-15); BILIRUBIN,TOTAL 1.6 mg/dL (0.2-1.3); Calcium 9.6 mg/dL (8.4-10.2); Creatinine 1 0.73 mg/dL (0.52-1.04); Potassium 3.6 mmol/L (3.5-5.1)
[2024-12-16 10:00] LABS: INFLUENZA A NEGATIVE (NEGATIVE); INFLUENZA B NEGATIVE (NEGATIVE); RESPIRATORY SYNCTIAL VIRUS NEGATIVE (NEGATIVE); SARS-CoV-2 Xpert Express NEGATIVE (NEGATIVE)
[2024-12-16] MEDS ORDERED: D50W 50 ml Abboject IV ONE (10:33)
[2024-12-16] MEDS: D50W 50 ml Abboject IV ONE (10:33)
[2024-12-16 10:46] LABS: HCG URINE TEST NEGATIVE (NEGATIVE)
[2024-12-16 10:59] LABS: Appearance Clear (Clear); Bacteria Moderate /HPF (None Seen); Bilirubin Negative (Negative); Blood Negative (Negative); Epithelial Cells Rare /HPF (None Seen); Glucose, Urine Negative (Negative); Hyaline Casts NONE SEEN /LPF (0-2); Ketones >=160 (Negative); Leukocyte Esterase Negative (Negative); Nitrite Negative (Negative); Protein,Urine Dip Trace (Negative); Specific Gravity >=1.030 (1.005-1.030); Urobilinogen 0.2 mg/dL (0.2); WBC 21-50 /HPF (0-5)
[2024-12-16] MEDS ORDERED: Levofloxacin 500MG/100ML D5W 500 MG/100 ML BAG IV ONE (11:15)
[2024-12-16] MEDS ORDERED: Reglan 10 MG/2 ML ONE (11:15)
[2024-12-16] MEDS: Reglan 10 MG/2 ML IV ONE (11:16)
[2024-12-16] MEDS: Levofloxacin 500MG/100ML D5W 500 MG/100 ML BAG IV STA (11:16)
[2024-12-16 12:02] VITALS: BP 108/60; PULSE 85; RESP 14; O2SAT 99
== END 2024-12-16 12:04 | disposition home or self-care (01) ==
LOC: ED 08:23
DX: N39.0 Urinary tract infection, site not specified (principal); R50.9 Fever, unspecified; R11.2 Nausea with vomiting, unspecified; E86.0 Dehydration; E11.9 Type 2 diabetes mellitus without complications; E78.5 Hyperlipidemia, unspecified; I10 Essential (primary) hypertension
CPT/HCPCS: 0241U; 36415; 80053; 81001; 81025; 83605; 84484; 85025; 87040; 87086; 93041; 94760; 96361; 96365; 96375; 99285; 96374; 99284; J1956; J2405; A9270-GY